=== PATIENT | female | born 1940 | race Caucasian/White ===

== ENCOUNTER 2018-04-03 14:17 | Inpatient (IN) | payer MEDICARE, OTHER ==
[~2018-04-03] VITALS: Ht 162.6 cm; Wt 51.8 kg
[~2018-04-03 14:17] MED LIST: ALPR0.254 PO; ALPR1TAB2 PO; AMIT25TA PO; ASPI-630 PO; ATOM40CA PO; ATOR10TA PO; CALC200T3 PO; CALC500T PO; CARV12.5 PO; CEFA1VIA2 IV; CEPH500C PO; CETI10TA16 PO; CHOL500016 PO; CLOM25CA2 PO; CLON0.5T3 PO; CLON1PAT2 TD; CLON1TAB3 PO; CLON2TAB2 PO; CRESTOR20 MG PO; CYAN100031 PO; DOCU-109 PO; ESOM40CA47 PO; EZET10TA18 PO; FAMO-63 PO; GUAI-171 PO; HYDR20VI5 IV; INSU100I13 SQ; INSU100V13 SQ; IPRA15SP NS; LIPA1CAP11 PO; LISI-334 PO; LISI40TA PO; LITH150C PO; LITH300C PO; LITH300T3 PO; MEGE40TA PO; MELA1TAB13 PO; METF500T5 PO; MIRT15TA PO; NEO/5DRO OU; NYST1000 PO; OLAN2.5T3 PO; OLAN5TAB5 PO; OXCA300T PO; POTA20TA12 PO; TRAM50TA PO; TRAZ-90 PO; TRAZ50TA15 PO
[2018-04-03] MEDS ORDERED: MAG HYDROX/AL HYDROX/SIMETH 30 ML ORAL.SUSP PO PRN (15:45)
[2018-04-03] MEDS ORDERED: MAGNESIUM HYDROXIDE 2,400 MG/30 ML ORAL.SUSP. PO PRN (15:45)
[2018-04-03] MEDS ORDERED: METHYL SALICYLATE/MENTHOL TOPICAL OINTMENT 29GM TUBE. TP PRN (15:45)
[2018-04-03 15:52] VITALS: BP 154/59
[2018-04-03] MEDS ORDERED: ALEN70TA5 PO (17:08)
[2018-04-03] MEDS ORDERED: METO50TA29 PO (17:08)
[2018-04-03] MEDS ORDERED: PRIM50TA PO (17:08)
[2018-04-03] MEDS ORDERED: GABA-585 PO (17:08)
[2018-04-03] MEDS ORDERED: ZOLP10TA4 PO (17:08)
[2018-04-03] MEDS ORDERED: ROPI1TAB PO (17:08)
[2018-04-03] MEDS ORDERED: ONDA4TAB7 PO (17:08)
[2018-04-03] MEDS ORDERED: METF500T5 PO (17:08)
[2018-04-03] MEDS ORDERED: CARB1TAB2 PO (17:08)
--- NOTE | 2018-04-03 17:09 | EKG ---
[address] [address] Test Date: 2018-04-03 Test Time: 17:02:31 Pat Name: MEENAKSHI PRESTON Department: Room: [facility] 1 Gender: F Hearings Reporter: : 1940 Requested By: KANWAL KNIGHT Order Number: [id number] Reading MD: Garrick Laughlin MD Measurements Intervals [place] Rate: 65 P: 90 [place]: 134 QRS: 53 QRSD: 106 T: 49 QT: 418 QTc: 435 Interpretive Statements SINUS RHYTHM Electronically Signed On 04-14-2018 11:20:56 CDT by Garrick Laughlin MD
[2018-04-03 18:06] LABS: ALBUMIN 2.8 g/dL (3.4-5.0); CALCIUM 7.9 mg/dL (8.5-10.1); CREATININE 1.1 mg/dL (0.6-1.0); GFR 48.2; POTASSIUM 4.2 mmol/L (3.5-5.1); TOTAL BILIRUBIN 0.3 mg/dL (0.2-1.0); TOTAL PROTEIN 5.6 g/dL (6.4-8.2)
[2018-04-03] MEDS: MIRTAZAPINE 15 MG TABLET PO SCH (20:57)
[2018-04-03] MEDS: traZODone 50 MG TABLET. PO SCH (20:57)
[2018-04-03 20:59] LABS: BASO % 1 % (0-3); EOS # 0.1 x10^3/uL (0.0-0.7); EOS % 2 % (0-3); HEMATOCRIT 38.5 % (36.0-47.0); HEMOGLOBIN 13.2 g/dL (12.0-15.5); LYMPH # 1.8 x10^3/uL (1.0-4.8); LYMPH % 29 % (24-48); MEAN CORPUSCULAR HEMOGLOBIN 33 pg (25-35); MEAN CORPUSCULAR HGB CONC 34 g/dL (31-37); MEAN CORPUSCULAR VOLUME 97 fL (79-100); MONO # 0.4 x10^3/uL (0.0-1.1); MONO % 7 % (0-9); NEUT # 3.7 x10^3uL (1.8-7.7); NEUT % 61 % (31-73); PLATELET COUNT 246 x10^3/uL (140-400); RED BLOOD COUNT 3.99 x10^6/uL (3.50-5.40); RED CELL DISTRIBUTION WIDTH 13.6 % (11.5-14.5); WHITE BLOOD COUNT 6.1 x10^3/uL (4.0-11.0)
[2018-04-03] MEDS: INSULIN GLARGINE 300 UNITS/3 ML INSULN.PEN. SQ SCH (21:00)
[2018-04-03] MEDS ORDERED: ONDANSETRON ODT 4 MG TAB.RAPDIS PO PRN (21:30)
[2018-04-03] MEDS: metFORMIN 500 MG TABLET PO SCH (22:00)
[2018-04-03] MEDS: ZOLPIDEM 5 MG TABLET. PO PRN (23:08)
[2018-04-04 01:12] LABS: T3 TOTAL 80 ng/dL (71-180); THYROXINE 7.5 ug/dL (4.5-12.0)
[2018-04-04 05:41] VITALS: BP 145/65
[2018-04-04] MEDS: metFORMIN 500 MG TABLET PO SCH ×2 (09:45→18:10)
[2018-04-04] MEDS: INSULIN GLARGINE 300 UNITS/3 ML INSULN.PEN. SQ SCH ×2 (09:47→20:51)
[2018-04-04] MEDS: CHOLECALCIFEROL (VITAMIN D3) 50,000 UNIT CAPSULE PO SCH (10:04)
[2018-04-04] MEDS: GABAPENTIN 100 MG CAPSULE. PO SCH ×3 (10:04→20:50)
[2018-04-04] MEDS: LISINOPRIL 20 MG TABLET PO SCH ×2 (10:04→20:49)
[2018-04-04] MEDS: METOPROLOL SUCC 24HR ER 50 MG TAB.ER.24H. PO SCH (10:04)
[2018-04-04] MEDS: CETIRIZINE HCL 10 MG TABLET PO SCH (10:04)
[2018-04-04] MEDS: rOPINIRole 1 MG TABLET. PO SCH ×3 (10:05→20:50)
[2018-04-04] MEDS: EZETIMIBE 10 MG TABLET PO SCH (10:05)
[2018-04-04] MEDS: ASPIRIN 81 MG TAB.CHEW PO SCH (10:06)
--- NOTE | 2018-04-04 13:01 | HP ---
ADMIT DATE: 04/03/2018 This note covers elements not covered in my initial note of 04/03/2018. IDENTIFYING DATA: The patient is a 78-year-old female who is referred after she was seen by me at my office earlier in the day on 04/03/2018 and presented with, "I am just not doing well at all. I am falling apart. Nothing is working out. I don't know what to do. I cannot live like this." HISTORY OF PRESENT ILLNESS: The patient has a history of bipolar disorder. She has been hospitalized here in the past, but not for about 2 years and I have followed her at the office and she has seen WATSON Orantes on outpatient psychotherapy almost on a weekly basis. Over the last several weeks, she has had increasing mood swings, irritability, marked sleep and appetite changes, racing thoughts and worsening paranoia. We had adjusted her psychotropics, but she presented at the office on 04/03/2018, extremely overwhelmed, wanting to "give up on life." She denies active suicidal ideation, but has been paranoid. No active homicidal ideation. PAST PSYCHIATRIC HISTORY: As above with marked anxiety, mood lability, paranoia, worsening at different times of the year, sometimes some psychosocial stressors, other times without any significant stressors. PAST MEDICAL HISTORY: Positive for hypertension, hyperlipidemia, diabetes mellitus, Parkinson's disease. Accu-Cheks a.c. and at bedtime. Code: she is a full code. DRUG ALLERGIES: Negative. Takes her medications whole. Ambulates with cane/walker. CURRENT PSYCHOTROPICS: Zyprexa 5 mg at bedtime, Remeron 15 mg at bedtime, trazodone 50 mg at bedtime, Klonopin 0.5 mg at bedtime, Ambien 10 mg at bedtime. FAMILY HISTORY: Positive for anxiety, depression. SOCIAL HISTORY: The patient lives at home by herself. She does not drive and takes public transportation. Her significant other lives in the home with her. No alcohol or drug abuse history. No physical, sexual or elder abuse history is noted. She is not known to be a perpetrator. MENTAL STATUS EXAMINATION: The patient was seen individually. She is oriented to herself and situation. She is extremely anxious, depressed, tearful at times with significant mood lability. Attention span short. Language function intact. Mood and affect labile. Intellect average. Insight good. Judgment intact. ASSETS: Supportive significant other living at home. REACTION TO HOSPITALIZATION: The patient is the one who initially requested it because she felt overwhelmed due to worsening mood symptoms as an outpatient. IMPRESSION: Bipolar 1 disorder, mixed with psychotic features; anxiety disorder, unspecified; impulse control disorder, unspecified. Rest unchanged from above. PLAN: Admit to geropsychiatry unit at [facility]. I will see the patient daily individually from a psychiatric standpoint, medical followup per Dr. Apodaca/Dr. Duncan. Continue current psychotropics, observe baseline, stabilize sleep and then adjust psychotropics as clinically indicated. MAN Gerhard KNIGHT MD DR: VINOD/nts JOB#: [id number] / [id number]
[2018-04-04 13:52] LABS: THYROID STIM HORMONE (TSH) 0.516 uIU/mL (0.358-3.740)
[2018-04-04 16:46] VITALS: BP 157/72
[2018-04-04 16:47] VITALS: BP 157/72
[2018-04-04] MEDS: traZODone 50 MG TABLET. PO SCH (20:49)
[2018-04-04] MEDS: ZOLPIDEM 5 MG TABLET. PO PRN (20:50)
[2018-04-04] MEDS: MIRTAZAPINE 15 MG TABLET PO SCH (20:50)
--- NOTE | 2018-04-04 20:56 | PDOC ---
Exam Note: [place] Note: Please also refer to the separate dictated note~for this date of service dictated separately.~Patient seen individually. Discussed the patient with Nursing staff reviewed the chart.~Reviewed interim history and current functioning. Reviewed vital signs,~Labs/ Radiology~and current medications noted below. Continue current treatment with the changes noted in the dictated addendum note Assessment: Vital Signs: Vital Signs Date Time Temp Pulse Resp B/P (MAP) Pulse Ox O2 Delivery O2 Flow Rate FiO2 04/04/18 20:49 63 157/72 04/04/18 16:47 97.3 16 99 04/03/18 15:52 Room Air I&O Intake and Output 04/04/18 07:00 Intake Total 840 ml Balance 840 ml Intake Oral 840 ml Labs: Laboratory Tests Test 04/04/18 08:02 04/04/18 12:08 04/04/18 17:14 Glucose (Fingerstick) 96 mg/dL (70-99) 87 mg/dL (70-99) 82 mg/dL (70-99) Current Medications: Meds: Current Medications Acetaminophen (Tylenol) 650 mg PRN Q6HRS PRN PO PAIN / TEMP; Start 04/03/18 at 15:45 Multi-Ingredient Ointment (Analgesic [place]) 1 chuy PRN QID PRN TP MUSCLE PAIN; Start 04/03/18 at 15:45 Al Hydroxide/Mg Hydroxide (Mylanta Plus Xs) 15 ml PRN AFTMEALHC PRN PO DYSPEPSIA; Start 04/03/18 at 15:45 Magnesium Hydroxide (Milk Of Magnesia) 2,400 mg PRN QHS PRN PO CONSTIPATION; Start 04/03/18 at 15:45 Aspirin (Children'S Aspirin) 81 mg DAILYWBKFT PO Last administered on at 10:06; Start 04/04/18 at 08:00 Cetirizine HCl (ZyrTEC) 10 mg DAILY PO Last administered on 04/04/18at 10:04; Start 04/04/18 at 09:00 Non-Formulary Medication (Cholecalciferol (Vitamin D3) (Vitamin D3)) 50,000 unit WEEKLY PO ; Start 04/10/18 at 09:00; Stop 04/10/18 at 09:00; Status DC EZETIMIBE (Zetia) 10 mg DAILY PO Last administered on 04/04/18 10:05; Start at 09:00 Insulin Glargine (Lantus) 10 units BID SQ Last administered on 04/04/18at 20:51 ; Start 04/03/18 at 21:00 Mirtazapine (Remeron) 15 mg QHS PO Last administered on 04/04/18at 20:50; Start 04/03/18 at 21:00 Trazodone HCl (Desyrel) 50 mg QHS PO Last administered on 04/04/18 20:49; Start 04/03/18 at 21:00 Vitamin D (Vitamin D3) 50,000 unit WEEKLY PO Last administered on 04/04/18 10: 04; Start 04/04/18 at 09:00 Carbidopa/Levodopa (Sinemet 25/100) 1 tab HS PO ; Start 04/04/18 at 21:00 Gabapentin (Neurontin) 200 mg TID PO Last administered on 04/04/18at 20:50; Start 04/04/18 at 09:00 Lisinopril (Prinivil) 40 mg BID PO Last administered on 04/04/18 20:49; Start 04/04/18 at 09:00 Olanzapine (ZyPREXA ZYDIS) 5 mg HS PO ; Start 04/04/18 at 21:00 Clonazepam (KlonoPIN) 0.5 mg QHS PO ; Start 04/04/18 at 21:00 Metformin HCl (Glucophage) 500 mg BIDWMEALS PO Last administered on 04/04/18at 18:10; Start 04/03/18 at 21:00 Metoprolol Succinate (Toprol Xl) 50 mg DAILY PO Last administered on 04/04/18at 10:04; Start 04/04/18 at 09:00 Ondansetron HCl (Zofran Odt) 4 mg PRN Q8HRS PRN PO NAUSEA/VOMITING; Start 04/03 at 21:30 Primidone (Mysoline) 50 mg QHS PO ; Start 04/04/18 at 21:00 Ropinirole HCl (Requip) 1 mg TID PO Last administered on 04/04/18at 20:50; Start 04/04/18 at 09:00 Zolpidem Tartrate (Ambien) 10 mg PRN QHS PRN PO INSOMNIA Last administered on at 20:50; Start 04/03/18 at 21:30 Carbamide Peroxide (Debrox) 5 drop BID AU ; Start 04/04/18 at 21:00 Quetiapine Fumarate (SEROquel) 12.5 mg TID@0900,1300,1700 PO ; Start 04/05/18 at 09:00 Active Scripts Active Reported Metformin Hcl 500 Mg Tablet 500 Mg PO BIDWMEALS Gabapentin 100 Mg Capsule 200 Mg PO TID Zolpidem Tartrate 10 Mg Tablet 10 Mg PO PRN QHS PRN Metoprolol Succinate ( Xl ) (Metoprolol Succinate) 50 Mg Tab.er.24h 50 Mg PO DAILY PRN Requip (Ropinirole Hcl) 1 Mg Tablet 1 Mg PO TID Sinemet 25-100 Mg Tablet (Carbidopa/Levodopa) 1 Each Tablet 1 Each PO HS Primidone 50 Mg Tablet 50 Mg PO HS Alendronate Sodium 70 Mg Tablet 70 Mg PO WEEKLY Zofran (Ondansetron Hcl) 4 Mg Tablet 4 Mg PO PRN Q8HRS PRN Clonazepam 1 Mg Tablet 0.5 Mg PO HS Lisinopril 20 Mg Tablet 40 Mg PO BID hold for BP less than 100. After a held dose, reassess in 2 ours. IF SBP is above threshold, administer dose as ordered. IF SBP is below threshold, contact provider for additional instructions. Remeron (Mirtazapine) 15 Mg Tablet 15 Mg PO QHS Trazodone Hcl 50 Mg Tablet 50 Mg PO QHS Zyprexa Zydis (Olanzapine) 5 Mg Tab.rapdis 5 Mg PO HS Cetirizine Hcl 10 Mg Tablet 10 Mg PO DAILY Aspirin 81 Mg Tab.chew 81 Mg PO DAILY Levemir (Insulin Detemir) 100 Unit/1 Ml Vial 10 Unit SQ BID Vitamin D3 (Cholecalciferol (Vitamin D3)) 5,000 Unit Tablet 50,000 Unit PO WEEKLY Zetia (Ezetimibe) 10 Mg Tablet 10 Mg PO DAILY I have reviewed the current psychotropics carefully including drug interactions. Risk benefit ratio favors no change other than as noted in my dictated progress note. Diagnosis: Problems: (1) Bipolar I disorder with jose (2) Hypertension (3) Leg swelling (4) Accelerated hypertension (5) Hip pain, right (6) Cellulitis of right lower limb (7) Accelerated essential hypertension (8) Chronic diastolic (congestive) heart failure (9) Bipolar I disorder with anxious distress (10) Bipolar I disorder with mixed features (11) Anxiety disorder (12) Impulse control disorder KANWAL KNIGHT MD April 04, 2018 20:56
[2018-04-04] MEDS: clonazePAM 0.5 MG TABLET PO SCH (20:57)
[2018-04-04] MEDS: CARBAMIDE PEROXIDE 6.5% OTIC SOLUTION 15ML BOTTLE. AU SCH (20:57)
[2018-04-04] MEDS: PRIMIDONE 50 MG TABLET PO SCH (20:57)
[2018-04-04] MEDS: CARBIDOPA/LEVODOPA 25/100MG TABLET PO SCH (20:57)
[2018-04-05 01:08] LABS: HEMOGLOBIN A1C 5.7 % (4.8-5.6)
[2018-04-05] MEDS: ACETAMINOPHEN 325 MG TABLET PO PRN ×2 (04:58→16:00)
[2018-04-05 06:15] LABS: BILIRUBIN,URINE NEG (NEG); CLARITY,URINE CLEAR; COLOR,URINE STRAW; GLUCOSE,URINE NEG (NEG)
[2018-04-05 06:16] LABS: BACTERIA,URINE FEW /HPF (0-FEW); NITRITE,URINE NEG (NEG); RBC,URINE 0 /HPF (0-2); SQUAMOUS EPITHELIAL CELL,UR OCC /LPF; UROBILINOGEN,URINE 0.2 mg/dL (0.2 mg/dL); WBC,URINE 0 /HPF (0-4)
[2018-04-05 06:26] VITALS: BP 114/79
[2018-04-05 07:49] VITALS: BP 169/76
[2018-04-05] MEDS: LORazepam 0.5 MG TABLET PO PRN (08:08)
[2018-04-05] MEDS: GABAPENTIN 100 MG CAPSULE. PO SCH ×3 (10:13→21:06)
[2018-04-05] MEDS: METOPROLOL SUCC 24HR ER 50 MG TAB.ER.24H. PO SCH (10:13)
[2018-04-05] MEDS: rOPINIRole 1 MG TABLET. PO SCH ×3 (10:13→21:05)
[2018-04-05] MEDS: metFORMIN 500 MG TABLET PO SCH ×2 (10:13→16:57)
[2018-04-05] MEDS: LISINOPRIL 20 MG TABLET PO SCH ×2 (10:13→21:05)
[2018-04-05] MEDS: CETIRIZINE HCL 10 MG TABLET PO SCH (10:14)
[2018-04-05] MEDS: ASPIRIN 81 MG TAB.CHEW PO SCH (10:14)
[2018-04-05] MEDS: EZETIMIBE 10 MG TABLET PO SCH (10:14)
[2018-04-05] MEDS: CARBAMIDE PEROXIDE 6.5% OTIC SOLUTION 15ML BOTTLE. AU SCH ×2 (10:14→21:04)
[2018-04-05] MEDS: INSULIN GLARGINE 300 UNITS/3 ML INSULN.PEN. SQ SCH ×2 (10:18→21:08)
[2018-04-05] MEDS: QUEtiapine 25 MG TABLET. PO SCH ×3 (10:19→16:57)
--- NOTE | 2018-04-05 11:34 | CONS ---
DATE OF CONSULTATION: 04/04/2018 REASON FOR CONSULTATION: Medical management. HISTORY OF PRESENT ILLNESS: The patient is a 78-year-old female patient, who was admitted from Dr. Voss's office with increased anxiety. She apparently has bipolar disorder and her mood has been labile, extremely anxious and was admitted for inpatient psychiatric stabilization. PAST MEDICAL HISTORY: Her past medical history is significant for hypertension, hyperlipidemia, type 2 diabetes, and Parkinson's disease. On questioning, the patient says she has a list of complaints including difficulty hearing, in fact she was found to have impacted bilateral impacted cerumen. She was complained of difficulty swallowing, more to solids than liquids. She also has a skin lesion on the outer aspect of the right tenriism that has been there for months for which she was advised to use hydrocortisone, but without much improvement and she has also diabetic foot ulcer on the outer aspect of the right fifth toe. ALLERGIES: She has no known drug allergies. MEDICATIONS: She is currently on following medications: She is on cetirizine 10 mg once a day, and Zetia 10 mg once a day, metoprolol succinate 50 mg once a day, lisinopril 40 mg twice a day, aspirin 81 mg once a day, barbiturate for primidone 50 mg at bedtime, benzodiazepine, clonazepam 0.5 mg at bedtime, gabapentin 200 mg 3 times a day, mirtazapine 15 mg at bedtime, trazodone 50 mg at bedtime, olanzapine 5 mg at bedtime, Ambien 10 mg at bedtime. She is on carbidopa/levodopa 25/100 one tablet at bedtime. She is on Requip 1 mg 3 times a day, ondansetron 4 mg every 8 hours, metformin 500 mg twice a day, Levemir insulin 10 units subcutaneously twice a day, and vitamin D3 50,000 units once a week. She is on alendronate sodium 70 mg once a week. FAMILY HISTORY: Noncontributory. SOCIAL HISTORY: She lives with her boyfriend. She continued to smoke a pack a day. She does not drink alcohol or use recreational drugs. REVIEW OF SYSTEMS: As per history of present illness. PHYSICAL EXAMINATION GENERAL: When I examined her today, she was resting slightly propped up, sitting on the edge of the bed comfortably, in no apparent respiratory distress. She was pale, but no jaundice, cyanosis, or thyromegaly. No jugular venous distension. No lower limb edema. VITAL SIGNS: Her heart rate was 60, blood pressure 145/65. Her temperature was 98.7, respiratory rate was 18, and oxygen saturation was 95%. HEAD, EYES, EAR, NOSE AND THROAT: Showed normocephalic, atraumatic. NECK: Supple. HEART: Showed normal first and second heart sounds with no gallop, rub or murmur. CHEST: Clear to auscultation. No crepitation or rhonchi. ABDOMEN: Distended, soft, nontender. No guarding or rigidity. No organomegaly. Hernial orifice is intact. Bowel sounds normal. NEUROLOGIC: She was very hard of hearing. Otherwise, her cranial nerves are intact. EXTREMITIES: She moves extremities without difficulty. She ambulates with a walker. SKIN: Examination of the skin showed she has a skin lesion on the right tenriism and that she has a diabetic foot ulcer on the outer aspect of the right fifth toe. She does have bilateral impacted cerumen. LABORATORY DATA: Her lab work as of yesterday showed a white cell count of 6000, hemoglobin 13, hematocrit 38, MCV 97, and platelet count 246,000. Her chemistry showed a serum sodium 138, potassium 4.2, chloride 103, bicarbonate 29, anion gap of 6, BUN 8, creatinine 1.1, estimated GFR was 48 mL per minute. Her glucose was 242, calcium was 7.9. Serum iron 59, TIBC was 251, and iron percent saturation was 94%. His total bilirubin, AST, ALT, alkaline phosphatase were normal. Her total protein was 5.6, albumin 2.8. Her triglycerides were 98%, total cholesterol was 167, and LDL cholesterol was 96, VLDL was 19, and HDL cholesterol was 52, and the ratio was 3. Her TSH, total T4, and total T3 are all within normal range. Her prothrombin time was normal. IMPRESSION AND PLAN: So, in summary, this is a 78-year-old female patient, who was admitted directly from Dr. Voss's office with increased anxiety, labile mood with a background of bipolar disorder, mixed. She has multiple medical problems including hypertension, hyperlipidemia, type 2 diabetes, and Parkinson's disease. She has also bilateral impacted cerumen, for which we will start her on Debrox. She has wounds on the outer aspect of the right fifth toe for which we need to consult the Wound Care team and she has a lesion on the right tenriism that she needs to be referred to Dr. Iesha Pickens, her dietary aide teacher, at [facility] for possible excisional biopsy. Thank you, Dr. Voss, for allowing me to participate in the care. DAMI GEE MD DR: DAVID/portia JOB#: [id number] / [id number]
[2018-04-05 16:12] VITALS: BP 151/69
[2018-04-05] MEDS: MIRTAZAPINE 15 MG TABLET PO SCH (21:04)
[2018-04-05] MEDS: clonazePAM 0.5 MG TABLET PO SCH (21:04)
[2018-04-05] MEDS: traZODone 50 MG TABLET. PO SCH (21:05)
[2018-04-05] MEDS: CARBIDOPA/LEVODOPA 25/100MG TABLET PO SCH (21:05)
[2018-04-05] MEDS: PRIMIDONE 50 MG TABLET PO SCH (21:06)
--- NOTE | 2018-04-05 23:01 | PDOC ---
Exam Note: [place] Note: Please also refer to the separate dictated note~for this date of service dictated separately.~Patient seen individually. Discussed the patient with Nursing staff reviewed the chart.~Reviewed interim history and current functioning. Reviewed vital signs,~Labs/ Radiology~and current medications noted below. Continue current treatment with the changes noted in the dictated addendum note Assessment: Vital Signs: Vital Signs Date Time Temp Pulse Resp B/P (MAP) Pulse Ox O2 Delivery O2 Flow Rate FiO2 04/05/18 21:05 89 151/69 04/05/18 16:12 97.7 16 98 04/05/18 07:49 Room Air I&O Intake and Output 04/05/18 07:00 Intake Total 1320 ml Balance 1320 ml Intake Oral 1320 ml Labs: Laboratory Tests Test 04/05/18 05:00 04/05/18 07:28 04/05/18 07:33 04/05/18 11:50 Urine Collection Type Void Urine Color Straw Urine Clarity Clear Urine pH 7.0 Urine Specific [place] <=1.005 Urine Protein Neg (NEG-TRACE) Urine Glucose (UA) Neg mg/dL (NEG) Urine Ketones (Stick) Neg mg/dL (NEG) Urine Blood Neg (NEG) Urine Nitrite Neg (NEG) Urine Bilirubin Neg (NEG) Urine Urobilinogen Dipstick 0.2 mg/dL (0.2 mg/dL) Urine Leukocyte Esterase Neg (NEG) Urine RBC 0 /HPF (0-2) Urine WBC 0 /HPF (0-4) Urine Squamous Epithelial Cells Occ /LPF Urine Bacteria Few /HPF (0-FEW) Glucose (Fingerstick) 44 mg/dL (70-99) L 49 mg/dL (70-99) L 185 mg/dL (70-99) H Test 04/05/18 17:01 04/05/18 17:57 04/05/18 19:24 Glucose (Fingerstick) 62 mg/dL (70-99) L 117 mg/dL (70-99) H 107 mg/dL (70-99) H Current Medications: Meds: Current Medications Acetaminophen (Tylenol) 650 mg PRN Q6HRS PRN PO PAIN / TEMP Last administered on 04/05/18at 16:00; Start 04/03/18 at 15:45 Multi-Ingredient Ointment (Analgesic [place]) 1 chuy PRN QID PRN TP MUSCLE PAIN; Start 04/03/18 at 15:45 Al Hydroxide/Mg Hydroxide (Mylanta Plus Xs) 15 ml PRN AFTMEALHC PRN PO DYSPEPSIA; Start 04/03/18 at 15:45 Magnesium Hydroxide (Milk Of Magnesia) 2,400 mg PRN QHS PRN PO CONSTIPATION; Start 04/03/18 at 15:45 Aspirin (Children'S Aspirin) 81 mg DAILYWBKFT PO Last administered on at 10:14; Start 04/04/18 at 08:00 Cetirizine HCl (ZyrTEC) 10 mg DAILY PO Last administered on 04/05/18 10:14; Start 04/04/18 at 09:00 Non-Formulary Medication (Cholecalciferol (Vitamin D3) (Vitamin D3)) 50,000 unit WEEKLY PO ; Start 04/10/18 at 09:00; Stop 04/10/18 at 09:00; Status DC EZETIMIBE (Zetia) 10 mg DAILY PO Last administered on 04/05/18at 10:14; Start at 09:00 Insulin Glargine (Lantus) 10 units BID SQ Last administered on 04/05/18 21:08 ; Start 04/03/18 at 21:00 Mirtazapine (Remeron) 15 mg QHS PO Last administered on 04/05/18at 21:04; Start 04/03/18 at 21:00 Trazodone HCl (Desyrel) 50 mg QHS PO Last administered on 04/05/18at 21:05; Start 04/03/18 at 21:00 Vitamin D (Vitamin D3) 50,000 unit WEEKLY PO Last administered on 04/04/18at 10: 04; Start 04/04/18 at 09:00 Carbidopa/Levodopa (Sinemet 25/100) 1 tab HS PO Last administered on 04/05/18 21:05; Start 04/04/18 at 21:00 Gabapentin (Neurontin) 200 mg TID PO Last administered on 04/05/18 21:06; Start 04/04/18 at 09:00 Lisinopril (Prinivil) 40 mg BID PO Last administered on 04/05/18at 21:05; Start 04/04/18 at 09:00 Olanzapine (ZyPREXA ZYDIS) 5 mg HS PO Last administered on 04/05/18 21:05; Start 04/04/18 at 21:00 Clonazepam (KlonoPIN) 0.5 mg QHS PO Last administered on 04/05/18 21:04; Start 04/04/18 at 21:00 Metformin HCl (Glucophage) 500 mg BIDWMEALS PO Last administered on 04/05/18 16:57; Start 04/03/18 at 21:00 Metoprolol Succinate (Toprol Xl) 50 mg DAILY PO Last administered on 04/05/18 10:13; Start 04/04/18 at 09:00 Ondansetron HCl (Zofran Odt) 4 mg PRN Q8HRS PRN PO NAUSEA/VOMITING; Start 04/03 at 21:30 Primidone (Mysoline) 50 mg QHS PO Last administered on 04/05/18 21:06; Start 04/04/18 at 21:00 Ropinirole HCl (Requip) 1 mg TID PO Last administered on 04/05/18 21:05; Start 04/04/18 at 09:00 Zolpidem Tartrate (Ambien) 10 mg PRN QHS PRN PO INSOMNIA Last administered on at 20:50; Start 04/03/18 at 21:30 Carbamide Peroxide (Debrox) 5 drop BID AU Last administered on 04/05/18 21:04 ; Start 04/04/18 at 21:00 Quetiapine Fumarate (SEROquel) 12.5 mg TID@0900,1300,1700 PO Last administered on 04/05/18 16:57; Start 04/05/18 at 09:00 Lorazepam (Ativan) 0.5 mg PRN Q2HR PRN PO ANXIETY / AGITATION Last administered on 04/05/18at 08:08; Start 04/05/18 at 07:30 Divalproex Sodium (Depakote Sprinkles) 125 mg TID@0900,1300,1700 PO ; Start at 09:00 Active Scripts Active Reported Metformin Hcl 500 Mg Tablet 500 Mg PO BIDWMEALS Gabapentin 100 Mg Capsule 200 Mg PO TID Zolpidem Tartrate 10 Mg Tablet 10 Mg PO PRN QHS PRN Metoprolol Succinate ( Xl ) (Metoprolol Succinate) 50 Mg Tab.er.24h 50 Mg PO DAILY PRN Requip (Ropinirole Hcl) 1 Mg Tablet 1 Mg PO TID Sinemet 25-100 Mg Tablet (Carbidopa/Levodopa) 1 Each Tablet 1 Each PO HS Primidone 50 Mg Tablet 50 Mg PO HS Alendronate Sodium 70 Mg Tablet 70 Mg PO WEEKLY Zofran (Ondansetron Hcl) 4 Mg Tablet 4 Mg PO PRN Q8HRS PRN Clonazepam 1 Mg Tablet 0.5 Mg PO HS Lisinopril 20 Mg Tablet 40 Mg PO BID hold for BP less than 100. After a held dose, reassess in 2 ours. IF SBP is above threshold, administer dose as ordered. IF SBP is below threshold, contact provider for additional instructions. Remeron (Mirtazapine) 15 Mg Tablet 15 Mg PO QHS Trazodone Hcl 50 Mg Tablet 50 Mg PO QHS Zyprexa Zydis (Olanzapine) 5 Mg Tab.rapdis 5 Mg PO HS Cetirizine Hcl 10 Mg Tablet 10 Mg PO DAILY Aspirin 81 Mg Tab.chew 81 Mg PO DAILY Levemir (Insulin Detemir) 100 Unit/1 Ml Vial 10 Unit SQ BID Vitamin D3 (Cholecalciferol (Vitamin D3)) 5,000 Unit Tablet 50,000 Unit PO WEEKLY Zetia (Ezetimibe) 10 Mg Tablet 10 Mg PO DAILY I have reviewed the current psychotropics carefully including drug interactions. Risk benefit ratio favors no change other than as noted in my dictated progress note. Diagnosis: Problems: (1) Bipolar I disorder with anxious distress (2) Bipolar I disorder with mixed features (3) Anxiety disorder (4) Impulse control disorder (5) Bipolar I disorder with jose KANWAL KNIGHT MD April 05, 2018 23:01
[2018-04-06] MEDS: LORazepam 0.5 MG TABLET PO PRN ×2 (03:19→06:22)
[2018-04-06 05:16] VITALS: BP 154/73
[2018-04-06] MEDS: INSULIN GLARGINE 300 UNITS/3 ML INSULN.PEN. SQ SCH (10:00)
[2018-04-06] MEDS: CARBAMIDE PEROXIDE 6.5% OTIC SOLUTION 15ML BOTTLE. AU SCH ×2 (10:00→20:23)
[2018-04-06] MEDS: EZETIMIBE 10 MG TABLET PO SCH (10:30)
[2018-04-06] MEDS: QUEtiapine 25 MG TABLET. PO SCH ×3 (10:30→18:40)
[2018-04-06] MEDS: metFORMIN 500 MG TABLET PO SCH ×2 (10:31→18:40)
[2018-04-06] MEDS: ASPIRIN 81 MG TAB.CHEW PO SCH (10:31)
[2018-04-06] MEDS: GABAPENTIN 100 MG CAPSULE. PO SCH ×3 (10:31→20:25)
[2018-04-06] MEDS: rOPINIRole 1 MG TABLET. PO SCH ×3 (10:31→20:24)
[2018-04-06] MEDS: LISINOPRIL 20 MG TABLET PO SCH ×2 (10:31→20:24)
[2018-04-06] MEDS: METOPROLOL SUCC 24HR ER 50 MG TAB.ER.24H. PO SCH (10:32)
[2018-04-06] MEDS: CETIRIZINE HCL 10 MG TABLET PO SCH (10:32)
[2018-04-06] MEDS: DIVALPROEX 125 MG CAP.SPRINK PO SCH ×3 (10:33→18:40)
[2018-04-06 16:54] VITALS: BP 141/70
[2018-04-06] MEDS: QUEtiapine 50 MG TABLET. PO SCH (18:00)
[2018-04-06] MEDS: MIRTAZAPINE 15 MG TABLET PO SCH (20:23)
[2018-04-06] MEDS: CARBIDOPA/LEVODOPA 25/100MG TABLET PO SCH (20:23)
[2018-04-06] MEDS: traZODone 50 MG TABLET. PO SCH (20:24)
[2018-04-06] MEDS: PRIMIDONE 50 MG TABLET PO SCH (20:27)
[2018-04-06] MEDS: clonazePAM 0.5 MG TABLET PO SCH (20:27)
--- NOTE | 2018-04-06 20:59 | PDOC ---
Exam Note: [place] Note: Please also refer to the separate dictated note~for this date of service dictated separately.~Patient seen individually. Discussed the patient with Nursing staff reviewed the chart.~Reviewed interim history and current functioning. Reviewed vital signs,~Labs/ Radiology~and current medications noted below. Continue current treatment with the changes noted in the dictated addendum note Assessment: Vital Signs: Vital Signs Date Time Temp Pulse Resp B/P (MAP) Pulse Ox O2 Delivery O2 Flow Rate FiO2 04/06/18 20:24 59 141/70 04/06/18 16:54 97.8 16 98 04/05/18 07:49 Room Air I&O Intake and Output 04/06/18 07:00 Intake Total 780 ml Balance 780 ml Intake Oral 780 ml # Bowel Movements 1 Labs: Laboratory Tests Test 04/06/18 02:04 04/06/18 02:31 04/06/18 04:12 04/06/18 07:49 Glucose (Fingerstick) 30 mg/dL (70-99) *L 55 mg/dL (70-99) L 56 mg/dL (70-99) L 56 mg/dL (70-99) L Test 04/06/18 11:21 04/06/18 16:32 04/06/18 19:29 Glucose (Fingerstick) 100 mg/dL (70-99) H 57 mg/dL (70-99) L 126 mg/dL (70-99) H Current Medications: Meds: Current Medications Acetaminophen (Tylenol) 650 mg PRN Q6HRS PRN PO PAIN / TEMP Last administered on 04/05/18at 16:00; Start 04/03/18 at 15:45 Multi-Ingredient Ointment (Analgesic [place]) 1 chuy PRN QID PRN TP MUSCLE PAIN; Start 04/03/18 at 15:45 Al Hydroxide/Mg Hydroxide (Mylanta Plus Xs) 15 ml PRN AFTMEALHC PRN PO DYSPEPSIA; Start 04/03/18 at 15:45 Magnesium Hydroxide (Milk Of Magnesia) 2,400 mg PRN QHS PRN PO CONSTIPATION; Start 04/03/18 at 15:45 Aspirin (Children'S Aspirin) 81 mg DAILYWBKFT PO Last administered on at 10:31; Start 04/04/18 at 08:00 Cetirizine HCl (ZyrTEC) 10 mg DAILY PO Last administered on 04/06/18 10:32; Start 04/04/18 at 09:00 Non-Formulary Medication (Cholecalciferol (Vitamin D3) (Vitamin D3)) 50,000 unit WEEKLY PO ; Start 04/10/18 at 09:00; Stop 04/10/18 at 09:00; Status DC EZETIMIBE (Zetia) 10 mg DAILY PO Last administered on 04/06/18 10:30; Start at 09:00 Insulin Glargine (Lantus) 10 units BID SQ Last administered on 04/06/18 10:00 ; Start 04/03/18 at 21:00; Stop 04/06/18 at 16:41; Status DC Mirtazapine (Remeron) 15 mg QHS PO Last administered on 04/06/18 20:23; Start 04/03/18 at 21:00 Trazodone HCl (Desyrel) 50 mg QHS PO Last administered on 04/06/18 20:24; Start 04/03/18 at 21:00 Vitamin D (Vitamin D3) 50,000 unit WEEKLY PO Last administered on 04/04/18 10: 04; Start 04/04/18 at 09:00 Carbidopa/Levodopa (Sinemet 25/100) 1 tab HS PO Last administered on 04/06/18 20:23; Start 04/04/18 at 21:00 Gabapentin (Neurontin) 200 mg TID PO Last administered on 04/06/18 20:25; Start 04/04/18 at 09:00 Lisinopril (Prinivil) 40 mg BID PO Last administered on 04/06/18 20:24; Start 04/04/18 at 09:00 Olanzapine (ZyPREXA ZYDIS) 5 mg HS PO Last administered on 04/06/18 20:25; Start 04/04/18 at 21:00 Clonazepam (KlonoPIN) 0.5 mg QHS PO Last administered on 04/06/18 20:27; Start 04/04/18 at 21:00 Metformin HCl (Glucophage) 500 mg BIDWMEALS PO Last administered on 04/06/18 18:40; Start 04/03/18 at 21:00 Metoprolol Succinate (Toprol Xl) 50 mg DAILY PO Last administered on 04/06/18 10:32; Start 04/04/18 at 09:00 Ondansetron HCl (Zofran Odt) 4 mg PRN Q8HRS PRN PO NAUSEA/VOMITING; Start 04/03 at 21:30 Primidone (Mysoline) 50 mg QHS PO Last administered on 04/06/18 20:27; Start 04/04/18 at 21:00 Ropinirole HCl (Requip) 1 mg TID PO Last administered on 04/06/18 20:24; Start 04/04/18 at 09:00 Zolpidem Tartrate (Ambien) 10 mg PRN QHS PRN PO INSOMNIA Last administered on 20:50; Start 04/03/18 at 21:30 Carbamide Peroxide (Debrox) 5 drop BID AU Last administered on 04/06/18 20:23 ; Start 04/04/18 at 21:00 Quetiapine Fumarate (SEROquel) 12.5 mg TID@0900,1300,1700 PO Last administered on 04/06/18 18:40; Start 04/05/18 at 09:00 Lorazepam (Ativan) 0.5 mg PRN Q2HR PRN PO ANXIETY / AGITATION Last administered on 04/06/18 06:22; Start 04/05/18 at 07:30 Divalproex Sodium (Depakote Sprinkles) 125 mg TID@0900,1300,1700 PO Last administered on 04/06/18 18:40; Start 04/06/18 at 09:00 Insulin Glargine (Lantus) 10 units DAILYWBKFT SQ ; Start 04/07/18 at 08:00 Quetiapine Fumarate (SEROquel) 12.5 mg TID@0900,1300,1700 PO ; Start 04/06/18 at 18:00; Stop 04/07/18 at 09:01 Active Scripts Active Reported Metformin Hcl 500 Mg Tablet 500 Mg PO BIDWMEALS Gabapentin 100 Mg Capsule 200 Mg PO TID Zolpidem Tartrate 10 Mg Tablet 10 Mg PO PRN QHS PRN Metoprolol Succinate ( Xl ) (Metoprolol Succinate) 50 Mg Tab.er.24h 50 Mg PO DAILY PRN Requip (Ropinirole Hcl) 1 Mg Tablet 1 Mg PO TID Sinemet 25-100 Mg Tablet (Carbidopa/Levodopa) 1 Each Tablet 1 Each PO HS Primidone 50 Mg Tablet 50 Mg PO HS Alendronate Sodium 70 Mg Tablet 70 Mg PO WEEKLY Zofran (Ondansetron Hcl) 4 Mg Tablet 4 Mg PO PRN Q8HRS PRN Clonazepam 1 Mg Tablet 0.5 Mg PO HS Lisinopril 20 Mg Tablet 40 Mg PO BID hold for BP less than 100. After a held dose, reassess in 2 ours. IF SBP is above threshold, administer dose as ordered. IF SBP is below threshold, contact provider for additional instructions. Remeron (Mirtazapine) 15 Mg Tablet 15 Mg PO QHS Trazodone Hcl 50 Mg Tablet 50 Mg PO QHS Zyprexa Zydis (Olanzapine) 5 Mg Tab.rapdis 5 Mg PO HS Cetirizine Hcl 10 Mg Tablet 10 Mg PO DAILY Aspirin 81 Mg Tab.chew 81 Mg PO DAILY Levemir (Insulin Detemir) 100 Unit/1 Ml Vial 10 Unit SQ BID Vitamin D3 (Cholecalciferol (Vitamin D3)) 5,000 Unit Tablet 50,000 Unit PO WEEKLY Zetia (Ezetimibe) 10 Mg Tablet 10 Mg PO DAILY I have reviewed the current psychotropics carefully including drug interactions. Risk benefit ratio favors no change other than as noted in my dictated progress note. Diagnosis: Problems: (1) Bipolar I disorder with jose (2) Hypertension (3) Leg swelling (4) Accelerated hypertension (5) Hip pain, right (6) Cellulitis of right lower limb (7) Accelerated essential hypertension (8) Chronic diastolic (congestive) heart failure (9) Bipolar I disorder with anxious distress (10) Bipolar I disorder with mixed features (11) Anxiety disorder (12) Impulse control disorder KANWAL KNIGHT MD April 06, 2018 20:59
--- NOTE | 2018-04-06 21:19 | HP ---
ADMIT DATE: 04/04/2018 This is a late entry, 04/04/2018, covers the elements not covered in my initial note, 04/04/2018. SUBJECTIVE: I met with the patient evening of 04/04/2018, for this evaluation. IDENTIFYING DATA: The patient is a 78-year-old female with a diagnosis of bipolar disorder, who has been followed by me as an outpatient and I last saw her at the office on 04/03/2018, has an emergency visit on account of worsening mood swings, feeling overwhelmed, being paranoid, psychotic, marked increase in anxiety, sleep and appetite changes, and failure of outpatient psychiatric interventions, both with myself and WATSON Orantes, who she has been seeing on a weekly basis. The patient has been extremely obsessive, unable to function since she lives alone by herself. CHIEF COMPLAINT: "I can't go on like this." HISTORY OF PRESENT ILLNESS: The patient has a long history of bipolar disorder/anxiety disorder. During periods of time when she is manic, she wears bright lipsticks, and otherwise is extremely hyperverbal with sleep and appetite changes, alternating with periods of depression, feeling hopeless, helpless, and worthless. She has been suicidal in the past. For the last 2 to 3 weeks, she has been getting progressively worse with mixed symptoms of bipolar disorder, worsening paranoia, significant increase in anxiety. I had made adjustments in her psychotropics as an outpatient and she has failed all of this. PAST PSYCHIATRIC HISTORY: As above. MEDICAL HISTORY: Positive for diabetes mellitus, Parkinson's disease, hypertension, hyperlipidemia. Accu-Cheks before meals and at bedtime. ALLERGIES: Negative. CODE STATUS: She is a full code. DIET: Mechanical soft thin liquids per the patient's request. Takes her medications whole. Ambulates with walker/cane. CURRENT PSYCHOTROPICS: Zyprexa 5 mg at bedtime, trazodone 50 mg at bedtime, Remeron 15 mg at bedtime, Klonopin 0.5 mg at bedtime, and Ambien 10 mg at bedtime. FAMILY HISTORY: Noncontributory. SOCIAL HISTORY: The patient lives alone by herself and she does have a significant other who lives with her. No alcohol or drug abuse, physical, sexual or elder abuse history is noted. She is not known to be a perpetrator. Reaction to hospitalization, the patient accepting of this very willingly and in fact was requesting hospitalization when I saw her at the office on 04/03/2018, for this evaluation and for the outpatient visit. ASSETS: Cognitively and reasonably intact. MENTAL STATUS EXAM: The patient was seen individually evening of 04/04/2018. She is reasonably oriented. Speech coherent, rapid at times. Abstraction fair, computation impaired, language function intact, attention span short. Mood and affect labile, anxious, distractable. No active suicidal or homicidal ideation. She is quite paranoid. LABORATORY DATA: Reviewed. IMPRESSION: Bipolar 1 disorder, mixed with psychotic features; anxiety disorder, unspecified; impulse control disorder, unspecified. Rest unchanged from above. PLAN: Admit to geropsychiatry unit at [facility]. I will see the patient daily individually from a psychiatric standpoint. Consider starting mood stabilizers, medical followup per Dr. Apodaca/Dr. Duncan. May consider Depakote as a mood stabilizer, but initially start Seroquel 12.5 mg 3 times a day. She is extremely obsessive, fixated, and obsessed about too much saliva in her mouth. We will check a swallow study and a gastroenterology referral may be needed. KANWAL KNIGHT MD DR: VINOD/portia JOB#: [id number] / [id number]
--- NOTE | 2018-04-06 23:56 | PN ---
DATE: 04/05/2018 This is a late entry, 04/05/2018, cover the elements not covered in my initial note, 04/05/2018. SUBJECTIVE: I met with the patient in the evening. The patient slept 6-3/4 hours previous evening, somatic, very obsessive, fixated on wanting her laundry completed at home and then be brought in. Continues to be extremely anxious, labile, hyperverbal as I met with her. REVIEW OF SYSTEMS: Ambulation impaired with a walker. No CV, , pulmonary, eye, ENT system symptoms on review. MENTAL STATUS EXAM: Oriented to herself and situation. Speech coherent, rapid at times. Abstraction fair, computation impaired, language function intact, attention span short. Mood and affect remain somewhat labile. LABORATORY DATA: Reviewed. IMPRESSION: Bipolar 1 disorder, mixed with psychotic features; anxiety disorder, unspecified; impulse control disorder, unspecified. PLAN: Continue psychotropics as mentioned in my initial note including Zyprexa, Seroquel, trazodone, Remeron, Klonopin, Ambien along with Ativan p.r.n. Start Depakote 125 mg 3 times a day as a mood stabilizer. Follow CBC, CMP, valproic acid level in 3 days. Adjust to reach a therapeutic level. The patient states she had difficulty tolerating lithium in the past. MAN Gerhard KNIGHT MD DR: VINOD/portia JOB#: [id number] / [id number]
--- NOTE | 2018-04-07 | PN ---
DATE: 04/06/2018 PSYCHIATRIC PROGRESS NOTE This is a late entry for 04/06/2018, covers elements not covered in my initial note of 04/06/2018. SUBJECTIVE: I met with the patient in the evening. The patient's blood sugar was low at 30. Lantus has been reduced by Dr. Duncan. Her significant other Esau, did her laundry, brought it in. Some friends visited her on Mother's Day today. She is quite pleased with this. She continues to have racing thoughts, extremely anxious, obsessive. REVIEW OF SYSTEMS: No CV, , pulmonary, eye system symptoms on review. Gait unsteady with walker. MENTAL STATUS EXAMINATION: Oriented to herself and situation. Speech coherent, rapid at times. Abstraction fair, computation impaired, language function intact. Mood and affect remain somewhat labile. LABORATORY DATA: Reviewed. IMPRESSION: Bipolar 1 disorder, mixed with psychotic features; anxiety disorder, unspecified; impulse control disorder, unspecified. PLAN: Continue current psychotropics. Check labs level on the valproic acid, adjust to reach therapeutic level. MAN Gerhard KNIGHT MD DR: VINOD/portia JOB#: [id number] / [id number]
[2018-04-07 06:00] VITALS: BP 139/55
[2018-04-07] MEDS: CARBAMIDE PEROXIDE 6.5% OTIC SOLUTION 15ML BOTTLE. AU SCH ×2 (09:00→21:00)
[2018-04-07] MEDS: QUEtiapine 25 MG TABLET. PO SCH ×3 (09:00→17:01)
[2018-04-07] MEDS: INSULIN GLARGINE 300 UNITS/3 ML INSULN.PEN. SQ SCH (10:14)
[2018-04-07] MEDS: CETIRIZINE HCL 10 MG TABLET PO SCH (10:15)
[2018-04-07] MEDS: ASPIRIN 81 MG TAB.CHEW PO SCH (10:16)
[2018-04-07] MEDS: GABAPENTIN 100 MG CAPSULE. PO SCH ×3 (10:16→19:14)
[2018-04-07] MEDS: LISINOPRIL 20 MG TABLET PO SCH ×2 (10:16→19:16)
[2018-04-07] MEDS: METOPROLOL SUCC 24HR ER 50 MG TAB.ER.24H. PO SCH (10:16)
[2018-04-07] MEDS: QUEtiapine 50 MG TABLET. PO SCH (10:17)
[2018-04-07] MEDS: rOPINIRole 1 MG TABLET. PO SCH ×3 (10:17→19:14)
[2018-04-07] MEDS: EZETIMIBE 10 MG TABLET PO SCH (10:17)
[2018-04-07] MEDS: metFORMIN 500 MG TABLET PO SCH ×2 (10:17→17:00)
[2018-04-07] MEDS: DIVALPROEX 125 MG CAP.SPRINK PO SCH ×3 (10:17→17:00)
[2018-04-07 15:57] VITALS: BP 174/73
[2018-04-07] MEDS: LORazepam 0.5 MG TABLET PO PRN (16:58)
[2018-04-07] MEDS: CARBIDOPA/LEVODOPA 25/100MG TABLET PO SCH (19:16)
[2018-04-07] MEDS: PRIMIDONE 50 MG TABLET PO SCH (19:16)
[2018-04-07] MEDS: MIRTAZAPINE 15 MG TABLET PO SCH (19:17)
[2018-04-07] MEDS: clonazePAM 0.5 MG TABLET PO SCH (19:20)
[2018-04-07] MEDS: traZODone 100 MG TABLET. PO SCH (19:37)
--- NOTE | 2018-04-07 20:58 | PDOC ---
Exam Note: [place] Note: Please also refer to the separate dictated note~for this date of service dictated separately.~Patient seen individually. Discussed the patient with Nursing staff reviewed the chart.~Reviewed interim history and current functioning. Reviewed vital signs,~Labs/ Radiology~and current medications noted below. Continue current treatment with the changes noted in the dictated addendum note Assessment: Vital Signs: Vital Signs Date Time Temp Pulse Resp B/P (MAP) Pulse Ox O2 Delivery O2 Flow Rate FiO2 04/07/18 19:16 74 174/73 04/07/18 15:57 97.5 18 98 04/05/18 07:49 Room Air I&O Intake and Output 04/07/18 07:00 Intake Total 1325 ml Balance 1325 ml Intake Oral 1325 ml Labs: Laboratory Tests Test 04/07/18 05:54 04/07/18 07:19 04/07/18 11:09 04/07/18 16:43 Glucose (Fingerstick) 80 mg/dL (70-99) 161 mg/dL (70-99) H 152 mg/dL (70-99) H 74 mg/dL (70-99) Test 04/07/18 19:18 Glucose (Fingerstick) 166 mg/dL (70-99) H Current Medications: Meds: Current Medications Acetaminophen (Tylenol) 650 mg PRN Q6HRS PRN PO PAIN / TEMP Last administered on 04/05/18at 16:00; Start 04/03/18 at 15:45 Multi-Ingredient Ointment (Analgesic [place]) 1 chuy PRN QID PRN TP MUSCLE PAIN; Start 04/03/18 at 15:45 Al Hydroxide/Mg Hydroxide (Mylanta Plus Xs) 15 ml PRN AFTMEALHC PRN PO DYSPEPSIA; Start 04/03/18 at 15:45 Magnesium Hydroxide (Milk Of Magnesia) 2,400 mg PRN QHS PRN PO CONSTIPATION; Start 04/03/18 at 15:45 Aspirin (Children'S Aspirin) 81 mg DAILYWBKFT PO Last administered on at 10:16; Start 04/04/18 at 08:00 Cetirizine HCl (ZyrTEC) 10 mg DAILY PO Last administered on 04/07/18at 10:15; Start 04/04/18 at 09:00 Non-Formulary Medication (Cholecalciferol (Vitamin D3) (Vitamin D3)) 50,000 unit WEEKLY PO ; Start 04/10/18 at 09:00; Stop 04/10/18 at 09:00; Status DC EZETIMIBE (Zetia) 10 mg DAILY PO Last administered on 04/07/18 10:17; Start at 09:00 Insulin Glargine (Lantus) 10 units BID SQ Last administered on 04/06/18 10:00 ; Start 04/03/18 at 21:00; Stop 04/06/18 at 16:41; Status DC Mirtazapine (Remeron) 15 mg QHS PO Last administered on 04/07/18 19:17; Start 04/03/18 at 21:00 Trazodone HCl (Desyrel) 50 mg QHS PO Last administered on 04/06/18 20:24; Start 04/03/18 at 21:00; Stop 04/07/18 at 19:11; Status DC Vitamin D (Vitamin D3) 50,000 unit WEEKLY PO Last administered on 04/04/18at 10: 04; Start 04/04/18 at 09:00 Carbidopa/Levodopa (Sinemet 25/100) 1 tab HS PO Last administered on 04/07/18 19:16; Start 04/04/18 at 21:00 Gabapentin (Neurontin) 200 mg TID PO Last administered on 04/07/18 19:14; Start 04/04/18 at 09:00 Lisinopril (Prinivil) 40 mg BID PO Last administered on 04/07/18 19:16; Start 04/04/18 at 09:00 Olanzapine (ZyPREXA ZYDIS) 5 mg HS PO Last administered on 04/07/18 19:16; Start 04/04/18 at 21:00 Clonazepam (KlonoPIN) 0.5 mg QHS PO Last administered on 04/07/18 19:20; Start 04/04/18 at 21:00 Metformin HCl (Glucophage) 500 mg BIDWMEALS PO Last administered on 04/07/18 17:00; Start 04/03/18 at 21:00 Metoprolol Succinate (Toprol Xl) 50 mg DAILY PO Last administered on 04/07/18 10:16; Start 04/04/18 at 09:00 Ondansetron HCl (Zofran Odt) 4 mg PRN Q8HRS PRN PO NAUSEA/VOMITING; Start 04/03 at 21:30 Primidone (Mysoline) 50 mg QHS PO Last administered on 04/07/18 19:16; Start 04/04/18 at 21:00 Ropinirole HCl (Requip) 1 mg TID PO Last administered on 04/07/18 19:14; Start 04/04/18 at 09:00 Zolpidem Tartrate (Ambien) 10 mg PRN QHS PRN PO INSOMNIA Last administered on at 20:50; Start 04/03/18 at 21:30 Carbamide Peroxide (Debrox) 5 drop BID AU Last administered on 04/07/18 09:00 ; Start 04/04/18 at 21:00 Quetiapine Fumarate (SEROquel) 12.5 mg TID@0900,1300,1700 PO Last administered on 04/07/18 17:01; Start 04/05/18 at 09:00 Lorazepam (Ativan) 0.5 mg PRN Q2HR PRN PO ANXIETY / AGITATION Last administered on 04/07/18at 16:58; Start 04/05/18 at 07:30 Divalproex Sodium (Depakote Sprinkles) 125 mg TID@0900,1300,1700 PO Last administered on 04/07/18 17:00; Start 04/06/18 at 09:00 Insulin Glargine (Lantus) 10 units DAILYWBKFT SQ Last administered on 10:14; Start 04/07/18 at 08:00 Quetiapine Fumarate (SEROquel) 12.5 mg TID@0900,1300,1700 PO Last administered on 04/07/18 10:17; Start 04/06/18 at 18:00; Stop 04/07/18 at 09:01; Status DC Trazodone HCl (Desyrel) 100 mg QHS PO Last administered on 04/07/18at 19:37; Start 04/07/18 at 21:00 Active Scripts Active Reported Metformin Hcl 500 Mg Tablet 500 Mg PO BIDWMEALS Gabapentin 100 Mg Capsule 200 Mg PO TID Zolpidem Tartrate 10 Mg Tablet 10 Mg PO PRN QHS PRN Metoprolol Succinate ( Xl ) (Metoprolol Succinate) 50 Mg Tab.er.24h 50 Mg PO DAILY PRN Requip (Ropinirole Hcl) 1 Mg Tablet 1 Mg PO TID Sinemet 25-100 Mg Tablet (Carbidopa/Levodopa) 1 Each Tablet 1 Each PO HS Primidone 50 Mg Tablet 50 Mg PO HS Alendronate Sodium 70 Mg Tablet 70 Mg PO WEEKLY Zofran (Ondansetron Hcl) 4 Mg Tablet 4 Mg PO PRN Q8HRS PRN Clonazepam 1 Mg Tablet 0.5 Mg PO HS Lisinopril 20 Mg Tablet 40 Mg PO BID hold for BP less than 100. After a held dose, reassess in 2 ours. IF SBP is above threshold, administer dose as ordered. IF SBP is below threshold, contact provider for additional instructions. Remeron (Mirtazapine) 15 Mg Tablet 15 Mg PO QHS Trazodone Hcl 50 Mg Tablet 50 Mg PO QHS Zyprexa Zydis (Olanzapine) 5 Mg Tab.rapdis 5 Mg PO HS Cetirizine Hcl 10 Mg Tablet 10 Mg PO DAILY Aspirin 81 Mg Tab.chew 81 Mg PO DAILY Levemir (Insulin Detemir) 100 Unit/1 Ml Vial 10 Unit SQ BID Vitamin D3 (Cholecalciferol (Vitamin D3)) 5,000 Unit Tablet 50,000 Unit PO WEEKLY Zetia (Ezetimibe) 10 Mg Tablet 10 Mg PO DAILY I have reviewed the current psychotropics carefully including drug interactions. Risk benefit ratio favors no change other than as noted in my dictated progress note. Diagnosis: Problems: (1) Bipolar I disorder with jose (2) Hypertension (3) Leg swelling (4) Accelerated hypertension (5) Hip pain, right (6) Cellulitis of right lower limb (7) Accelerated essential hypertension (8) Chronic diastolic (congestive) heart failure (9) Bipolar I disorder with anxious distress (10) Bipolar I disorder with mixed features (11) Anxiety disorder (12) Impulse control disorder KANWAL KNIGHT MD April 07, 2018 20:58
[2018-04-08] MEDS: LORazepam 0.5 MG TABLET PO PRN (02:51)
[2018-04-08 06:31] VITALS: BP 134/72
[2018-04-08] MEDS: rOPINIRole 1 MG TABLET. PO SCH ×3 (09:36→19:47)
[2018-04-08] MEDS: GABAPENTIN 100 MG CAPSULE. PO SCH ×3 (09:36→19:47)
[2018-04-08] MEDS: EZETIMIBE 10 MG TABLET PO SCH (09:37)
[2018-04-08] MEDS: QUEtiapine 25 MG TABLET. PO SCH ×3 (09:37→17:33)
[2018-04-08] MEDS: ASPIRIN 81 MG TAB.CHEW PO SCH (09:38)
[2018-04-08] MEDS: CETIRIZINE HCL 10 MG TABLET PO SCH (09:38)
[2018-04-08] MEDS: METOPROLOL SUCC 24HR ER 50 MG TAB.ER.24H. PO SCH (09:38)
[2018-04-08] MEDS: DIVALPROEX 125 MG CAP.SPRINK PO SCH ×3 (09:38→17:33)
[2018-04-08] MEDS: LISINOPRIL 20 MG TABLET PO SCH ×2 (09:38→19:53)
[2018-04-08] MEDS: metFORMIN 500 MG TABLET PO SCH ×2 (09:39→17:32)
[2018-04-08] MEDS: INSULIN GLARGINE 300 UNITS/3 ML INSULN.PEN. SQ SCH (09:42)
[2018-04-08] MEDS: CARBAMIDE PEROXIDE 6.5% OTIC SOLUTION 15ML BOTTLE. AU SCH ×2 (10:30→19:49)
[2018-04-08 16:41] VITALS: BP 126/51
--- NOTE | 2018-04-08 18:50 | PN ---
DATE: 04/07/2018 PSYCHIATRIC PROGRESS NOTE This is a late entry for 04/07/2018, covers elements not covered in my initial note of 04/07/2018. SUBJECTIVE: I met with the patient in the evening. The patient slept 5-1/4 hours previous evening, somewhat somatic, tearful, anxious, and repeatedly came back to visit with me while I was on rounds seeing other patients as well since she had many other questions. REVIEW OF SYSTEMS: Ambulation impaired with walker. No CV, , pulmonary, eye system symptoms on review. MENTAL STATUS EXAM: Oriented to herself and situation. Speech coherent, abstraction fair, computation impaired, language function intact, attention span short. Mood and affect somewhat anxious, labile. LABORATORY DATA: Reviewed. IMPRESSION: Bipolar 1 disorder, mixed with psychotic features; anxiety disorder, unspecified. PLAN: Continue current psychotropics. Depakote was adjusted and labs will be checked for the level. Continue Seroquel. Adjust further as clinically indicated. MAN Gerhard KNIGHT MD DR: VINOD/portia JOB#: [id number] / [id number]
[2018-04-08] MEDS: MIRTAZAPINE 15 MG TABLET PO SCH (19:46)
[2018-04-08] MEDS: clonazePAM 0.5 MG TABLET PO SCH (19:47)
[2018-04-08] MEDS: PRIMIDONE 50 MG TABLET PO SCH (19:48)
[2018-04-08] MEDS: traZODone 100 MG TABLET. PO SCH (19:48)
[2018-04-08] MEDS: CARBIDOPA/LEVODOPA 25/100MG TABLET PO SCH (19:48)
--- NOTE | 2018-04-08 20:26 | PDOC ---
Exam Note: [place] Note: Please also refer to the separate dictated note~for this date of service dictated separately.~Patient seen individually. Discussed the patient with Nursing staff reviewed the chart.~Reviewed interim history and current functioning. Reviewed vital signs,~Labs/ Radiology~and current medications noted below. Continue current treatment with the changes noted in the dictated addendum note Assessment: Vital Signs: Vital Signs Date Time Temp Pulse Resp B/P (MAP) Pulse Ox O2 Delivery O2 Flow Rate FiO2 04/08/18 19:53 73 148/55 04/08/18 16:41 97.8 18 95 04/05/18 07:49 Room Air I&O Intake and Output 04/08/18 07:00 Intake Total 1200 ml Balance 1200 ml Intake Oral 1200 ml # Bowel Movements 1 Labs: Laboratory Tests Test 04/08/18 07:40 04/08/18 11:15 04/08/18 16:13 04/08/18 19:19 Glucose (Fingerstick) 84 mg/dL (70-99) 149 mg/dL (70-99) H 80 mg/dL (70-99) 179 mg/dL (70-99) H Current Medications: Meds: Current Medications Acetaminophen (Tylenol) 650 mg PRN Q6HRS PRN PO PAIN / TEMP Last administered on 04/05/18at 16:00; Start 04/03/18 at 15:45 Multi-Ingredient Ointment (Analgesic [place]) 1 chuy PRN QID PRN TP MUSCLE PAIN; Start 04/03/18 at 15:45 Al Hydroxide/Mg Hydroxide (Mylanta Plus Xs) 15 ml PRN AFTMEALHC PRN PO DYSPEPSIA; Start 04/03/18 at 15:45 Magnesium Hydroxide (Milk Of Magnesia) 2,400 mg PRN QHS PRN PO CONSTIPATION; Start 04/03/18 at 15:45 Aspirin (Children'S Aspirin) 81 mg DAILYWBKFT PO Last administered on at 09:38; Start 04/04/18 at 08:00 Cetirizine HCl (ZyrTEC) 10 mg DAILY PO Last administered on 04/08/18at 09:38; Start 04/04/18 at 09:00 Non-Formulary Medication (Cholecalciferol (Vitamin D3) (Vitamin D3)) 50,000 unit WEEKLY PO ; Start 04/10/18 at 09:00; Stop 04/10/18 at 09:00; Status DC EZETIMIBE (Zetia) 10 mg DAILY PO Last administered on 04/08/18 09:37; Start at 09:00 Insulin Glargine (Lantus) 10 units BID SQ Last administered on 04/06/18 10:00 ; Start 04/03/18 at 21:00; Stop 04/06/18 at 16:41; Status DC Mirtazapine (Remeron) 15 mg QHS PO Last administered on 04/08/18 19:46; Start 04/03/18 at 21:00 Trazodone HCl (Desyrel) 50 mg QHS PO Last administered on 04/06/18 20:24; Start 04/03/18 at 21:00; Stop 04/07/18 at 19:11; Status DC Vitamin D (Vitamin D3) 50,000 unit WEEKLY PO Last administered on 04/04/18 10: 04; Start 04/04/18 at 09:00 Carbidopa/Levodopa (Sinemet 25/100) 1 tab HS PO Last administered on 04/08/18 19:48; Start 04/04/18 at 21:00 Gabapentin (Neurontin) 200 mg TID PO Last administered on 04/08/18 19:47; Start 04/04/18 at 09:00 Lisinopril (Prinivil) 40 mg BID PO Last administered on 04/08/18 19:53; Start 04/04/18 at 09:00 Olanzapine (ZyPREXA ZYDIS) 5 mg HS PO Last administered on 04/08/18 19:46; Start 04/04/18 at 21:00 Clonazepam (KlonoPIN) 0.5 mg QHS PO Last administered on 04/08/18 19:47; Start 04/04/18 at 21:00 Metformin HCl (Glucophage) 500 mg BIDWMEALS PO Last administered on 04/08/18 17:32; Start 04/03/18 at 21:00 Metoprolol Succinate (Toprol Xl) 50 mg DAILY PO Last administered on 04/08/18 09:38; Start 04/04/18 at 09:00 Ondansetron HCl (Zofran Odt) 4 mg PRN Q8HRS PRN PO NAUSEA/VOMITING; Start 04/03 at 21:30 Primidone (Mysoline) 50 mg QHS PO Last administered on 04/08/18 19:48; Start 04/04/18 at 21:00 Ropinirole HCl (Requip) 1 mg TID PO Last administered on 04/08/18 19:47; Start 04/04/18 at 09:00 Zolpidem Tartrate (Ambien) 10 mg PRN QHS PRN PO INSOMNIA Last administered on 20:50; Start 04/03/18 at 21:30 Carbamide Peroxide (Debrox) 5 drop BID AU Last administered on 04/08/18 19:49 ; Start 04/04/18 at 21:00 Quetiapine Fumarate (SEROquel) 12.5 mg TID@0900,1300,1700 PO Last administered on 04/08/18 17:33; Start 04/05/18 at 09:00; Stop 04/08/18 at 18:26; Status DC Lorazepam (Ativan) 0.5 mg PRN Q2HR PRN PO ANXIETY / AGITATION Last administered on 04/08/18 02:51; Start 04/05/18 at 07:30 Divalproex Sodium (Depakote Sprinkles) 125 mg TID@0900,1300,1700 PO Last administered on 04/08/18 17:33; Start 04/06/18 at 09:00 Insulin Glargine (Lantus) 10 units DAILYWBKFT SQ Last administered on 09:42; Start 04/07/18 at 08:00 Quetiapine Fumarate (SEROquel) 12.5 mg TID@0900,1300,1700 PO Last administered on 04/07/18 10:17; Start 04/06/18 at 18:00; Stop 04/07/18 at 09:01; Status DC Trazodone HCl (Desyrel) 100 mg QHS PO Last administered on 04/08/18 19:48; Start 04/07/18 at 21:00 Quetiapine Fumarate (SEROquel) 12.5 mg TID@0900,1200,1600 PO ; Start 04/09/18 at 09:00 Quetiapine Fumarate (SEROquel) 12.5 mg DAILY@1800 PO ; Start 04/09/18 at 18:00 Active Scripts Active Reported Metformin Hcl 500 Mg Tablet 500 Mg PO BIDWMEALS Gabapentin 100 Mg Capsule 200 Mg PO TID Zolpidem Tartrate 10 Mg Tablet 10 Mg PO PRN QHS PRN Metoprolol Succinate ( Xl ) (Metoprolol Succinate) 50 Mg Tab.er.24h 50 Mg PO DAILY PRN Requip (Ropinirole Hcl) 1 Mg Tablet 1 Mg PO TID Sinemet 25-100 Mg Tablet (Carbidopa/Levodopa) 1 Each Tablet 1 Each PO HS Primidone 50 Mg Tablet 50 Mg PO HS Alendronate Sodium 70 Mg Tablet 70 Mg PO WEEKLY Zofran (Ondansetron Hcl) 4 Mg Tablet 4 Mg PO PRN Q8HRS PRN Clonazepam 1 Mg Tablet 0.5 Mg PO HS Lisinopril 20 Mg Tablet 40 Mg PO BID hold for BP less than 100. After a held dose, reassess in 2 ours. IF SBP is above threshold, administer dose as ordered. IF SBP is below threshold, contact provider for additional instructions. Remeron (Mirtazapine) 15 Mg Tablet 15 Mg PO QHS Trazodone Hcl 50 Mg Tablet 50 Mg PO QHS Zyprexa Zydis (Olanzapine) 5 Mg Tab.rapdis 5 Mg PO HS Cetirizine Hcl 10 Mg Tablet 10 Mg PO DAILY Aspirin 81 Mg Tab.chew 81 Mg PO DAILY Levemir (Insulin Detemir) 100 Unit/1 Ml Vial 10 Unit SQ BID Vitamin D3 (Cholecalciferol (Vitamin D3)) 5,000 Unit Tablet 50,000 Unit PO WEEKLY Zetia (Ezetimibe) 10 Mg Tablet 10 Mg PO DAILY I have reviewed the current psychotropics carefully including drug interactions. Risk benefit ratio favors no change other than as noted in my dictated progress note. Diagnosis: Problems: (1) Bipolar I disorder with jose (2) Hypertension (3) Leg swelling (4) Accelerated hypertension (5) Hip pain, right (6) Cellulitis of right lower limb (7) Accelerated essential hypertension (8) Chronic diastolic (congestive) heart failure (9) Bipolar I disorder with anxious distress (10) Bipolar I disorder with mixed features (11) Anxiety disorder (12) Impulse control disorder KANWAL KNIGHT MD April 08, 2018 20:26
[2018-04-09 05:54] VITALS: BP 144/62
[2018-04-09 07:58] LABS: BASO # 0.1 x10^3/uL (0.0-0.2); BASO % 1 % (0-3); EOS # 0.2 x10^3/uL (0.0-0.7); EOS % 3 % (0-3); HEMATOCRIT 39.5 % (36.0-47.0); HEMOGLOBIN 13.4 g/dL (12.0-15.5); LYMPH # 1.9 x10^3/uL (1.0-4.8); LYMPH % 27 % (24-48); MEAN CORPUSCULAR HEMOGLOBIN 33 pg (25-35); MEAN CORPUSCULAR HGB CONC 34 g/dL (31-37); MEAN CORPUSCULAR VOLUME 98 fL (79-100); MONO # 0.4 x10^3/uL (0.0-1.1); MONO % 5 % (0-9); NEUT # 4.5 x10^3uL (1.8-7.7); NEUT % 64 % (31-73); PLATELET COUNT 265 x10^3/uL (140-400); RED BLOOD COUNT 4.02 x10^6/uL (3.50-5.40); RED CELL DISTRIBUTION WIDTH 13.7 % (11.5-14.5)
[2018-04-09 08:15] LABS: ALBUMIN 2.8 g/dL (3.4-5.0); ALBUMIN/GLOBULIN RATIO 0.9 (1.0-1.7); ALK PHOS 55 U/L (46-116); ALT (SGPT) 23 U/L (14-59); ANION GAP 4 (6-14); AST (SGOT) 20 U/L (15-37); BLOOD UREA NITROGEN 12 mg/dL (7-20); BUN/CREATININE RATIO 12 (6-20); CALCIUM 8.5 mg/dL (8.5-10.1); CARBON DIOXIDE 32 mmol/L (21-32); CHLORIDE 103 mmol/L (98-107); GFR 53.8; GLUCOSE 85 mg/dL (70-99); POTASSIUM 4.5 mmol/L (3.5-5.1); SODIUM 139 mmol/L (136-145); TOTAL BILIRUBIN 0.3 mg/dL (0.2-1.0); TOTAL PROTEIN 5.9 g/dL (6.4-8.2)
[2018-04-09 08:16] LABS: VAL ACID 27 mcg/mL (50-100)
[2018-04-09] MEDS: GABAPENTIN 100 MG CAPSULE. PO SCH (09:00)
[2018-04-09] MEDS: ASPIRIN 81 MG TAB.CHEW PO SCH (11:00)
[2018-04-09] MEDS: CETIRIZINE HCL 10 MG TABLET PO SCH (11:00)
[2018-04-09] MEDS: EZETIMIBE 10 MG TABLET PO SCH (11:00)
[2018-04-09] MEDS: CARBAMIDE PEROXIDE 6.5% OTIC SOLUTION 15ML BOTTLE. AU SCH ×2 (11:01→20:47)
[2018-04-09] MEDS: LISINOPRIL 20 MG TABLET PO SCH ×2 (11:01→20:54)
[2018-04-09] MEDS: rOPINIRole 1 MG TABLET. PO SCH ×3 (11:01→20:47)
[2018-04-09] MEDS: METOPROLOL SUCC 24HR ER 50 MG TAB.ER.24H. PO SCH (11:01)
[2018-04-09] MEDS: DIVALPROEX 125 MG CAP.SPRINK PO SCH ×3 (11:01→17:00)
[2018-04-09] MEDS: metFORMIN 500 MG TABLET PO SCH ×2 (11:01→17:16)
[2018-04-09] MEDS: QUEtiapine 25 MG TABLET. PO SCH ×4 (11:04→18:21)
[2018-04-09] MEDS: INSULIN GLARGINE 300 UNITS/3 ML INSULN.PEN. SQ SCH (11:05)
[2018-04-09] MEDS: GABAPENTIN 300 MG CAPSULE. PO SCH ×2 (13:40→20:46)
[2018-04-09 18:31] VITALS: BP 108/42
[2018-04-09] MEDS: LORazepam 0.5 MG TABLET PO PRN (19:30)
[2018-04-09] MEDS: traZODone 100 MG TABLET. PO SCH (20:46)
[2018-04-09] MEDS: MIRTAZAPINE 15 MG TABLET PO SCH (20:47)
[2018-04-09] MEDS: PRIMIDONE 50 MG TABLET PO SCH (20:47)
[2018-04-09] MEDS: CARBIDOPA/LEVODOPA 25/100MG TABLET PO SCH (20:47)
[2018-04-09] MEDS: clonazePAM 0.5 MG TABLET PO SCH (20:51)
--- NOTE | 2018-04-09 22:22 | PDOC ---
Exam Note: [place] Note: Please also refer to the separate dictated note~for this date of service dictated separately.~Patient seen individually. Discussed the patient with Nursing staff reviewed the chart.~Reviewed interim history and current functioning. Reviewed vital signs,~Labs/ Radiology~and current medications noted below. Continue current treatment with the changes noted in the dictated addendum note Assessment: Vital Signs: Vital Signs Date Time Temp Pulse Resp B/P (MAP) Pulse Ox O2 Delivery O2 Flow Rate FiO2 04/09/18 20:54 225/75 04/09/18 18:31 97.7 60 18 97 04/05/18 07:49 Room Air I&O Intake and Output 04/09/18 07:00 Intake Total 1560 ml Balance 1560 ml Intake Oral 1560 ml # Bowel Movements 1 Labs: Laboratory Tests Test 04/09/18 07:33 04/09/18 07:42 04/09/18 11:48 04/09/18 17:12 White Blood Count 7.0 x10^3/uL (4.0-11.0) Red Blood Count 4.02 x10^6/uL (3.50-5.40) Hemoglobin 13.4 g/dL (12.0-15.5) Hematocrit 39.5 % (36.0-47.0) Mean Corpuscular Volume 98 fL (79-100) Mean Corpuscular Hemoglobin 33 pg (25-35) Mean Corpuscular Hemoglobin Concent 34 g/dL (31-37) Red Cell Distribution Width 13.7 % (11.5-14.5) Platelet Count 265 x10^3/uL (140-400) Neutrophils (%) (Auto) 64 % (31-73) Lymphocytes (%) (Auto) 27 % (24-48) Monocytes (%) (Auto) 5 % (0-9) Eosinophils (%) (Auto) 3 % (0-3) Basophils (%) (Auto) 1 % (0-3) Neutrophils # (Auto) 4.5 x10^3uL (1.8-7.7) Lymphocytes # (Auto) 1.9 x10^3/uL (1.0-4.8) Monocytes # (Auto) 0.4 x10^3/uL (0.0-1.1) Eosinophils # (Auto) 0.2 x10^3/uL (0.0-0.7) Basophils # (Auto) 0.1 x10^3/uL (0.0-0.2) Sodium Level 139 mmol/L (136-145) Potassium Level 4.5 mmol/L (3.5-5.1) Chloride Level 103 mmol/L (98-107) Carbon Dioxide Level 32 mmol/L (21-32) Anion Gap 4 (6-14) L Blood Urea Nitrogen 12 mg/dL (7-20) Creatinine 1.0 mg/dL (0.6-1.0) Estimated GFR (Cockcroft-Gault) 53.8 BUN/Creatinine Ratio 12 (6-20) Glucose Level 85 mg/dL (70-99) Calcium Level 8.5 mg/dL (8.5-10.1) Total Bilirubin 0.3 mg/dL (0.2-1.0) Aspartate Amino Transferase (AST) 20 U/L (15-37) Alanine Aminotransferase (ALT) 23 U/L (14-59) Alkaline Phosphatase 55 U/L (46-116) Total Protein 5.9 g/dL (6.4-8.2) L Albumin 2.8 g/dL (3.4-5.0) L Albumin/Globulin Ratio 0.9 (1.0-1.7) L Valproic Acid Level 27 mcg/mL (50-100) L Valproic Acid Last Dose Date 04/08/2018 Valproic Acid Last Dose Time 1700 Glucose (Fingerstick) 82 mg/dL (70-99) 146 mg/dL (70-99) H 97 mg/dL (70-99) Test 04/09/18 19:19 Glucose (Fingerstick) 134 mg/dL (70-99) H Current Medications: Meds: Current Medications Acetaminophen (Tylenol) 650 mg PRN Q6HRS PRN PO PAIN / TEMP Last administered on 04/05/18at 16:00; Start 04/03/18 at 15:45 Multi-Ingredient Ointment (Analgesic [place]) 1 chuy PRN QID PRN TP MUSCLE PAIN; Start 04/03/18 at 15:45 Al Hydroxide/Mg Hydroxide (Mylanta Plus Xs) 15 ml PRN AFTMEALHC PRN PO DYSPEPSIA; Start 04/03/18 at 15:45 Magnesium Hydroxide (Milk Of Magnesia) 2,400 mg PRN QHS PRN PO CONSTIPATION; Start 04/03/18 at 15:45 Aspirin (Children'S Aspirin) 81 mg DAILYWBKFT PO Last administered on at 11:00; Start 04/04/18 at 08:00 Cetirizine HCl (ZyrTEC) 10 mg DAILY PO Last administered on 04/09/18at 11:00; Start 04/04/18 at 09:00 Non-Formulary Medication (Cholecalciferol (Vitamin D3) (Vitamin D3)) 50,000 unit WEEKLY PO ; Start 04/10/18 at 09:00; Stop 04/10/18 at 09:00; Status DC EZETIMIBE (Zetia) 10 mg DAILY PO Last administered on 04/09/18at 11:00; Start at 09:00 Insulin Glargine (Lantus) 10 units BID SQ Last administered on 04/06/18at 10:00 ; Start 04/03/18 at 21:00; Stop 04/06/18 at 16:41; Status DC Mirtazapine (Remeron) 15 mg QHS PO Last administered on 04/09/18at 20:47; Start 04/03/18 at 21:00 Trazodone HCl (Desyrel) 50 mg QHS PO Last administered on 04/06/18at 20:24; Start 04/03/18 at 21:00; Stop 04/07/18 at 19:11; Status DC Vitamin D (Vitamin D3) 50,000 unit WEEKLY PO Last administered on 04/04/18at 10: 04; Start 04/04/18 at 09:00 Carbidopa/Levodopa (Sinemet 25/100) 1 tab HS PO Last administered on 04/09/18at 20:47; Start 04/04/18 at 21:00 Gabapentin (Neurontin) 200 mg TID PO Last administered on 04/08/18at 19:47; Start 04/04/18 at 09:00; Stop 04/09/18 at 10:15; Status DC Lisinopril (Prinivil) 40 mg BID PO Last administered on 04/09/18at 20:54; Start 04/04/18 at 09:00 Olanzapine (ZyPREXA ZYDIS) 5 mg HS PO Last administered on 04/09/18 20:47; Start 04/04/18 at 21:00 Clonazepam (KlonoPIN) 0.5 mg QHS PO Last administered on 04/09/18 20:51; Start 04/04/18 at 21:00 Metformin HCl (Glucophage) 500 mg BIDWMEALS PO Last administered on 04/09/18 17:16; Start 04/03/18 at 21:00 Metoprolol Succinate (Toprol Xl) 50 mg DAILY PO Last administered on 04/09/18 11:01; Start 04/04/18 at 09:00 Ondansetron HCl (Zofran Odt) 4 mg PRN Q8HRS PRN PO NAUSEA/VOMITING; Start 04/03 at 21:30 Primidone (Mysoline) 50 mg QHS PO Last administered on 04/09/18 20:47; Start 04/04/18 at 21:00 Ropinirole HCl (Requip) 1 mg TID PO Last administered on 04/09/18 20:47; Start 04/04/18 at 09:00 Zolpidem Tartrate (Ambien) 10 mg PRN QHS PRN PO INSOMNIA Last administered on 20:50; Start 04/03/18 at 21:30 Carbamide Peroxide (Debrox) 5 drop BID AU Last administered on 04/09/18 20:47 ; Start 04/04/18 at 21:00 Quetiapine Fumarate (SEROquel) 12.5 mg TID@0900,1300,1700 PO Last administered on 04/08/18 17:33; Start 04/05/18 at 09:00; Stop 04/08/18 at 18:26; Status DC Lorazepam (Ativan) 0.5 mg PRN Q2HR PRN PO ANXIETY / AGITATION Last administered on 04/09/18 19:30; Start 04/05/18 at 07:30 Divalproex Sodium (Depakote Sprinkles) 125 mg TID@0900,1300,1700 PO Last administered on 04/09/18 11:01; Start 04/06/18 at 09:00; Stop 04/09/18 at 13:30 ; Status DC Insulin Glargine (Lantus) 10 units DAILYWBKFT SQ Last administered on at 11:05; Start 04/07/18 at 08:00 Quetiapine Fumarate (SEROquel) 12.5 mg TID@0900,1300,1700 PO Last administered on 04/07/18at 10:17; Start 04/06/18 at 18:00; Stop 04/07/18 at 09:01; Status DC Trazodone HCl (Desyrel) 100 mg QHS PO Last administered on 04/09/18at 20:46; Start 04/07/18 at 21:00 Quetiapine Fumarate (SEROquel) 12.5 mg TID@0900,1200,1600 PO Last administered on 04/09/18at 17:15; Start 04/09/18 at 09:00 Quetiapine Fumarate (SEROquel) 12.5 mg DAILY@1800 PO Last administered on at 18:21; Start 04/09/18 at 18:00 Gabapentin (Neurontin) 300 mg TID PO Last administered on 04/09/18at 20:46; Start 04/09/18 at 14:00 Divalproex Sodium (Depakote Sprinkles) 250 mg TID@0900,1300,1700 PO Last administered on 04/09/18at 17:00; Start 04/09/18 at 17:00 Active Scripts Active Reported Metformin Hcl 500 Mg Tablet 500 Mg PO BIDWMEALS Gabapentin 100 Mg Capsule 200 Mg PO TID Zolpidem Tartrate 10 Mg Tablet 10 Mg PO PRN QHS PRN Metoprolol Succinate ( Xl ) (Metoprolol Succinate) 50 Mg Tab.er.24h 50 Mg PO DAILY PRN Requip (Ropinirole Hcl) 1 Mg Tablet 1 Mg PO TID Sinemet 25-100 Mg Tablet (Carbidopa/Levodopa) 1 Each Tablet 1 Each PO HS Primidone 50 Mg Tablet 50 Mg PO HS Alendronate Sodium 70 Mg Tablet 70 Mg PO WEEKLY Zofran (Ondansetron Hcl) 4 Mg Tablet 4 Mg PO PRN Q8HRS PRN Clonazepam 1 Mg Tablet 0.5 Mg PO HS Lisinopril 20 Mg Tablet 40 Mg PO BID hold for BP less than 100. After a held dose, reassess in 2 ours. IF SBP is above threshold, administer dose as ordered. IF SBP is below threshold, contact provider for additional instructions. Remeron (Mirtazapine) 15 Mg Tablet 15 Mg PO QHS Trazodone Hcl 50 Mg Tablet 50 Mg PO QHS Zyprexa Zydis (Olanzapine) 5 Mg Tab.rapdis 5 Mg PO HS Cetirizine Hcl 10 Mg Tablet 10 Mg PO DAILY Aspirin 81 Mg Tab.chew 81 Mg PO DAILY Levemir (Insulin Detemir) 100 Unit/1 Ml Vial 10 Unit SQ BID Vitamin D3 (Cholecalciferol (Vitamin D3)) 5,000 Unit Tablet 50,000 Unit PO WEEKLY Zetia (Ezetimibe) 10 Mg Tablet 10 Mg PO DAILY I have reviewed the current psychotropics carefully including drug interactions. Risk benefit ratio favors no change other than as noted in my dictated progress note. Diagnosis: Problems: (1) Bipolar I disorder with jose (2) Hypertension (3) Leg swelling (4) Accelerated hypertension (5) Hip pain, right (6) Cellulitis of right lower limb (7) Accelerated essential hypertension (8) Chronic diastolic (congestive) heart failure (9) Bipolar I disorder with anxious distress (10) Bipolar I disorder with mixed features (11) Anxiety disorder (12) Impulse control disorder KANWAL KNIGHT MD April 09, 2018 22:22
--- NOTE | 2018-04-10 03:21 | PN ---
DATE: 04/08/2018 This is a late entry of 04/08/2018 covers elements not covered in my initial note of 04/08/2018. SUBJECTIVE: I met with the patient in the evening. The patient slept 5-3/4 hours. She states she is not doing well. Complains of feeling numb all over her body. We will have a Neurology consult, but this does seem reflective of her ongoing anxiety, mood lability. REVIEW OF SYSTEMS: No CV, , pulmonary, eye system symptoms on review. Gait unsteady with walker. MENTAL STATUS EXAM: Reasonably oriented. Speech is coherent, somewhat pressured at times. Abstraction fair, computation impaired, language function intact, attention span short. Mood and affect, anxious, somewhat labile. LABORATORY DATA: Reviewed. IMPRESSION: Bipolar 1 disorder, mixed with psychotic features; anxiety disorder, unspecified. Rest unchanged. PLAN: Increase Seroquel from 12.5 mg 3 times a day to 12.5 mg 4 times a day 08:00 a.m., 12 noon, 04:00 p.m., 06:00 p.m. Continue rest unchanged. Check a valproic acid level, adjust Depakote to reach therapeutic level. MAN Gerhard KNIGHT MD DR: VINOD/portia JOB#: [id number] / [id number]
[2018-04-10] MEDS: ACETAMINOPHEN 325 MG TABLET PO PRN (05:11)
[2018-04-10 06:14] VITALS: BP 141/78
[2018-04-10] MEDS ORDERED: NON FORMULARY ITEM (Cholecalciferol (Vitamin D3) (Vitamin D3) 50,000 UNIT) PO SCH (09:00)
--- NOTE | 2018-04-10 09:39 | RAD ---
Right foot, 3 views, 04/10/2018: HISTORY: Right foot pain The bony structures are demineralized. No fracture or dislocation is identified. No destructive bony lesion is seen. There are minimal degenerative changes at scattered interphalangeal joints. Moderate diffuse soft tissue tissue swelling is present. IMPRESSION: No acute bony abnormality is detected. Electronically signed by: Dale Bazan MD (04/10/2018 9:36 AM) [facility]
[2018-04-10] MEDS: CARBAMIDE PEROXIDE 6.5% OTIC SOLUTION 15ML BOTTLE. AU SCH ×2 (10:15→21:44)
[2018-04-10] MEDS: EZETIMIBE 10 MG TABLET PO SCH (10:16)
[2018-04-10] MEDS: DIVALPROEX 125 MG CAP.SPRINK PO SCH ×3 (10:16→16:48)
[2018-04-10] MEDS: INSULIN GLARGINE 300 UNITS/3 ML INSULN.PEN. SQ SCH (10:16)
[2018-04-10] MEDS: GABAPENTIN 300 MG CAPSULE. PO SCH ×3 (10:17→21:42)
[2018-04-10] MEDS: metFORMIN 500 MG TABLET PO SCH ×2 (10:17→16:48)
[2018-04-10] MEDS: ASPIRIN 81 MG TAB.CHEW PO SCH (10:17)
[2018-04-10] MEDS: LISINOPRIL 20 MG TABLET PO SCH ×2 (10:17→21:42)
[2018-04-10] MEDS: METOPROLOL SUCC 24HR ER 50 MG TAB.ER.24H. PO SCH (10:17)
[2018-04-10] MEDS: QUEtiapine 25 MG TABLET. PO SCH ×4 (10:18→16:48)
[2018-04-10] MEDS: rOPINIRole 1 MG TABLET. PO SCH ×3 (10:18→21:42)
[2018-04-10] MEDS: CETIRIZINE HCL 10 MG TABLET PO SCH (10:18)
[2018-04-10 16:56] VITALS: BP 155/62
--- NOTE | 2018-04-10 20:25 | PDOC ---
Exam Note: [place] Note: Please also refer to the separate dictated note~for this date of service dictated separately.~Patient seen individually. Discussed the patient with Nursing staff reviewed the chart.~Reviewed interim history and current functioning. Reviewed vital signs,~Labs/ Radiology~and current medications noted below. Continue current treatment with the changes noted in the dictated addendum note Assessment: Vital Signs: Vital Signs Date Time Temp Pulse Resp B/P (MAP) Pulse Ox O2 Delivery O2 Flow Rate FiO2 04/10/18 16:56 97.3 71 18 155/62 (93) 97 Room Air I&O Intake and Output 04/10/18 07:00 Intake Total 1800 ml Balance 1800 ml Intake Oral 1800 ml Labs: Laboratory Tests Test 04/10/18 07:39 04/10/18 11:48 04/10/18 16:47 04/10/18 19:19 Glucose (Fingerstick) 81 mg/dL (70-99) 132 mg/dL (70-99) H 51 mg/dL (70-99) L 210 mg/dL (70-99) H Current Medications: Meds: Current Medications Acetaminophen (Tylenol) 650 mg PRN Q6HRS PRN PO PAIN / TEMP Last administered on 04/10/18at 05:11; Start 04/03/18 at 15:45 Multi-Ingredient Ointment (Analgesic [place]) 1 chuy PRN QID PRN TP MUSCLE PAIN; Start 04/03/18 at 15:45 Al Hydroxide/Mg Hydroxide (Mylanta Plus Xs) 15 ml PRN AFTMEALHC PRN PO DYSPEPSIA; Start 04/03/18 at 15:45 Magnesium Hydroxide (Milk Of Magnesia) 2,400 mg PRN QHS PRN PO CONSTIPATION; Start 04/03/18 at 15:45 Aspirin (Children'S Aspirin) 81 mg DAILYWBKFT PO Last administered on at 10:17; Start 04/04/18 at 08:00 Cetirizine HCl (ZyrTEC) 10 mg DAILY PO Last administered on 04/10/18at 10:18; Start 04/04/18 at 09:00 Non-Formulary Medication (Cholecalciferol (Vitamin D3) (Vitamin D3)) 50,000 unit WEEKLY PO ; Start 04/10/18 at 09:00; Stop 04/10/18 at 09:00; Status DC EZETIMIBE (Zetia) 10 mg DAILY PO Last administered on 04/10/18 10:16; Start at 09:00 Insulin Glargine (Lantus) 10 units BID SQ Last administered on 04/06/18 10:00 ; Start 04/03/18 at 21:00; Stop 04/06/18 at 16:41; Status DC Mirtazapine (Remeron) 15 mg QHS PO Last administered on 04/09/18at 20:47; Start 04/03/18 at 21:00 Trazodone HCl (Desyrel) 50 mg QHS PO Last administered on 04/06/18 20:24; Start 04/03/18 at 21:00; Stop 04/07/18 at 19:11; Status DC Vitamin D (Vitamin D3) 50,000 unit WEEKLY PO Last administered on 04/04/18at 10: 04; Start 04/04/18 at 09:00 Carbidopa/Levodopa (Sinemet 25/100) 1 tab HS PO Last administered on 04/09/18at 20:47; Start 04/04/18 at 21:00 Gabapentin (Neurontin) 200 mg TID PO Last administered on 04/08/18 19:47; Start 04/04/18 at 09:00; Stop 04/09/18 at 10:15; Status DC Lisinopril (Prinivil) 40 mg BID PO Last administered on 04/10/18 10:17; Start 04/04/18 at 09:00 Olanzapine (ZyPREXA ZYDIS) 5 mg HS PO Last administered on 04/09/18at 20:47; Start 04/04/18 at 21:00; Stop 04/10/18 at 18:55; Status DC Clonazepam (KlonoPIN) 0.5 mg QHS PO Last administered on 04/09/18 20:51; Start 04/04/18 at 21:00 Metformin HCl (Glucophage) 500 mg BIDWMEALS PO Last administered on 04/10/18 16:48; Start 04/03/18 at 21:00 Metoprolol Succinate (Toprol Xl) 50 mg DAILY PO Last administered on 04/10/18at 10:17; Start 04/04/18 at 09:00 Ondansetron HCl (Zofran Odt) 4 mg PRN Q8HRS PRN PO NAUSEA/VOMITING; Start 04/03 at 21:30 Primidone (Mysoline) 50 mg QHS PO Last administered on 04/09/18at 20:47; Start 04/04/18 at 21:00 Ropinirole HCl (Requip) 1 mg TID PO Last administered on 04/10/18 12:35; Start 04/04/18 at 09:00 Zolpidem Tartrate (Ambien) 10 mg PRN QHS PRN PO INSOMNIA Last administered on at 20:50; Start 04/03/18 at 21:30 Carbamide Peroxide (Debrox) 5 drop BID AU Last administered on 04/10/18 10:15 ; Start 04/04/18 at 21:00 Quetiapine Fumarate (SEROquel) 12.5 mg TID@0900,1300,1700 PO Last administered on 04/08/18at 17:33; Start 04/05/18 at 09:00; Stop 04/08/18 at 18:26; Status DC Lorazepam (Ativan) 0.5 mg PRN Q2HR PRN PO ANXIETY / AGITATION Last administered on 04/09/18 19:30; Start 04/05/18 at 07:30 Divalproex Sodium (Depakote Sprinkles) 125 mg TID@0900,1300,1700 PO Last administered on 04/09/18 11:01; Start 04/06/18 at 09:00; Stop 04/09/18 at 13:30 ; Status DC Insulin Glargine (Lantus) 10 units DAILYWBKFT SQ Last administered on at 10:16; Start 04/07/18 at 08:00 Quetiapine Fumarate (SEROquel) 12.5 mg TID@0900,1300,1700 PO Last administered on 04/07/18 10:17; Start 04/06/18 at 18:00; Stop 04/07/18 at 09:01; Status DC Trazodone HCl (Desyrel) 100 mg QHS PO Last administered on 04/09/18at 20:46; Start 04/07/18 at 21:00 Quetiapine Fumarate (SEROquel) 12.5 mg TID@0900,1200,1600 PO Last administered on 04/10/18at 15:44; Start 04/09/18 at 09:00 Quetiapine Fumarate (SEROquel) 12.5 mg DAILY@1800 PO Last administered on at 16:48; Start 04/09/18 at 18:00; Stop 04/10/18 at 18:55; Status DC Gabapentin (Neurontin) 300 mg TID PO Last administered on 04/10/18at 12:34; Start 04/09/18 at 14:00 Divalproex Sodium (Depakote Sprinkles) 250 mg TID@0900,1300,1700 PO Last administered on 04/10/18at 16:48; Start 04/09/18 at 17:00 Quetiapine Fumarate (SEROquel) 50 mg HS PO ; Start 04/10/18 at 21:00 Active Scripts Active Reported Metformin Hcl 500 Mg Tablet 500 Mg PO BIDWMEALS Gabapentin 100 Mg Capsule 200 Mg PO TID Zolpidem Tartrate 10 Mg Tablet 10 Mg PO PRN QHS PRN Metoprolol Succinate ( Xl ) (Metoprolol Succinate) 50 Mg Tab.er.24h 50 Mg PO DAILY PRN Requip (Ropinirole Hcl) 1 Mg Tablet 1 Mg PO TID Sinemet 25-100 Mg Tablet (Carbidopa/Levodopa) 1 Each Tablet 1 Each PO HS Primidone 50 Mg Tablet 50 Mg PO HS Alendronate Sodium 70 Mg Tablet 70 Mg PO WEEKLY Zofran (Ondansetron Hcl) 4 Mg Tablet 4 Mg PO PRN Q8HRS PRN Clonazepam 1 Mg Tablet 0.5 Mg PO HS Lisinopril 20 Mg Tablet 40 Mg PO BID hold for BP less than 100. After a held dose, reassess in 2 ours. IF SBP is above threshold, administer dose as ordered. IF SBP is below threshold, contact provider for additional instructions. Remeron (Mirtazapine) 15 Mg Tablet 15 Mg PO QHS Trazodone Hcl 50 Mg Tablet 50 Mg PO QHS Zyprexa Zydis (Olanzapine) 5 Mg Tab.rapdis 5 Mg PO HS Cetirizine Hcl 10 Mg Tablet 10 Mg PO DAILY Aspirin 81 Mg Tab.chew 81 Mg PO DAILY Levemir (Insulin Detemir) 100 Unit/1 Ml Vial 10 Unit SQ BID Vitamin D3 (Cholecalciferol (Vitamin D3)) 5,000 Unit Tablet 50,000 Unit PO WEEKLY Zetia (Ezetimibe) 10 Mg Tablet 10 Mg PO DAILY I have reviewed the current psychotropics carefully including drug interactions. Risk benefit ratio favors no change other than as noted in my dictated progress note. Diagnosis: Problems: (1) Bipolar I disorder with jose (2) Hypertension (3) Leg swelling (4) Accelerated hypertension (5) Hip pain, right (6) Cellulitis of right lower limb (7) Accelerated essential hypertension (8) Chronic diastolic (congestive) heart failure (9) Bipolar I disorder with anxious distress (10) Bipolar I disorder with mixed features (11) Anxiety disorder (12) Impulse control disorder KANWAL KNIGHT MD April 10, 2018 20:25
[2018-04-10] MEDS: traZODone 100 MG TABLET. PO SCH (21:41)
[2018-04-10] MEDS: MIRTAZAPINE 15 MG TABLET PO SCH (21:41)
[2018-04-10] MEDS: CARBIDOPA/LEVODOPA 25/100MG TABLET PO SCH (21:42)
[2018-04-10] MEDS: PRIMIDONE 50 MG TABLET PO SCH (21:42)
[2018-04-10] MEDS: QUEtiapine 50 MG TABLET. PO SCH (21:44)
[2018-04-10] MEDS: clonazePAM 0.5 MG TABLET PO SCH (21:44)
[2018-04-11 05:36] VITALS: BP 122/61
[2018-04-11] MEDS: CARBAMIDE PEROXIDE 6.5% OTIC SOLUTION 15ML BOTTLE. AU SCH ×2 (09:00→20:18)
[2018-04-11] MEDS: rOPINIRole 1 MG TABLET. PO SCH ×3 (09:03→20:17)
[2018-04-11] MEDS: CHOLECALCIFEROL (VITAMIN D3) 50,000 UNIT CAPSULE PO SCH (09:03)
[2018-04-11] MEDS: ASPIRIN 81 MG TAB.CHEW PO SCH (09:03)
[2018-04-11] MEDS: CETIRIZINE HCL 10 MG TABLET PO SCH (09:03)
[2018-04-11] MEDS: EZETIMIBE 10 MG TABLET PO SCH (09:03)
[2018-04-11] MEDS: GABAPENTIN 300 MG CAPSULE. PO SCH ×3 (09:03→20:16)
[2018-04-11] MEDS: QUEtiapine 25 MG TABLET. PO SCH ×3 (09:03→17:00)
[2018-04-11] MEDS: metFORMIN 500 MG TABLET PO SCH ×2 (09:03→17:00)
[2018-04-11] MEDS: METOPROLOL SUCC 24HR ER 50 MG TAB.ER.24H. PO SCH (09:04)
[2018-04-11] MEDS: LISINOPRIL 20 MG TABLET PO SCH ×2 (09:04→20:18)
[2018-04-11] MEDS: DIVALPROEX 125 MG CAP.SPRINK PO SCH ×3 (09:09→17:00)
[2018-04-11] MEDS: INSULIN GLARGINE 300 UNITS/3 ML INSULN.PEN. SQ SCH (09:10)
[2018-04-11 16:28] VITALS: BP 149/63
[2018-04-11] MEDS: CARBIDOPA/LEVODOPA 25/100MG TABLET PO SCH (20:16)
[2018-04-11] MEDS: MIRTAZAPINE 15 MG TABLET PO SCH (20:17)
[2018-04-11] MEDS: QUEtiapine 50 MG TABLET. PO SCH (20:17)
[2018-04-11] MEDS: clonazePAM 0.5 MG TABLET PO SCH ×2 (20:17→21:00)
[2018-04-11] MEDS: traZODone 100 MG TABLET. PO SCH (20:17)
[2018-04-11] MEDS: PRIMIDONE 50 MG TABLET PO SCH (20:17)
--- NOTE | 2018-04-12 03:30 | PN ---
DATE: 04/09/2018 This is a late entry for 04/09/2018 covers elements not covered in my initial note of 04/09/2018. SUBJECTIVE: I met with the patient in the evening. The patient slept 6-3/4 hours, is quite concerned about feeling numb in her extremities. I discussed with Dr. Leroy, Neurology and her Neurontin has been increased to 300 mg 3 times a day for neuropathy secondary to diabetes. She is anxious, complains of trouble swallowing, frequent telephone calls to her live-in boyfriend, obsessed about her clothes. REVIEW OF SYSTEMS: Ambulation impaired and difficulty swallowing. No CV, , pulmonary system symptoms on review. MENTAL STATUS EXAM: Reasonably oriented. Speech coherent, rapid at times. Abstraction fair, computation impaired, language function intact. Mood and affect remain somewhat anxious, labile. LABORATORY DATA: Reviewed. IMPRESSION: Unchanged from initial note. PLAN: Continue psychotropics from initial note with changes noted above. KANWAL KNIGHT MD DR: VINOD/portia JOB#: [id number] / [id number]
--- NOTE | 2018-04-12 03:33 | PN ---
DATE: 04/10/2018 This is a late entry for 04/10/2018 covers elements not covered in my initial note of 04/10/2018. SUBJECTIVE: I met with the patient in the evening. The patient slept 8 hours, less somatic. Foot x-ray, soft tissue swelling, no fracture noted. REVIEW OF SYSTEMS: Ambulation impaired. No CV, , pulmonary, eye system symptoms on review. MENTAL STATUS EXAM: Reasonably oriented. Speech coherent, anxious. Abstraction fair, computation impaired, language function intact. Mood and affect somewhat labile. IMPRESSION: Unchanged from initial note. PLAN: Valproic acid level was therapeutic. Depakote has been increased to 250 mg 3 times a day with repeat labs level to be done in 3 days. Seroquel was previously increased as was the Neurontin. She received Ativan at 1730 and at bedtime for anxiety. MAN Gerhard KNIGHT MD DR: VINOD/portia JOB#: [id number] / [id number]
[2018-04-12 06:19] VITALS: BP 132/50
[2018-04-12 07:52] LABS: BASO % 1 % (0-3); EOS # 0.2 x10^3/uL (0.0-0.7); EOS % 4 % (0-3); HEMATOCRIT 38.3 % (36.0-47.0); HEMOGLOBIN 13.1 g/dL (12.0-15.5); LYMPH # 1.6 x10^3/uL (1.0-4.8); LYMPH % 30 % (24-48); MEAN CORPUSCULAR HEMOGLOBIN 33 pg (25-35); MEAN CORPUSCULAR HGB CONC 34 g/dL (31-37); MEAN CORPUSCULAR VOLUME 98 fL (79-100); MONO # 0.3 x10^3/uL (0.0-1.1); MONO % 6 % (0-9); NEUT # 3.2 x10^3uL (1.8-7.7); NEUT % 60 % (31-73); PLATELET COUNT 227 x10^3/uL (140-400); RED BLOOD COUNT 3.92 x10^6/uL (3.50-5.40); RED CELL DISTRIBUTION WIDTH 13.6 % (11.5-14.5); WHITE BLOOD COUNT 5.4 x10^3/uL (4.0-11.0)
[2018-04-12 07:53] VITALS: BP 152/61
[2018-04-12 08:17] LABS: ALBUMIN 2.9 g/dL (3.4-5.0); ALK PHOS 57 U/L (46-116); ALT (SGPT) 23 U/L (14-59); ANION GAP 6 (6-14); AST (SGOT) 23 U/L (15-37); BLOOD UREA NITROGEN 9 mg/dL (7-20); BUN/CREATININE RATIO 10 (6-20); CALCIUM 8.6 mg/dL (8.5-10.1); CARBON DIOXIDE 29 mmol/L (21-32); CHLORIDE 103 mmol/L (98-107); CREATININE 0.9 mg/dL (0.6-1.0); GFR 60.7; GLUCOSE 81 mg/dL (70-99); POTASSIUM 4.3 mmol/L (3.5-5.1); SODIUM 138 mmol/L (136-145); TOTAL BILIRUBIN 0.3 mg/dL (0.2-1.0); TOTAL PROTEIN 5.9 g/dL (6.4-8.2)
[2018-04-12 08:30] LABS: VAL ACID 43 mcg/mL (50-100)
[2018-04-12] MEDS: EZETIMIBE 10 MG TABLET PO SCH (10:50)
[2018-04-12] MEDS: rOPINIRole 1 MG TABLET. PO SCH ×3 (10:50→19:51)
[2018-04-12] MEDS: CETIRIZINE HCL 10 MG TABLET PO SCH (10:51)
[2018-04-12] MEDS: LISINOPRIL 20 MG TABLET PO SCH ×2 (10:51→19:51)
[2018-04-12] MEDS: DIVALPROEX 125 MG CAP.SPRINK PO SCH ×3 (10:51→17:42)
[2018-04-12] MEDS: metFORMIN 500 MG TABLET PO SCH ×2 (10:51→17:42)
[2018-04-12] MEDS: ASPIRIN 81 MG TAB.CHEW PO SCH (10:52)
[2018-04-12] MEDS: GABAPENTIN 300 MG CAPSULE. PO SCH ×3 (10:52→19:51)
[2018-04-12] MEDS: METOPROLOL SUCC 24HR ER 50 MG TAB.ER.24H. PO SCH (10:52)
[2018-04-12] MEDS: QUEtiapine 25 MG TABLET. PO SCH ×3 (10:53→17:43)
[2018-04-12] MEDS: CARBAMIDE PEROXIDE 6.5% OTIC SOLUTION 15ML BOTTLE. AU SCH ×3 (10:55→21:00)
[2018-04-12] MEDS: INSULIN GLARGINE 300 UNITS/3 ML INSULN.PEN. SQ SCH (10:56)
[2018-04-12 16:42] VITALS: BP 139/55
[2018-04-12] MEDS ORDERED: DIVALPROEX 125 MG CAP.SPRINK PO ONE (19:45)
[2018-04-12] MEDS: traZODone 100 MG TABLET. PO SCH (19:51)
[2018-04-12] MEDS: MIRTAZAPINE 15 MG TABLET PO SCH (19:51)
[2018-04-12] MEDS: PRIMIDONE 50 MG TABLET PO SCH (19:51)
[2018-04-12] MEDS: QUEtiapine 50 MG TABLET. PO SCH (19:51)
[2018-04-12] MEDS: CARBIDOPA/LEVODOPA 25/100MG TABLET PO SCH (19:51)
[2018-04-12] MEDS: clonazePAM 0.5 MG TABLET PO SCH (19:53)
--- NOTE | 2018-04-12 23:00 | PDOC ---
Exam Note: [place] Note: Late entry for date of service April 11, 2018. Please also refer to the separate dictated note~for this date of service dictated separately.~Patient seen individually. Discussed the patient with Nursing staff reviewed the chart.~ Reviewed interim history and current functioning. Reviewed vital signs,~Labs/ Radiology~and current medications noted below. Continue current treatment with the changes noted in the dictated addendum note Assessment: Vital Signs: VS - Last 72 Hours, by Label Date Time Temp Pulse Resp B/P (MAP) Pulse Ox O2 Delivery O2 Flow Rate FiO2 04/12/18 19:51 71 170/64 04/12/18 16:42 97.6 71 16 139/55 (83) 100 04/12/18 10:52 64 152/61 04/12/18 10:51 64 152/61 04/12/18 07:53 64 152/61 (91) Room Air 04/12/18 06:19 97.6 60 18 132/50 (77) 96 04/11/18 20:18 67 149/63 04/11/18 16:28 97.5 67 16 149/63 (91) 98 04/11/18 09:04 61 122/61 04/11/18 09:04 61 122/61 04/11/18 05:36 98.2 61 17 122/61 (81) 96 04/10/18 21:42 71 155/62 04/10/18 16:56 97.3 71 18 155/62 (93) 97 Room Air 04/10/18 10:17 61 141/78 04/10/18 10:17 61 141/78 04/10/18 06:14 97.6 61 18 141/78 (99) 99 Vital Signs Date Time Temp Pulse Resp B/P (MAP) Pulse Ox O2 Delivery O2 Flow Rate FiO2 04/12/18 19:51 71 170/64 04/12/18 16:42 97.6 16 100 04/12/18 07:53 Room Air I&O Intake and Output 04/12/18 07:00 Intake Total 1440 ml Balance 1440 ml Intake Oral 1440 ml Labs: Laboratory Tests Test 04/12/18 07:06 04/12/18 07:22 04/12/18 09:21 04/12/18 12:08 White Blood Count 5.4 x10^3/uL (4.0-11.0) Red Blood Count 3.92 x10^6/uL (3.50-5.40) Hemoglobin 13.1 g/dL (12.0-15.5) Hematocrit 38.3 % (36.0-47.0) Mean Corpuscular Volume 98 fL (79-100) Mean Corpuscular Hemoglobin 33 pg (25-35) Mean Corpuscular Hemoglobin Concent 34 g/dL (31-37) Red Cell Distribution Width 13.6 % (11.5-14.5) Platelet Count 227 x10^3/uL (140-400) Neutrophils (%) (Auto) 60 % (31-73) Lymphocytes (%) (Auto) 30 % (24-48) Monocytes (%) (Auto) 6 % (0-9) Eosinophils (%) (Auto) 4 % (0-3) H Basophils (%) (Auto) 1 % (0-3) Neutrophils # (Auto) 3.2 x10^3uL (1.8-7.7) Lymphocytes # (Auto) 1.6 x10^3/uL (1.0-4.8) Monocytes # (Auto) 0.3 x10^3/uL (0.0-1.1) Eosinophils # (Auto) 0.2 x10^3/uL (0.0-0.7) Basophils # (Auto) 0.0 x10^3/uL (0.0-0.2) Sodium Level 138 mmol/L (136-145) Potassium Level 4.3 mmol/L (3.5-5.1) Chloride Level 103 mmol/L (98-107) Carbon Dioxide Level 29 mmol/L (21-32) Anion Gap 6 (6-14) Blood Urea Nitrogen 9 mg/dL (7-20) Creatinine 0.9 mg/dL (0.6-1.0) Estimated GFR (Cockcroft-Gault) 60.7 BUN/Creatinine Ratio 10 (6-20) Glucose Level 81 mg/dL (70-99) Calcium Level 8.6 mg/dL (8.5-10.1) Total Bilirubin 0.3 mg/dL (0.2-1.0) Aspartate Amino Transferase (AST) 23 U/L (15-37) Alanine Aminotransferase (ALT) 23 U/L (14-59) Alkaline Phosphatase 57 U/L (46-116) Total Protein 5.9 g/dL (6.4-8.2) L Albumin 2.9 g/dL (3.4-5.0) L Albumin/Globulin Ratio 1.0 (1.0-1.7) Valproic Acid Level 43 mcg/mL (50-100) L Valproic Acid Last Dose Date 04/10/18 Valproic Acid Last Dose Time 2100 Glucose (Fingerstick) 73 mg/dL (70-99) 144 mg/dL (70-99) H Ammonia < 10 mcmol/L (11-34) L Test 04/12/18 17:13 04/12/18 19:56 Glucose (Fingerstick) 81 mg/dL (70-99) 79 mg/dL (70-99) Current Medications: Meds: Current Medications Acetaminophen (Tylenol) 650 mg PRN Q6HRS PRN PO PAIN / TEMP Last administered on 04/10/18at 05:11; Start 04/03/18 at 15:45 Multi-Ingredient Ointment (Analgesic [place]) 1 chuy PRN QID PRN TP MUSCLE PAIN; Start 04/03/18 at 15:45 Al Hydroxide/Mg Hydroxide (Mylanta Plus Xs) 15 ml PRN AFTMEALHC PRN PO DYSPEPSIA; Start 04/03/18 at 15:45 Magnesium Hydroxide (Milk Of Magnesia) 2,400 mg PRN QHS PRN PO CONSTIPATION; Start 04/03/18 at 15:45 Aspirin (Children'S Aspirin) 81 mg DAILYWBKFT PO Last administered on at 10:52; Start 04/04/18 at 08:00 Cetirizine HCl (ZyrTEC) 10 mg DAILY PO Last administered on 04/12/18at 10:51; Start 04/04/18 at 09:00 Non-Formulary Medication (Cholecalciferol (Vitamin D3) (Vitamin D3)) 50,000 unit WEEKLY PO ; Start 04/10/18 at 09:00; Stop 04/10/18 at 09:00; Status DC EZETIMIBE (Zetia) 10 mg DAILY PO Last administered on 04/12/18at 10:50; Start at 09:00 Insulin Glargine (Lantus) 10 units BID SQ Last administered on 04/06/18 10:00 ; Start 04/03/18 at 21:00; Stop 04/06/18 at 16:41; Status DC Mirtazapine (Remeron) 15 mg QHS PO Last administered on 04/12/18at 19:51; Start 04/03/18 at 21:00 Trazodone HCl (Desyrel) 50 mg QHS PO Last administered on 04/06/18 20:24; Start 04/03/18 at 21:00; Stop 04/07/18 at 19:11; Status DC Vitamin D (Vitamin D3) 50,000 unit WEEKLY PO Last administered on 04/11/18 09: 03; Start 04/04/18 at 09:00 Carbidopa/Levodopa (Sinemet 25/100) 1 tab HS PO Last administered on 04/12/18 19:51; Start 04/04/18 at 21:00 Gabapentin (Neurontin) 200 mg TID PO Last administered on 04/08/18at 19:47; Start 04/04/18 at 09:00; Stop 04/09/18 at 10:15; Status DC Lisinopril (Prinivil) 40 mg BID PO Last administered on 04/12/18 19:51; Start 04/04/18 at 09:00 Olanzapine (ZyPREXA ZYDIS) 5 mg HS PO Last administered on 04/09/18at 20:47; Start 04/04/18 at 21:00; Stop 04/10/18 at 18:55; Status DC Clonazepam (KlonoPIN) 0.5 mg QHS PO Last administered on 04/10/18at 21:44; Start 04/04/18 at 21:00; Stop 04/11/18 at 14:47; Status DC Metformin HCl (Glucophage) 500 mg BIDWMEALS PO Last administered on 04/12/18 17:42; Start 04/03/18 at 21:00 Metoprolol Succinate (Toprol Xl) 50 mg DAILY PO Last administered on 04/12/18at 10:52; Start 04/04/18 at 09:00 Ondansetron HCl (Zofran Odt) 4 mg PRN Q8HRS PRN PO NAUSEA/VOMITING; Start 04/03 at 21:30 Primidone (Mysoline) 50 mg QHS PO Last administered on 04/12/18 19:51; Start 04/04/18 at 21:00 Ropinirole HCl (Requip) 1 mg TID PO Last administered on 04/12/18 19:51; Start 04/04/18 at 09:00 Zolpidem Tartrate (Ambien) 10 mg PRN QHS PRN PO INSOMNIA Last administered on 20:50; Start 04/03/18 at 21:30 Carbamide Peroxide (Debrox) 5 drop BID AU Last administered on 04/12/18 19:53 ; Start 04/04/18 at 21:00 Quetiapine Fumarate (SEROquel) 12.5 mg TID@0900,1300,1700 PO Last administered on 04/08/18 17:33; Start 04/05/18 at 09:00; Stop 04/08/18 at 18:26; Status DC Lorazepam (Ativan) 0.5 mg PRN Q2HR PRN PO ANXIETY / AGITATION Last administered on 04/09/18at 19:30; Start 04/05/18 at 07:30 Divalproex Sodium (Depakote Sprinkles) 125 mg TID@0900,1300,1700 PO Last administered on 04/09/18at 11:01; Start 04/06/18 at 09:00; Stop 04/09/18 at 13:30 ; Status DC Insulin Glargine (Lantus) 10 units DAILYWBKFT SQ Last administered on at 10:56; Start 04/07/18 at 08:00 Quetiapine Fumarate (SEROquel) 12.5 mg TID@0900,1300,1700 PO Last administered on 04/07/18at 10:17; Start 04/06/18 at 18:00; Stop 04/07/18 at 09:01; Status DC Trazodone HCl (Desyrel) 100 mg QHS PO Last administered on 04/12/18 19:51; Start 04/07/18 at 21:00 Quetiapine Fumarate (SEROquel) 12.5 mg TID@0900,1200,1600 PO Last administered on 04/12/18at 17:43; Start 04/09/18 at 09:00 Quetiapine Fumarate (SEROquel) 12.5 mg DAILY@1800 PO Last administered on at 16:48; Start 04/09/18 at 18:00; Stop 04/10/18 at 18:55; Status DC Gabapentin (Neurontin) 300 mg TID PO Last administered on 04/12/18at 19:51; Start 04/09/18 at 14:00 Divalproex Sodium (Depakote Sprinkles) 250 mg TID@0900,1300,1700 PO Last administered on 04/12/18at 17:42; Start 04/09/18 at 17:00; Stop 04/12/18 at 19:39 ; Status DC Quetiapine Fumarate (SEROquel) 50 mg HS PO Last administered on 04/12/18at 19:51 ; Start 04/10/18 at 21:00 Clonazepam (KlonoPIN) 0.25 mg QHS PO Last administered on 04/12/18at 19:53; Start 04/11/18 at 21:00; Stop 04/14/18 at 20:59 Divalproex Sodium (Depakote Sprinkles) 250 mg BID@0900,1300 PO ; Start 04/13/18 at 09:00 Divalproex Sodium (Depakote Sprinkles) 500 mg DAILY@1700 PO ; Start 04/13/18 at 17:00 Divalproex Sodium (Depakote Sprinkles) 250 mg 1X ONCE PO Last administered on 04/12/18at 19:53; Start 04/12/18 at 19:45; Stop 04/12/18 at 19:49; Status DC Active Scripts Active Reported Metformin Hcl 500 Mg Tablet 500 Mg PO BIDWMEALS Gabapentin 100 Mg Capsule 200 Mg PO TID Zolpidem Tartrate 10 Mg Tablet 10 Mg PO PRN QHS PRN Metoprolol Succinate ( Xl ) (Metoprolol Succinate) 50 Mg Tab.er.24h 50 Mg PO DAILY PRN Requip (Ropinirole Hcl) 1 Mg Tablet 1 Mg PO TID Sinemet 25-100 Mg Tablet (Carbidopa/Levodopa) 1 Each Tablet 1 Each PO HS Primidone 50 Mg Tablet 50 Mg PO HS Alendronate Sodium 70 Mg Tablet 70 Mg PO WEEKLY Zofran (Ondansetron Hcl) 4 Mg Tablet 4 Mg PO PRN Q8HRS PRN Clonazepam 1 Mg Tablet 0.5 Mg PO HS Lisinopril 20 Mg Tablet 40 Mg PO BID hold for BP less than 100. After a held dose, reassess in 2 ours. IF SBP is above threshold, administer dose as ordered. IF SBP is below threshold, contact provider for additional instructions. Remeron (Mirtazapine) 15 Mg Tablet 15 Mg PO QHS Trazodone Hcl 50 Mg Tablet 50 Mg PO QHS Zyprexa Zydis (Olanzapine) 5 Mg Tab.rapdis 5 Mg PO HS Cetirizine Hcl 10 Mg Tablet 10 Mg PO DAILY Aspirin 81 Mg Tab.chew 81 Mg PO DAILY Levemir (Insulin Detemir) 100 Unit/1 Ml Vial 10 Unit SQ BID Vitamin D3 (Cholecalciferol (Vitamin D3)) 5,000 Unit Tablet 50,000 Unit PO WEEKLY Zetia (Ezetimibe) 10 Mg Tablet 10 Mg PO DAILY I have reviewed the current psychotropics carefully including drug interactions. Risk benefit ratio favors no change other than as noted in my dictated progress note. Diagnosis: Problems: (1) Bipolar I disorder with jose (2) Hypertension (3) Leg swelling (4) Accelerated hypertension (5) Hip pain, right (6) Cellulitis of right lower limb (7) Accelerated essential hypertension (8) Chronic diastolic (congestive) heart failure (9) Bipolar I disorder with anxious distress (10) Bipolar I disorder with mixed features (11) Anxiety disorder (12) Impulse control disorder KANWAL KNIGHT MD April 12, 2018 23:00
--- NOTE | 2018-04-12 23:25 | PDOC ---
Exam Note: [place] Note: Please also refer to the separate dictated note~for this date of service dictated separately.~Patient seen individually. Discussed the patient with Nursing staff reviewed the chart.~Reviewed interim history and current functioning. Reviewed vital signs,~Labs/ Radiology~and current medications noted below. Continue current treatment with the changes noted in the dictated addendum note Assessment: Vital Signs: Vital Signs Date Time Temp Pulse Resp B/P (MAP) Pulse Ox O2 Delivery O2 Flow Rate FiO2 04/12/18 19:51 71 170/64 04/12/18 16:42 97.6 16 100 04/12/18 07:53 Room Air I&O Intake and Output 04/12/18 07:00 Intake Total 1440 ml Balance 1440 ml Intake Oral 1440 ml Labs: Laboratory Tests Test 04/12/18 07:06 04/12/18 07:22 04/12/18 09:21 04/12/18 12:08 White Blood Count 5.4 x10^3/uL (4.0-11.0) Red Blood Count 3.92 x10^6/uL (3.50-5.40) Hemoglobin 13.1 g/dL (12.0-15.5) Hematocrit 38.3 % (36.0-47.0) Mean Corpuscular Volume 98 fL (79-100) Mean Corpuscular Hemoglobin 33 pg (25-35) Mean Corpuscular Hemoglobin Concent 34 g/dL (31-37) Red Cell Distribution Width 13.6 % (11.5-14.5) Platelet Count 227 x10^3/uL (140-400) Neutrophils (%) (Auto) 60 % (31-73) Lymphocytes (%) (Auto) 30 % (24-48) Monocytes (%) (Auto) 6 % (0-9) Eosinophils (%) (Auto) 4 % (0-3) H Basophils (%) (Auto) 1 % (0-3) Neutrophils # (Auto) 3.2 x10^3uL (1.8-7.7) Lymphocytes # (Auto) 1.6 x10^3/uL (1.0-4.8) Monocytes # (Auto) 0.3 x10^3/uL (0.0-1.1) Eosinophils # (Auto) 0.2 x10^3/uL (0.0-0.7) Basophils # (Auto) 0.0 x10^3/uL (0.0-0.2) Sodium Level 138 mmol/L (136-145) Potassium Level 4.3 mmol/L (3.5-5.1) Chloride Level 103 mmol/L (98-107) Carbon Dioxide Level 29 mmol/L (21-32) Anion Gap 6 (6-14) Blood Urea Nitrogen 9 mg/dL (7-20) Creatinine 0.9 mg/dL (0.6-1.0) Estimated GFR (Cockcroft-Gault) 60.7 BUN/Creatinine Ratio 10 (6-20) Glucose Level 81 mg/dL (70-99) Calcium Level 8.6 mg/dL (8.5-10.1) Total Bilirubin 0.3 mg/dL (0.2-1.0) Aspartate Amino Transferase (AST) 23 U/L (15-37) Alanine Aminotransferase (ALT) 23 U/L (14-59) Alkaline Phosphatase 57 U/L (46-116) Total Protein 5.9 g/dL (6.4-8.2) L Albumin 2.9 g/dL (3.4-5.0) L Albumin/Globulin Ratio 1.0 (1.0-1.7) Valproic Acid Level 43 mcg/mL (50-100) L Valproic Acid Last Dose Date 04/10/18 Valproic Acid Last Dose Time 2100 Glucose (Fingerstick) 73 mg/dL (70-99) 144 mg/dL (70-99) H Ammonia < 10 mcmol/L (11-34) L Test 04/12/18 17:13 04/12/18 19:56 Glucose (Fingerstick) 81 mg/dL (70-99) 79 mg/dL (70-99) Current Medications: Meds: Current Medications Acetaminophen (Tylenol) 650 mg PRN Q6HRS PRN PO PAIN / TEMP Last administered on 04/10/18at 05:11; Start 04/03/18 at 15:45 Multi-Ingredient Ointment (Analgesic [place]) 1 chuy PRN QID PRN TP MUSCLE PAIN; Start 04/03/18 at 15:45 Al Hydroxide/Mg Hydroxide (Mylanta Plus Xs) 15 ml PRN AFTMEALHC PRN PO DYSPEPSIA; Start 04/03/18 at 15:45 Magnesium Hydroxide (Milk Of Magnesia) 2,400 mg PRN QHS PRN PO CONSTIPATION; Start 04/03/18 at 15:45 Aspirin (Children'S Aspirin) 81 mg DAILYWBKFT PO Last administered on at 10:52; Start 04/04/18 at 08:00 Cetirizine HCl (ZyrTEC) 10 mg DAILY PO Last administered on 04/12/18at 10:51; Start 04/04/18 at 09:00 Non-Formulary Medication (Cholecalciferol (Vitamin D3) (Vitamin D3)) 50,000 unit WEEKLY PO ; Start 04/10/18 at 09:00; Stop 04/10/18 at 09:00; Status DC EZETIMIBE (Zetia) 10 mg DAILY PO Last administered on 04/12/18at 10:50; Start at 09:00 Insulin Glargine (Lantus) 10 units BID SQ Last administered on 04/06/18at 10:00 ; Start 04/03/18 at 21:00; Stop 04/06/18 at 16:41; Status DC Mirtazapine (Remeron) 15 mg QHS PO Last administered on 04/12/18 19:51; Start 04/03/18 at 21:00 Trazodone HCl (Desyrel) 50 mg QHS PO Last administered on 04/06/18at 20:24; Start 04/03/18 at 21:00; Stop 04/07/18 at 19:11; Status DC Vitamin D (Vitamin D3) 50,000 unit WEEKLY PO Last administered on 04/11/18at 09: 03; Start 04/04/18 at 09:00 Carbidopa/Levodopa (Sinemet 25/100) 1 tab HS PO Last administered on 04/12/18 19:51; Start 04/04/18 at 21:00 Gabapentin (Neurontin) 200 mg TID PO Last administered on 04/08/18 19:47; Start 04/04/18 at 09:00; Stop 04/09/18 at 10:15; Status DC Lisinopril (Prinivil) 40 mg BID PO Last administered on 04/12/18at 19:51; Start 04/04/18 at 09:00 Olanzapine (ZyPREXA ZYDIS) 5 mg HS PO Last administered on 04/09/18 20:47; Start 04/04/18 at 21:00; Stop 04/10/18 at 18:55; Status DC Clonazepam (KlonoPIN) 0.5 mg QHS PO Last administered on 04/10/18 21:44; Start 04/04/18 at 21:00; Stop 04/11/18 at 14:47; Status DC Metformin HCl (Glucophage) 500 mg BIDWMEALS PO Last administered on 04/12/18 17:42; Start 04/03/18 at 21:00 Metoprolol Succinate (Toprol Xl) 50 mg DAILY PO Last administered on 04/12/18 10:52; Start 04/04/18 at 09:00 Ondansetron HCl (Zofran Odt) 4 mg PRN Q8HRS PRN PO NAUSEA/VOMITING; Start 04/03 at 21:30 Primidone (Mysoline) 50 mg QHS PO Last administered on 04/12/18 19:51; Start 04/04/18 at 21:00 Ropinirole HCl (Requip) 1 mg TID PO Last administered on 04/12/18 19:51; Start 04/04/18 at 09:00 Zolpidem Tartrate (Ambien) 10 mg PRN QHS PRN PO INSOMNIA Last administered on at 20:50; Start 04/03/18 at 21:30 Carbamide Peroxide (Debrox) 5 drop BID AU Last administered on 04/12/18 19:53 ; Start 04/04/18 at 21:00 Quetiapine Fumarate (SEROquel) 12.5 mg TID@0900,1300,1700 PO Last administered on 04/08/18 17:33; Start 04/05/18 at 09:00; Stop 04/08/18 at 18:26; Status DC Lorazepam (Ativan) 0.5 mg PRN Q2HR PRN PO ANXIETY / AGITATION Last administered on 04/09/18at 19:30; Start 04/05/18 at 07:30 Divalproex Sodium (Depakote Sprinkles) 125 mg TID@0900,1300,1700 PO Last administered on 04/09/18 11:01; Start 04/06/18 at 09:00; Stop 04/09/18 at 13:30 ; Status DC Insulin Glargine (Lantus) 10 units DAILYWBKFT SQ Last administered on at 10:56; Start 04/07/18 at 08:00 Quetiapine Fumarate (SEROquel) 12.5 mg TID@0900,1300,1700 PO Last administered on 04/07/18at 10:17; Start 04/06/18 at 18:00; Stop 04/07/18 at 09:01; Status DC Trazodone HCl (Desyrel) 100 mg QHS PO Last administered on 04/12/18at 19:51; Start 04/07/18 at 21:00 Quetiapine Fumarate (SEROquel) 12.5 mg TID@0900,1200,1600 PO Last administered on 04/12/18at 17:43; Start 04/09/18 at 09:00 Quetiapine Fumarate (SEROquel) 12.5 mg DAILY@1800 PO Last administered on at 16:48; Start 04/09/18 at 18:00; Stop 04/10/18 at 18:55; Status DC Gabapentin (Neurontin) 300 mg TID PO Last administered on 04/12/18at 19:51; Start 04/09/18 at 14:00 Divalproex Sodium (Depakote Sprinkles) 250 mg TID@0900,1300,1700 PO Last administered on 04/12/18at 17:42; Start 04/09/18 at 17:00; Stop 04/12/18 at 19:39 ; Status DC Quetiapine Fumarate (SEROquel) 50 mg HS PO Last administered on 04/12/18at 19:51 ; Start 04/10/18 at 21:00 Clonazepam (KlonoPIN) 0.25 mg QHS PO Last administered on 04/12/18at 19:53; Start 04/11/18 at 21:00; Stop 04/14/18 at 20:59 Divalproex Sodium (Depakote Sprinkles) 250 mg BID@0900,1300 PO ; Start 04/13/18 at 09:00 Divalproex Sodium (Depakote Sprinkles) 500 mg DAILY@1700 PO ; Start 04/13/18 at 17:00 Divalproex Sodium (Depakote Sprinkles) 250 mg 1X ONCE PO Last administered on 04/12/18at 19:53; Start 04/12/18 at 19:45; Stop 04/12/18 at 19:49; Status DC Active Scripts Active Reported Metformin Hcl 500 Mg Tablet 500 Mg PO BIDWMEALS Gabapentin 100 Mg Capsule 200 Mg PO TID Zolpidem Tartrate 10 Mg Tablet 10 Mg PO PRN QHS PRN Metoprolol Succinate ( Xl ) (Metoprolol Succinate) 50 Mg Tab.er.24h 50 Mg PO DAILY PRN Requip (Ropinirole Hcl) 1 Mg Tablet 1 Mg PO TID Sinemet 25-100 Mg Tablet (Carbidopa/Levodopa) 1 Each Tablet 1 Each PO HS Primidone 50 Mg Tablet 50 Mg PO HS Alendronate Sodium 70 Mg Tablet 70 Mg PO WEEKLY Zofran (Ondansetron Hcl) 4 Mg Tablet 4 Mg PO PRN Q8HRS PRN Clonazepam 1 Mg Tablet 0.5 Mg PO HS Lisinopril 20 Mg Tablet 40 Mg PO BID hold for BP less than 100. After a held dose, reassess in 2 ours. IF SBP is above threshold, administer dose as ordered. IF SBP is below threshold, contact provider for additional instructions. Remeron (Mirtazapine) 15 Mg Tablet 15 Mg PO QHS Trazodone Hcl 50 Mg Tablet 50 Mg PO QHS Zyprexa Zydis (Olanzapine) 5 Mg Tab.rapdis 5 Mg PO HS Cetirizine Hcl 10 Mg Tablet 10 Mg PO DAILY Aspirin 81 Mg Tab.chew 81 Mg PO DAILY Levemir (Insulin Detemir) 100 Unit/1 Ml Vial 10 Unit SQ BID Vitamin D3 (Cholecalciferol (Vitamin D3)) 5,000 Unit Tablet 50,000 Unit PO WEEKLY Zetia (Ezetimibe) 10 Mg Tablet 10 Mg PO DAILY I have reviewed the current psychotropics carefully including drug interactions. Risk benefit ratio favors no change other than as noted in my dictated progress note. Diagnosis: Problems: (1) Bipolar I disorder with jose (2) Hypertension (3) Leg swelling (4) Accelerated hypertension (5) Hip pain, right (6) Cellulitis of right lower limb (7) Accelerated essential hypertension (8) Chronic diastolic (congestive) heart failure (9) Bipolar I disorder with anxious distress (10) Bipolar I disorder with mixed features (11) Anxiety disorder (12) Impulse control disorder KANWAL KNIGHT MD April 12, 2018 23:25
[2018-04-13 06:13] VITALS: BP 173/67
[2018-04-13] MEDS: EZETIMIBE 10 MG TABLET PO SCH (10:53)
[2018-04-13] MEDS: ASPIRIN 81 MG TAB.CHEW PO SCH (10:53)
[2018-04-13] MEDS: QUEtiapine 25 MG TABLET. PO SCH ×3 (10:53→15:48)
[2018-04-13] MEDS: metFORMIN 500 MG TABLET PO SCH ×2 (10:54→15:52)
[2018-04-13] MEDS: METOPROLOL SUCC 24HR ER 50 MG TAB.ER.24H. PO SCH (10:54)
[2018-04-13] MEDS: CETIRIZINE HCL 10 MG TABLET PO SCH (10:54)
[2018-04-13] MEDS: LISINOPRIL 20 MG TABLET PO SCH ×2 (10:54→18:46)
[2018-04-13] MEDS: rOPINIRole 1 MG TABLET. PO SCH ×3 (10:54→18:46)
[2018-04-13] MEDS: GABAPENTIN 300 MG CAPSULE. PO SCH ×3 (10:54→18:46)
[2018-04-13] MEDS: CARBAMIDE PEROXIDE 6.5% OTIC SOLUTION 15ML BOTTLE. AU SCH ×2 (10:57→18:44)
[2018-04-13] MEDS: DIVALPROEX 125 MG CAP.SPRINK PO SCH ×2 (10:57→13:53)
[2018-04-13] MEDS: INSULIN GLARGINE 300 UNITS/3 ML INSULN.PEN. SQ SCH (11:16)
[2018-04-13 15:44] VITALS: BP 125/61
[2018-04-13] MEDS ORDERED: DIVALPROEX 125 MG CAP.SPRINK PO SCH (17:00)
[2018-04-13] MEDS: clonazePAM 0.5 MG TABLET PO SCH (18:45)
[2018-04-13] MEDS: MIRTAZAPINE 15 MG TABLET PO SCH (18:45)
[2018-04-13] MEDS: traZODone 100 MG TABLET. PO SCH (18:45)
[2018-04-13] MEDS: CARBIDOPA/LEVODOPA 25/100MG TABLET PO SCH (18:46)
[2018-04-13] MEDS: QUEtiapine 50 MG TABLET. PO SCH (18:46)
[2018-04-13] MEDS: PRIMIDONE 50 MG TABLET PO SCH (18:46)
--- NOTE | 2018-04-13 20:55 | PDOC ---
Exam Note: [place] Note: Please also refer to the separate dictated note~for this date of service dictated separately.~Patient seen individually. Discussed the patient with Nursing staff reviewed the chart.~Reviewed interim history and current functioning. Reviewed vital signs,~Labs/ Radiology~and current medications noted below. Continue current treatment with the changes noted in the dictated addendum note Assessment: Vital Signs: Vital Signs Date Time Temp Pulse Resp B/P (MAP) Pulse Ox O2 Delivery O2 Flow Rate FiO2 04/13/18 18:46 77 125/61 04/13/18 15:44 98.0 18 96 04/12/18 07:53 Room Air I&O Intake and Output 04/13/18 07:00 Intake Total 1800 ml Balance 1800 ml Intake Oral 1800 ml # Bowel Movements 1 Labs: Laboratory Tests Test 04/13/18 07:06 04/13/18 11:34 04/13/18 16:18 04/13/18 19:39 Glucose (Fingerstick) 66 mg/dL (70-99) L 141 mg/dL (70-99) H 65 mg/dL (70-99) L 107 mg/dL (70-99) H Current Medications: Meds: Current Medications Acetaminophen (Tylenol) 650 mg PRN Q6HRS PRN PO PAIN / TEMP Last administered on 04/10/18at 05:11; Start 04/03/18 at 15:45 Multi-Ingredient Ointment (Analgesic [place]) 1 chuy PRN QID PRN TP MUSCLE PAIN; Start 04/03/18 at 15:45 Al Hydroxide/Mg Hydroxide (Mylanta Plus Xs) 15 ml PRN AFTMEALHC PRN PO DYSPEPSIA; Start 04/03/18 at 15:45 Magnesium Hydroxide (Milk Of Magnesia) 2,400 mg PRN QHS PRN PO CONSTIPATION; Start 04/03/18 at 15:45 Aspirin (Children'S Aspirin) 81 mg DAILYWBKFT PO Last administered on at 10:53; Start 04/04/18 at 08:00 Cetirizine HCl (ZyrTEC) 10 mg DAILY PO Last administered on 04/13/18at 10:54; Start 04/04/18 at 09:00 Non-Formulary Medication (Cholecalciferol (Vitamin D3) (Vitamin D3)) 50,000 unit WEEKLY PO ; Start 04/10/18 at 09:00; Stop 04/10/18 at 09:00; Status DC EZETIMIBE (Zetia) 10 mg DAILY PO Last administered on 04/13/18at 10:53; Start at 09:00 Insulin Glargine (Lantus) 10 units BID SQ Last administered on 04/06/18at 10:00 ; Start 04/03/18 at 21:00; Stop 04/06/18 at 16:41; Status DC Mirtazapine (Remeron) 15 mg QHS PO Last administered on 04/13/18at 18:45; Start 04/03/18 at 21:00 Trazodone HCl (Desyrel) 50 mg QHS PO Last administered on 04/06/18at 20:24; Start 04/03/18 at 21:00; Stop 04/07/18 at 19:11; Status DC Vitamin D (Vitamin D3) 50,000 unit WEEKLY PO Last administered on 04/11/18at 09: 03; Start 04/04/18 at 09:00 Carbidopa/Levodopa (Sinemet 25/100) 1 tab HS PO Last administered on 04/13/18 18:46; Start 04/04/18 at 21:00 Gabapentin (Neurontin) 200 mg TID PO Last administered on 04/08/18at 19:47; Start 04/04/18 at 09:00; Stop 04/09/18 at 10:15; Status DC Lisinopril (Prinivil) 40 mg BID PO Last administered on 04/13/18 18:46; Start 04/04/18 at 09:00 Olanzapine (ZyPREXA ZYDIS) 5 mg HS PO Last administered on 04/09/18at 20:47; Start 04/04/18 at 21:00; Stop 04/10/18 at 18:55; Status DC Clonazepam (KlonoPIN) 0.5 mg QHS PO Last administered on 04/10/18at 21:44; Start 04/04/18 at 21:00; Stop 04/11/18 at 14:47; Status DC Metformin HCl (Glucophage) 500 mg BIDWMEALS PO Last administered on 04/13/18at 15:52; Start 04/03/18 at 21:00 Metoprolol Succinate (Toprol Xl) 50 mg DAILY PO Last administered on 04/13/18 10:54; Start 04/04/18 at 09:00 Ondansetron HCl (Zofran Odt) 4 mg PRN Q8HRS PRN PO NAUSEA/VOMITING; Start 04/03 at 21:30 Primidone (Mysoline) 50 mg QHS PO Last administered on 04/13/18 18:46; Start 04/04/18 at 21:00 Ropinirole HCl (Requip) 1 mg TID PO Last administered on 04/13/18 18:46; Start 04/04/18 at 09:00 Zolpidem Tartrate (Ambien) 10 mg PRN QHS PRN PO INSOMNIA Last administered on 20:50; Start 04/03/18 at 21:30 Carbamide Peroxide (Debrox) 5 drop BID AU Last administered on 04/13/18 18:44 ; Start 04/04/18 at 21:00 Quetiapine Fumarate (SEROquel) 12.5 mg TID@0900,1300,1700 PO Last administered on 04/08/18 17:33; Start 04/05/18 at 09:00; Stop 04/08/18 at 18:26; Status DC Lorazepam (Ativan) 0.5 mg PRN Q2HR PRN PO ANXIETY / AGITATION Last administered on 04/09/18 19:30; Start 04/05/18 at 07:30 Divalproex Sodium (Depakote Sprinkles) 125 mg TID@0900,1300,1700 PO Last administered on 04/09/18at 11:01; Start 04/06/18 at 09:00; Stop 04/09/18 at 13:30 ; Status DC Insulin Glargine (Lantus) 10 units DAILYWBKFT SQ Last administered on 11:16; Start 04/07/18 at 08:00 Quetiapine Fumarate (SEROquel) 12.5 mg TID@0900,1300,1700 PO Last administered on 04/07/18 10:17; Start 04/06/18 at 18:00; Stop 04/07/18 at 09:01; Status DC Trazodone HCl (Desyrel) 100 mg QHS PO Last administered on 04/13/18 18:45; Start 04/07/18 at 21:00 Quetiapine Fumarate (SEROquel) 12.5 mg TID@0900,1200,1600 PO Last administered on 04/13/18at 15:48; Start 04/09/18 at 09:00 Quetiapine Fumarate (SEROquel) 12.5 mg DAILY@1800 PO Last administered on at 16:48; Start 04/09/18 at 18:00; Stop 04/10/18 at 18:55; Status DC Gabapentin (Neurontin) 300 mg TID PO Last administered on 04/13/18at 18:46; Start 04/09/18 at 14:00 Divalproex Sodium (Depakote Sprinkles) 250 mg TID@0900,1300,1700 PO Last administered on 04/12/18at 17:42; Start 04/09/18 at 17:00; Stop 04/12/18 at 19:39 ; Status DC Quetiapine Fumarate (SEROquel) 50 mg HS PO Last administered on 04/13/18at 18:46 ; Start 04/10/18 at 21:00 Clonazepam (KlonoPIN) 0.25 mg QHS PO Last administered on 04/13/18at 18:45; Start 04/11/18 at 21:00; Stop 04/14/18 at 20:59 Divalproex Sodium (Depakote Sprinkles) 250 mg BID@0900,1300 PO Last administered on 04/13/18at 13:53; Start 04/13/18 at 09:00; Stop 04/13/18 at 20:29 ; Status DC Divalproex Sodium (Depakote Sprinkles) 500 mg DAILY@1700 PO Last administered on 04/13/18at 15:49; Start 04/13/18 at 17:00 Divalproex Sodium (Depakote Sprinkles) 250 mg 1X ONCE PO Last administered on 04/12/18 19:53; Start 04/12/18 at 19:45; Stop 04/12/18 at 19:49; Status DC Divalproex Sodium (Depakote Sprinkles) 250 mg DAILY PO ; Start 04/14/18 at 09:00 Divalproex Sodium (Depakote Sprinkles) 500 mg DAILY@1300 PO ; Start 04/14/18 at 13:00 Active Scripts Active Reported Metformin Hcl 500 Mg Tablet 500 Mg PO BIDWMEALS Gabapentin 100 Mg Capsule 200 Mg PO TID Zolpidem Tartrate 10 Mg Tablet 10 Mg PO PRN QHS PRN Metoprolol Succinate ( Xl ) (Metoprolol Succinate) 50 Mg Tab.er.24h 50 Mg PO DAILY PRN Requip (Ropinirole Hcl) 1 Mg Tablet 1 Mg PO TID Sinemet 25-100 Mg Tablet (Carbidopa/Levodopa) 1 Each Tablet 1 Each PO HS Primidone 50 Mg Tablet 50 Mg PO HS Alendronate Sodium 70 Mg Tablet 70 Mg PO WEEKLY Zofran (Ondansetron Hcl) 4 Mg Tablet 4 Mg PO PRN Q8HRS PRN Clonazepam 1 Mg Tablet 0.5 Mg PO HS Lisinopril 20 Mg Tablet 40 Mg PO BID hold for BP less than 100. After a held dose, reassess in 2 ours. IF SBP is above threshold, administer dose as ordered. IF SBP is below threshold, contact provider for additional instructions. Remeron (Mirtazapine) 15 Mg Tablet 15 Mg PO QHS Trazodone Hcl 50 Mg Tablet 50 Mg PO QHS Zyprexa Zydis (Olanzapine) 5 Mg Tab.rapdis 5 Mg PO HS Cetirizine Hcl 10 Mg Tablet 10 Mg PO DAILY Aspirin 81 Mg Tab.chew 81 Mg PO DAILY Levemir (Insulin Detemir) 100 Unit/1 Ml Vial 10 Unit SQ BID Vitamin D3 (Cholecalciferol (Vitamin D3)) 5,000 Unit Tablet 50,000 Unit PO WEEKLY Zetia (Ezetimibe) 10 Mg Tablet 10 Mg PO DAILY I have reviewed the current psychotropics carefully including drug interactions. Risk benefit ratio favors no change other than as noted in my dictated progress note. Diagnosis: Problems: (1) Bipolar I disorder with jose (2) Hypertension (3) Leg swelling (4) Accelerated hypertension (5) Hip pain, right (6) Cellulitis of right lower limb (7) Accelerated essential hypertension (8) Chronic diastolic (congestive) heart failure (9) Bipolar I disorder with anxious distress (10) Bipolar I disorder with mixed features (11) Anxiety disorder (12) Impulse control disorder KANWAL KNIGHT MD April 13, 2018 20:55
[2018-04-13 21:56] LABS: ALBUMIN 2.7 g/dL (3.4-5.0); ALBUMIN/GLOBULIN RATIO 0.9 (1.0-1.7); CALCIUM 8.4 mg/dL (8.5-10.1); CREATININE 0.9 mg/dL (0.6-1.0); GFR 60.7; POTASSIUM 4.7 mmol/L (3.5-5.1); TOTAL BILIRUBIN 0.3 mg/dL (0.2-1.0); TOTAL PROTEIN 5.8 g/dL (6.4-8.2)
[2018-04-14] MEDS ORDERED: DIVA125C PO ×2 (00:51)
[2018-04-14] MEDS ORDERED: QUET50TA5 PO (00:53)
[2018-04-14] MEDS ORDERED: QUET25TA5 PO (00:55)
[2018-04-14] MEDS ORDERED: LORA0.5T96 PO (00:57)
[2018-04-14 06:12] VITALS: BP 157/73
--- NOTE | 2018-04-14 07:43 | PN ---
DATE: 04/11/2018 This is a late entry for 04/11/2018 and covers elements not covered in my initial note of 04/11/2018. I met with the patient in the evening. The patient has been somewhat anxious, restless. Nursing report, attention seeking, tearful at times. REVIEW OF SYSTEMS: I met with her in her room. Ambulation impaired with walker. No CV, , pulmonary, eye, ENT system symptoms on review. MENTAL STATUS EXAM: Reasonably oriented. Speech coherent, abstraction fair, computation impaired, language function intact, attention span short. Mood and affect remains labile, anxious. I had a telephone call from Dr. Hankins, physician reviewer for her insurance company. We discussed the patient's diagnosis, medications, length of stay. Dr. Hankins made a recommendation to consider discontinuing the Klonopin, checking ammonia level and we have done both. IMPRESSION: Bipolar 1 disorder, mixed with psychotic features; anxiety disorder, unspecified. PLAN: Continue current psychotropics. Valproic acid level is subtherapeutic. Will be repeated on 04/12/2018. Continue rest unchanged. MAN Gerhard KNIGHT MD DR: VINOD/portia JOB#: [id number] / [id number]
[2018-04-14] MEDS: EZETIMIBE 10 MG TABLET PO SCH (08:14)
[2018-04-14] MEDS: metFORMIN 500 MG TABLET PO SCH (08:14)
[2018-04-14] MEDS: rOPINIRole 1 MG TABLET. PO SCH (08:14)
[2018-04-14 08:15] VITALS: BP 157/73
[2018-04-14] MEDS: METOPROLOL SUCC 24HR ER 50 MG TAB.ER.24H. PO SCH (08:15)
[2018-04-14] MEDS: ASPIRIN 81 MG TAB.CHEW PO SCH (08:15)
[2018-04-14] MEDS: GABAPENTIN 300 MG CAPSULE. PO SCH (08:15)
[2018-04-14] MEDS: QUEtiapine 25 MG TABLET. PO SCH ×2 (08:15→12:00)
[2018-04-14] MEDS: LISINOPRIL 20 MG TABLET PO SCH (08:15)
[2018-04-14] MEDS: CETIRIZINE HCL 10 MG TABLET PO SCH (08:15)
[2018-04-14] MEDS: CARBAMIDE PEROXIDE 6.5% OTIC SOLUTION 15ML BOTTLE. AU SCH (08:17)
[2018-04-14] MEDS: INSULIN GLARGINE 300 UNITS/3 ML INSULN.PEN. SQ SCH (08:18)
[2018-04-14] MEDS ORDERED: DIVALPROEX 125 MG CAP.SPRINK PO SCH ×2 (09:00→13:00)
--- NOTE | 2018-04-14 13:21 | PN ---
DATE: 04/12/2018 PSYCHIATRIC PROGRESS NOTE This is a late entry 04/12/2018, covers elements not covered in my initial note 04/12/2018. SUBJECTIVE: I met with the patient in the evening. The patient slept 7-1/4 hours. She has been anxious, somewhat obsessed of stay. She has repetitive thoughts in her mind that she can get rid of. She is quite distressed by these obsessive thoughts, but no compulsions. She remains anxious, compliant with medications. Valproic acid level is 43. REVIEW OF SYSTEMS: Ambulation impaired. No CV, , pulmonary, eye, ENT system symptoms on review. MENTAL STATUS EXAM: Reasonably oriented. Speech coherent, abstraction fair, computation impaired, language function intact. She is somewhat anxious, still mood lability is evident. LABORATORY DATA: Reviewed. IMPRESSION: Bipolar 1 disorder, mixed with psychotic features, in partial remission. PLAN: Depakote Sprinkles 250 mg 3 times a day. We will increase the third dosage to 500 mg. Check CBC, CMP, valproic acid level in 3 days. Current valproic acid level is 43. Continue rest unchanged. MAN Gerhard KNIGHT MD DR: VINOD/portia JOB#: [id number] / [id number]
--- NOTE | 2018-04-14 13:54 | PN ---
DATE: 04/13/2018 PSYCHIATRIC PROGRESS NOTE This note covers elements not covered in my initial note 04/13/2018. SUBJECTIVE: I met with the patient in the evening. The patient slept reasonably well previous night. Blood sugar was low this morning 66, then up to 141, later 65. She still has somatic preoccupations, delusions. States she is numb from head to toe. Ammonia level is less than 10. Valproic level is 43, subtherapeutic on 250 mg b.i.d. REVIEW OF SYSTEMS: Ambulation impaired with walker. No CV, , pulmonary, eye system symptoms on review. MENTAL STATUS EXAM: Reasonably oriented. Speech coherent, little pressured. Abstraction fair, computation impaired, language function intact. Mood and affect showing improvement, less labile. LABORATORY DATA: Reviewed. IMPRESSION: Bipolar 1 disorder, mixed with psychotic features, in partial remission. PLAN: Increase Depakote from 250 b.i.d. to 250 in the morning and 500 in the evening. Check CBC, CMP, valproic acid level in 3 days. Continue rest unchanged from initial note. MAN Gerhard KNIGHT MD DR: VINOD/portia JOB#: [id number] / [id number]
--- NOTE | 2018-04-14 22:39 | DS ---
DATE OF DISCHARGE: 04/14/2018 AXIS I: 1. Bipolar disorder mixed with psychotic features. 2. Anxiety disorder, unspecified. 3. Impulse control disorder, unspecified. AXIS II: None. AXIS III: Hypertension, hyperlipidemia, diabetes mellitus, Parkinson's disease, dysphagia. ALLERGIES: The patient had no known allergies. REASON FOR ADMISSION: This 78-year-old female, who was admitted from Dr. Alejandre with increased anxiety, mood swings, being labile, extremely anxious. HISTORY OF PRESENT ILLNESS: The patient has a long history of psychiatric problems including high level of anxiety also diagnosed with the bipolar disorder and she had previous hospitalizations and she has been followed by a therapist and also by the psychiatrist. The patient lately has been having some mood swings, irritability, decreased sleep, change in her appetite and also getting very paranoid and suspicious. The patient also made suicidal statements, but no specific plans. HOSPITAL COURSE: The patient had a physical exam, routine lab work including CBC, chem profile, urinalysis, which were all within normal range. The patient's Depakote level was 43. The patient's urinalysis was clear. The patient's RPR nonreactive. The patient has been on Depakote 500 mg and the patient's Depakote was therapeutic range. The patient was also on Klonopin 0.25 mg at night, Seroquel 50 mg at night, gabapentin 300 mg t.i.d. The patient was also on Seroquel 12.5 mg t.i.d., trazodone 100 mg at night. She was also on insulin glargine 10 units daily. The patient was also on Mysoline 50 mg at night, carbidopa/levodopa 1 tablet at night. She was also on ropinirole 1 mg t.i.d., metoprolol 50 mg daily, lisinopril 40 mg b.i.d. She is also on Zetia 10 mg daily, cetirizine 10 mg daily, aspirin 81 mg daily, zolpidem 10 mg at night p.r.n., mirtazapine 15 mg at night, metformin 500 mg b.i.d. with meals. The patient did fairly well during her stay except she had multiple physical complaints. The patient was concerned about her Parkinson's. AFTERCARE PLAN: This patient at the time of discharge was medically stable. The patient will continue on home medication that she was treated here. The patient will be seen by the psychiatrist and also therapist and also she will be seen by neurologist. The patient at the time of discharge was not expressing any suicidal or homicidal thoughts. She was medically stable. RUDY LUNA MD DR: SARAH/nts JOB#: [id number] / [id number]
--- NOTE | 2018-04-15 18:21 | PDOC ---
Exam Note: [place] Note: Please also refer to the separate dictated note~for this date of service dictated separately.~Patient seen individually. Discussed the patient with Nursing staff reviewed the chart.~Reviewed interim history and current functioning. Reviewed vital signs,~Labs/ Radiology~and current medications noted below. Continue current treatment with the changes noted in the dictated addendum note. This is a late entry for 04/14/18 Assessment: Vital Signs: VS - Last 72 Hours, by Label Date Time Temp Pulse Resp B/P (MAP) Pulse Ox O2 Delivery O2 Flow Rate FiO2 04/14/18 08:15 66 157/73 04/14/18 08:15 66 157/73 04/14/18 06:12 97.1 66 20 157/73 (101) 98 04/13/18 18:46 77 125/61 04/13/18 15:44 98.0 77 18 125/61 (82) 96 04/13/18 10:54 83 173/67 04/13/18 10:54 83 173/67 04/13/18 06:13 97.8 83 18 173/67 (102) 97 04/12/18 19:51 71 170/64 Vital Signs Date Time Temp Pulse Resp B/P (MAP) Pulse Ox O2 Delivery O2 Flow Rate FiO2 04/14/18 08:15 66 157/73 04/14/18 06:12 97.1 20 98 04/12/18 07:53 Room Air I&O Intake and Output 04/15/18 07:00 Intake Total 1120 ml Balance 1120 ml Intake Oral 1120 ml Current Medications: Meds: Current Medications Acetaminophen (Tylenol) 650 mg PRN Q6HRS PRN PO PAIN / TEMP Last administered on 04/10/18at 05:11; Start 04/03/18 at 15:45; Stop 04/14/18 at 13:27; Status DC Multi-Ingredient Ointment (Analgesic [place]) 1 chuy PRN QID PRN TP MUSCLE PAIN; Start 04/03/18 at 15:45; Stop 04/14/18 at 13:27; Status DC Al Hydroxide/Mg Hydroxide (Mylanta Plus Xs) 15 ml PRN AFTMEALHC PRN PO DYSPEPSIA; Start 04/03/18 at 15:45; Stop 04/14/18 at 13:27; Status DC Magnesium Hydroxide (Milk Of Magnesia) 2,400 mg PRN QHS PRN PO CONSTIPATION; Start 04/03/18 at 15:45; Stop 04/14/18 at 13:27; Status DC Aspirin (Children'S Aspirin) 81 mg DAILYWBKFT PO Last administered on at 08:15; Start 04/04/18 at 08:00; Stop 04/14/18 at 13:27; Status DC Cetirizine HCl (ZyrTEC) 10 mg DAILY PO Last administered on 04/14/18at 08:15; Start 04/04/18 at 09:00; Stop 04/14/18 at 13:27; Status DC Non-Formulary Medication (Cholecalciferol (Vitamin D3) (Vitamin D3)) 50,000 unit WEEKLY PO ; Start 04/10/18 at 09:00; Stop 04/10/18 at 09:00; Status DC EZETIMIBE (Zetia) 10 mg DAILY PO Last administered on 04/14/18at 08:14; Start at 09:00; Stop 04/14/18 at 13:27; Status DC Insulin Glargine (Lantus) 10 units BID SQ Last administered on 04/06/18at 10:00 ; Start 04/03/18 at 21:00; Stop 04/06/18 at 16:41; Status DC Mirtazapine (Remeron) 15 mg QHS PO Last administered on 04/13/18at 18:45; Start 04/03/18 at 21:00; Stop 04/14/18 at 13:27; Status DC Trazodone HCl (Desyrel) 50 mg QHS PO Last administered on 04/06/18at 20:24; Start 04/03/18 at 21:00; Stop 04/07/18 at 19:11; Status DC Vitamin D (Vitamin D3) 50,000 unit WEEKLY PO Last administered on 04/11/18at 09: 03; Start 04/04/18 at 09:00; Stop 04/14/18 at 13:27; Status DC Carbidopa/Levodopa (Sinemet 25/100) 1 tab HS PO Last administered on 04/13/18at 18:46; Start 04/04/18 at 21:00; Stop 04/14/18 at 13:27; Status DC Gabapentin (Neurontin) 200 mg TID PO Last administered on 04/08/18 19:47; Start 04/04/18 at 09:00; Stop 04/09/18 at 10:15; Status DC Lisinopril (Prinivil) 40 mg BID PO Last administered on 04/14/18at 08:15; Start 04/04/18 at 09:00; Stop 04/14/18 at 13:27; Status DC Olanzapine (ZyPREXA ZYDIS) 5 mg HS PO Last administered on 04/09/18at 20:47; Start 04/04/18 at 21:00; Stop 04/10/18 at 18:55; Status DC Clonazepam (KlonoPIN) 0.5 mg QHS PO Last administered on 04/10/18at 21:44; Start 04/04/18 at 21:00; Stop 04/11/18 at 14:47; Status DC Metformin HCl (Glucophage) 500 mg BIDWMEALS PO Last administered on 04/14/18at 08:14; Start 04/03/18 at 21:00; Stop 04/14/18 at 13:27; Status DC Metoprolol Succinate (Toprol Xl) 50 mg DAILY PO Last administered on 04/14/18at 08:15; Start 04/04/18 at 09:00; Stop 04/14/18 at 13:27; Status DC Ondansetron HCl (Zofran Odt) 4 mg PRN Q8HRS PRN PO NAUSEA/VOMITING; Start 04/03 at 21:30; Stop 04/14/18 at 13:27; Status DC Primidone (Mysoline) 50 mg QHS PO Last administered on 04/13/18at 18:46; Start 04/04/18 at 21:00; Stop 04/14/18 at 13:27; Status DC Ropinirole HCl (Requip) 1 mg TID PO Last administered on 04/14/18at 08:14; Start 04/04/18 at 09:00; Stop 04/14/18 at 13:27; Status DC Zolpidem Tartrate (Ambien) 10 mg PRN QHS PRN PO INSOMNIA Last administered on at 20:50; Start 04/03/18 at 21:30; Stop 04/14/18 at 13:27; Status DC Carbamide Peroxide (Debrox) 5 drop BID AU Last administered on 04/14/18at 08:17 ; Start 04/04/18 at 21:00; Stop 04/14/18 at 13:27; Status DC Quetiapine Fumarate (SEROquel) 12.5 mg TID@0900,1300,1700 PO Last administered on 04/08/18at 17:33; Start 04/05/18 at 09:00; Stop 04/08/18 at 18:26; Status DC Lorazepam (Ativan) 0.5 mg PRN Q2HR PRN PO ANXIETY / AGITATION Last administered on 04/09/18at 19:30; Start 04/05/18 at 07:30; Stop 04/14/18 at 13:27 ; Status DC Divalproex Sodium (Depakote Sprinkles) 125 mg TID@0900,1300,1700 PO Last administered on 04/09/18at 11:01; Start 04/06/18 at 09:00; Stop 04/09/18 at 13:30 ; Status DC Insulin Glargine (Lantus) 10 units DAILYWBKFT SQ Last administered on at 08:18; Start 04/07/18 at 08:00; Stop 04/14/18 at 13:27; Status DC Quetiapine Fumarate (SEROquel) 12.5 mg TID@0900,1300,1700 PO Last administered on 04/07/18at 10:17; Start 04/06/18 at 18:00; Stop 04/07/18 at 09:01; Status DC Trazodone HCl (Desyrel) 100 mg QHS PO Last administered on 04/13/18at 18:45; Start 04/07/18 at 21:00; Stop 04/14/18 at 13:27; Status DC Quetiapine Fumarate (SEROquel) 12.5 mg TID@0900,1200,1600 PO Last administered on 04/14/18at 12:00; Start 04/09/18 at 09:00; Stop 04/14/18 at 13:27; Status DC Quetiapine Fumarate (SEROquel) 12.5 mg DAILY@1800 PO Last administered on at 16:48; Start 04/09/18 at 18:00; Stop 04/10/18 at 18:55; Status DC Gabapentin (Neurontin) 300 mg TID PO Last administered on 04/14/18at 08:15; Start 04/09/18 at 14:00; Stop 04/14/18 at 13:27; Status DC Divalproex Sodium (Depakote Sprinkles) 250 mg TID@0900,1300,1700 PO Last administered on 04/12/18at 17:42; Start 04/09/18 at 17:00; Stop 04/12/18 at 19:39 ; Status DC Quetiapine Fumarate (SEROquel) 50 mg HS PO Last administered on 04/13/18at 18:46 ; Start 04/10/18 at 21:00; Stop 04/14/18 at 13:27; Status DC Clonazepam (KlonoPIN) 0.25 mg QHS PO Last administered on 04/13/18at 18:45; Start 04/11/18 at 21:00; Stop 04/14/18 at 13:27; Status DC Divalproex Sodium (Depakote Sprinkles) 250 mg BID@0900,1300 PO Last administered on 04/13/18at 13:53; Start 04/13/18 at 09:00; Stop 04/13/18 at 20:29 ; Status DC Divalproex Sodium (Depakote Sprinkles) 500 mg DAILY@1700 PO Last administered on 04/13/18at 15:49; Start 04/13/18 at 17:00; Stop 04/14/18 at 13:27; Status DC Divalproex Sodium (Depakote Sprinkles) 250 mg 1X ONCE PO Last administered on 04/12/18at 19:53; Start 04/12/18 at 19:45; Stop 04/12/18 at 19:49; Status DC Divalproex Sodium (Depakote Sprinkles) 250 mg DAILY PO Last administered on at 08:17; Start 04/14/18 at 09:00; Stop 04/14/18 at 13:27; Status DC Divalproex Sodium (Depakote Sprinkles) 500 mg DAILY@1300 PO ; Start 04/14/18 at 13:00; Stop 04/14/18 at 13:27; Status DC Active Scripts Active Reported Ativan (Lorazepam) 0.5 Mg Tablet 0.5 Mg PO PRN Q2HR PRN Seroquel (Quetiapine Fumarate) 25 Mg Tablet 12.5 Mg PO TIDPC Seroquel (Quetiapine Fumarate) 50 Mg Tablet 50 Mg PO HS Depakote Sprinkle (Divalproex Sodium) 125 Mg Cap.sprink 250 Mg PO DAILY Depakote Sprinkle (Divalproex Sodium) 125 Mg Cap.sprink 500 Mg PO BIDACLD Metformin Hcl 500 Mg Tablet 500 Mg PO BIDWMEALS Gabapentin 100 Mg Capsule 300 Mg PO TID Zolpidem Tartrate 10 Mg Tablet 10 Mg PO PRN QHS PRN Metoprolol Succinate ( Xl ) (Metoprolol Succinate) 50 Mg Tab.er.24h 50 Mg PO DAILY PRN Requip (Ropinirole Hcl) 1 Mg Tablet 1 Mg PO TID Sinemet 25-100 Mg Tablet (Carbidopa/Levodopa) 1 Each Tablet 1 Each PO HS Primidone 50 Mg Tablet 50 Mg PO HS Zofran (Ondansetron Hcl) 4 Mg Tablet 4 Mg PO PRN Q8HRS PRN Clonazepam 1 Mg Tablet 0.25 Mg PO HS Lisinopril 20 Mg Tablet 40 Mg PO BID hold for BP less than 100. After a held dose, reassess in 2 ours. IF SBP is above threshold, administer dose as ordered. IF SBP is below threshold, contact provider for additional instructions. Remeron (Mirtazapine) 15 Mg Tablet 15 Mg PO QHS Trazodone Hcl 50 Mg Tablet 100 Mg PO QHS Cetirizine Hcl 10 Mg Tablet 10 Mg PO DAILY Aspirin 81 Mg Tab.chew 81 Mg PO DAILY Levemir (Insulin Detemir) 100 Unit/1 Ml Vial 10 Unit SQ DAILYWBKFT Vitamin D3 (Cholecalciferol (Vitamin D3)) 5,000 Unit Tablet 50,000 Unit PO WEEKLY Zetia (Ezetimibe) 10 Mg Tablet 10 Mg PO DAILY I have reviewed the current psychotropics carefully including drug interactions. Risk benefit ratio favors no change other than as noted in my dictated progress note. Diagnosis: Problems: (1) Impulse control disorder (2) Anxiety disorder (3) Bipolar I disorder with mixed features KANWAL KNIGHT MD April 15, 2018 18:21
--- NOTE | 2018-04-16 14:23 | DS ---
DATE OF DISCHARGE: 04/14/2018 This is a late entry 04/14/2018 covers elements not covered in my initial note 04/14/2018. REASON FOR ADMISSION: Please refer to the admission history for details. Briefly, the patient is a 78-year-old female referred after I saw her in my office on 04/03/2018. She is extremely labile in her mood, anxious, agitated, unable to manage as an outpatient, living at home and had failed outpatient psychiatric interventions with myself and Hafsa Staples LMSW. She does have a past history of bipolar disorder and this seemed to have had an exacerbation with marked anxiety, obsessiveness and failure for outpatient treatment resulting in this referral. SIGNIFICANT FINDINGS AND CLINICAL COURSE: Following admission, the patient was seen daily individually by myself from a psychiatric standpoint, medical followup per Dr. Apodaca/Dr Duncan. The patient is extremely anxious, labile, paranoid. Adjustments were made in her psychotropics and she seemed to respond to a combination of Depakote 250 mg a.m. and 500 mg at bedtime with CBC, CMP, valproic acid level to be checked on 04/16/2018 since the previous level was subtherapeutic at 43. Serum ammonia was unremarkable. Gradually, the patient's mood appeared to improve. She was less anxious, less labile. Denied active suicidal ideation prior to discharge. REVIEW OF SYSTEMS: Prior to discharge, ambulation impaired with walker. No CV, , pulmonary, eye, ENT system symptoms on review. MENTAL STATUS EXAM: Reasonably oriented. Speech coherent, has some latency, at times pressured. Abstraction fair, computation impaired, language function intact. Mood and affect showing improvement. FINAL DIAGNOSES: Bipolar 1 disorder, mixed with psychotic features, in partial remission; anxiety disorder unspecified, symptoms of obsessive compulsive disorder. Rest unchanged from admission. DISCHARGE MEDICATIONS: Please refer to the EMRAD, outpatient psychiatric and medical followup as an outpatient with myself and her primary care physician. DISCHARGE INSTRUCTIONS: Serum ammonia was normal prior to discharge. CONDITION AT DISCHARGE: Improved. MAN Gerhard KNIGHT MD DR: VINOD/portia JOB#: [id number] / [id number]
== END 2018-04-14 13:05 | disposition home or self-care (01) | DRG 885 ==
LOC: GEROPSY 14:17
PROVIDERS: ADMIT Psychiatry & Neurology Psychiatry; ATTEND Psychiatry & Neurology Psychiatry
DX: F31.64 Bipolar disorder, current episode mixed, severe, with psychotic features (principal); E43 Unspecified severe protein-calorie malnutrition; E11.40 Type 2 diabetes mellitus with diabetic neuropathy, unspecified; L03.115 Cellulitis of right lower limb; G20 Parkinson's disease; R13.10 Dysphagia, unspecified; I50.32 Chronic diastolic (congestive) heart failure; I11.0 Hypertensive heart disease with heart failure; F31.2 Bipolar disorder, current episode manic severe with psychotic features; Z68.1 Body mass index [BMI] 19.9 or less, adult; H61.23 Impacted cerumen, bilateral; F41.9 Anxiety disorder, unspecified; F17.210 Nicotine dependence, cigarettes, uncomplicated; E78.5 Hyperlipidemia, unspecified; F63.9 Impulse disorder, unspecified; Z79.4 Long term (current) use of insulin; Z79.82 Long term (current) use of aspirin; Z79.899 Other long term (current) drug therapy; Z81.8 Family history of other mental and behavioral disorders
CPT/HCPCS: 36415; 73630; 80053; 80061; 80164; 81001; 82140; 82306; 82607; 82947; 83036; 83540; 83550; 84436; 84443; 84480; 85025; 86593; 93005; J1815; 92610

== ENCOUNTER 2018-04-25 11:50 | Emergency (ER) | payer MEDICARE, OTHER ==
[~2018-04-25] VITALS: Ht 162.6 cm; Wt 51.7 kg
[~2018-04-25 11:50] MED LIST changes: +ALEN70TA5 PO; +CARB1TAB2 PO; +DIVA125C PO; +GABA-585 PO; +LORA0.5T96 PO; +METO50TA29 PO; +ONDA4TAB7 PO; +PRIM50TA PO; +QUET25TA5 PO; +QUET50TA5 PO; +ROPI1TAB PO; +ZOLP10TA4 PO
--- NOTE | 2018-04-25 13:16 | RAD ---
CT head without intravenous contrast History: New onset of altered mental status. Comparison: CT head February 26, 2011. Technique: Axial images are obtained of the head from the skull base through the vertex without IV contrast. Exposure: One or more of the following individualized dose reduction techniques were utilized for this examination: 1. Automated exposure control 2. Adjustment of the mA and/or kV according to patient size 3. Use of iterative reconstruction technique Findings: Mild motion artifact is seen at several levels which could obscure subtle abnormalities. The ventricles are appropriate in size, shape, and location for the patient's age. No obvious intracranial mass, mass-effect, midline shift, hemorrhage or obvious acute infarction is identified. Basilar cisterns are patent. Patchy, nonspecific white matter low-attenuation seen, probably from chronic microvascular ischemic disease. Bone windows demonstrate no acute calvarial abnormality. The visualized paranasal sinuses appear clear. Impression: 1. Limited by motion. 2. No acute intracranial process. Please note that CT can be relatively insensitive to acute ischemic infarction for up to 24 hours after symptom onset. 3. Nonspecific white matter changes, probably from chronic microvascular ischemic disease Electronically signed by: Keven Zuniga MD (04/25/2018 1:13 PM) [id number]
--- NOTE | 2018-04-25 13:20 | PHYS DOC ---
Past History Past Medical History: Arrhythmia, Diabetes Past Surgical History: Appendectomy, Hysterectomy, Tonsillectomy, Other Smoking: Non-smoker Alcohol Use: None Drug Use: None Adult General Chief Complaint Chief Complaint: ALTERED MENTAL STATUS HPI HPI 78-year-old female presents via EMS after falling at home. She states that she fell in the bathroom in the bathtub and the closet. She denies hitting her head. She denies loss of consciousness. She also complains of some left rib pain. She was also telling the nurse that she doesn't want to go back to her apartment because her roommate smoked pot. The roommate has arrived in the ED and is not sure what the patient is starting about. He states that she is acting different than normal. He also found her in the bedroom not the bathroom. By the time I interviewed the patient, she is talking quite a bit in the room. There is no one in the room. When I ask her questions she does not answer them. She is referring to someone not caring. When I ask her who that is she doesn't answer. When I asked who I am, she notes that I'm the doctor. She is restless in the bed. She is moving all extremities. Review of Systems Review of Systems Constitutional: Denies fever or chills [] Eyes: Denies change in visual acuity, redness, or eye pain [] HENT: Denies nasal congestion or sore throat [] Respiratory: left rib pain [] Cardiovascular: No additional information not addressed in HPI [] GI: Denies abdominal pain, nausea, vomiting, bloody stools or diarrhea [] : Denies dysuria or hematuria [] Musculoskeletal: Denies back pain or joint pain [] Integument: Denies rash or skin lesions [] Neurologic: Denies headache, focal weakness or sensory changes [] Endocrine: Denies polyuria or polydipsia [] All other systems were reviewed and found to be within normal limits, except as documented in this note. Allergies Allergies Allergies Coded Allergies Type Severity Reaction Last Updated Verified No Known Drug Allergies 07/04/14 No Physical Exam Physical Exam Constitutional: Well developed, well nourished, no acute distress, non-toxic appearance. [] HENT: Normocephalic, atraumatic, bilateral external ears normal, oropharynx moist, no oral exudates, nose normal. [] Eyes: PERRLA, EOMI, conjunctiva normal, no discharge. [] Neck: Normal range of motion, no tenderness, supple, no stridor. [] Cardiovascular:Heart rate regular rhythm, no murmur [] Lungs & Thorax: Bilateral breath sounds clear to auscultation [] Abdomen: Bowel sounds normal, soft, no tenderness, no masses, no pulsatile masses. [] Skin: Warm, dry, no erythema, no rash. [] Back: No tenderness, no CVA tenderness. [] Extremities: No tenderness, no cyanosis, no clubbing, ROM intact, no edema. [] Neurologic: Alert to self, will not answer time and place questions, no focal deficits noted. [] Psychologic: Patient is talking to herself in the room. She is laughing and crying. She is restless. [] Current Patient Data Vital Signs Vital Signs Date Time Temp Pulse Resp B/P (MAP) Pulse Ox O2 Delivery O2 Flow Rate FiO2 04/25/18 12:04 98.2 88 18 96 Room Air EKG EKG Sinus rhythm, rate 68, normal axis, no ST elevation or depression[] Radiology/Procedures Radiology/Procedures CT head without intravenous contrast History: New onset of altered mental status. Comparison: CT head February 26, 2011. Technique: Axial images are obtained of the head from the skull base through the vertex without IV contrast. Exposure: One or more of the following individualized dose reduction techniques were utilized for this examination: 1. Automated exposure control 2. Adjustment of the mA and/or kV according to patient size 3. Use of iterative reconstruction technique Findings: Mild motion artifact is seen at several levels which could obscure subtle abnormalities. The ventricles are appropriate in size, shape, and location for the patient's age. No obvious intracranial mass, mass-effect, midline shift, hemorrhage or obvious acute infarction is identified. Basilar cisterns are patent. Patchy, nonspecific white matter low-attenuation seen, probably from chronic microvascular ischemic disease. Bone windows demonstrate no acute calvarial abnormality. The visualized paranasal sinuses appear clear. Impression: 1. Limited by motion. 2. No acute intracranial process. Please note that CT can be relatively insensitive to acute ischemic infarction for up to 24 hours after symptom onset. 3. Nonspecific white matter changes, probably from chronic microvascular ischemic disease Electronically signed by: Keven Zuniga MD (04/25/2018 1:13 PM) [facility] PORTABLE CHEST 1V History: NEW ALTERED MENTAL STATUS. Comparison: February 26, 2011 Cardiomediastinal silhouette is within normal limits. No focal airspace consolidation. No pneumothorax identified. No evidence of pleural effusion. There is air trapping, compatible with emphysema. Impression: No acute radiographic findings. Electronically signed by: Keven Hester MD (04/25/2018 1:18 PM) [id number] [] Examination: 2 views of the left RIBS HISTORY: History of fall, left rib pain COMPARISON: None available FINDINGS: Left-sided cardiac pacer is identified. No evidence of displaced left rib fracture visualized. The left lung appears clear. Examination limited due to positioning. IMPRESSION: No evidence of displaced left rib fracture. Electronically signed by: Blake Chavez MD (04/25/2018 4:14 PM) [id number] Course & Med Decision Making Course & Med Decision Making Pertinent Labs and Imaging studies reviewed. (See chart for details) The patient's lab revealed a severely low glucose of 29. We will immediately give her 1 amp D50. Her EKG is unremarkable. After the patient's blood sugar improved, she was much more lucid and aware. She was alert and oriented 3. She was able to answer all of my questions and use antibiotics without difficulty. She continued to kind of let for pain. X- rays did not show any fractures. Her head CT was negative as well. Chest x-ray negative. The patient did not eat breakfast this morning. She takes her Levemir at night. It is my hypothesis that the patient's blood sugar got low and likely led to her fall. She continued to have low blood sugar in the ED until the lab results revealed this. She appears to be back at baseline. The patient's blood pressures been elevated to 200 systolic. We gave 0.1 of Catapres 2 which improved it to 180s. The patient is asymptomatic except for the pain in her left ribs. She does not have a fracture, but this pain is likely contributing to her increased pressure. The patient is also due for her evening medications. Further discussion with the patient family reveals that she did not get her Levemir this morning and did not get last night. That means the patient was hypoglycemic 36 hours after her last Levemir dose. I have advised that she not take Levemir tonight and discuss further her dosing with her PCP. They have cut the dosing in half from twice a day to once a day and she has still gotten severely hypoglycemic. I will discharge her with [place] 5/ 325 for her pain. [] Greater than 60 minutes of critical care time was spent on this patient separate from other billable procedures: Including interpreting labs, interpreting x-rays, administering medications, and coordinating care. Dragon Disclaimer Dragon Disclaimer This electronic medical record was generated, in whole or in part, using a voice recognition dictation system. Departure Departure: Referrals: DEANGELO DOMINIQUE (PCP) Scripts Hydrocodone Bit/Acetaminophen (NORCO 5-325 TABLET) 1 Each Tablet 1 TAB PO PRN Q6HRS PRN for PAIN, #12 TAB 0 Refills Prov: JESSIE LANGE DO 04/25/18 JESSIE LANGE DO Apr 25, 2018 13:20
[2018-04-25 13:44] LABS: BASO % 0 % (0-3); EOS # 0.1 x10^3/uL (0.0-0.7); EOS % 1 % (0-3); HEMATOCRIT 42.1 % (36.0-47.0); HEMOGLOBIN 14.3 g/dL (12.0-15.5); LYMPH # 1.3 x10^3/uL (1.0-4.8); LYMPH % 17 % (24-48); MEAN CORPUSCULAR HEMOGLOBIN 33 pg (25-35); MEAN CORPUSCULAR HGB CONC 34 g/dL (31-37); MEAN CORPUSCULAR VOLUME 98 fL (79-100); MONO # 0.4 x10^3/uL (0.0-1.1); MONO % 6 % (0-9); NEUT % 76 % (31-73); PLATELET COUNT 194 x10^3/uL (140-400); RED BLOOD COUNT 4.32 x10^6/uL (3.50-5.40); RED CELL DISTRIBUTION WIDTH 13.6 % (11.5-14.5); WHITE BLOOD COUNT 7.8 x10^3/uL (4.0-11.0)
--- NOTE | 2018-04-25 13:55 | EKG ---
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
[2018-04-25 13:56] LABS: ALBUMIN 2.9 g/dL (3.4-5.0); ALBUMIN/GLOBULIN RATIO 0.9 (1.0-1.7); CALCIUM 8.5 mg/dL (8.5-10.1); CREATININE 0.8 mg/dL (0.6-1.0); GFR 69.6; MAGNESIUM 1.8 mg/dL (1.8-2.4); POTASSIUM 3.8 mmol/L (3.5-5.1); TOTAL BILIRUBIN 0.3 mg/dL (0.2-1.0); TOTAL PROTEIN 6.2 g/dL (6.4-8.2)
[2018-04-25] MEDS ORDERED: DEXTROSE 50% 25 GM / 50ML DISP.SYRIN. IV ONE ×2 (14:02→14:15)
[2018-04-25 14:20] LABS: COLOR,URINE COLORLESS
[2018-04-25 14:21] LABS: BACTERIA,URINE 0 /HPF (0-FEW); BILIRUBIN,URINE NEG (NEG); CLARITY,URINE CLEAR; GLUCOSE,URINE NEG (NEG); NITRITE,URINE NEG (NEG); RBC,URINE RARE /HPF (0-2); SQUAMOUS EPITHELIAL CELL,UR OCC /LPF; UROBILINOGEN,URINE 0.2 mg/dL (0.2 mg/dL); WBC,URINE 0 /HPF (0-4)
[2018-04-25 14:28] LABS: AMPHETAMINE/METHAMPHETAMINE NEG (NEG); BARBITURATES POS (NEG); BENZODIAZEPINES NEG (NEG); CANNABINOIDS NEG (NEG); COCAINE NEG (NEG); METHADONE NEG (NEG); OPIATES NEG (NEG); PHENCYCLIDINE NEG (NEG)
--- NOTE | 2018-04-25 16:17 | RAD ---
Examination: 2 views of the left RIBS HISTORY: History of fall, left rib pain COMPARISON: None available FINDINGS: Left-sided cardiac pacer is identified. No evidence of displaced left rib fracture visualized. The left lung appears clear. Examination limited due to positioning. IMPRESSION: No evidence of displaced left rib fracture. Electronically signed by: Blake Chavez MD (04/25/2018 4:14 PM) [id number]
[2018-04-25] MEDS ORDERED: cloNIDine HCL 0.1 MG TABLET PO ONE ×2 (17:30→18:30)
[2018-04-25 18:30] VITALS: BP 184/93
[2018-04-25] MEDS ORDERED: HYDROcodone/APAP 5/325MG 1 TAB TABLET PO ONE (18:30)
[2018-04-25] MEDS ORDERED: HYDR-971 PO (18:31)
[2018-04-25] MEDS ORDERED: NAPROXEN 500 MG TABLET PO ONE (18:45)
== END 2018-04-25 19:35 | disposition home or self-care (01) ==
LOC: ER 11:50
DX: R07.81 Pleurodynia (principal); R41.82 Altered mental status, unspecified; E11.9 Type 2 diabetes mellitus without complications; W19.XXXA Unspecified fall, initial encounter; Y93.89 Activity, other specified; Y99.8 Other external cause status; Y92.091 Bathroom in other non-institutional residence as the place of occurrence of the external cause
CPT/HCPCS: 36415; 70450; 71045; 71100; 80053; 80307; 81001; 82947; 83735; 85025; 93005; 96374; 99291-25; G0479

== ENCOUNTER 2018-06-10 13:57 | Observation (INO) | payer MEDICARE, OTHER ==
[~2018-06-10] VITALS: Ht 162.6 cm; Wt 46.3 kg
[~2018-06-10 13:57] MED LIST changes: +CLON0.5T11 PO; -CLON0.5T3 PO; -CLON1TAB3 PO; +CLON1TAB4 PO; -CLON2TAB2 PO; +CLON2TAB9 PO; +HYDR-971 PO; +TRAZ-85 PO; +TRAZ-86 PO; -TRAZ-90 PO; -TRAZ50TA15 PO
--- NOTE | 2018-06-10 15:17 | PHYS DOC ---
Past History Past Medical History: Arrhythmia, Diabetes Past Surgical History: Appendectomy, Hysterectomy, Tonsillectomy, Other Smoking: Non-smoker Alcohol Use: None Drug Use: None Adult General Chief Complaint Chief Complaint: MULTIPLE COMPLAINTS HPI HPI Patient is a pleasant 78-year-old female who presents for evaluation of anxiety or she states that she has been admitted to the behavioral health unit here in the past and feels that she needs to be admitted again. She states that a friend dropped her off at the emergency department. She denies suicidal or homicidal thoughts. She states that she cannot stop shaking and does have a slight tremor. She seems very anxious. Her psychiatrist is Dr. Voss. Review of Systems Review of Systems Constitutional: Denies fever or chills [] Eyes: Denies change in visual acuity, redness, or eye pain [] HENT: Denies nasal congestion or sore throat [] Respiratory: Denies cough or shortness of breath [] Cardiovascular: No additional information not addressed in HPI [] GI: Denies abdominal pain, nausea, vomiting, bloody stools or diarrhea [] : Denies dysuria or hematuria [] Musculoskeletal: Denies back pain or joint pain [] Integument: Denies rash or skin lesions [] Neurologic: Denies headache, focal weakness or sensory changes [] Endocrine: Denies polyuria or polydipsia [] Psych: +anxiety, denies SI/HI All other systems were reviewed and found to be within normal limits, except as documented in this note. Allergies Allergies Allergies Coded Allergies Type Severity Reaction Last Updated Verified hydrocodone Allergy Unknown 04/25/18 Yes Physical Exam Physical Exam Constitutional: Well developed, well nourished, no acute distress, non-toxic appearance. [] Appears anxious HENT: Normocephalic, atraumatic, bilateral external ears normal, oropharynx moist, no oral exudates, nose normal. [] Eyes: PERRLA, EOMI, conjunctiva normal, no discharge. [] Neck: Normal range of motion, no tenderness, supple, no stridor. [] Cardiovascular:Heart rate regular rhythm, no murmur [] Lungs & Thorax: Bilateral breath sounds clear to auscultation [] Abdomen: Bowel sounds normal, soft, no tenderness, no masses, no pulsatile masses. [] Skin: Warm, dry, no erythema, no rash. [] Back: No tenderness, no CVA tenderness. [] Extremities: No tenderness, no cyanosis, no clubbing, ROM intact, no edema. [] Neurologic: Alert and oriented X 3, normal motor function, normal sensory function, no focal deficits noted. [] Psychologic: Affect normal, judgement normal [] +very anxious Current Patient Data Vital Signs Vital Signs Date Time Temp Pulse Resp B/P (MAP) Pulse Ox O2 Delivery O2 Flow Rate FiO2 06/10/18 14:26 98.7 68 24 96 Room Air EKG EKG Normal sinus rhythm, rate of 60, normal axis, no acute ischemic findings noted, no STEMI Radiology/Procedures Radiology/Procedures [] Course & Med Decision Making Course & Med Decision Making Pertinent Labs and Imaging studies reviewed. (See chart for details) @1730 - Pt still states she is very anxious and wants to be admitted, does not feel safe at home. She states she is too anxious and tremulous. @1819 - Pt care transferred from Dr. Artis to Dr. Garcia at this time. Awaiting psychiatric evaluation to determine disposition. Pt's UTI will require continued antibiotics. @1919- Patient was evaluated by on-call psychiatric and he stated patient's symptoms most likely was related to taking several medication and adverse drug interaction and recommended inpatient hospitalization. Dr. Apodaca was informed at 1918 and agreed with plan of admission. Patient informed about plan of care and needs for hospitalization. Dragon Disclaimer Dragon Disclaimer This electronic medical record was generated, in whole or in part, using a voice recognition dictation system. Departure Departure: Impression: Primary Impression: Adverse drug interaction Additional Impressions: Urinary tract infection Anxiousness Disposition: ADMITTED INPATIENT (at 1919) Admitting Physician: Emerson Apodaca Condition: IMPROVED Referrals: DEANGELO DOMINIQUE (PCP) Problem Qualifiers WESTON ARTIS DO Jun 10, 2018 15:17 RASHEEDA GARCIA MD Jun 10, 2018 19:29
[2018-06-10 16:03] LABS: BASO # 0.1 x10^3/uL (0.0-0.2); BASO % 1 % (0-3); EOS # 0.1 x10^3/uL (0.0-0.7); EOS % 2 % (0-3); HEMATOCRIT 39.1 % (36.0-47.0); HEMOGLOBIN 13.5 g/dL (12.0-15.5); LYMPH # 1.8 x10^3/uL (1.0-4.8); LYMPH % 27 % (24-48); MEAN CORPUSCULAR HEMOGLOBIN 34 pg (25-35); MEAN CORPUSCULAR HGB CONC 35 g/dL (31-37); MEAN CORPUSCULAR VOLUME 99 fL (79-100); MONO # 0.4 x10^3/uL (0.0-1.1); MONO % 7 % (0-9); NEUT # 4.2 x10^3uL (1.8-7.7); NEUT % 64 % (31-73); PLATELET COUNT 227 x10^3/uL (140-400); RED BLOOD COUNT 3.96 x10^6/uL (3.50-5.40); RED CELL DISTRIBUTION WIDTH 13.8 % (11.5-14.5); WHITE BLOOD COUNT 6.6 x10^3/uL (4.0-11.0)
[2018-06-10 16:21] LABS: ALBUMIN 2.8 g/dL (3.4-5.0); ALBUMIN/GLOBULIN RATIO 0.9 (1.0-1.7); CALCIUM 8.6 mg/dL (8.5-10.1); CREATININE 0.9 mg/dL (0.6-1.0); GFR 60.7; POTASSIUM 3.8 mmol/L (3.5-5.1); TOTAL BILIRUBIN 0.2 mg/dL (0.2-1.0)
[2018-06-10] MEDS ORDERED: ZINC OXIDE/COD LIVER OIL 40% TOPICAL OINTMENT 56GM TUBE. TP ONE (17:25)
[2018-06-10 17:28] LABS: AMPHETAMINE/METHAMPHETAMINE NEG (NEG); BARBITURATES POS (NEG); BENZODIAZEPINES NEG (NEG); CANNABINOIDS NEG (NEG); COCAINE NEG (NEG); METHADONE NEG (NEG); OPIATES NEG (NEG); PHENCYCLIDINE NEG (NEG)
[2018-06-10 17:33] LABS: BILIRUBIN,URINE NEG (NEG); CLARITY,URINE HAZY; COLOR,URINE YELLOW; GLUCOSE,URINE 250 mg/dL (NEG); UROBILINOGEN,URINE 0.2 mg/dL (0.2 mg/dL)
[2018-06-10 17:34] LABS: BACTERIA,URINE FEW /HPF (0-FEW); NITRITE,URINE NEG (NEG); SQUAMOUS EPITHELIAL CELL,UR FEW /LPF; WBC,URINE 20-40 /HPF (0-4)
[2018-06-10] MEDS ORDERED: SMZ/TMP 800/160MG TABLET. PO ONE (17:45)
[2018-06-10 21:07] VITALS: BP 158/74
[2018-06-10] MEDS ORDERED: ACETAMINOPHEN 325 MG TABLET PO PRN (21:15)
[2018-06-10] MEDS ORDERED: ERGO500027 PO (21:44)
[2018-06-10] MEDS: INSULIN GLARGINE 300 UNITS/3 ML INSULN.PEN. SQ SCH (22:38)
[2018-06-11 05:09] VITALS: BP 113/64
[2018-06-11 06:40] LABS: BASO # 0.1 x10^3/uL (0.0-0.2); BASO % 1 % (0-3); EOS # 0.1 x10^3/uL (0.0-0.7); EOS % 2 % (0-3); HEMATOCRIT 34.8 % (36.0-47.0); HEMOGLOBIN 12.1 g/dL (12.0-15.5); LYMPH # 1.7 x10^3/uL (1.0-4.8); LYMPH % 27 % (24-48); MEAN CORPUSCULAR HEMOGLOBIN 35 pg (25-35); MEAN CORPUSCULAR HGB CONC 35 g/dL (31-37); MEAN CORPUSCULAR VOLUME 99 fL (79-100); MONO # 0.5 x10^3/uL (0.0-1.1); MONO % 8 % (0-9); NEUT # 3.9 x10^3uL (1.8-7.7); NEUT % 62 % (31-73); PLATELET COUNT 228 x10^3/uL (140-400); RED BLOOD COUNT 3.52 x10^6/uL (3.50-5.40); RED CELL DISTRIBUTION WIDTH 13.7 % (11.5-14.5); WHITE BLOOD COUNT 6.3 x10^3/uL (4.0-11.0)
[2018-06-11 06:47] LABS: ALBUMIN 2.4 g/dL (3.4-5.0); ALBUMIN/GLOBULIN RATIO 0.9 (1.0-1.7); CALCIUM 8.3 mg/dL (8.5-10.1); GFR 53.8; POTASSIUM 3.9 mmol/L (3.5-5.1); TOTAL BILIRUBIN 0.3 mg/dL (0.2-1.0)
--- NOTE | 2018-06-11 06:58 | EKG ---
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
[2018-06-11] MEDS: SMZ/TMP 800/160MG TABLET. PO SCH ×2 (08:06→20:37)
--- NOTE | 2018-06-11 10:14 | CONS ---
DATE OF CONSULTATION: 06/11/2018 REFERRING PHYSICIAN: Dr. Apodaca. REASON FOR CONSULTATION: Tremor and unsteady gait. HISTORY OF PRESENT ILLNESS: This is a 78-year-old right-handed female who is known to me. She knows to me from her previous admission in 04/2018 when she was admitted to [facility] for increasing symptoms of anxiety disorder and bipolar disorder as well. The patient stated she has been more trembling and shaking the entire body in the last few weeks. She is more anxious and does have a tendency to fall. She uses a walker for ambulation, but she has not had any fall so far. The patient has been complaining of resting and kinetic tremors of the upper extremities along with unsteady gait and tendency to fall. She has been treated in the past with primidone and dopamine agonist with intermittent good response to medications. However, her anxiety has been exacerbated over the last 2-3 weeks and she asked for re-admission to the [facility]. Currently, she denies headaches, visual disturbances, nausea, vomiting, chest pain, shortness of breath or palpitation, dysarthria. The patient also complains of difficulty swallowing solid food. PAST MEDICAL HISTORY: Significant for coronary artery disease, congestive heart failure, pacemaker placement, hypertension, gastroesophageal reflux disease, tremor, anxiety disorder, bipolar disorder type 1, depressions and resting tremor suggestive of parkinsonism, peripheral neuropathy in the lower extremities, probably secondary to diabetes mellitus and OCD, hypertension and hyperlipidemia. PAST SURGICAL HISTORY: Consistent with hysterectomy and status post pacemaker placement, SOCIAL HISTORY: The patient is single. She lives independently. She denies smoking, alcohol drinking, or illicit drug use. FAMILY HISTORY: Noncontributory. CURRENT HOME MEDICATIONS: Aspirin 81 mg daily, carbidopa/levodopa 25/100 one tablet at bedtime, clonazepam 1 mg at bedtime, Depakote Sprinkle 125 mg b.i.d. and 500 mg b.i.d., vitamin D 250 units twice daily, Zetia 10 mg daily, gabapentin 600 mg t.i.d., insulin Levemir 100 units daily, lisinopril 40 mg twice daily, lorazepam 0.5 mg p.r.n., metoprolol 50 mg daily, Remeron 15 mg at bedtime, Zofran p.r.n., primidone 50 mg at bedtime, trazodone 100 mg at bedtime, and zolpidem 10 mg p.r.n. at bedtime for insomnia. ALLERGIES: HYDROCODONE. PHYSICAL EXAMINATION: GENERAL: Well-developed, well-nourished white female, not in acute distress. VITAL SIGNS: Blood pressure 113/64, respiratory rate 22, pulse is 63, temperature 98.8, oxygen saturation 94% on room air. HEENT: Normocephalic, atraumatic, otherwise unremarkable. NECK: Supple. Negative for carotid bruit, lymphadenopathy or thyromegaly. LUNGS: Clear to A and P. CARDIOVASCULAR: Regular rate and rhythm, normal S1, S2. ABDOMEN: Soft. Bowel sounds are positive. EXTREMITIES: Negative for cyanosis, clubbing, pitting edema. NEUROLOGICAL EXAM: Mental status: The patient is alert and oriented x 3. Speech is fluent. There is no language dysfunction. The patient is very anxious. She has a tremor of the entire body including upper and lower extremities. The strength is 4/5 throughout. Sensory examination revealed diminished pinprick and light touch senses in patchy distributions in both lower extremities. Deep tendon reflexes were symmetric and active with absent Achilles responses. Gait: The patient uses a walker for ambulation. LABORATORY DATA: CBC revealed white blood cells of 6.3 thousand, hemoglobin 12.1, hematocrit 34.8, platelet count 228,000. Chemistry revealed sodium of 138, potassium 3.9, chloride 106, CO2 of 29, BUN 15, creatinine 1, glucose is 64, calcium is 8.3, magnesium is 2. Liver enzymes are normal. Urinalysis is consistent with urinary tract infections with small urinary leukocyte esterase with white blood cells of 20-40. Urine drug screen is negative. IMPRESSION: 1. Generalized tremor, etiology probably multifactorial including medication reaction and anxiety disorder. 2. Resting tremor with gait disturbances consistent with parkinsonism. 3. Multiple psychiatric problems including OCD, generalized anxiety disorders and bipolar disorder. 4. Multiple medical problems including hypertension, hyperlipidemia, diabetes mellitus, cardiac arrhythmia status post pacemaker placement. 5. Urinary tract infection. RECOMMENDATIONS: 1. Continue with current management as initiated by Dr. Apodaca. 2. We will consult Dr. Voss. M Siri ROBERT MD DR: DALE/portia JOB#: [id number] / [id number]
[2018-06-11 10:36] VITALS: BP 131/64
--- NOTE | 2018-06-11 11:38 | HP ---
ADMIT DATE: 06/11/2018 HISTORY OF PRESENT ILLNESS: The patient is a 78-year-old female patient, who came to the Emergency Room for evaluation of anxiety. She said that she has been admitted to the Behavioral Unit in the past and feels that she needs to be admitted again. Her friend has dropped her off at the Emergency Department. She denied any suicidal or homicidal ideation. She stated that she cannot stop shaking, does have slight tremor. She was extremely anxious and she follows with Dr. Voss's office as an outpatient. She was extensively investigated and was admitted with possible adverse drug interaction, severe anxiety and urinary tract infection. She was given trimethoprim sulfamethoxazole and continued on her Lantus, Tylenol, and we did consult Dr. Leroy and Dr. Voss. She is known to have severe anxiety and also Parkinson's disease. PAST MEDICAL HISTORY: Significant for hypertension, hyperlipidemia, type 2 diabetes mellitus and Parkinson's disease. PAST SURGICAL HISTORY: Unremarkable. PAST PSYCHIATRIC HISTORY: Significant for severe anxiety, bipolar disorder and labile mood. ALLERGIES: She has no known drug allergies. MEDICATIONS: She is on huge number of medication prescribed by different specialist and subspecialist. Her home medication include cetirizine 10 mg once a day, Zetia 10 mg once a day, metoprolol succinate 50 mg once a day, lisinopril 40 mg twice a day, aspirin 81 mg once a day, primidone 50 mg at bedtime, clonazepam 0.25 mg at bedtime. She is on Depakote Sprinkles 500 mg twice a day, divalproex 250 mg daily, gabapentin 300 mg 3 times a day, mirtazapine 50 mg at bedtime, trazodone 100 mg at bedtime, lorazepam 0.5 mg every 2 hours, Ambien 10 mg at bedtime, carbidopa/levodopa 25/100 one tablet at bedtime, Requip 1 mg 3 times a day. She is also on ondansetron for Zofran 4 mg every 8 hours, metformin 500 mg twice a day, Levemir insulin 10 units at bedtime and vitamin D 50,000 units p.o. twice weekly. FAMILY HISTORY: Noncontributory. SOCIAL HISTORY: She lives with her boyfriend. She continued to smoke a pack a day. She does not drink alcohol or use any recreational drugs. REVIEW OF SYSTEMS: As per history of present illness. PHYSICAL EXAMINATION: GENERAL: On arrival to the Emergency Room, she was extremely anxious, pale, cachectic, but no jaundice, cyanosis, or thyromegaly. No jugular venous distension. No limb edema. VITAL SIGNS: Her heart rate was 68, blood pressure was 158/74. Her temperature was 98.7, respiratory rate 24, and oxygen saturation was 96% on room air. HEAD, EYES, EARS, NOSE AND THROAT: Showed normocephalic, atraumatic. HEART: Showed normal first and second heart sounds. No gallop, rub or murmur. CHEST: Clear to auscultation. No crepitation or rhonchi. ABDOMEN: Distended, soft, nontender. NEUROLOGIC: She is awake, alert, responding appropriately. All her cranial nerves are intact. EXTREMITIES: She moves her extremities without difficulty. LABORATORY DATA: On admission showed white cell count of 6600, hemoglobin 13.5, hematocrit 39, MCV 99, and platelet count of 227,000. Her chemistry showed a serum sodium 137, potassium 3.8, chloride 105, bicarbonate 27, anion gap of 5, BUN 12, creatinine 0.9, estimated GFR was 60 mL per minute. Her glucose was 92, calcium was 8.6, magnesium 2. Total bilirubin, AST, ALT, alkaline phosphatase were normal. Total protein 6, albumin was 2.8. Urinalysis showed the urine was yellow, hazy with a pH of 6, specific gravity of 1.025. There was a trace of protein, large amount of glucose. The urine was negative for ketones. There was trace of blood, negative for nitrites, small amount of leukocyte esterase. There are 6-10 rbc's, 20-40 wbc's and few bacteria and her urine toxicology screen was positive for barbiturates. Her urine was sent for culture and sensitivity. ASSESSMENT AND PLAN: The patient was admitted with severe anxiety, possible urinary tract infection together with possible adverse drug reaction or interaction. DAMI GEE MD DR: DAVID/portia JOB#: [id number] / [id number]
--- NOTE | 2018-06-11 12:32 | PN ---
DATE: 06/11/2018 SUBJECTIVE: The patient is resting, slightly propped up in bed, no apparent distress. She is awake, alert, continued to complain of extreme anxiety, is also nauseous although she has not vomited. She denied any other complaint. PHYSICAL EXAMINATION: GENERAL: When I examined her this morning, she looked pale, cachectic, but no jaundice, cyanosis, or thyromegaly. No jugular venous distension. No limb edema. VITAL SIGNS: Her heart rate was 130, blood pressure was 131/64, temperature was 97.9, respiratory rate 20, and oxygen saturation was 93% on room air. The rest of clinical examination is unremarkable, has not really changed. Her intake was 618, no output of recorded. LABORATORY DATA: Her lab work this morning showed a white cell count 6300, hemoglobin 12, hematocrit 35, MCV 99 and platelet count 228,000. Her chemistry showed a serum sodium 138, potassium 3.9, chloride 106, bicarbonate 29, anion gap of 3, BUN 15, creatinine 1, estimated GFR was 54 mL per minute. Her glucose was 64, calcium was 8.3. Total bilirubin, AST, ALT, alkaline phosphatase were normal. Total protein 5, albumin was 2.4. ASSESSMENT AND PLAN: Severe anxiety. The patient is very tremulous. The patient is known to have Parkinson disease with pill-rolling tremor. Other medical problems include hypertension, hyperlipidemia, type 2 diabetes, cardiac arrhythmia, status post permanent pacemaker placement, and urinary tract infection. She is currently on Bactrim-DS 1 tablet twice a day urinary tract infection, we will continue all her medication. Await the evaluation by Dr. Voss. DAMI GEE MD DR: DAVID/portia JOB#: [id number] / [id number]
[2018-06-11 14:41] VITALS: BP 170/63
[2018-06-11] MEDS ORDERED: QUET25TA5 PO (14:48)
[2018-06-11] MEDS ORDERED: AMLO2.5T PO (14:48)
[2018-06-11] MEDS ORDERED: QUET50TA5 PO (14:48)
--- NOTE | 2018-06-11 19:01 | PDOC ---
Exam Note: [place] Note: Please also refer to the separate dictated note~for this date of service dictated separately.~Patient seen individually. Discussed the patient with Nursing staff reviewed the chart.~Reviewed interim history and current functioning. Reviewed vital signs,~Labs/ Radiology~and current medications noted below. Continue current treatment with the changes noted in the dictated addendum note Assessment: Vital Signs: Vital Signs Date Time Temp Pulse Resp B/P (MAP) Pulse Ox O2 Delivery O2 Flow Rate FiO2 06/11/18 14:41 98.3 95 20 170/63 (98) 92 Room Air I&O Intake and Output 06/11/18 07:00 Intake Total 680 ml Balance 680 ml Intake Oral 680 ml # Voids 2 Labs: Laboratory Tests Test 06/10/18 21:41 06/11/18 06:14 06/11/18 07:30 06/11/18 11:35 Glucose (Fingerstick) 313 mg/dL (70-99) H 77 mg/dL (70-99) 111 mg/dL (70-99) H White Blood Count 6.3 x10^3/uL (4.0-11.0) Red Blood Count 3.52 x10^6/uL (3.50-5.40) Hemoglobin 12.1 g/dL (12.0-15.5) Hematocrit 34.8 % (36.0-47.0) L Mean Corpuscular Volume 99 fL (79-100) Mean Corpuscular Hemoglobin 35 pg (25-35) Mean Corpuscular Hemoglobin Concent 35 g/dL (31-37) Red Cell Distribution Width 13.7 % (11.5-14.5) Platelet Count 228 x10^3/uL (140-400) Neutrophils (%) (Auto) 62 % (31-73) Lymphocytes (%) (Auto) 27 % (24-48) Monocytes (%) (Auto) 8 % (0-9) Eosinophils (%) (Auto) 2 % (0-3) Basophils (%) (Auto) 1 % (0-3) Neutrophils # (Auto) 3.9 x10^3uL (1.8-7.7) Lymphocytes # (Auto) 1.7 x10^3/uL (1.0-4.8) Monocytes # (Auto) 0.5 x10^3/uL (0.0-1.1) Eosinophils # (Auto) 0.1 x10^3/uL (0.0-0.7) Basophils # (Auto) 0.1 x10^3/uL (0.0-0.2) Sodium Level 138 mmol/L (136-145) Potassium Level 3.9 mmol/L (3.5-5.1) Chloride Level 106 mmol/L (98-107) Carbon Dioxide Level 29 mmol/L (21-32) Anion Gap 3 (6-14) L Blood Urea Nitrogen 15 mg/dL (7-20) Creatinine 1.0 mg/dL (0.6-1.0) Estimated GFR (Cockcroft-Gault) 53.8 BUN/Creatinine Ratio 15 (6-20) Glucose Level 64 mg/dL (70-99) L Calcium Level 8.3 mg/dL (8.5-10.1) L Total Bilirubin 0.3 mg/dL (0.2-1.0) Aspartate Amino Transferase (AST) 17 U/L (15-37) Alanine Aminotransferase (ALT) 17 U/L (14-59) Alkaline Phosphatase 92 U/L (46-116) Total Protein 5.0 g/dL (6.4-8.2) L Albumin 2.4 g/dL (3.4-5.0) L Albumin/Globulin Ratio 0.9 (1.0-1.7) L Thyroid Stimulating Hormone (TSH) 0.767 uIU/mL (0.358-3.740) Test 06/11/18 16:29 Glucose (Fingerstick) 116 mg/dL (70-99) H Current Medications: Meds: Current Medications Zinc Oxide (Desitin Diaper Rash 40%) 56 chuy STK-MED ONCE TP ; Start 06/10/18 at 17:25; Stop 06/10/18 at 17:26; Status DC Trimethoprim/ Sulfamethoxazole (Bactrim Ds) 1 tab 1X ONCE PO Last administered on 06/10/18at 18:14; Start 06/10/18 at 17:45; Stop 06/10/18 at 17:49 ; Status DC Acetaminophen (Tylenol) 650 mg PRN Q6HRS PRN PO PAIN / TEMP; Start 06/10/18 at 21:15 Trimethoprim/ Sulfamethoxazole (Bactrim Ds) 1 tab BID PO Last administered on at 08:06; Start 06/11/18 at 09:00 Insulin Glargine (Lantus) 10 units QHS SQ Last administered on 06/10/18at 22:38 ; Start 06/10/18 at 22:30 Active Scripts Active Reported Seroquel (Quetiapine Fumarate) 50 Mg Tablet 1 Tab PO QHS Seroquel (Quetiapine Fumarate) 25 Mg Tablet 0.5 Tab PO Q9,12,16 Amlodipine Besylate 2.5 Mg Tablet 1 Tab PO DAILY Vitamin D2 (Ergocalciferol (Vitamin D2)) 50,000 Unit Capsule 50,000 Unit PO TWICE WEEKLY Ativan (Lorazepam) 0.5 Mg Tablet 0.5 Mg PO PRN Q2HR PRN Depakote Sprinkle (Divalproex Sodium) 125 Mg Cap.sprink 250 Mg PO DAILY Depakote Sprinkle (Divalproex Sodium) 125 Mg Cap.sprink 500 Mg PO BIDACLD Metformin Hcl 500 Mg Tablet 500 Mg PO BIDWMEALS Gabapentin 100 Mg Capsule 300 Mg PO TID Zolpidem Tartrate 10 Mg Tablet 10 Mg PO PRN QHS PRN Metoprolol Succinate ( Xl ) (Metoprolol Succinate) 50 Mg Tab.er.24h 50 Mg PO DAILY Requip (Ropinirole Hcl) 1 Mg Tablet 1 Mg PO TID Sinemet 25-100 Mg Tablet (Carbidopa/Levodopa) 1 Each Tablet 1 Each PO TID Primidone 50 Mg Tablet 50 Mg PO HS Zofran (Ondansetron Hcl) 4 Mg Tablet 4 Mg PO PRN Q8HRS PRN Clonazepam 1 Mg Tablet 0.25 Mg PO HS Lisinopril 20 Mg Tablet 40 Mg PO DAILY hold for BP less than 100. After a held dose, reassess in 2 ours. IF SBP is above threshold, administer dose as ordered. IF SBP is below threshold, contact provider for additional instructions. Remeron (Mirtazapine) 15 Mg Tablet 15 Mg PO QHS Trazodone Hcl 50 Mg Tablet 100 Mg PO QHS Cetirizine Hcl 10 Mg Tablet 10 Mg PO DAILY Aspirin 81 Mg Tab.chew 81 Mg PO DAILY Levemir (Insulin Detemir) 100 Unit/1 Ml Vial 10 Unit SQ DAILYWBKFT Zetia (Ezetimibe) 10 Mg Tablet 10 Mg PO DAILY I have reviewed the current psychotropics carefully including drug interactions. Risk benefit ratio favors no change other than as noted in my dictated progress note. Diagnosis: Problems: (1) Impulse control disorder (2) Anxiety disorder (3) Bipolar I disorder with mixed features (4) Urinary tract infection KANWAL KNIGHT MD Jun 11, 2018 19:01
[2018-06-11 19:32] VITALS: BP 145/61
[2018-06-11] MEDS ORDERED: ZOLPIDEM 5 MG TABLET. PO PRN (20:00)
[2018-06-11] MEDS: INSULIN GLARGINE 300 UNITS/3 ML INSULN.PEN. SQ SCH (20:36)
[2018-06-11] MEDS ORDERED: traZODone 100 MG TABLET. PO SCH (21:00)
[2018-06-11 23:08] VITALS: BP 115/52
[2018-06-12 05:28] VITALS: BP 109/55
[2018-06-12] MEDS: SMZ/TMP 800/160MG TABLET. PO SCH (08:36)
[2018-06-12 10:40] VITALS: BP 109/58
--- NOTE | 2018-06-12 13:14 | PN ---
DATE: 06/12/2018 SUBJECTIVE: The patient continues to complain of difficulty swallowing of liquid and solid food. She also complains of a tremor of the upper extremities throughout the day. She denies chest pain, shortness of breath or palpitation, headache, visual disturbances, nausea, vomiting, or dizziness. OBJECTIVE: GENERAL: Thin white female, not in acute distress. She weighs 102 pounds. VITAL SIGNS: Blood pressure 109/55, respiratory rate 20, pulse is 62, temperature 98.3, oxygen saturation 95% on room air. HEENT: Normocephalic, atraumatic, otherwise unremarkable. NECK: Supple. Negative for carotid bruit, lymphadenopathy, or thyromegaly. LUNGS: Clear to A and P. CARDIOVASCULAR: Regular rate and rhythm, normal S1-S2. ABDOMEN: Soft. Bowel sounds positive. EXTREMITIES: Negative for cyanosis, clubbing, or pitting edema. NEUROLOGICAL: Mental Status: The patient is alert and oriented x 3. Speech is fluent. There is no language dysfunction. Memory, judgment, and abstracting thinking are fair. The patient denies hallucination or delusion. Cranial nerves are intact. No focal motor deficit.: The patient has resting, kinetic, and postural tremors of both upper extremities and intermittent tremor of the lower extremities. The tone is normal. Sensory examination revealed normal pinprick, light touch, vibratory and position senses. Deep tendon reflexes were symmetric and hypoactive with absent Achilles responses. Gait: The patient uses a walker for ambulation. IMPRESSION: 1. Resting, kinetic, and postural tremor representing parkinsonism and possible essential tremor. 2. Multiple psychiatric problems including bipolar disorder, anxiety disorders. 3. Multiple medical problems include diabetes mellitus, hypertension, coronary artery disease, gastroesophageal reflux disease, and hyperlipidemia. RECOMMENDATIONS: 1. Dysphagia study by speech therapy. 2. Continue physical therapy as tolerated. 3. Continue with current management initiated by Dr. Apodaca. 4. Continue with Dr. Voss's recommendation. M Siri ROBERT MD DR: DALE/portia JOB#: [id number] / [id number]
[2018-06-12] MEDS ORDERED: QUET25TA5 PO (14:03)
[2018-06-12] MEDS ORDERED: SULF1TAB23 PO (14:04)
[2018-06-12] MEDS ORDERED: ZOLP5TAB PO (14:17)
[2018-06-12] MEDS ORDERED: TRAZ-85 PO (14:17)
--- NOTE | 2018-06-12 17:24 | DS ---
DATE OF DISCHARGE: 06/12/2018 HOSPITAL COURSE: The patient is a 78-year-old female patient who was admitted through the Emergency Room with severe anxiety. She was extensively investigated, was admitted with urinary tract infection, possible adverse drug interactions, she was started empirically on trimethoprim/sulfamethoxazole. We continued her Lantus, Tylenol; Dr. Voss was consulted and he basically recommended cutting down her Seroquel to 25 mg at bedtime and changing her trazodone and Ambien to be taken as needed, instead of being scheduled. We did consult the speech therapist and apparently, they said that they evaluated her twice before. They felt that her problem is esophageal and she needs barium swallow. We will arrange that as an outpatient. We have consulted the pharmacist for possible drug interaction and the biggest problem was the interaction between Seroquel and Sinemet. Dr. Voss recommended sending a copy of this drug interactions to Dr. Corinna Estrada, her primary care physician. PHYSICAL EXAMINATION: GENERAL: On examining her today, she looked well and was seemed to be less anxious and agitated than before. VITAL SIGNS: Her heart rate was 63, blood pressure was 109/58, temperature was 98.1, respiratory rate was 18, and oxygen saturation was 95% on room air. HEAD, EYES, EARS, NOSE AND THROAT: Normocephalic, atraumatic. NECK: Supple. HEART: Showed normal first and second heart sounds. No gallop, rub or murmur. CHEST: Clear to auscultation. No crepitation or rhonchi. ABDOMEN: Distended, soft, and nontender. No guarding or rigidity. No organomegaly. Hernial orifice intact. Bowel sounds normal. NEUROLOGIC: She is awake, alert, responding appropriately. Cranial nerves intact. EXTREMITIES: She moves extremities without difficulty. LABORATORY DATA: Showed a white cell count of 6300, hemoglobin 12, hematocrit 35, MCV 99, and platelet count 228,000. Her chemistry showed that her serum sodium 138, potassium 3.9, chloride 106, bicarbonate 29, anion gap of 3, BUN 15, creatinine 1, estimated GFR was 54 mL per minute. Her glucose was at 64, calcium was 8.3. Total bilirubin, AST, ALT, alkaline phosphatase were normal. Total protein was 5, albumin was 2.4, and her TSH was 0.767. Urinalysis showed that the urine was positive for leukocyte esterase, 20-40 wbc's, and very few bacteria. Unfortunately, the culture and sensitivity still pending at the time of this dictation. Her toxic screen was positive for barbiturates. DISCHARGE MEDICATIONS: She was discharged home to continue on Seroquel 25 mg at bedtime, sulfamethoxazole/trimethoprim 1 tablet twice a day for 7 days. Her trazodone was switched to be given at bedtime as needed and Ambien was switched to 5 mg at bedtime as needed. Should continue with all her other medications, we will arrange for her to have. She will be discharged home with home health to monitor her medication intake and possible side effects and also to call the hospital for the result of urine culture, so that we can either continue with the Bactrim or change it to a different antibiotic coverage. DAMI GEE MD DR: DAVID/portia JOB#: [id number] / [id number]
--- NOTE | 2018-06-13 23:35 | CONS ---
DATE OF CONSULTATION: 06/11/2018 IDENTIFYING DATA: The patient is a 78-year-old female seen in bed 124, [facility] for a psychiatric consult requested by Dr. Apodaca after the patient was admitted via the Emergency Room on account of marked anxiety, irritability, mood lability, failure of outpatient psychiatric interventions with myself. The patient's therapist, Hafsa Staples had paged me as an emergency and I talked to Hafsa and to patient as well on 06/10/2018 as the patient was extremely anxious with marked mood lability unmanageable at the home. She presented herself to the Emergency Room and was admitted per Dr. Apodaca with a UTI, possibility of drug interactions causing shaking and tremulousness. CHIEF COMPLAINT: "My nerves are a mess." HISTORY OF PRESENT ILLNESS: The patient has a long history of bipolar disorder and has been in inpatient psychiatry at [facility] as well. I have followed her outpatient psychiatry recently and she has had increasing anxiety, mood lability resulting in the above telephone calls to me at the office. She has also had sleep and appetite changes. No psychotic symptoms, suicidal or homicidal ideation. PAST PSYCHIATRIC HISTORY: As above. MEDICAL HISTORY: Urinary tract infection, hypertension, hyperlipidemia, type 2 diabetes mellitus, Parkinson's disease. PAST SURGICAL HISTORY: Unremarkable. DRUG ALLERGIES: Negative. CURRENT PSYCHOTROPICS: Klonopin 0.25 mg at bedtime, Depakote Sprinkles 500 mg twice a day, ____ 250 mg daily, Neurontin 300 mg 3 times a day, Remeron 15 mg at bedtime, trazodone 100 mg at bedtime, Ativan p.r.n., Ambien 10 mg at bedtime, Sinemet 25/100 at bedtime, ReQuip 1 mg 3 times a day, Levemir insulin and metformin for diabetes. FAMILY HISTORY: Noncontributory. SOCIAL HISTORY: The patient lives with her boyfriend. No alcohol or drug abuse history. MENTAL STATUS EXAMINATION: The patient was seen individually in the evening of 06/11/2018. She readily recognizes me, very oriented, extremely anxious, tremulous. Speech coherent, rapid at times. Abstraction fair, computation impaired, language function intact, attention span short. Mood and affect remains somewhat anxious, labile. No suicidal or homicidal ideation. LABORATORY DATA: Reviewed. IMPRESSION: Bipolar 1 disorder, mixed anxiety disorder, unspecified; urinary tract infection. Rest as above. PLAN: We will request a pharmacy consult to review her multiple medications and to identify any drug interactions. As at the time of this dictation, I have discussed with Dr. Apodaca on 06/12/2018 prior to the patient's discharge. There is a drug interaction noted between Sinemet and Seroquel. Given the low dosage of the Seroquel, this is less likely, but we will go ahead and reduce the bedtime Seroquel by 25 mg. Continue Depakote at the current dosage. Change the trazodone to p.r.n. instead of scheduled and Ambien to p.r.n. and all of this was discussed with Dr. Apodaca over the telephone prior to the patient's discharge. Rest of the psychotropics will remain unchanged. Her liver enzymes, AST, ALT are unremarkable. TSH is unremarkable. I would be happy to follow the patient as an outpatient once she is discharged. KANWAL KNIGHT MD DR: VINOD/portia JOB#: [id number] / [id number]
== END 2018-06-12 16:13 | disposition home health service (06) ==
LOC: ER 13:57 → INTOOBSV 19:20 → 1 SOUTH 19:20
PROVIDERS: ADMIT Internal Medicine; ATTEND Internal Medicine
DX: N39.0 Urinary tract infection, site not specified (principal); F41.9 Anxiety disorder, unspecified; E11.9 Type 2 diabetes mellitus without complications; E78.5 Hyperlipidemia, unspecified; F17.210 Nicotine dependence, cigarettes, uncomplicated; F31.60 Bipolar disorder, current episode mixed, unspecified; F42.9 Obsessive-compulsive disorder, unspecified; F31.9 Bipolar disorder, unspecified; F63.9 Impulse disorder, unspecified; G20 Parkinson's disease; G25.2 Other specified forms of tremor; I25.10 Atherosclerotic heart disease of native coronary artery without angina pectoris; I11.0 Hypertensive heart disease with heart failure; I49.9 Cardiac arrhythmia, unspecified; I50.9 Heart failure, unspecified; K21.9 Gastro-esophageal reflux disease without esophagitis; Z90.49 Acquired absence of other specified parts of digestive tract; Z90.710 Acquired absence of both cervix and uterus; Z95.0 Presence of cardiac pacemaker
CPT/HCPCS: 36415; 80053; 80307; 81001; 82947; 83735; 84443; 85025; 93005; 96372; G0378; G0379; J1815; 99285-25; G0479

== ENCOUNTER 2018-09-18 16:41 | Inpatient (IN) | payer OTHER, MEDICARE ==
[~2018-09-18] VITALS: Ht 162.6 cm; Wt 58.1 kg
[~2018-09-18 16:41] MED LIST changes: +AMLO2.5T3 PO; -DIVA125C PO; +DIVA125C2 PO; +ERGO500027 PO; +METF500T16 PO; -METF500T5 PO; -OXCA300T PO; +OXCA300T19 PO; +SULF1TAB23 PO; +ZOLP5TAB PO
--- NOTE | 2018-09-18 17:01 | PHYS DOC ---
Past History Past Medical History: Arrhythmia, Diabetes Additional Past Medical Histor: bipolar disorder Past Surgical History: Appendectomy, Hysterectomy, Tonsillectomy, Other Smoking: Non-smoker Alcohol Use: None Drug Use: None Adult General Chief Complaint Chief Complaint: PSYCH EVALUATION HPI HPI Patient is a 78-year-old female presents to the emergency department for evaluation. She states that she has been having anxiety and racing thoughts over the past few days, and "needs to be admitted to the behavioral health unit again". She denies any physical complaints or symptoms. She is not having nausea , vomiting, diarrhea, denies any chest pain shortness of breath. There've been no reports of mental status changes. There have been no reports of violent behavior, and patient denies SI or HI. There are no alleviating or exacerbating factors to her symptoms. She has been accepted to the behavioral health unit, pending completion of the medical screening and assessment, per [facility] protocol. Review of Systems Review of Systems Constitutional: Denies fever or chills [] Eyes: Denies change in visual acuity, redness, or eye pain [] HENT: Denies nasal congestion or sore throat [] Respiratory: Denies cough or shortness of breath [] Cardiovascular: The patient denies any shortness of breath, chest pain, palpitations, or orthopnea[] GI: Denies abdominal pain, nausea, vomiting, bloody stools or diarrhea [] : Denies dysuria or hematuria [] Musculoskeletal: Denies back pain or joint pain [] Integument: Denies rash or skin lesions [] Neurologic: Denies headache, focal weakness or sensory changes [] Endocrine: Denies polyuria or polydipsia [] Psychiatric: Reports anxiety and racing thoughts. Denies suicidal or homicidal ideation. All other systems were reviewed and found to be within normal limits, except as documented in this note. Allergies Allergies Allergies Coded Allergies Type Severity Reaction Last Updated Verified hydrocodone Allergy Intermediate 06/12/18 Yes Physical Exam Physical Exam PHYSICAL EXAM: CONSTITUTIONAL: Well developed, well nourished HEAD: normocephalic, atraumatic EENT: PERRL, EOMI. Conjunctivae normal color, sclerae non-icteric; moist mucous membranes. NECK: Supple, non-tender; no meningismus. LUNGS: Lungs CTA, breathing even and unlabored. Normal air movement. HEART: Regular rate and rhythm, no murmur CHEST: No deformity; non-tender ABDOMEN: The abdomen is soft, and non-tender, no masses or bruits. EXTREM: Normal ROM; no deformity, no calf tenderness. Normal pulses palpable in all extremities. There is no pedal edema. SKIN: No rash; no diaphoresis NEURO: Alert; normal speech and cognition; CN's grossly intact; strength grossly intact without focal deficit. There is a very fine resting tremor. BACK: No CVA TTP. PSYCHIATRIC: The patient reports anxiety. Does exhibit a mildly anxious affect. Does not exhibit any pressured speech. Denies any suicidal or homicidal thoughts. Current Patient Data Lab Results Laboratory Tests Test 09/18/18 16:53 White Blood Count 7.2 x10^3/uL Red Blood Count 4.02 x10^6/uL Hemoglobin 13.4 g/dL Hematocrit 39.4 % Mean Corpuscular Volume 98 fL Mean Corpuscular Hemoglobin 33 pg Mean Corpuscular Hemoglobin Concent 34 g/dL Red Cell Distribution Width 13.2 % Platelet Count 275 x10^3/uL Neutrophils (%) (Auto) 76 % Lymphocytes (%) (Auto) 17 % Monocytes (%) (Auto) 5 % Eosinophils (%) (Auto) 1 % Basophils (%) (Auto) 1 % Neutrophils # (Auto) 5.5 x10^3uL Lymphocytes # (Auto) 1.2 x10^3/uL Monocytes # (Auto) 0.4 x10^3/uL Eosinophils # (Auto) 0.1 x10^3/uL Basophils # (Auto) 0.1 x10^3/uL Sodium Level 142 mmol/L Potassium Level 3.6 mmol/L Chloride Level 106 mmol/L Carbon Dioxide Level 31 mmol/L Anion Gap 5 Blood Urea Nitrogen 11 mg/dL Creatinine 1.2 mg/dL Estimated GFR (Cockcroft-Gault) 43.6 BUN/Creatinine Ratio 9 Glucose Level 161 mg/dL Calcium Level 8.5 mg/dL Magnesium Level 1.9 mg/dL Total Bilirubin 0.2 mg/dL Aspartate Amino Transf (AST/SGOT) 28 U/L Alanine Aminotransferase (ALT/SGPT) 31 U/L Alkaline Phosphatase 77 U/L Total Protein 6.6 g/dL Albumin 3.0 g/dL Albumin/Globulin Ratio 0.8 Valproic Acid (Depakene) Level < 3 mcg/mL Valproic Acid Last Dose Date Unknown Valproic Acid Last Dose Time Unknown Current Medications Medications (Trade) Dose Ordered Sig/Wilma Route PRN Reason Start Time Stop Time Status Last Admin Dose Admin Lorazepam (Ativan) 1 mg 1X ONCE PO 09/18/18 17:30 09/18/18 17:31 DC EKG EKG [Normal sinus rhythm at a rate of 67 beats for minute, normal axis, normal intervals. There are no acute ischemic ST/T changes.] Radiology/Procedures Radiology/Procedures [] Course & Med Decision Making Course & Med Decision Making Pertinent Lab studies reviewed. (See chart for details) [6:00 PM: The patient's condition remained stable. Urinalysis is still pending. Once available the patient will be stable to be admitted.] Dragon Disclaimer Dragon Disclaimer This electronic medical record was generated, in whole or in part, using a voice recognition dictation system. Departure Departure: Impression: Primary Impression: Severe anxiety Additional Impression: Bipolar I disorder with jose Disposition: ADMITTED INPATIENT Condition: STABLE Referrals: DEANGELO DOMINIQUE (PCP) Problem Qualifiers SHARLENE NEAL MD Sep 18, 2018 17:01
[2018-09-18 17:11] LABS: BASO # 0.1 x10^3/uL (0.0-0.2); BASO % 1 % (0-3); EOS # 0.1 x10^3/uL (0.0-0.7); EOS % 1 % (0-3); HEMATOCRIT 39.4 % (36.0-47.0); HEMOGLOBIN 13.4 g/dL (12.0-15.5); LYMPH # 1.2 x10^3/uL (1.0-4.8); LYMPH % 17 % (24-48); MEAN CORPUSCULAR HEMOGLOBIN 33 pg (25-35); MEAN CORPUSCULAR HGB CONC 34 g/dL (31-37); MEAN CORPUSCULAR VOLUME 98 fL (79-100); MONO # 0.4 x10^3/uL (0.0-1.1); MONO % 5 % (0-9); NEUT # 5.5 x10^3uL (1.8-7.7); NEUT % 76 % (31-73); PLATELET COUNT 275 x10^3/uL (140-400); RED BLOOD COUNT 4.02 x10^6/uL (3.50-5.40); RED CELL DISTRIBUTION WIDTH 13.2 % (11.5-14.5); WHITE BLOOD COUNT 7.2 x10^3/uL (4.0-11.0)
[2018-09-18 17:23] LABS: ALBUMIN/GLOBULIN RATIO 0.8 (1.0-1.7); ALK PHOS 77 U/L (46-116); ALT (SGPT) 31 U/L (14-59); ANION GAP 5 (6-14); AST (SGOT) 28 U/L (15-37); BLOOD UREA NITROGEN 11 mg/dL (7-20); BUN/CREATININE RATIO 9 (6-20); CALCIUM 8.5 mg/dL (8.5-10.1); CARBON DIOXIDE 31 mmol/L (21-32); CHLORIDE 106 mmol/L (98-107); CREATININE 1.2 mg/dL (0.6-1.0); GFR 43.6; GLUCOSE 161 mg/dL (70-99); MAGNESIUM 1.9 mg/dL (1.8-2.4); POTASSIUM 3.6 mmol/L (3.5-5.1); SODIUM 142 mmol/L (136-145); TOTAL BILIRUBIN 0.2 mg/dL (0.2-1.0); TOTAL PROTEIN 6.6 g/dL (6.4-8.2)
--- NOTE | 2018-09-18 17:24 | EKG ---
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
[2018-09-18 17:26] LABS: VAL ACID < 3 mcg/mL (50-100)
[2018-09-18] MEDS ORDERED: LORazepam 1 MG TABLET PO ONE (17:30)
[2018-09-18 18:33] LABS: BACTERIA,URINE 0 /HPF (0-FEW); BILIRUBIN,URINE NEG (NEG); CLARITY,URINE HAZY; COLOR,URINE AMBER; GLUCOSE,URINE 100 mg/dL (NEG); NITRITE,URINE NEG (NEG); SQUAMOUS EPITHELIAL CELL,UR FEW /LPF; UROBILINOGEN,URINE 0.2 mg/dL (0.2 mg/dL)
--- NOTE | 2018-09-18 19:00 | NUR ---
Admission Note with Justification for Admission to [facility] Patient admitted to [facility] for protective oversight for emergency stabilization of acute psychiatric crisis. Pt admitted from: Hospital ER Mode of arrival: EMS Accompanied By: EMS Precipitating behaviors that initiated intake and admission: racing thoughts, anxious, nervous, insomnia, Description of failure of out patient attempts at stabilization in previous setting list behavior and medication trials: went to see Dr. Voss Behaviors and assessment findings upon admission: Calm, cooperative, no acute distress Plan: Admit for protective oversight for adjustment and stabilization of medications, behaviors and mood. Intense treatment regimen including groups, medication adjustments, therapy, consistent regimen for ADL's, self care, and sleep hygiene. Daily monitoring by Inpatient staff, Psychiatry, and Medical Physician.
[2018-09-18 19:25] VITALS: BP 210/69
--- NOTE | 2018-09-18 23:25 | PDOC ---
Exam Note: [place] Note: Please also refer to the separate dictated note~for this date of service dictated separately.~Patient seen individually. Discussed the patient with Nursing staff reviewed the chart.~Reviewed interim history and current functioning. Reviewed vital signs,~Labs/ Radiology~and current medications noted below. Continue current treatment with the changes noted in the dictated addendum note Assessment: Vital Signs: Vital Signs Date Time Temp Pulse Resp B/P (MAP) Pulse Ox O2 Delivery O2 Flow Rate FiO2 09/18/18 19:25 98.4 78 20 210/69 (116) 97 09/18/18 16:58 Room Air Labs: Laboratory Tests Test 09/18/18 16:53 09/18/18 18:14 White Blood Count 7.2 x10^3/uL (4.0-11.0) Red Blood Count 4.02 x10^6/uL (3.50-5.40) Hemoglobin 13.4 g/dL (12.0-15.5) Hematocrit 39.4 % (36.0-47.0) Mean Corpuscular Volume 98 fL (79-100) Mean Corpuscular Hemoglobin 33 pg (25-35) Mean Corpuscular Hemoglobin Concent 34 g/dL (31-37) Red Cell Distribution Width 13.2 % (11.5-14.5) Platelet Count 275 x10^3/uL (140-400) Neutrophils (%) (Auto) 76 % (31-73) H Lymphocytes (%) (Auto) 17 % (24-48) L Monocytes (%) (Auto) 5 % (0-9) Eosinophils (%) (Auto) 1 % (0-3) Basophils (%) (Auto) 1 % (0-3) Neutrophils # (Auto) 5.5 x10^3uL (1.8-7.7) Lymphocytes # (Auto) 1.2 x10^3/uL (1.0-4.8) Monocytes # (Auto) 0.4 x10^3/uL (0.0-1.1) Eosinophils # (Auto) 0.1 x10^3/uL (0.0-0.7) Basophils # (Auto) 0.1 x10^3/uL (0.0-0.2) Sodium Level 142 mmol/L (136-145) Potassium Level 3.6 mmol/L (3.5-5.1) Chloride Level 106 mmol/L (98-107) Carbon Dioxide Level 31 mmol/L (21-32) Anion Gap 5 (6-14) L Blood Urea Nitrogen 11 mg/dL (7-20) Creatinine 1.2 mg/dL (0.6-1.0) H Estimated GFR (Cockcroft-Gault) 43.6 BUN/Creatinine Ratio 9 (6-20) Glucose Level 161 mg/dL (70-99) H Calcium Level 8.5 mg/dL (8.5-10.1) Magnesium Level 1.9 mg/dL (1.8-2.4) Total Bilirubin 0.2 mg/dL (0.2-1.0) Aspartate Amino Transferase (AST) 28 U/L (15-37) Alanine Aminotransferase (ALT) 31 U/L (14-59) Alkaline Phosphatase 77 U/L (46-116) Total Protein 6.6 g/dL (6.4-8.2) Albumin 3.0 g/dL (3.4-5.0) L Albumin/Globulin Ratio 0.8 (1.0-1.7) L Valproic Acid Level < 3 mcg/mL (50-100) L Valproic Acid Last Dose Date Unknown Valproic Acid Last Dose Time Unknown Urine Collection Type Unknown Urine Color Nilam Urine Clarity Hazy Urine pH 5.5 Urine Specific [place] 1.025 Urine Protein 100 mg/dl (NEG-TRACE) Urine Glucose (UA) 100 mg/dL (NEG) Urine Ketones (Stick) Neg mg/dL (NEG) Urine Blood Small (NEG) Urine Nitrite Neg (NEG) Urine Bilirubin Neg (NEG) Urine Urobilinogen Dipstick 0.2 mg/dL (0.2 mg/dL) Urine Leukocyte Esterase Neg (NEG) Urine RBC 1-2 /HPF (0-2) Urine WBC 5-10 /HPF (0-4) Urine Squamous Epithelial Cells Few /LPF Urine Bacteria 0 /HPF (0-FEW) Current Medications: Meds: Current Medications Lorazepam (Ativan) 1 mg 1X ONCE PO Last administered on 09/18/18at 17:58; Start 09/18/18 at 17:30; Stop 09/18/18 at 17:31; Status DC Active Scripts Active Ambien (Zolpidem Tartrate) 5 Mg Tablet 1 Tab PO QHS PRN Trazodone Hcl 50 Mg Tablet 1 Tab PO QHS PRN Bactrim 400-80 Mg Tablet (Sulfamethoxazole/Trimethoprim) 1 Each Tablet 1 Tab PO BID Seroquel (Quetiapine Fumarate) 25 Mg Tablet 1 Tab PO QHS Reported Seroquel (Quetiapine Fumarate) 25 Mg Tablet 0.5 Tab PO Q9,12,16 NOT GIVEN IN THE HOSPITAL RESTART TONIGHT AT BEDTIME Amlodipine Besylate 2.5 Mg Tablet 1 Tab PO DAILY NOT GIVEN IN THE HOSPITAL RESTART TOMORROW AM Vitamin D2 (Ergocalciferol (Vitamin D2)) 50,000 Unit Capsule 50,000 Unit PO TWICE WEEKLY NOT GIVEN IN THE HOSPITAL RESTART ON YOUR NORMAL DAY Ativan (Lorazepam) 0.5 Mg Tablet 0.5 Mg PO PRN Q2HR PRN NOT GIVEN IN THE HOSPITAL RESTART TODAY AT HOME WHEN NEEDED Depakote Sprinkle (Divalproex Sodium) 125 Mg Cap.sprink 250 Mg PO DAILY NOT GIVEN IN THE HOSPITAL RESTART TOMORROW AM Depakote Sprinkle (Divalproex Sodium) 125 Mg Cap.sprink 500 Mg PO BIDACLD NOT GIVEN IN THE HOSPITAL RESTART TONIGHT AT BEDTIME Metformin Hcl 500 Mg Tablet 500 Mg PO BIDWMEALS NOT GIVEN IN THE HOSPITAL RESTART TONIGHT WITH DINNER Gabapentin 100 Mg Capsule 300 Mg PO TID NOT GIVEN IN THE HOSPITAL RESTART TONIGHT AT BEDTIME Metoprolol Succinate ( Xl ) (Metoprolol Succinate) 50 Mg Tab.er.24h 50 Mg PO DAILY NOT GIVEN IN THE HOSPITAL RESTART TOMORROW AM Requip (Ropinirole Hcl) 1 Mg Tablet 1 Mg PO TID NOT GIVEN IN THE HOSPTAL RESTART TONIGHT AT BEDTIME Sinemet 25-100 Mg Tablet (Carbidopa/Levodopa) 1 Each Tablet 1 Each PO TID NOT GIVEN IN THE HOSPITAL RESTART TONIGHT AT BEDTIME Primidone 50 Mg Tablet 50 Mg PO HS NOT GIVEN IN THE HOSPITAL RESTART TOMORROW AM Zofran (Ondansetron Hcl) 4 Mg Tablet 4 Mg PO PRN Q8HRS PRN NOT GIVEN IN THE HOSPITAL RESTART TODAY AT HOME IF NEEDED Clonazepam 1 Mg Tablet 0.25 Mg PO HS NOT GIVEN IN THE HOSPITAL RESTART TODAY AT BEDTIME Lisinopril 20 Mg Tablet 40 Mg PO DAILY NOT GIVEN IN THE HOSPITAL RESTART TOMORROW AM hold for BP less than 100. After a held dose, reassess in 2 ours. IF SBP is above threshold, administer dose as ordered. IF SBP is below threshold, contact provider for additional instructions. Remeron (Mirtazapine) 15 Mg Tablet 15 Mg PO QHS NOT GIVEN IN THE HOSPITAL RESTART TONIGHT AT BEDTIME Cetirizine Hcl 10 Mg Tablet 10 Mg PO DAILY NOT GIVEN IN THE HOSPITAL RESTART TOMORROW AM Aspirin 81 Mg Tab.chew 81 Mg PO DAILY NOT GIVEN IN THE HOSPITAL RESTART TOMORROW AM Levemir (Insulin Detemir) 100 Unit/1 Ml Vial 10 Unit SQ DAILYWBKFT NOT GIVEN IN THE HOSPITAL RESTART TOMORROW WITH BREAKFAST Zetia (Ezetimibe) 10 Mg Tablet 10 Mg PO DAILY NOT GIVEN IN THE HOSPITAL RESTART TOMORROW AM I have reviewed the current psychotropics carefully including drug interactions. Risk benefit ratio favors no change other than as noted in my dictated progress note. Diagnosis: Problems: (1) UTI (urinary tract infection) (2) Severe anxiety (3) Bipolar I disorder with jose (4) Hypertension (5) Leg swelling (6) Accelerated hypertension (7) Hip pain, right (8) Cellulitis of right lower limb (9) Accelerated essential hypertension (10) Chronic diastolic (congestive) heart failure (11) Bipolar I disorder with anxious distress (12) Bipolar I disorder with mixed features (13) Anxiety disorder (14) Impulse control disorder KANWAL KNIGHT MD Sep 18, 2018 23:25
[2018-09-18] MEDS ORDERED: METHYL SALICYLATE/MENTHOL TOPICAL OINTMENT 29GM TUBE. TP PRN (23:30)
[2018-09-18] MEDS ORDERED: MAG HYDROX/AL HYDROX/SIMETH 30 ML ORAL.SUSP PO PRN (23:30)
[2018-09-18] MEDS ORDERED: MAGNESIUM HYDROXIDE 2,400 MG/30 ML ORAL.SUSP. PO PRN (23:30)
[2018-09-18] MEDS ORDERED: ACETAMINOPHEN 325 MG TABLET PO PRN (23:30)
--- NOTE | 2018-09-19 02:08 | NUR ---
Behavior Intervention Response and Plan: BIRP Note: Behavior: Assumed Care of patient, patient located in Day Room at shift change. Patient exhibited the following behavior Restless, Interactive, Cooperative. Brief assessment on rounds of vital signs, medication needs, lab studies, and pain. Treatment plan problems . Intervention: Patient assessed and the following interventions initiated safety checks 15 Minute Checks Cognitive Assessment , Head to toe Assessment , Nutrition. Response: After interactions and interventions patient responded in the following manner, Drowsy , Cooperative ,Able to Focus on Task. Continue to assess behaviors and condition will continue to monitor throughout the shift as needed. Patient educated on ADL's, and hand hygiene. Plan: Continue to monitor Master Treatment Plan for patient's progress toward short term goals of Decreased Agitation, Decreased Anxiety, buttermaker goals to return to previous living setting vs placement. Continue to assess patient for changes in above assessment. Monitor for medication needs, pain, and safety concerns. Hourly rounding performed to ensure safe environment.
[2018-09-19 05:46] VITALS: BP 185/61
[2018-09-19] MEDS ORDERED: ZOLPIDEM 5 MG TABLET. PO PRN (09:30)
[2018-09-19] MEDS ORDERED: ERGOCALCIFEROL 50000 UNIT PO SCH (09:30)
[2018-09-19] MEDS ORDERED: amLODIPine BESYLATE 2.5 MG TABLET PO SCH (09:45)
[2018-09-19] MEDS ORDERED: METOPROLOL SUCC 24HR ER 50 MG TAB.ER.24H. PO SCH (09:45)
[2018-09-19] MEDS ORDERED: DIVALPROEX SODIUM 125 MG TABLET.DR. PO SCH (09:45)
[2018-09-19] MEDS ORDERED: INSULIN GLARGINE 300 UNITS/3 ML INSULN.PEN. SQ SCH (09:45)
[2018-09-19] MEDS ORDERED: ASPIRIN 81 MG TAB.CHEW PO SCH (09:45)
[2018-09-19] MEDS ORDERED: LORazepam 0.5 MG TABLET PO PRN ×2 (09:45→15:45)
[2018-09-19] MEDS ORDERED: traZODone 50 MG TABLET. PO PRN (09:45)
[2018-09-19] MEDS: GABAPENTIN 300 MG CAPSULE. PO SCH ×2 (10:27→13:02)
[2018-09-19] MEDS: metFORMIN 500 MG TABLET PO SCH ×2 (10:27→17:00)
[2018-09-19] MEDS: rOPINIRole 1 MG TABLET. PO SCH ×3 (10:27→20:39)
[2018-09-19] MEDS: CARBIDOPA/LEVODOPA 25/100MG TABLET PO SCH ×3 (10:28→20:39)
[2018-09-19] MEDS: LISINOPRIL 20 MG TABLET PO SCH (10:30)
[2018-09-19] MEDS: EZETIMIBE 10 MG TABLET PO SCH (10:31)
[2018-09-19] MEDS: CETIRIZINE HCL 10 MG TABLET PO SCH (10:32)
[2018-09-19] MEDS ORDERED: CHOLECALCIFEROL (VITAMIN D3) 50,000 UNIT CAPSULE PO SCH (11:00)
--- NOTE | 2018-09-19 11:29 | NUR ---
Faxed [facility] inpatient medicaid prior authorization form and initial notes to [facility] team for review, awaiting outcome.
[2018-09-19] MEDS ORDERED: DIVALPROEX 125 MG CAP.SPRINK PO SCH (11:30)
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
[2018-09-19] MEDS: QUEtiapine 25 MG TABLET. PO SCH ×2 (12:58→16:00)
--- NOTE | 2018-09-19 13:38 | NUR ---
Received fax from [facility] providing authorization number of [id number] with service dates of 09/18 thru 09/22/18. Next review will be due on 09/22/18.
[2018-09-19] MEDS: ONDANSETRON ODT 4 MG TAB.RAPDIS PO PRN (14:27)
[2018-09-19] MEDS ORDERED: ALPRAZolam 0.5 MG TABLET PO PRN (15:45)
[2018-09-19] MEDS ORDERED: traMADol 50 MG TABLET PO PRN (15:45)
[2018-09-19 15:51] VITALS: BP 124/66
[2018-09-19 17:05] LABS: BASO % 1 % (0-3); EOS % 1 % (0-3); HEMATOCRIT 35.4 % (36.0-47.0); HEMOGLOBIN 12.2 g/dL (12.0-15.5); LYMPH # 1.1 x10^3/uL (1.0-4.8); LYMPH % 18 % (24-48); MEAN CORPUSCULAR HEMOGLOBIN 33 pg (25-35); MEAN CORPUSCULAR HGB CONC 34 g/dL (31-37); MEAN CORPUSCULAR VOLUME 97 fL (79-100); MONO # 0.2 x10^3/uL (0.0-1.1); MONO % 4 % (0-9); NEUT # 4.7 x10^3uL (1.8-7.7); NEUT % 77 % (31-73); PLATELET COUNT 248 x10^3/uL (140-400); RED BLOOD COUNT 3.65 x10^6/uL (3.50-5.40); RED CELL DISTRIBUTION WIDTH 13.2 % (11.5-14.5); WHITE BLOOD COUNT 6.1 x10^3/uL (4.0-11.0)
[2018-09-19 17:17] LABS: ALBUMIN 2.6 g/dL (3.4-5.0); ALBUMIN/GLOBULIN RATIO 0.8 (1.0-1.7); CALCIUM 8.3 mg/dL (8.5-10.1); CREATININE 0.9 mg/dL (0.6-1.0); GFR 60.7; POTASSIUM 4.1 mmol/L (3.5-5.1); TOTAL BILIRUBIN 0.2 mg/dL (0.2-1.0); TOTAL PROTEIN 5.8 g/dL (6.4-8.2)
--- NOTE | 2018-09-19 18:00 | NUR ---
Assumed care of pt at approx 0700. Pt sitting up in Dining Room for breakfast at the time of our initial encounter. Pt pleasant, A/O x 4. Denies pain. Compliant w/meds crushed in pudding. No signs of hallucinations, delusions, or paranoia noted. No inappropriate behaviors so far this shift. Pt quiet, but pleasant and apppropriate when spoken to. Pt vomited after No needs voiced. Will continue to monitor and assist pt in working towards her treatment and discharge goals.
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
[2018-09-19] MEDS: DIVALPROEX 125 MG CAP.SPRINK PO SCH (20:45)
[2018-09-19] MEDS: PRIMIDONE 50 MG TABLET PO SCH (20:46)
[2018-09-19] MEDS: MIRTAZAPINE 30 MG TABLET PO SCH (20:46)
[2018-09-19] MEDS: QUEtiapine 100 MG TABLET. PO SCH (20:46)
[2018-09-19] MEDS: traZODone 100 MG TABLET. PO SCH (20:46)
[2018-09-19] MEDS: GABAPENTIN 100 MG CAPSULE. PO SCH (20:47)
[2018-09-19] MEDS ORDERED: clonazePAM 0.5 MG TABLET PO SCH (21:00)
[2018-09-19] MEDS ORDERED: TRIMETHOPRIM PO SCH (21:00)
[2018-09-19] MEDS ORDERED: QUEtiapine 25 MG TABLET. PO SCH (21:00)
[2018-09-19] MEDS ORDERED: SULFAMETHOXAZOLE PO SCH (21:00)
[2018-09-19] MEDS ORDERED: MIRTAZAPINE 15 MG TABLET PO SCH (21:00)
[2018-09-19] MEDS ORDERED: rOPINIRole 1 MG TABLET. PO SCH (21:00)
[2018-09-19] MEDS ORDERED: traZODone 100 MG TABLET. PO SCH ×2 (21:00)
[2018-09-19] MEDS ORDERED: risperiDONE 0.5 MG TABLET. PO SCH ×2 (21:00)
[2018-09-19 22:10] LABS: THYROXINE 5.7 ug/dL (4.5-12.0)
--- NOTE | 2018-09-19 23:40 | PDOC ---
Exam Note: [place] Note: Please also refer to the separate dictated note~for this date of service dictated separately.~Patient seen individually. Discussed the patient with Nursing staff reviewed the chart.~Reviewed interim history and current functioning. Reviewed vital signs,~Labs/ Radiology~and current medications noted below. Continue current treatment with the changes noted in the dictated addendum note Assessment: Vital Signs: Vital Signs Date Time Temp Pulse Resp B/P (MAP) Pulse Ox O2 Delivery O2 Flow Rate FiO2 09/19/18 15:51 97.9 72 16 124/66 (85) 95 Room Air I&O Intake and Output 09/19/18 07:00 # Voids 1 Labs: Laboratory Tests Test 09/19/18 07:36 09/19/18 16:55 09/19/18 19:20 Glucose (Fingerstick) 110 mg/dL (70-99) H 163 mg/dL (70-99) H White Blood Count 6.1 x10^3/uL (4.0-11.0) Red Blood Count 3.65 x10^6/uL (3.50-5.40) Hemoglobin 12.2 g/dL (12.0-15.5) Hematocrit 35.4 % (36.0-47.0) L Mean Corpuscular Volume 97 fL (79-100) Mean Corpuscular Hemoglobin 33 pg (25-35) Mean Corpuscular Hemoglobin Concent 34 g/dL (31-37) Red Cell Distribution Width 13.2 % (11.5-14.5) Platelet Count 248 x10^3/uL (140-400) Neutrophils (%) (Auto) 77 % (31-73) H Lymphocytes (%) (Auto) 18 % (24-48) L Monocytes (%) (Auto) 4 % (0-9) Eosinophils (%) (Auto) 1 % (0-3) Basophils (%) (Auto) 1 % (0-3) Neutrophils # (Auto) 4.7 x10^3uL (1.8-7.7) Lymphocytes # (Auto) 1.1 x10^3/uL (1.0-4.8) Monocytes # (Auto) 0.2 x10^3/uL (0.0-1.1) Eosinophils # (Auto) 0.0 x10^3/uL (0.0-0.7) Basophils # (Auto) 0.0 x10^3/uL (0.0-0.2) Sodium Level 140 mmol/L (136-145) Potassium Level 4.1 mmol/L (3.5-5.1) Chloride Level 106 mmol/L (98-107) Carbon Dioxide Level 31 mmol/L (21-32) Anion Gap 3 (6-14) L Blood Urea Nitrogen 11 mg/dL (7-20) Creatinine 0.9 mg/dL (0.6-1.0) Estimated GFR (Cockcroft-Gault) 60.7 BUN/Creatinine Ratio 12 (6-20) Glucose Level 124 mg/dL (70-99) H Calcium Level 8.3 mg/dL (8.5-10.1) L Total Bilirubin 0.2 mg/dL (0.2-1.0) Aspartate Amino Transferase (AST) 31 U/L (15-37) Alanine Aminotransferase (ALT) 16 U/L (14-59) Alkaline Phosphatase 69 U/L (46-116) Total Protein 5.8 g/dL (6.4-8.2) L Albumin 2.6 g/dL (3.4-5.0) L Albumin/Globulin Ratio 0.8 (1.0-1.7) L Lipase 34 U/L (73-393) L Current Medications: Meds: Current Medications Lorazepam (Ativan) 1 mg 1X ONCE PO Last administered on 09/18/18at 17:58; Start 09/18/18 at 17:30; Stop 09/18/18 at 17:31; Status DC Acetaminophen (Tylenol) 650 mg PRN Q6HRS PRN PO PAIN / TEMP; Start 09/18/18 at 23:30 Multi-Ingredient Ointment (Analgesic [place]) 1 chuy PRN QID PRN TP MUSCLE PAIN; Start 09/18/18 at 23:30 Al Hydroxide/Mg Hydroxide (Mylanta Plus Xs) 15 ml PRN AFTMEALHC PRN PO DYSPEPSIA; Start 09/18/18 at 23:30 Magnesium Hydroxide (Milk Of Magnesia) 2,400 mg PRN QHS PRN PO CONSTIPATION; Start 09/18/18 at 23:30 Carbidopa/Levodopa (Sinemet 25/100) 1 tab TID PO Last administered on at 20:39; Start 09/19/18 at 09:45 Gabapentin (Neurontin) 300 mg TID PO Last administered on 09/19/18at 13:02; Start 09/19/18 at 09:45; Stop 09/19/18 at 15:44; Status DC Lisinopril (Prinivil) 40 mg DAILY PO Last administered on 09/19/18at 10:30; Start 09/19/18 at 09:45 Zolpidem Tartrate (Ambien) 5 mg PRN QHS PRN PO INSOMNIA; Start 09/19/18 at 09: 30; Stop 09/19/18 at 15:29; Status DC Amlodipine Besylate (Norvasc) 2.5 mg DAILY PO Last administered on 09/19/18at 10:29; Start 09/19/18 at 09:45; Stop 09/19/18 at 15:22; Status DC Aspirin (Children'S Aspirin) 81 mg DAILYWBKFT PO Last administered on at 10:27; Start 09/19/18 at 09:45; Stop 09/19/18 at 15:16; Status DC Cetirizine HCl (ZyrTEC) 10 mg DAILY PO Last administered on 09/19/18at 10:32; Start 09/19/18 at 09:45 Clonazepam (KlonoPIN) 0.25 mg QHS PO ; Start 09/19/18 at 21:00; Stop 09/19/18 at 21:00; Status DC Divalproex Sodium (Depakote) 250 mg DAILY PO ; Start 09/19/18 at 09:45; Stop 09/19/18 at 09:45; Status DC Divalproex Sodium (Depakote Sprinkles) 500 mg BIDACLD PO Last administered on 09/19/18at 12:57; Start 09/19/18 at 11:30; Stop 09/19/18 at 15:07; Status DC Non-Formulary Medication (Ergocalciferol (Vitamin D2) (Vitamin D2)) 50,000 unit TWICE WEEKLY PO ; Start 09/19/18 at 09:30; Stop 09/19/18 at 10:57; Status DC EZETIMIBE (Zetia) 10 mg DAILY PO Last administered on 09/19/18at 10:31; Start 09/19/18 at 09:45 Insulin Glargine (Lantus) 10 units DAILYWBKFT SQ ; Start 09/19/18 at 09:45; Stop 09/19/18 at 09:45; Status DC Lorazepam (Ativan) 0.5 mg PRN Q2HR PRN PO ANXIETY; Start 09/19/18 at 09:45; Stop 09/19/18 at 15:31; Status DC Metformin HCl (Glucophage) 500 mg BIDWMEALS PO Last administered on 09/19/18at 17:00; Start 09/19/18 at 09:45 Metoprolol Succinate (Toprol Xl) 50 mg DAILY PO Last administered on at 10:31; Start 09/19/18 at 09:45; Stop 09/19/18 at 15:24; Status DC Mirtazapine (Remeron) 15 mg QHS PO ; Start 09/19/18 at 21:00; Stop 09/19/18 at 21:00; Status DC Ondansetron HCl (Zofran Odt) 4 mg PRN Q8HRS PRN PO NAUSEA/VOMITING Last administered on 09/19/18at 14:27; Start 09/19/18 at 09:45 Primidone (Mysoline) 50 mg HS PO Last administered on 09/19/18at 20:46; Start 09/19/18 at 21:00 Quetiapine Fumarate (SEROquel) 12.5 mg 0900,1200,1600 PO Last administered on 09/19/18at 16:00; Start 09/19/18 at 12:00 Quetiapine Fumarate (SEROquel) 25 mg QHS PO ; Start 09/19/18 at 21:00; Stop at 21:00; Status DC Ropinirole HCl (Requip) 1 mg TID PO Last administered on 09/19/18at 20:39; Start 09/19/18 at 09:45 Non-Formulary Medication (Sulfamethoxazole/ Trimethoprim (Bactrim 400-80 Mg Tablet)) 1 tab BID PO ; Start 09/19/18 at 21:00; Stop 09/19/18 at 21:00; Status DC Trazodone HCl (Desyrel) 50 mg PRN QHS PRN PO SLEEP; Start 09/19/18 at 09:45; Stop 09/19/18 at 15:33; Status DC Divalproex Sodium (Depakote Sprinkles) 250 mg DAILY PO ; Start 09/20/18 at 09: 00; Stop 09/20/18 at 09:00; Status DC Insulin Glargine (Lantus) 10 units DAILYWBKFT SQ ; Start 09/20/18 at 08:00; Stop 09/20/18 at 08:00; Status DC Vitamin D (Vitamin D3) 50,000 unit TuFr PO Last administered on 09/19/18at 12: 56; Start 09/19/18 at 11:00; Stop 09/19/18 at 15:27; Status DC Quetiapine Fumarate (SEROquel) 100 mg HS PO Last administered on 09/19/18at 20: 46; Start 09/19/18 at 21:00 Divalproex Sodium (Depakote Sprinkles) 500 mg BID@1200,2100 PO Last administered on 09/19/18at 20:45; Start 09/19/18 at 21:00 Amlodipine Besylate (Norvasc) 10 mg DAILY PO ; Start 09/20/18 at 09:00 Metoprolol Succinate (Toprol Xl) 100 mg DAILY PO ; Start 09/20/18 at 09:00 Lorazepam (Ativan) 0.5 mg PRN Q4HRS PRN PO ANXIETY; Start 09/19/18 at 15:45 Trazodone HCl (Desyrel) 100 mg HS PO Last administered on 09/19/18at 20:46; Start 09/19/18 at 21:00 Pantoprazole Sodium (Protonix) 40 mg DAILYAC PO ; Start 09/20/18 at 07:30 Alprazolam (Xanax) 0.5 mg PRN Q8HRS PRN PO ANXIETY; Start 09/19/18 at 15:45 Trazodone HCl (Desyrel) 200 mg QHS PO ; Start 09/19/18 at 21:00; Stop at 21:00; Status DC Ropinirole HCl (Requip) 1 mg TID PO ; Start 09/19/18 at 21:00; Stop 09/19/18 at 21:00; Status DC Gabapentin (Neurontin) 200 mg TID PO Last administered on 09/19/18at 20:47; Start 09/19/18 at 21:00 Tramadol HCl (Ultram) 50 mg PRN Q6HRS PRN PO PAIN; Start 09/19/18 at 15:45 Trazodone HCl (Desyrel) 400 mg QHS PO ; Start 09/19/18 at 21:00; Stop at 21:00; Status DC Mirtazapine (Remeron) 30 mg QHS PO Last administered on 09/19/18at 20:46; Start 09/19/18 at 21:00 Oxcarbazepine (Trileptal) 300 mg BID PO ; Start 09/19/18 at 21:00; Stop at 21:00; Status DC Divalproex Sodium (Depakote Sprinkles) 250 mg DAILY PO ; Start 09/20/18 at 09: 00 Risperidone (RisperDAL) 0.75 mg HS PO ; Start 09/19/18 at 21:00; Stop at 21:00; Status DC Risperidone (RisperDAL) 0.5 mg HS PO ; Start 09/19/18 at 21:00; Stop 09/19/18 at 21:00; Status DC Active Scripts Active Ambien (Zolpidem Tartrate) 5 Mg Tablet 1 Tab PO QHS PRN Trazodone Hcl 50 Mg Tablet 1 Tab PO QHS PRN Bactrim 400-80 Mg Tablet (Sulfamethoxazole/Trimethoprim) 1 Each Tablet 1 Tab PO BID Seroquel (Quetiapine Fumarate) 25 Mg Tablet 1 Tab PO QHS Reported Seroquel (Quetiapine Fumarate) 25 Mg Tablet 0.5 Tab PO Q9,12,16 NOT GIVEN IN THE HOSPITAL RESTART TONIGHT AT BEDTIME Amlodipine Besylate 2.5 Mg Tablet 1 Tab PO DAILY NOT GIVEN IN THE HOSPITAL RESTART TOMORROW AM Vitamin D2 (Ergocalciferol (Vitamin D2)) 50,000 Unit Capsule 50,000 Unit PO TWICE WEEKLY NOT GIVEN IN THE HOSPITAL RESTART ON YOUR NORMAL DAY Ativan (Lorazepam) 0.5 Mg Tablet 0.5 Mg PO PRN Q2HR PRN NOT GIVEN IN THE HOSPITAL RESTART TODAY AT HOME WHEN NEEDED Depakote Sprinkle (Divalproex Sodium) 125 Mg Cap.sprink 250 Mg PO DAILY NOT GIVEN IN THE HOSPITAL RESTART TOMORROW AM Depakote Sprinkle (Divalproex Sodium) 125 Mg Cap.sprink 500 Mg PO BIDACLD NOT GIVEN IN THE HOSPITAL RESTART TONIGHT AT BEDTIME Metformin Hcl 500 Mg Tablet 500 Mg PO BIDWMEALS NOT GIVEN IN THE HOSPITAL RESTART TONIGHT WITH DINNER Gabapentin 100 Mg Capsule 300 Mg PO TID NOT GIVEN IN THE HOSPITAL RESTART TONIGHT AT BEDTIME Metoprolol Succinate ( Xl ) (Metoprolol Succinate) 50 Mg Tab.er.24h 50 Mg PO DAILY NOT GIVEN IN THE HOSPITAL RESTART TOMORROW AM Requip (Ropinirole Hcl) 1 Mg Tablet 1 Mg PO TID NOT GIVEN IN THE HOSPTAL RESTART TONIGHT AT BEDTIME Sinemet 25-100 Mg Tablet (Carbidopa/Levodopa) 1 Each Tablet 1 Each PO TID NOT GIVEN IN THE HOSPITAL RESTART TONIGHT AT BEDTIME Primidone 50 Mg Tablet 50 Mg PO HS NOT GIVEN IN THE HOSPITAL RESTART TOMORROW AM Zofran (Ondansetron Hcl) 4 Mg Tablet 4 Mg PO PRN Q8HRS PRN NOT GIVEN IN THE HOSPITAL RESTART TODAY AT HOME IF NEEDED Clonazepam 1 Mg Tablet 0.25 Mg PO HS NOT GIVEN IN THE HOSPITAL RESTART TODAY AT BEDTIME Lisinopril 20 Mg Tablet 40 Mg PO DAILY NOT GIVEN IN THE HOSPITAL RESTART TOMORROW AM hold for BP less than 100. After a held dose, reassess in 2 ours. IF SBP is above threshold, administer dose as ordered. IF SBP is below threshold, contact provider for additional instructions. Remeron (Mirtazapine) 15 Mg Tablet 15 Mg PO QHS NOT GIVEN IN THE HOSPITAL RESTART TONIGHT AT BEDTIME Cetirizine Hcl 10 Mg Tablet 10 Mg PO DAILY NOT GIVEN IN THE HOSPITAL RESTART TOMORROW AM Aspirin 81 Mg Tab.chew 81 Mg PO DAILY NOT GIVEN IN THE HOSPITAL RESTART TOMORROW AM Levemir (Insulin Detemir) 100 Unit/1 Ml Vial 10 Unit SQ DAILYWBKFT NOT GIVEN IN THE HOSPITAL RESTART TOMORROW WITH BREAKFAST Zetia (Ezetimibe) 10 Mg Tablet 10 Mg PO DAILY NOT GIVEN IN THE HOSPITAL RESTART TOMORROW AM I have reviewed the current psychotropics carefully including drug interactions. Risk benefit ratio favors no change other than as noted in my dictated progress note. Diagnosis: Problems: (1) Bipolar I disorder with jose (2) Hypertension (3) Leg swelling (4) Accelerated hypertension (5) Hip pain, right (6) Cellulitis of right lower limb (7) Accelerated essential hypertension (8) Chronic diastolic (congestive) heart failure (9) Bipolar I disorder with anxious distress (10) Bipolar I disorder with mixed features (11) Anxiety disorder (12) Impulse control disorder (13) UTI (urinary tract infection) (14) Severe anxiety KANWAL KNIGHT MD Sep 19, 2018 23:40
[2018-09-20 06:18] VITALS: BP 119/61
--- NOTE | 2018-09-20 07:58 | RAD ---
Examination: ACUTE ABDOMEN SERIES History: Nausea, vomiting, diarrhea, abdomen pain Comparison/Correlation: None Findings: Supine and upright views of the abdomen were obtained. Dual lead left-sided pacemaker is present. Heart size and pulmonary vasculature are normal. No infiltrate or pleural effusion. Mild pulmonary hyperinflation is present. Moderate quantity of stool in the colon is present. Calcific densities involving the left mid abdomen in the paraspinal region noted. These are of indeterminate significance. Osteopenia noted. No obstruction. No extraluminal gas. T12 vertebroplasty noted. Compression deformity of L2 appears to present. Impression: No infiltrate. Moderate quantity of stool in the colon. No obstruction. Electronically signed by: Rafael Marlow MD (09/20/2018 7:55 AM) [facility]
[2018-09-20] MEDS ORDERED: INSULIN GLARGINE 300 UNITS/3 ML INSULN.PEN. SQ SCH (08:00)
[2018-09-20] MEDS ORDERED: DIVALPROEX 125 MG CAP.SPRINK PO SCH (09:00)
[2018-09-20] MEDS: CARBIDOPA/LEVODOPA 25/100MG TABLET PO SCH ×3 (10:07→20:29)
[2018-09-20] MEDS: metFORMIN 500 MG TABLET PO SCH ×2 (10:08→18:03)
[2018-09-20] MEDS: EZETIMIBE 10 MG TABLET PO SCH (10:08)
[2018-09-20] MEDS: CETIRIZINE HCL 10 MG TABLET PO SCH (10:08)
[2018-09-20] MEDS: GABAPENTIN 100 MG CAPSULE. PO SCH ×3 (10:08→20:29)
[2018-09-20] MEDS: LISINOPRIL 20 MG TABLET PO SCH (10:08)
[2018-09-20] MEDS: QUEtiapine 25 MG TABLET. PO SCH ×3 (10:09→15:47)
[2018-09-20] MEDS: rOPINIRole 1 MG TABLET. PO SCH ×3 (10:09→20:29)
[2018-09-20] MEDS: PANTOPRAZOLE 40 MG TABLET. PO SCH (10:13)
[2018-09-20] MEDS: DIVALPROEX 125 MG CAP.SPRINK PO SCH ×3 (10:13→20:28)
[2018-09-20] MEDS: METOPROLOL SUCC 24HR ER 50 MG TAB.ER.24H. PO SCH (10:13)
[2018-09-20] MEDS: amLODIPine BESYLATE 10 MG TABLET PO SCH (10:14)
[2018-09-20 16:43] VITALS: BP 110/61
--- NOTE | 2018-09-20 20:17 | NUR ---
Behavior Intervention Response and Plan: BIRP Note: Behavior: Assumed Care of patient, patient located in Patient Room at shift change. Patient exhibited the following behavior Calm, Withdrawn, Compliant. Brief assessment on rounds of vital signs, medication needs, lab studies, and pain. Treatment plan problems 1 and 2. Intervention: Patient assessed and the following interventions initiated safety checks 15 Minute Checks Cognitive Assessment , Head to toe Assessment , Medications. Response: After interactions and interventions patient responded in the following manner, Interactive , Social ,Cooperative. Continue to assess behaviors and condition will continue to monitor throughout the shift as needed. Patient educated on ADL's, and hand hygiene. Plan: Continue to monitor Master Treatment Plan for patient's progress toward short term goals of Decreased Anxiety, Medication Compliance, intermediate card tender goals to return to previous living setting vs placement. Continue to assess patient for changes in above assessment. Monitor for medication needs, pain, and safety concerns. Hourly rounding performed to ensure safe environment.
[2018-09-20] MEDS: QUEtiapine 100 MG TABLET. PO SCH (20:28)
[2018-09-20] MEDS: MIRTAZAPINE 30 MG TABLET PO SCH (20:28)
[2018-09-20] MEDS: traZODone 100 MG TABLET. PO SCH (20:28)
[2018-09-20] MEDS: PRIMIDONE 50 MG TABLET PO SCH (20:29)
[2018-09-20] MEDS ORDERED: POLYETHYLENE GLYCOL 3350 17 GM PACKET. PO ONE (22:00)
[2018-09-20] MEDS ORDERED: POLYETHYLENE GLYCOL 3350 17 GM PACKET. PO PRN (22:00)
--- NOTE | 2018-09-20 23:00 | PDOC ---
Exam Note: [place] Note: Please also refer to the separate dictated note~for this date of service dictated separately.~Patient seen individually. Discussed the patient with Nursing staff reviewed the chart.~Reviewed interim history and current functioning. Reviewed vital signs,~Labs/ Radiology~and current medications noted below. Continue current treatment with the changes noted in the dictated addendum note Assessment: Vital Signs: Vital Signs Date Time Temp Pulse Resp B/P (MAP) Pulse Ox O2 Delivery O2 Flow Rate FiO2 09/20/18 16:43 98.3 60 20 110/61 (77) 97 Room Air I&O Intake and Output 09/20/18 07:00 Intake Total 1560 ml Balance 1560 ml Intake Oral 1560 ml # Voids 1 Labs: Laboratory Tests Test 09/20/18 07:24 09/20/18 12:07 09/20/18 17:17 09/20/18 19:17 Glucose (Fingerstick) 91 mg/dL (70-99) 103 mg/dL (70-99) H 81 mg/dL (70-99) 109 mg/dL (70-99) H Current Medications: Meds: Current Medications Lorazepam (Ativan) 1 mg 1X ONCE PO Last administered on 09/18/18at 17:58; Start 09/18/18 at 17:30; Stop 09/18/18 at 17:31; Status DC Acetaminophen (Tylenol) 650 mg PRN Q6HRS PRN PO PAIN / TEMP; Start 09/18/18 at 23:30 Multi-Ingredient Ointment (Analgesic [place]) 1 chuy PRN QID PRN TP MUSCLE PAIN; Start 09/18/18 at 23:30 Al Hydroxide/Mg Hydroxide (Mylanta Plus Xs) 15 ml PRN AFTMEALHC PRN PO DYSPEPSIA; Start 09/18/18 at 23:30 Magnesium Hydroxide (Milk Of Magnesia) 2,400 mg PRN QHS PRN PO CONSTIPATION; Start 09/18/18 at 23:30 Carbidopa/Levodopa (Sinemet 25/100) 1 tab TID PO Last administered on at 20:29; Start 09/19/18 at 09:45 Gabapentin (Neurontin) 300 mg TID PO Last administered on 09/19/18at 13:02; Start 09/19/18 at 09:45; Stop 09/19/18 at 15:44; Status DC Lisinopril (Prinivil) 40 mg DAILY PO Last administered on 09/20/18at 10:08; Start 09/19/18 at 09:45 Zolpidem Tartrate (Ambien) 5 mg PRN QHS PRN PO INSOMNIA; Start 09/19/18 at 09: 30; Stop 09/19/18 at 15:29; Status DC Amlodipine Besylate (Norvasc) 2.5 mg DAILY PO Last administered on 09/19/18at 10:29; Start 09/19/18 at 09:45; Stop 09/19/18 at 15:22; Status DC Aspirin (Children'S Aspirin) 81 mg DAILYWBKFT PO Last administered on at 10:27; Start 09/19/18 at 09:45; Stop 09/19/18 at 15:16; Status DC Cetirizine HCl (ZyrTEC) 10 mg DAILY PO Last administered on 09/20/18at 10:08; Start 09/19/18 at 09:45 Clonazepam (KlonoPIN) 0.25 mg QHS PO ; Start 09/19/18 at 21:00; Stop 09/19/18 at 21:00; Status DC Divalproex Sodium (Depakote) 250 mg DAILY PO ; Start 09/19/18 at 09:45; Stop 09/19/18 at 09:45; Status DC Divalproex Sodium (Depakote Sprinkles) 500 mg BIDACLD PO Last administered on 09/19/18at 12:57; Start 09/19/18 at 11:30; Stop 09/19/18 at 15:07; Status DC Non-Formulary Medication (Ergocalciferol (Vitamin D2) (Vitamin D2)) 50,000 unit TWICE WEEKLY PO ; Start 09/19/18 at 09:30; Stop 09/19/18 at 10:57; Status DC EZETIMIBE (Zetia) 10 mg DAILY PO Last administered on 09/20/18at 10:08; Start 09/19/18 at 09:45 Insulin Glargine (Lantus) 10 units DAILYWBKFT SQ ; Start 09/19/18 at 09:45; Stop 09/19/18 at 09:45; Status DC Lorazepam (Ativan) 0.5 mg PRN Q2HR PRN PO ANXIETY; Start 09/19/18 at 09:45; Stop 09/19/18 at 15:31; Status DC Metformin HCl (Glucophage) 500 mg BIDWMEALS PO Last administered on 09/20/18at 18:03; Start 09/19/18 at 09:45 Metoprolol Succinate (Toprol Xl) 50 mg DAILY PO Last administered on at 10:31; Start 09/19/18 at 09:45; Stop 09/19/18 at 15:24; Status DC Mirtazapine (Remeron) 15 mg QHS PO ; Start 09/19/18 at 21:00; Stop 09/19/18 at 21:00; Status DC Ondansetron HCl (Zofran Odt) 4 mg PRN Q8HRS PRN PO NAUSEA/VOMITING Last administered on 09/19/18at 14:27; Start 09/19/18 at 09:45 Primidone (Mysoline) 50 mg HS PO Last administered on 09/20/18at 20:29; Start 09/19/18 at 21:00 Quetiapine Fumarate (SEROquel) 12.5 mg 0900,1200,1600 PO Last administered on 09/20/18at 15:47; Start 09/19/18 at 12:00 Quetiapine Fumarate (SEROquel) 25 mg QHS PO ; Start 09/19/18 at 21:00; Stop at 21:00; Status DC Ropinirole HCl (Requip) 1 mg TID PO Last administered on 09/20/18at 20:29; Start 09/19/18 at 09:45 Non-Formulary Medication (Sulfamethoxazole/ Trimethoprim (Bactrim 400-80 Mg Tablet)) 1 tab BID PO ; Start 09/19/18 at 21:00; Stop 09/19/18 at 21:00; Status DC Trazodone HCl (Desyrel) 50 mg PRN QHS PRN PO SLEEP; Start 09/19/18 at 09:45; Stop 09/19/18 at 15:33; Status DC Divalproex Sodium (Depakote Sprinkles) 250 mg DAILY PO ; Start 09/20/18 at 09: 00; Stop 09/20/18 at 09:00; Status DC Insulin Glargine (Lantus) 10 units DAILYWBKFT SQ ; Start 09/20/18 at 08:00; Stop 09/20/18 at 08:00; Status DC Vitamin D (Vitamin D3) 50,000 unit TuFr PO Last administered on 09/19/18at 12: 56; Start 09/19/18 at 11:00; Stop 09/19/18 at 15:27; Status DC Quetiapine Fumarate (SEROquel) 100 mg HS PO Last administered on 09/20/18at 20: 28; Start 09/19/18 at 21:00 Divalproex Sodium (Depakote Sprinkles) 500 mg BID@1200,2100 PO Last administered on 09/20/18at 20:28; Start 09/19/18 at 21:00 Amlodipine Besylate (Norvasc) 10 mg DAILY PO Last administered on 09/20/18at 10 :14; Start 09/20/18 at 09:00 Metoprolol Succinate (Toprol Xl) 100 mg DAILY PO Last administered on at 10:13; Start 09/20/18 at 09:00 Lorazepam (Ativan) 0.5 mg PRN Q4HRS PRN PO ANXIETY; Start 09/19/18 at 15:45 Trazodone HCl (Desyrel) 100 mg HS PO Last administered on 09/20/18at 20:28; Start 09/19/18 at 21:00 Pantoprazole Sodium (Protonix) 40 mg DAILYAC PO Last administered on at 10:13; Start 09/20/18 at 07:30 Alprazolam (Xanax) 0.5 mg PRN Q8HRS PRN PO ANXIETY; Start 09/19/18 at 15:45 Trazodone HCl (Desyrel) 200 mg QHS PO ; Start 09/19/18 at 21:00; Stop at 21:00; Status DC Ropinirole HCl (Requip) 1 mg TID PO ; Start 09/19/18 at 21:00; Stop 09/19/18 at 21:00; Status DC Gabapentin (Neurontin) 200 mg TID PO Last administered on 09/20/18at 20:29; Start 09/19/18 at 21:00 Tramadol HCl (Ultram) 50 mg PRN Q6HRS PRN PO PAIN; Start 09/19/18 at 15:45 Trazodone HCl (Desyrel) 400 mg QHS PO ; Start 09/19/18 at 21:00; Stop at 21:00; Status DC Mirtazapine (Remeron) 30 mg QHS PO Last administered on 09/20/18at 20:28; Start 09/19/18 at 21:00 Oxcarbazepine (Trileptal) 300 mg BID PO ; Start 09/19/18 at 21:00; Stop at 21:00; Status DC Divalproex Sodium (Depakote Sprinkles) 250 mg DAILY PO Last administered on at 10:13; Start 09/20/18 at 09:00 Risperidone (RisperDAL) 0.75 mg HS PO ; Start 09/19/18 at 21:00; Stop at 21:00; Status DC Risperidone (RisperDAL) 0.5 mg HS PO ; Start 09/19/18 at 21:00; Stop 09/19/18 at 21:00; Status DC Polyethylene Glycol (miraLAX) 17 gm 1X ONCE PO ; Start 09/20/18 at 22:00; Stop 09/20/18 at 22:01; Status DC Polyethylene Glycol (miraLAX) 17 gm PRN DAILY PRN PO CONSTIPATION; Start 09/20 at 22:00 Active Scripts Active Ambien (Zolpidem Tartrate) 5 Mg Tablet 1 Tab PO QHS PRN Trazodone Hcl 50 Mg Tablet 1 Tab PO QHS PRN Bactrim 400-80 Mg Tablet (Sulfamethoxazole/Trimethoprim) 1 Each Tablet 1 Tab PO BID Seroquel (Quetiapine Fumarate) 25 Mg Tablet 1 Tab PO QHS Reported Seroquel (Quetiapine Fumarate) 25 Mg Tablet 0.5 Tab PO Q9,12,16 NOT GIVEN IN THE HOSPITAL RESTART TONIGHT AT BEDTIME Amlodipine Besylate 2.5 Mg Tablet 1 Tab PO DAILY NOT GIVEN IN THE HOSPITAL RESTART TOMORROW AM Vitamin D2 (Ergocalciferol (Vitamin D2)) 50,000 Unit Capsule 50,000 Unit PO TWICE WEEKLY NOT GIVEN IN THE HOSPITAL RESTART ON YOUR NORMAL DAY Ativan (Lorazepam) 0.5 Mg Tablet 0.5 Mg PO PRN Q2HR PRN NOT GIVEN IN THE HOSPITAL RESTART TODAY AT HOME WHEN NEEDED Depakote Sprinkle (Divalproex Sodium) 125 Mg Cap.sprink 250 Mg PO DAILY NOT GIVEN IN THE HOSPITAL RESTART TOMORROW AM Depakote Sprinkle (Divalproex Sodium) 125 Mg Cap.sprink 500 Mg PO BIDACLD NOT GIVEN IN THE HOSPITAL RESTART TONIGHT AT BEDTIME Metformin Hcl 500 Mg Tablet 500 Mg PO BIDWMEALS NOT GIVEN IN THE HOSPITAL RESTART TONIGHT WITH DINNER Gabapentin 100 Mg Capsule 300 Mg PO TID NOT GIVEN IN THE HOSPITAL RESTART TONIGHT AT BEDTIME Metoprolol Succinate ( Xl ) (Metoprolol Succinate) 50 Mg Tab.er.24h 50 Mg PO DAILY NOT GIVEN IN THE HOSPITAL RESTART TOMORROW AM Requip (Ropinirole Hcl) 1 Mg Tablet 1 Mg PO TID NOT GIVEN IN THE HOSPTAL RESTART TONIGHT AT BEDTIME Sinemet 25-100 Mg Tablet (Carbidopa/Levodopa) 1 Each Tablet 1 Each PO TID NOT GIVEN IN THE HOSPITAL RESTART TONIGHT AT BEDTIME Primidone 50 Mg Tablet 50 Mg PO HS NOT GIVEN IN THE HOSPITAL RESTART TOMORROW AM Zofran (Ondansetron Hcl) 4 Mg Tablet 4 Mg PO PRN Q8HRS PRN NOT GIVEN IN THE HOSPITAL RESTART TODAY AT HOME IF NEEDED Clonazepam 1 Mg Tablet 0.25 Mg PO HS NOT GIVEN IN THE HOSPITAL RESTART TODAY AT BEDTIME Lisinopril 20 Mg Tablet 40 Mg PO DAILY NOT GIVEN IN THE HOSPITAL RESTART TOMORROW AM hold for BP less than 100. After a held dose, reassess in 2 ours. IF SBP is above threshold, administer dose as ordered. IF SBP is below threshold, contact provider for additional instructions. Remeron (Mirtazapine) 15 Mg Tablet 15 Mg PO QHS NOT GIVEN IN THE HOSPITAL RESTART TONIGHT AT BEDTIME Cetirizine Hcl 10 Mg Tablet 10 Mg PO DAILY NOT GIVEN IN THE HOSPITAL RESTART TOMORROW AM Aspirin 81 Mg Tab.chew 81 Mg PO DAILY NOT GIVEN IN THE HOSPITAL RESTART TOMORROW AM Levemir (Insulin Detemir) 100 Unit/1 Ml Vial 10 Unit SQ DAILYWBKFT NOT GIVEN IN THE HOSPITAL RESTART TOMORROW WITH BREAKFAST Zetia (Ezetimibe) 10 Mg Tablet 10 Mg PO DAILY NOT GIVEN IN THE HOSPITAL RESTART TOMORROW AM I have reviewed the current psychotropics carefully including drug interactions. Risk benefit ratio favors no change other than as noted in my dictated progress note. Diagnosis: Problems: (1) Bipolar I disorder with jose (2) Bipolar I disorder with anxious distress (3) Bipolar I disorder with mixed features (4) Anxiety disorder (5) Impulse control disorder (6) Severe anxiety KANWAL KNIGHT MD Sep 20, 2018 23:00
--- NOTE | 2018-09-21 02:20 | NUR ---
Pt wandering unit ad ada this evening. Compliant with HS medications crushed in one bite of pudding. Pt states that she feels nauseas but does not vomit. No adverse behaviors noted.
[2018-09-21 06:06] VITALS: BP 112/58
[2018-09-21] MEDS: GABAPENTIN 100 MG CAPSULE. PO SCH ×3 (08:07→20:10)
[2018-09-21] MEDS: CARBIDOPA/LEVODOPA 25/100MG TABLET PO SCH ×3 (08:08→20:10)
[2018-09-21] MEDS: EZETIMIBE 10 MG TABLET PO SCH (08:08)
[2018-09-21] MEDS: PANTOPRAZOLE 40 MG TABLET. PO SCH (08:08)
[2018-09-21] MEDS: DIVALPROEX 125 MG CAP.SPRINK PO SCH ×3 (08:08→20:11)
[2018-09-21] MEDS: CETIRIZINE HCL 10 MG TABLET PO SCH (08:08)
[2018-09-21] MEDS: METOPROLOL SUCC 24HR ER 50 MG TAB.ER.24H. PO SCH (08:09)
[2018-09-21] MEDS: LISINOPRIL 20 MG TABLET PO SCH (08:09)
[2018-09-21] MEDS: amLODIPine BESYLATE 10 MG TABLET PO SCH (08:09)
[2018-09-21] MEDS: rOPINIRole 1 MG TABLET. PO SCH ×3 (08:10→20:09)
[2018-09-21] MEDS: QUEtiapine 25 MG TABLET. PO SCH ×3 (08:13→17:23)
[2018-09-21] MEDS: metFORMIN 500 MG TABLET PO SCH ×2 (08:13→17:23)
--- NOTE | 2018-09-21 12:48 | PN ---
DATE: 09/20/2018 This late entry, 09/20/2018, covers elements not covered in my initial note. SUBJECTIVE: I met with the patient in the evening. The patient slept 6-3/4 hours previous night, which is quite an improvement for her since she had been sleeping hardly at all at night according to her description. She has been better during the day, less anxious, but still complains of racing thoughts as I met with her in her room in the evening. REVIEW OF SYSTEMS: No CV, , pulmonary, eye, ENT system symptoms on review. MENTAL STATUS EXAM: The patient is reasonably oriented. Speech coherent, less pressured. Abstraction fair. Computation, able to do one-step serial 7's. Remains somewhat anxious and tense, but less so than before. No suicidal or homicidal ideation. LABORATORY DATA: Reviewed. IMPRESSION: Bipolar I disorder, mixed anxiety disorder, unspecified. Rest unchanged. PLAN: Continue current psychotropics. We have initiated Depakote 125 mg tablets 2 in the morning, 4 at noon, and 4 at night. Check labs level. Maintain Requip, Seroquel, trazodone, Remeron at current dosage for now. KANWAL KNIGHT MD DR: VINOD/portia JOB#: [id number] / [id number]
--- NOTE | 2018-09-21 12:53 | NUR ---
Patient has been calm, compliant and appropriate. She has been compliant with medications. Patient keeps saying she is going to vomit, patient continued to eat lunch with no problems. She has been withdrawn to her room this shift. Will continue to monitor.
[2018-09-21 16:33] VITALS: BP 93/54
[2018-09-21] MEDS: PRIMIDONE 50 MG TABLET PO SCH (20:09)
[2018-09-21] MEDS: QUEtiapine 100 MG TABLET. PO SCH (20:10)
[2018-09-21] MEDS: MIRTAZAPINE 30 MG TABLET PO SCH (20:10)
[2018-09-21] MEDS: traZODone 100 MG TABLET. PO SCH (20:10)
--- NOTE | 2018-09-21 23:07 | PDOC ---
Exam Note: [place] Note: Please also refer to the separate dictated note~for this date of service dictated separately.~Patient seen individually. Discussed the patient with Nursing staff reviewed the chart.~Reviewed interim history and current functioning. Reviewed vital signs,~Labs/ Radiology~and current medications noted below. Continue current treatment with the changes noted in the dictated addendum note Assessment: Vital Signs: Vital Signs Date Time Temp Pulse Resp B/P (MAP) Pulse Ox O2 Delivery O2 Flow Rate FiO2 09/21/18 16:33 97.6 60 16 93/54 (67) 96 Room Air I&O Intake and Output 09/21/18 07:00 Intake Total 1320 ml Balance 1320 ml Intake Oral 1320 ml Labs: Laboratory Tests Test 09/21/18 07:40 09/21/18 11:45 09/21/18 17:05 09/21/18 19:31 Glucose (Fingerstick) 77 mg/dL (70-99) 210 mg/dL (70-99) H 117 mg/dL (70-99) H 164 mg/dL (70-99) H Current Medications: Meds: Current Medications Lorazepam (Ativan) 1 mg 1X ONCE PO Last administered on 09/18/18at 17:58; Start 09/18/18 at 17:30; Stop 09/18/18 at 17:31; Status DC Acetaminophen (Tylenol) 650 mg PRN Q6HRS PRN PO PAIN / TEMP; Start 09/18/18 at 23:30 Multi-Ingredient Ointment (Analgesic [place]) 1 chuy PRN QID PRN TP MUSCLE PAIN; Start 09/18/18 at 23:30 Al Hydroxide/Mg Hydroxide (Mylanta Plus Xs) 15 ml PRN AFTMEALHC PRN PO DYSPEPSIA; Start 09/18/18 at 23:30 Magnesium Hydroxide (Milk Of Magnesia) 2,400 mg PRN QHS PRN PO CONSTIPATION; Start 09/18/18 at 23:30 Carbidopa/Levodopa (Sinemet 25/100) 1 tab TID PO Last administered on at 20:10; Start 09/19/18 at 09:45 Gabapentin (Neurontin) 300 mg TID PO Last administered on 09/19/18at 13:02; Start 09/19/18 at 09:45; Stop 09/19/18 at 15:44; Status DC Lisinopril (Prinivil) 40 mg DAILY PO Last administered on 09/21/18at 08:09; Start 09/19/18 at 09:45 Zolpidem Tartrate (Ambien) 5 mg PRN QHS PRN PO INSOMNIA; Start 09/19/18 at 09: 30; Stop 09/19/18 at 15:29; Status DC Amlodipine Besylate (Norvasc) 2.5 mg DAILY PO Last administered on 09/19/18at 10:29; Start 09/19/18 at 09:45; Stop 09/19/18 at 15:22; Status DC Aspirin (Children'S Aspirin) 81 mg DAILYWBKFT PO Last administered on at 10:27; Start 09/19/18 at 09:45; Stop 09/19/18 at 15:16; Status DC Cetirizine HCl (ZyrTEC) 10 mg DAILY PO Last administered on 09/21/18at 08:08; Start 09/19/18 at 09:45 Clonazepam (KlonoPIN) 0.25 mg QHS PO ; Start 09/19/18 at 21:00; Stop 09/19/18 at 21:00; Status DC Divalproex Sodium (Depakote) 250 mg DAILY PO ; Start 09/19/18 at 09:45; Stop 09/19/18 at 09:45; Status DC Divalproex Sodium (Depakote Sprinkles) 500 mg BIDACLD PO Last administered on 09/19/18at 12:57; Start 09/19/18 at 11:30; Stop 09/19/18 at 15:07; Status DC Non-Formulary Medication (Ergocalciferol (Vitamin D2) (Vitamin D2)) 50,000 unit TWICE WEEKLY PO ; Start 09/19/18 at 09:30; Stop 09/19/18 at 10:57; Status DC EZETIMIBE (Zetia) 10 mg DAILY PO Last administered on 09/21/18at 08:08; Start 09/19/18 at 09:45 Insulin Glargine (Lantus) 10 units DAILYWBKFT SQ ; Start 09/19/18 at 09:45; Stop 09/19/18 at 09:45; Status DC Lorazepam (Ativan) 0.5 mg PRN Q2HR PRN PO ANXIETY; Start 09/19/18 at 09:45; Stop 09/19/18 at 15:31; Status DC Metformin HCl (Glucophage) 500 mg BIDWMEALS PO Last administered on 09/21/18at 17:23; Start 09/19/18 at 09:45 Metoprolol Succinate (Toprol Xl) 50 mg DAILY PO Last administered on at 10:31; Start 09/19/18 at 09:45; Stop 09/19/18 at 15:24; Status DC Mirtazapine (Remeron) 15 mg QHS PO ; Start 09/19/18 at 21:00; Stop 09/19/18 at 21:00; Status DC Ondansetron HCl (Zofran Odt) 4 mg PRN Q8HRS PRN PO NAUSEA/VOMITING Last administered on 09/19/18at 14:27; Start 09/19/18 at 09:45 Primidone (Mysoline) 50 mg HS PO Last administered on 09/21/18at 20:09; Start 09/19/18 at 21:00 Quetiapine Fumarate (SEROquel) 12.5 mg 0900,1200,1600 PO Last administered on 09/21/18at 17:23; Start 09/19/18 at 12:00 Quetiapine Fumarate (SEROquel) 25 mg QHS PO ; Start 09/19/18 at 21:00; Stop at 21:00; Status DC Ropinirole HCl (Requip) 1 mg TID PO Last administered on 09/21/18at 20:09; Start 09/19/18 at 09:45 Non-Formulary Medication (Sulfamethoxazole/ Trimethoprim (Bactrim 400-80 Mg Tablet)) 1 tab BID PO ; Start 09/19/18 at 21:00; Stop 09/19/18 at 21:00; Status DC Trazodone HCl (Desyrel) 50 mg PRN QHS PRN PO SLEEP; Start 09/19/18 at 09:45; Stop 09/19/18 at 15:33; Status DC Divalproex Sodium (Depakote Sprinkles) 250 mg DAILY PO ; Start 09/20/18 at 09: 00; Stop 09/20/18 at 09:00; Status DC Insulin Glargine (Lantus) 10 units DAILYWBKFT SQ ; Start 09/20/18 at 08:00; Stop 09/20/18 at 08:00; Status DC Vitamin D (Vitamin D3) 50,000 unit TuFr PO Last administered on 09/19/18at 12: 56; Start 09/19/18 at 11:00; Stop 09/19/18 at 15:27; Status DC Quetiapine Fumarate (SEROquel) 100 mg HS PO Last administered on 09/21/18at 20: 10; Start 09/19/18 at 21:00 Divalproex Sodium (Depakote Sprinkles) 500 mg BID@1200,2100 PO Last administered on 09/21/18at 20:11; Start 09/19/18 at 21:00 Amlodipine Besylate (Norvasc) 10 mg DAILY PO Last administered on 09/21/18at 08 :09; Start 09/20/18 at 09:00 Metoprolol Succinate (Toprol Xl) 100 mg DAILY PO Last administered on at 08:09; Start 09/20/18 at 09:00 Lorazepam (Ativan) 0.5 mg PRN Q4HRS PRN PO ANXIETY; Start 09/19/18 at 15:45 Trazodone HCl (Desyrel) 100 mg HS PO Last administered on 09/21/18at 20:10; Start 09/19/18 at 21:00 Pantoprazole Sodium (Protonix) 40 mg DAILYAC PO Last administered on at 08:08; Start 09/20/18 at 07:30 Alprazolam (Xanax) 0.5 mg PRN Q8HRS PRN PO ANXIETY; Start 09/19/18 at 15:45 Trazodone HCl (Desyrel) 200 mg QHS PO ; Start 09/19/18 at 21:00; Stop at 21:00; Status DC Ropinirole HCl (Requip) 1 mg TID PO ; Start 09/19/18 at 21:00; Stop 09/19/18 at 21:00; Status DC Gabapentin (Neurontin) 200 mg TID PO Last administered on 09/21/18at 20:10; Start 09/19/18 at 21:00 Tramadol HCl (Ultram) 50 mg PRN Q6HRS PRN PO PAIN; Start 09/19/18 at 15:45 Trazodone HCl (Desyrel) 400 mg QHS PO ; Start 09/19/18 at 21:00; Stop at 21:00; Status DC Mirtazapine (Remeron) 30 mg QHS PO Last administered on 09/21/18at 20:10; Start 09/19/18 at 21:00 Oxcarbazepine (Trileptal) 300 mg BID PO ; Start 09/19/18 at 21:00; Stop at 21:00; Status DC Divalproex Sodium (Depakote Sprinkles) 250 mg DAILY PO Last administered on at 08:08; Start 09/20/18 at 09:00 Risperidone (RisperDAL) 0.75 mg HS PO ; Start 09/19/18 at 21:00; Stop at 21:00; Status DC Risperidone (RisperDAL) 0.5 mg HS PO ; Start 09/19/18 at 21:00; Stop 09/19/18 at 21:00; Status DC Polyethylene Glycol (miraLAX) 17 gm 1X ONCE PO ; Start 09/20/18 at 22:00; Stop 09/20/18 at 22:01; Status DC Polyethylene Glycol (miraLAX) 17 gm PRN DAILY PRN PO CONSTIPATION; Start 09/20 at 22:00 Active Scripts Active Ambien (Zolpidem Tartrate) 5 Mg Tablet 1 Tab PO QHS PRN Trazodone Hcl 50 Mg Tablet 1 Tab PO QHS PRN Bactrim 400-80 Mg Tablet (Sulfamethoxazole/Trimethoprim) 1 Each Tablet 1 Tab PO BID Seroquel (Quetiapine Fumarate) 25 Mg Tablet 1 Tab PO QHS Reported Seroquel (Quetiapine Fumarate) 25 Mg Tablet 0.5 Tab PO Q9,12,16 NOT GIVEN IN THE HOSPITAL RESTART TONIGHT AT BEDTIME Amlodipine Besylate 2.5 Mg Tablet 1 Tab PO DAILY NOT GIVEN IN THE HOSPITAL RESTART TOMORROW AM Vitamin D2 (Ergocalciferol (Vitamin D2)) 50,000 Unit Capsule 50,000 Unit PO TWICE WEEKLY NOT GIVEN IN THE HOSPITAL RESTART ON YOUR NORMAL DAY Ativan (Lorazepam) 0.5 Mg Tablet 0.5 Mg PO PRN Q2HR PRN NOT GIVEN IN THE HOSPITAL RESTART TODAY AT HOME WHEN NEEDED Depakote Sprinkle (Divalproex Sodium) 125 Mg Cap.sprink 250 Mg PO DAILY NOT GIVEN IN THE HOSPITAL RESTART TOMORROW AM Depakote Sprinkle (Divalproex Sodium) 125 Mg Cap.sprink 500 Mg PO BIDACLD NOT GIVEN IN THE HOSPITAL RESTART TONIGHT AT BEDTIME Metformin Hcl 500 Mg Tablet 500 Mg PO BIDWMEALS NOT GIVEN IN THE HOSPITAL RESTART TONIGHT WITH DINNER Gabapentin 100 Mg Capsule 300 Mg PO TID NOT GIVEN IN THE HOSPITAL RESTART TONIGHT AT BEDTIME Metoprolol Succinate ( Xl ) (Metoprolol Succinate) 50 Mg Tab.er.24h 50 Mg PO DAILY NOT GIVEN IN THE HOSPITAL RESTART TOMORROW AM Requip (Ropinirole Hcl) 1 Mg Tablet 1 Mg PO TID NOT GIVEN IN THE HOSPTAL RESTART TONIGHT AT BEDTIME Sinemet 25-100 Mg Tablet (Carbidopa/Levodopa) 1 Each Tablet 1 Each PO TID NOT GIVEN IN THE HOSPITAL RESTART TONIGHT AT BEDTIME Primidone 50 Mg Tablet 50 Mg PO HS NOT GIVEN IN THE HOSPITAL RESTART TOMORROW AM Zofran (Ondansetron Hcl) 4 Mg Tablet 4 Mg PO PRN Q8HRS PRN NOT GIVEN IN THE HOSPITAL RESTART TODAY AT HOME IF NEEDED Clonazepam 1 Mg Tablet 0.25 Mg PO HS NOT GIVEN IN THE HOSPITAL RESTART TODAY AT BEDTIME Lisinopril 20 Mg Tablet 40 Mg PO DAILY NOT GIVEN IN THE HOSPITAL RESTART TOMORROW AM hold for BP less than 100. After a held dose, reassess in 2 ours. IF SBP is above threshold, administer dose as ordered. IF SBP is below threshold, contact provider for additional instructions. Remeron (Mirtazapine) 15 Mg Tablet 15 Mg PO QHS NOT GIVEN IN THE HOSPITAL RESTART TONIGHT AT BEDTIME Cetirizine Hcl 10 Mg Tablet 10 Mg PO DAILY NOT GIVEN IN THE HOSPITAL RESTART TOMORROW AM Aspirin 81 Mg Tab.chew 81 Mg PO DAILY NOT GIVEN IN THE HOSPITAL RESTART TOMORROW AM Levemir (Insulin Detemir) 100 Unit/1 Ml Vial 10 Unit SQ DAILYWBKFT NOT GIVEN IN THE HOSPITAL RESTART TOMORROW WITH BREAKFAST Zetia (Ezetimibe) 10 Mg Tablet 10 Mg PO DAILY NOT GIVEN IN THE HOSPITAL RESTART TOMORROW AM I have reviewed the current psychotropics carefully including drug interactions. Risk benefit ratio favors no change other than as noted in my dictated progress note. Diagnosis: Problems: (1) Bipolar I disorder with jose (2) Hypertension (3) Leg swelling (4) Accelerated hypertension (5) Hip pain, right (6) Cellulitis of right lower limb (7) Accelerated essential hypertension (8) Chronic diastolic (congestive) heart failure (9) Bipolar I disorder with anxious distress (10) Bipolar I disorder with mixed features (11) Anxiety disorder (12) Impulse control disorder (13) UTI (urinary tract infection) (14) Severe anxiety KANWAL KNIGHT MD Sep 21, 2018 23:07
--- NOTE | 2018-09-22 01:06 | PDOC2 ---
CONSULT Date of Admission DATE: 09/19/18 Reason for Consult: Medical Management Referring Physician: Dr Voss Source: Caregiver, Chart review, Patient History of Present Illness: 78/F admitted to [facility] unit for worsening dementia and possible suicidal ideation. Patient reportedly with abnormal thought processes, worsening anxiety , insomnia, stating that she "doesn't want to go on like this." She has history of SBH admissions to this facility in past, reportedly saw Dr Voss in his office earlier today. I find her lying in bed sleeping but rouses easily to verbal stimuli. She complains of some nausea denies any vomitting or bowel/ bladder changes. No bad food exposure or travel but due to history is vague historian. Her VS are stable, will get her some zofran and observe. No CHAVARRIA/CP/ SOB/fever/chills/focal neurodeficits. Cardiovascular: HTN, hyperipidemia CENTRAL NERVOUS SYSTEM: Dementia (Parkinson) Endocrine: Diabetes Dermatology: Other (DM foot ulcer) Past Surgical History: No pertinent history Smoke: 1 pack per day ALCOHOL: none Drugs: None Current Medications Current Medications Lorazepam (Ativan) 1 mg 1X ONCE PO Last administered on 09/18/18at 17:58; Start 09/18/18 at 17:30; Stop 09/18/18 at 17:31; Status DC Acetaminophen (Tylenol) 650 mg PRN Q6HRS PRN PO PAIN / TEMP; Start 09/18/18 at 23:30 Multi-Ingredient Ointment (Analgesic [place]) 1 chuy PRN QID PRN TP MUSCLE PAIN; Start 09/18/18 at 23:30 Al Hydroxide/Mg Hydroxide (Mylanta Plus Xs) 15 ml PRN AFTMEALHC PRN PO DYSPEPSIA; Start 09/18/18 at 23:30 Magnesium Hydroxide (Milk Of Magnesia) 2,400 mg PRN QHS PRN PO CONSTIPATION; Start 09/18/18 at 23:30 Carbidopa/Levodopa (Sinemet 25/100) 1 tab TID PO Last administered on at 20:10; Start 09/19/18 at 09:45 Gabapentin (Neurontin) 300 mg TID PO Last administered on 09/19/18at 13:02; Start 09/19/18 at 09:45; Stop 09/19/18 at 15:44; Status DC Lisinopril (Prinivil) 40 mg DAILY PO Last administered on 09/21/18at 08:09; Start 09/19/18 at 09:45 Zolpidem Tartrate (Ambien) 5 mg PRN QHS PRN PO INSOMNIA; Start 09/19/18 at 09: 30; Stop 09/19/18 at 15:29; Status DC Amlodipine Besylate (Norvasc) 2.5 mg DAILY PO Last administered on 09/19/18at 10:29; Start 09/19/18 at 09:45; Stop 09/19/18 at 15:22; Status DC Aspirin (Children'S Aspirin) 81 mg DAILYWBKFT PO Last administered on at 10:27; Start 09/19/18 at 09:45; Stop 09/19/18 at 15:16; Status DC Cetirizine HCl (ZyrTEC) 10 mg DAILY PO Last administered on 09/21/18at 08:08; Start 09/19/18 at 09:45 Clonazepam (KlonoPIN) 0.25 mg QHS PO ; Start 09/19/18 at 21:00; Stop 09/19/18 at 21:00; Status DC Divalproex Sodium (Depakote) 250 mg DAILY PO ; Start 09/19/18 at 09:45; Stop 09/19/18 at 09:45; Status DC Divalproex Sodium (Depakote Sprinkles) 500 mg BIDACLD PO Last administered on 09/19/18at 12:57; Start 09/19/18 at 11:30; Stop 09/19/18 at 15:07; Status DC Non-Formulary Medication (Ergocalciferol (Vitamin D2) (Vitamin D2)) 50,000 unit TWICE WEEKLY PO ; Start 09/19/18 at 09:30; Stop 09/19/18 at 10:57; Status DC EZETIMIBE (Zetia) 10 mg DAILY PO Last administered on 09/21/18at 08:08; Start 09/19/18 at 09:45 Insulin Glargine (Lantus) 10 units DAILYWBKFT SQ ; Start 09/19/18 at 09:45; Stop 09/19/18 at 09:45; Status DC Lorazepam (Ativan) 0.5 mg PRN Q2HR PRN PO ANXIETY; Start 09/19/18 at 09:45; Stop 09/19/18 at 15:31; Status DC Metformin HCl (Glucophage) 500 mg BIDWMEALS PO Last administered on 09/21/18at 17:23; Start 09/19/18 at 09:45 Metoprolol Succinate (Toprol Xl) 50 mg DAILY PO Last administered on at 10:31; Start 09/19/18 at 09:45; Stop 09/19/18 at 15:24; Status DC Mirtazapine (Remeron) 15 mg QHS PO ; Start 09/19/18 at 21:00; Stop 09/19/18 at 21:00; Status DC Ondansetron HCl (Zofran Odt) 4 mg PRN Q8HRS PRN PO NAUSEA/VOMITING Last administered on 09/19/18at 14:27; Start 09/19/18 at 09:45 Primidone (Mysoline) 50 mg HS PO Last administered on 09/21/18at 20:09; Start 09/19/18 at 21:00 Quetiapine Fumarate (SEROquel) 12.5 mg 0900,1200,1600 PO Last administered on 09/21/18at 17:23; Start 09/19/18 at 12:00 Quetiapine Fumarate (SEROquel) 25 mg QHS PO ; Start 09/19/18 at 21:00; Stop at 21:00; Status DC Ropinirole HCl (Requip) 1 mg TID PO Last administered on 09/21/18at 20:09; Start 09/19/18 at 09:45 Non-Formulary Medication (Sulfamethoxazole/ Trimethoprim (Bactrim 400-80 Mg Tablet)) 1 tab BID PO ; Start 09/19/18 at 21:00; Stop 09/19/18 at 21:00; Status DC Trazodone HCl (Desyrel) 50 mg PRN QHS PRN PO SLEEP; Start 09/19/18 at 09:45; Stop 09/19/18 at 15:33; Status DC Divalproex Sodium (Depakote Sprinkles) 250 mg DAILY PO ; Start 09/20/18 at 09: 00; Stop 09/20/18 at 09:00; Status DC Insulin Glargine (Lantus) 10 units DAILYWBKFT SQ ; Start 09/20/18 at 08:00; Stop 09/20/18 at 08:00; Status DC Vitamin D (Vitamin D3) 50,000 unit TuFr PO Last administered on 09/19/18at 12: 56; Start 09/19/18 at 11:00; Stop 09/19/18 at 15:27; Status DC Quetiapine Fumarate (SEROquel) 100 mg HS PO Last administered on 09/21/18at 20: 10; Start 09/19/18 at 21:00 Divalproex Sodium (Depakote Sprinkles) 500 mg BID@1200,2100 PO Last administered on 09/21/18at 20:11; Start 09/19/18 at 21:00 Amlodipine Besylate (Norvasc) 10 mg DAILY PO Last administered on 09/21/18at 08 :09; Start 09/20/18 at 09:00 Metoprolol Succinate (Toprol Xl) 100 mg DAILY PO Last administered on at 08:09; Start 09/20/18 at 09:00 Lorazepam (Ativan) 0.5 mg PRN Q4HRS PRN PO ANXIETY; Start 09/19/18 at 15:45 Trazodone HCl (Desyrel) 100 mg HS PO Last administered on 09/21/18at 20:10; Start 09/19/18 at 21:00 Pantoprazole Sodium (Protonix) 40 mg DAILYAC PO Last administered on at 08:08; Start 09/20/18 at 07:30 Alprazolam (Xanax) 0.5 mg PRN Q8HRS PRN PO ANXIETY; Start 09/19/18 at 15:45 Trazodone HCl (Desyrel) 200 mg QHS PO ; Start 09/19/18 at 21:00; Stop at 21:00; Status DC Ropinirole HCl (Requip) 1 mg TID PO ; Start 09/19/18 at 21:00; Stop 09/19/18 at 21:00; Status DC Gabapentin (Neurontin) 200 mg TID PO Last administered on 09/21/18at 20:10; Start 09/19/18 at 21:00 Tramadol HCl (Ultram) 50 mg PRN Q6HRS PRN PO PAIN; Start 09/19/18 at 15:45 Trazodone HCl (Desyrel) 400 mg QHS PO ; Start 09/19/18 at 21:00; Stop at 21:00; Status DC Mirtazapine (Remeron) 30 mg QHS PO Last administered on 09/21/18at 20:10; Start 09/19/18 at 21:00 Oxcarbazepine (Trileptal) 300 mg BID PO ; Start 09/19/18 at 21:00; Stop at 21:00; Status DC Divalproex Sodium (Depakote Sprinkles) 250 mg DAILY PO Last administered on at 08:08; Start 09/20/18 at 09:00 Risperidone (RisperDAL) 0.75 mg HS PO ; Start 09/19/18 at 21:00; Stop at 21:00; Status DC Risperidone (RisperDAL) 0.5 mg HS PO ; Start 09/19/18 at 21:00; Stop 09/19/18 at 21:00; Status DC Polyethylene Glycol (miraLAX) 17 gm 1X ONCE PO ; Start 09/20/18 at 22:00; Stop 09/20/18 at 22:01; Status DC Polyethylene Glycol (miraLAX) 17 gm PRN DAILY PRN PO CONSTIPATION; Start 09/20 at 22:00 Active Scripts Active Ambien (Zolpidem Tartrate) 5 Mg Tablet 1 Tab PO QHS PRN Trazodone Hcl 50 Mg Tablet 1 Tab PO QHS PRN Bactrim 400-80 Mg Tablet (Sulfamethoxazole/Trimethoprim) 1 Each Tablet 1 Tab PO BID Seroquel (Quetiapine Fumarate) 25 Mg Tablet 1 Tab PO QHS Reported Seroquel (Quetiapine Fumarate) 25 Mg Tablet 0.5 Tab PO Q9,12,16 NOT GIVEN IN THE HOSPITAL RESTART TONIGHT AT BEDTIME Amlodipine Besylate 2.5 Mg Tablet 1 Tab PO DAILY NOT GIVEN IN THE HOSPITAL RESTART TOMORROW AM Vitamin D2 (Ergocalciferol (Vitamin D2)) 50,000 Unit Capsule 50,000 Unit PO TWICE WEEKLY NOT GIVEN IN THE HOSPITAL RESTART ON YOUR NORMAL DAY Ativan (Lorazepam) 0.5 Mg Tablet 0.5 Mg PO PRN Q2HR PRN NOT GIVEN IN THE HOSPITAL RESTART TODAY AT HOME WHEN NEEDED Depakote Sprinkle (Divalproex Sodium) 125 Mg Cap.sprink 250 Mg PO DAILY NOT GIVEN IN THE HOSPITAL RESTART TOMORROW AM Depakote Sprinkle (Divalproex Sodium) 125 Mg Cap.sprink 500 Mg PO BIDACLD NOT GIVEN IN THE HOSPITAL RESTART TONIGHT AT BEDTIME Metformin Hcl 500 Mg Tablet 500 Mg PO BIDWMEALS NOT GIVEN IN THE HOSPITAL RESTART TONIGHT WITH DINNER Gabapentin 100 Mg Capsule 300 Mg PO TID NOT GIVEN IN THE HOSPITAL RESTART TONIGHT AT BEDTIME Metoprolol Succinate ( Xl ) (Metoprolol Succinate) 50 Mg Tab.er.24h 50 Mg PO DAILY NOT GIVEN IN THE HOSPITAL RESTART TOMORROW AM Requip (Ropinirole Hcl) 1 Mg Tablet 1 Mg PO TID NOT GIVEN IN THE HOSPTAL RESTART TONIGHT AT BEDTIME Sinemet 25-100 Mg Tablet (Carbidopa/Levodopa) 1 Each Tablet 1 Each PO TID NOT GIVEN IN THE HOSPITAL RESTART TONIGHT AT BEDTIME Primidone 50 Mg Tablet 50 Mg PO HS NOT GIVEN IN THE HOSPITAL RESTART TOMORROW AM Zofran (Ondansetron Hcl) 4 Mg Tablet 4 Mg PO PRN Q8HRS PRN NOT GIVEN IN THE HOSPITAL RESTART TODAY AT HOME IF NEEDED Clonazepam 1 Mg Tablet 0.25 Mg PO HS NOT GIVEN IN THE HOSPITAL RESTART TODAY AT BEDTIME Lisinopril 20 Mg Tablet 40 Mg PO DAILY NOT GIVEN IN THE HOSPITAL RESTART TOMORROW AM hold for BP less than 100. After a held dose, reassess in 2 ours. IF SBP is above threshold, administer dose as ordered. IF SBP is below threshold, contact provider for additional instructions. Remeron (Mirtazapine) 15 Mg Tablet 15 Mg PO QHS NOT GIVEN IN THE HOSPITAL RESTART TONIGHT AT BEDTIME Cetirizine Hcl 10 Mg Tablet 10 Mg PO DAILY NOT GIVEN IN THE HOSPITAL RESTART TOMORROW AM Aspirin 81 Mg Tab.chew 81 Mg PO DAILY NOT GIVEN IN THE HOSPITAL RESTART TOMORROW AM Levemir (Insulin Detemir) 100 Unit/1 Ml Vial 10 Unit SQ DAILYWBKFT NOT GIVEN IN THE HOSPITAL RESTART TOMORROW WITH BREAKFAST Zetia (Ezetimibe) 10 Mg Tablet 10 Mg PO DAILY NOT GIVEN IN THE HOSPITAL RESTART TOMORROW AM Allergies: Coded Allergies: hydrocodone (Verified Allergy, Intermediate, 06/12/18) Review of Systems: ROS per HPI, patient not reliable historian Physical Exam: Gen.: lying in bed easily rousable NAD HEENT: Normocephalic atraumati, no scleral icterus, oral mucosa pink and moist Neck: Supple, no lymphadenopathy, nontender Cardiovascular: Normal S1 and S2 no murmurs Pulmonary: Lungs are clear bilaterally with good air movement no respiratory distress Abdomen: Soft nontender non-distended, bowel sounds present no masses Extremities: No clubbing, cyanosis or edema Neuro: Alert/confused, no lateralizing neuro deficits Skin: Warm, dry VITALS Vital Signs Date Time Temp Pulse Resp B/P (MAP) Pulse Ox O2 Delivery O2 Flow Rate FiO2 09/21/18 16:33 97.6 60 16 93/54 (67) 96 Room Air Labs Laboratory Tests Test 09/20/18 07:24 09/20/18 12:07 09/20/18 17:17 09/20/18 19:17 Glucose (Fingerstick) 91 mg/dL (70-99) 103 mg/dL (70-99) 81 mg/dL (70-99) 109 mg/dL (70-99) Test 09/21/18 07:40 09/21/18 11:45 09/21/18 17:05 09/21/18 19:31 Glucose (Fingerstick) 77 mg/dL (70-99) 210 mg/dL (70-99) 117 mg/dL (70-99) 164 mg/dL (70-99) Assessment/Plan In general this is 78/F with psychiatric history and worsening of symptoms. Her chronic medical problems appear to be managed with current meds/dosages. She is having some nonspecific nausea without emesis currently, no specific focus for infectious process. Will treat symptomatically with zofran and observe for evolution of symptoms and treat accordingly. Continue to follow and offer remedies as indicated. Thank you, Dr Voss, for allowing me to participate in the care of your patient. ALON STALEY DO Sep 22, 2018 01:06
--- NOTE | 2018-09-22 01:21 | NUR ---
Pt withdrawn to room this evening. Pt interactive when approached for assessment and medication administration. Pt states that she feels nauseas, but does not vomit.
[2018-09-22 06:07] VITALS: BP 124/55
[2018-09-22 07:05] LABS: BASO % 0 % (0-3); EOS # 0.1 x10^3/uL (0.0-0.7); EOS % 2 % (0-3); HEMATOCRIT 32.2 % (36.0-47.0); LYMPH # 1.5 x10^3/uL (1.0-4.8); LYMPH % 32 % (24-48); MEAN CORPUSCULAR HEMOGLOBIN 33 pg (25-35); MEAN CORPUSCULAR HGB CONC 34 g/dL (31-37); MEAN CORPUSCULAR VOLUME 97 fL (79-100); MONO # 0.2 x10^3/uL (0.0-1.1); MONO % 5 % (0-9); NEUT # 2.9 x10^3uL (1.8-7.7); NEUT % 61 % (31-73); PLATELET COUNT 221 x10^3/uL (140-400); RED BLOOD COUNT 3.31 x10^6/uL (3.50-5.40); RED CELL DISTRIBUTION WIDTH 12.7 % (11.5-14.5); WHITE BLOOD COUNT 4.8 x10^3/uL (4.0-11.0)
[2018-09-22 07:21] LABS: ALBUMIN 2.2 g/dL (3.4-5.0); ALBUMIN/GLOBULIN RATIO 0.8 (1.0-1.7); ALK PHOS 58 U/L (46-116); ALT (SGPT) 14 U/L (14-59); ANION GAP 4 (6-14); AST (SGOT) 14 U/L (15-37); BLOOD UREA NITROGEN 17 mg/dL (7-20); BUN/CREATININE RATIO 17 (6-20); CALCIUM 7.8 mg/dL (8.5-10.1); CARBON DIOXIDE 29 mmol/L (21-32); CHLORIDE 102 mmol/L (98-107); GFR 53.8; GLUCOSE 85 mg/dL (70-99); POTASSIUM 3.8 mmol/L (3.5-5.1); SODIUM 135 mmol/L (136-145); TOTAL BILIRUBIN 0.1 mg/dL (0.2-1.0); TOTAL PROTEIN 5.1 g/dL (6.4-8.2)
[2018-09-22 07:23] LABS: VAL ACID 58 mcg/mL (50-100)
[2018-09-22] MEDS: DIVALPROEX 125 MG CAP.SPRINK PO SCH ×3 (08:06→19:46)
[2018-09-22] MEDS: PANTOPRAZOLE 40 MG TABLET. PO SCH (08:06)
[2018-09-22] MEDS: rOPINIRole 1 MG TABLET. PO SCH ×3 (08:06→19:46)
[2018-09-22] MEDS: GABAPENTIN 100 MG CAPSULE. PO SCH ×3 (08:06→19:46)
[2018-09-22] MEDS: QUEtiapine 25 MG TABLET. PO SCH ×3 (08:07→17:25)
[2018-09-22] MEDS: LISINOPRIL 20 MG TABLET PO SCH (08:07)
[2018-09-22] MEDS: metFORMIN 500 MG TABLET PO SCH ×2 (08:08→17:25)
[2018-09-22] MEDS: METOPROLOL SUCC 24HR ER 50 MG TAB.ER.24H. PO SCH (08:08)
[2018-09-22] MEDS: CETIRIZINE HCL 10 MG TABLET PO SCH (08:08)
[2018-09-22] MEDS: EZETIMIBE 10 MG TABLET PO SCH (08:08)
[2018-09-22] MEDS: amLODIPine BESYLATE 10 MG TABLET PO SCH (08:09)
[2018-09-22] MEDS: CARBIDOPA/LEVODOPA 25/100MG TABLET PO SCH ×3 (08:09→19:46)
--- NOTE | 2018-09-22 13:04 | NUR ---
Patient has been calm, cooperative and appropriate this shift. She has been compliant with medications. Patient has not c/o nausea this shift. Will continue to monitor.
--- NOTE | 2018-09-22 13:09 | NUR ---
Update faxed to [facility] team, awaiting outcome.
--- NOTE | 2018-09-22 13:45 | NUR ---
Attempted to meet and complete Activity Therapy Assessment at 1315; however, Pt. was eating lunch Activity Therapy Assessment Completed [facility] Pt. was laying in her bed and was willing to speak with therapist. Pt. was calm and pleasant when she spoke but seemed to have a difficult time finding her words. She stated she was born and raised in [place] but currently lives in [place] with her partner of nearly twenty years, Diomedes; Pt. has been three times and has three children and two grandchildren, all of which live in [place]. Pt. stated that she has been to [place] before and knows that her bipolar disorder sometimes makes her brain 'act funny'. Pt. stated that 'sometimes my brain gets bad so I come see Dr. Voss but this is different than before...these thoughts are hard to describe and they make me so darn tired'. Pt. was unable to list leisure interests but her memory seems intact otherwise. According to [facility] notes, Pt. has numerous interests including [employer], anthony, knitting, [employer] and [address], her pet birds, yard work, reading, and watching the news. Pt. describes self as a 'people person' and 'doesn't want to stay in bed all day' and agreed that reminders from therapist about groups would be helpful. Pt. will participate in groups when prompted and is generally friendly with others. She can be anxious and withdrawn at times. Initial goal set to increase stress management skills: Pt. will participate in at least one group or individual activity per day.
[2018-09-22 15:39] VITALS: BP 123/74
[2018-09-22] MEDS: MIRTAZAPINE 30 MG TABLET PO SCH (19:45)
[2018-09-22] MEDS: traZODone 100 MG TABLET. PO SCH (19:46)
[2018-09-22] MEDS: QUEtiapine 100 MG TABLET. PO SCH (19:46)
[2018-09-22] MEDS: PRIMIDONE 50 MG TABLET PO SCH (19:46)
--- NOTE | 2018-09-22 20:56 | PN ---
DATE: 09/21/2018 PSYCHIATRIC PROGRESS NOTE This late entry 09/21/2018 covers elements not covered in my initial note. SUBJECTIVE: I met with the patient in the evening. I met with her in her room at some length. She slept 6 hours previous evening, which is an improvement from her. Per nursing report, she has been compliant with medications. Complains of some nausea, but no vomiting, less anxious. REVIEW OF SYSTEMS: No CV, , pulmonary, eye, ENT system symptoms on review. MENTAL STATUS EXAM: Reasonably oriented. Speech is coherent, abstraction fair, computation impaired, language function intact, attention span short. Mood and affect remain somewhat labile. No suicidal or homicidal ideation. LABORATORY DATA: Reviewed. IMPRESSION: Bipolar 1 disorder, mixed; anxiety disorder, unspecified; impulse control disorder, unspecified. PLAN: Continue Depakote, Seroquel, trazodone, Remeron at current dosage with Xanax. Adjust to reach therapeutic level on the Depakote and adjust rest of the psychotropics thereafter. MAN Gerhard KNIGHT MD DR: VINOD/portia JOB#: [id number] / [id number]
--- NOTE | 2018-09-22 23:10 | PDOC ---
Exam Note: [place] Note: Please also refer to the separate dictated note~for this date of service dictated separately.~Patient seen individually. Discussed the patient with Nursing staff reviewed the chart.~Reviewed interim history and current functioning. Reviewed vital signs,~Labs/ Radiology~and current medications noted below. Continue current treatment with the changes noted in the dictated addendum note Assessment: Vital Signs: Vital Signs Date Time Temp Pulse Resp B/P (MAP) Pulse Ox O2 Delivery O2 Flow Rate FiO2 09/22/18 15:39 97.1 62 20 123/74 (90) 98 Room Air I&O Intake and Output 09/22/18 07:00 Intake Total 1020 ml Balance 1020 ml Intake Oral 1020 ml # Bowel Movements 1 Labs: Laboratory Tests Test 09/22/18 06:24 09/22/18 07:50 09/22/18 11:16 09/22/18 16:40 White Blood Count 4.8 x10^3/uL (4.0-11.0) Red Blood Count 3.31 x10^6/uL (3.50-5.40) L Hemoglobin 11.0 g/dL (12.0-15.5) L Hematocrit 32.2 % (36.0-47.0) L Mean Corpuscular Volume 97 fL (79-100) Mean Corpuscular Hemoglobin 33 pg (25-35) Mean Corpuscular Hemoglobin Concent 34 g/dL (31-37) Red Cell Distribution Width 12.7 % (11.5-14.5) Platelet Count 221 x10^3/uL (140-400) Neutrophils (%) (Auto) 61 % (31-73) Lymphocytes (%) (Auto) 32 % (24-48) Monocytes (%) (Auto) 5 % (0-9) Eosinophils (%) (Auto) 2 % (0-3) Basophils (%) (Auto) 0 % (0-3) Neutrophils # (Auto) 2.9 x10^3uL (1.8-7.7) Lymphocytes # (Auto) 1.5 x10^3/uL (1.0-4.8) Monocytes # (Auto) 0.2 x10^3/uL (0.0-1.1) Eosinophils # (Auto) 0.1 x10^3/uL (0.0-0.7) Basophils # (Auto) 0.0 x10^3/uL (0.0-0.2) Sodium Level 135 mmol/L (136-145) L Potassium Level 3.8 mmol/L (3.5-5.1) Chloride Level 102 mmol/L (98-107) Carbon Dioxide Level 29 mmol/L (21-32) Anion Gap 4 (6-14) L Blood Urea Nitrogen 17 mg/dL (7-20) Creatinine 1.0 mg/dL (0.6-1.0) Estimated GFR (Cockcroft-Gault) 53.8 BUN/Creatinine Ratio 17 (6-20) Glucose Level 85 mg/dL (70-99) Calcium Level 7.8 mg/dL (8.5-10.1) L Total Bilirubin 0.1 mg/dL (0.2-1.0) L Aspartate Amino Transferase (AST) 14 U/L (15-37) L Alanine Aminotransferase (ALT) 14 U/L (14-59) Alkaline Phosphatase 58 U/L (46-116) Total Protein 5.1 g/dL (6.4-8.2) L Albumin 2.2 g/dL (3.4-5.0) L Albumin/Globulin Ratio 0.8 (1.0-1.7) L Valproic Acid Level 58 mcg/mL (50-100) Valproic Acid Last Dose Date 09/21/18 Valproic Acid Last Dose Time 2100 Glucose (Fingerstick) 76 mg/dL (70-99) 91 mg/dL (70-99) 142 mg/dL (70-99) H Test 09/22/18 19:15 Glucose (Fingerstick) 186 mg/dL (70-99) H Current Medications: Meds: Current Medications Lorazepam (Ativan) 1 mg 1X ONCE PO Last administered on 09/18/18at 17:58; Start 09/18/18 at 17:30; Stop 09/18/18 at 17:31; Status DC Acetaminophen (Tylenol) 650 mg PRN Q6HRS PRN PO PAIN / TEMP; Start 09/18/18 at 23:30 Multi-Ingredient Ointment (Analgesic [place]) 1 chuy PRN QID PRN TP MUSCLE PAIN; Start 09/18/18 at 23:30 Al Hydroxide/Mg Hydroxide (Mylanta Plus Xs) 15 ml PRN AFTMEALHC PRN PO DYSPEPSIA; Start 09/18/18 at 23:30 Magnesium Hydroxide (Milk Of Magnesia) 2,400 mg PRN QHS PRN PO CONSTIPATION; Start 09/18/18 at 23:30 Carbidopa/Levodopa (Sinemet 25/100) 1 tab TID PO Last administered on at 19:46; Start 09/19/18 at 09:45 Gabapentin (Neurontin) 300 mg TID PO Last administered on 09/19/18at 13:02; Start 09/19/18 at 09:45; Stop 09/19/18 at 15:44; Status DC Lisinopril (Prinivil) 40 mg DAILY PO Last administered on 09/22/18at 08:07; Start 09/19/18 at 09:45 Zolpidem Tartrate (Ambien) 5 mg PRN QHS PRN PO INSOMNIA; Start 09/19/18 at 09: 30; Stop 09/19/18 at 15:29; Status DC Amlodipine Besylate (Norvasc) 2.5 mg DAILY PO Last administered on 09/19/18at 10:29; Start 09/19/18 at 09:45; Stop 09/19/18 at 15:22; Status DC Aspirin (Children'S Aspirin) 81 mg DAILYWBKFT PO Last administered on at 10:27; Start 09/19/18 at 09:45; Stop 09/19/18 at 15:16; Status DC Cetirizine HCl (ZyrTEC) 10 mg DAILY PO Last administered on 09/22/18at 08:08; Start 09/19/18 at 09:45 Clonazepam (KlonoPIN) 0.25 mg QHS PO ; Start 09/19/18 at 21:00; Stop 09/19/18 at 21:00; Status DC Divalproex Sodium (Depakote) 250 mg DAILY PO ; Start 09/19/18 at 09:45; Stop 09/19/18 at 09:45; Status DC Divalproex Sodium (Depakote Sprinkles) 500 mg BIDACLD PO Last administered on 09/19/18at 12:57; Start 09/19/18 at 11:30; Stop 09/19/18 at 15:07; Status DC Non-Formulary Medication (Ergocalciferol (Vitamin D2) (Vitamin D2)) 50,000 unit TWICE WEEKLY PO ; Start 09/19/18 at 09:30; Stop 09/19/18 at 10:57; Status DC EZETIMIBE (Zetia) 10 mg DAILY PO Last administered on 09/22/18at 08:08; Start 09/19/18 at 09:45 Insulin Glargine (Lantus) 10 units DAILYWBKFT SQ ; Start 09/19/18 at 09:45; Stop 09/19/18 at 09:45; Status DC Lorazepam (Ativan) 0.5 mg PRN Q2HR PRN PO ANXIETY; Start 09/19/18 at 09:45; Stop 09/19/18 at 15:31; Status DC Metformin HCl (Glucophage) 500 mg BIDWMEALS PO Last administered on 09/22/18 17:25; Start 09/19/18 at 09:45 Metoprolol Succinate (Toprol Xl) 50 mg DAILY PO Last administered on at 10:31; Start 09/19/18 at 09:45; Stop 09/19/18 at 15:24; Status DC Mirtazapine (Remeron) 15 mg QHS PO ; Start 09/19/18 at 21:00; Stop 09/19/18 at 21:00; Status DC Ondansetron HCl (Zofran Odt) 4 mg PRN Q8HRS PRN PO NAUSEA/VOMITING Last administered on 09/19/18at 14:27; Start 09/19/18 at 09:45 Primidone (Mysoline) 50 mg HS PO Last administered on 09/22/18at 19:46; Start 09/19/18 at 21:00 Quetiapine Fumarate (SEROquel) 12.5 mg 0900,1200,1600 PO Last administered on 09/22/18at 17:25; Start 09/19/18 at 12:00 Quetiapine Fumarate (SEROquel) 25 mg QHS PO ; Start 09/19/18 at 21:00; Stop at 21:00; Status DC Ropinirole HCl (Requip) 1 mg TID PO Last administered on 09/22/18at 19:46; Start 09/19/18 at 09:45 Non-Formulary Medication (Sulfamethoxazole/ Trimethoprim (Bactrim 400-80 Mg Tablet)) 1 tab BID PO ; Start 09/19/18 at 21:00; Stop 09/19/18 at 21:00; Status DC Trazodone HCl (Desyrel) 50 mg PRN QHS PRN PO SLEEP; Start 09/19/18 at 09:45; Stop 09/19/18 at 15:33; Status DC Divalproex Sodium (Depakote Sprinkles) 250 mg DAILY PO ; Start 09/20/18 at 09: 00; Stop 09/20/18 at 09:00; Status DC Insulin Glargine (Lantus) 10 units DAILYWBKFT SQ ; Start 09/20/18 at 08:00; Stop 09/20/18 at 08:00; Status DC Vitamin D (Vitamin D3) 50,000 unit TuFr PO Last administered on 09/19/18at 12: 56; Start 09/19/18 at 11:00; Stop 09/19/18 at 15:27; Status DC Quetiapine Fumarate (SEROquel) 100 mg HS PO Last administered on 09/22/18at 19: 46; Start 09/19/18 at 21:00 Divalproex Sodium (Depakote Sprinkles) 500 mg BID@1200,2100 PO Last administered on 09/22/18at 19:46; Start 09/19/18 at 21:00 Amlodipine Besylate (Norvasc) 10 mg DAILY PO Last administered on 09/22/18at 08 :09; Start 09/20/18 at 09:00 Metoprolol Succinate (Toprol Xl) 100 mg DAILY PO Last administered on at 08:09; Start 09/20/18 at 09:00 Lorazepam (Ativan) 0.5 mg PRN Q4HRS PRN PO ANXIETY; Start 09/19/18 at 15:45 Trazodone HCl (Desyrel) 100 mg HS PO Last administered on 09/22/18at 19:46; Start 09/19/18 at 21:00 Pantoprazole Sodium (Protonix) 40 mg DAILYAC PO Last administered on at 08:06; Start 09/20/18 at 07:30 Alprazolam (Xanax) 0.5 mg PRN Q8HRS PRN PO ANXIETY; Start 09/19/18 at 15:45 Trazodone HCl (Desyrel) 200 mg QHS PO ; Start 09/19/18 at 21:00; Stop at 21:00; Status DC Ropinirole HCl (Requip) 1 mg TID PO ; Start 09/19/18 at 21:00; Stop 09/19/18 at 21:00; Status DC Gabapentin (Neurontin) 200 mg TID PO Last administered on 09/22/18at 19:46; Start 09/19/18 at 21:00 Tramadol HCl (Ultram) 50 mg PRN Q6HRS PRN PO PAIN; Start 09/19/18 at 15:45 Trazodone HCl (Desyrel) 400 mg QHS PO ; Start 09/19/18 at 21:00; Stop at 21:00; Status DC Mirtazapine (Remeron) 30 mg QHS PO Last administered on 09/22/18at 19:45; Start 09/19/18 at 21:00 Oxcarbazepine (Trileptal) 300 mg BID PO ; Start 09/19/18 at 21:00; Stop at 21:00; Status DC Divalproex Sodium (Depakote Sprinkles) 250 mg DAILY PO Last administered on at 08:06; Start 09/20/18 at 09:00 Risperidone (RisperDAL) 0.75 mg HS PO ; Start 09/19/18 at 21:00; Stop at 21:00; Status DC Risperidone (RisperDAL) 0.5 mg HS PO ; Start 09/19/18 at 21:00; Stop 09/19/18 at 21:00; Status DC Polyethylene Glycol (miraLAX) 17 gm 1X ONCE PO ; Start 09/20/18 at 22:00; Stop 09/20/18 at 22:01; Status DC Polyethylene Glycol (miraLAX) 17 gm PRN DAILY PRN PO CONSTIPATION; Start 09/20 at 22:00 Influenza Virus Vaccine (Afluria Trivalent [id number] Syringe) 0.5 ml ONCE ONCE VAX IM ; Start 09/23/18 at 09:00; Stop 09/23/18 at 09:01 Active Scripts Active Ambien (Zolpidem Tartrate) 5 Mg Tablet 1 Tab PO QHS PRN Trazodone Hcl 50 Mg Tablet 1 Tab PO QHS PRN Bactrim 400-80 Mg Tablet (Sulfamethoxazole/Trimethoprim) 1 Each Tablet 1 Tab PO BID Seroquel (Quetiapine Fumarate) 25 Mg Tablet 1 Tab PO QHS Reported Seroquel (Quetiapine Fumarate) 25 Mg Tablet 0.5 Tab PO Q9,12,16 NOT GIVEN IN THE HOSPITAL RESTART TONIGHT AT BEDTIME Amlodipine Besylate 2.5 Mg Tablet 1 Tab PO DAILY NOT GIVEN IN THE HOSPITAL RESTART TOMORROW AM Vitamin D2 (Ergocalciferol (Vitamin D2)) 50,000 Unit Capsule 50,000 Unit PO TWICE WEEKLY NOT GIVEN IN THE HOSPITAL RESTART ON YOUR NORMAL DAY Ativan (Lorazepam) 0.5 Mg Tablet 0.5 Mg PO PRN Q2HR PRN NOT GIVEN IN THE HOSPITAL RESTART TODAY AT HOME WHEN NEEDED Depakote Sprinkle (Divalproex Sodium) 125 Mg Cap.sprink 250 Mg PO DAILY NOT GIVEN IN THE HOSPITAL RESTART TOMORROW AM Depakote Sprinkle (Divalproex Sodium) 125 Mg Cap.sprink 500 Mg PO BIDACLD NOT GIVEN IN THE HOSPITAL RESTART TONIGHT AT BEDTIME Metformin Hcl 500 Mg Tablet 500 Mg PO BIDWMEALS NOT GIVEN IN THE HOSPITAL RESTART TONIGHT WITH DINNER Gabapentin 100 Mg Capsule 300 Mg PO TID NOT GIVEN IN THE HOSPITAL RESTART TONIGHT AT BEDTIME Metoprolol Succinate ( Xl ) (Metoprolol Succinate) 50 Mg Tab.er.24h 50 Mg PO DAILY NOT GIVEN IN THE HOSPITAL RESTART TOMORROW AM Requip (Ropinirole Hcl) 1 Mg Tablet 1 Mg PO TID NOT GIVEN IN THE HOSPTAL RESTART TONIGHT AT BEDTIME Sinemet 25-100 Mg Tablet (Carbidopa/Levodopa) 1 Each Tablet 1 Each PO TID NOT GIVEN IN THE HOSPITAL RESTART TONIGHT AT BEDTIME Primidone 50 Mg Tablet 50 Mg PO HS NOT GIVEN IN THE HOSPITAL RESTART TOMORROW AM Zofran (Ondansetron Hcl) 4 Mg Tablet 4 Mg PO PRN Q8HRS PRN NOT GIVEN IN THE HOSPITAL RESTART TODAY AT HOME IF NEEDED Clonazepam 1 Mg Tablet 0.25 Mg PO HS NOT GIVEN IN THE HOSPITAL RESTART TODAY AT BEDTIME Lisinopril 20 Mg Tablet 40 Mg PO DAILY NOT GIVEN IN THE HOSPITAL RESTART TOMORROW AM hold for BP less than 100. After a held dose, reassess in 2 ours. IF SBP is above threshold, administer dose as ordered. IF SBP is below threshold, contact provider for additional instructions. Remeron (Mirtazapine) 15 Mg Tablet 15 Mg PO QHS NOT GIVEN IN THE HOSPITAL RESTART TONIGHT AT BEDTIME Cetirizine Hcl 10 Mg Tablet 10 Mg PO DAILY NOT GIVEN IN THE HOSPITAL RESTART TOMORROW AM Aspirin 81 Mg Tab.chew 81 Mg PO DAILY NOT GIVEN IN THE HOSPITAL RESTART TOMORROW AM Levemir (Insulin Detemir) 100 Unit/1 Ml Vial 10 Unit SQ DAILYWBKFT NOT GIVEN IN THE HOSPITAL RESTART TOMORROW WITH BREAKFAST Zetia (Ezetimibe) 10 Mg Tablet 10 Mg PO DAILY NOT GIVEN IN THE HOSPITAL RESTART TOMORROW AM I have reviewed the current psychotropics carefully including drug interactions. Risk benefit ratio favors no change other than as noted in my dictated progress note. Diagnosis: Problems: (1) Bipolar I disorder with jose (2) Hypertension (3) Leg swelling (4) Accelerated hypertension (5) Hip pain, right (6) Cellulitis of right lower limb (7) Accelerated essential hypertension (8) Chronic diastolic (congestive) heart failure (9) Bipolar I disorder with anxious distress (10) Bipolar I disorder with mixed features (11) Anxiety disorder (12) Impulse control disorder (13) UTI (urinary tract infection) (14) Severe anxiety KANWAL KNIGHT MD Sep 22, 2018 23:10
--- NOTE | 2018-09-22 23:54 | NUR ---
Pt withdrawn to room this evening. While assessing her, pt was upset, stating that she is "hearing voices" in her head. She says that the voices repeat over and over and it's "driving her crazy."
[2018-09-23 06:32] VITALS: BP 151/63
[2018-09-23] MEDS: GABAPENTIN 100 MG CAPSULE. PO SCH ×3 (07:42→20:24)
[2018-09-23] MEDS: CARBIDOPA/LEVODOPA 25/100MG TABLET PO SCH ×3 (07:43→20:24)
[2018-09-23] MEDS: DIVALPROEX 125 MG CAP.SPRINK PO SCH ×3 (07:43→20:24)
[2018-09-23] MEDS: EZETIMIBE 10 MG TABLET PO SCH (07:43)
[2018-09-23] MEDS: rOPINIRole 1 MG TABLET. PO SCH ×3 (07:43→20:24)
[2018-09-23] MEDS: QUEtiapine 100 MG TABLET. PO SCH (07:44)
[2018-09-23] MEDS: LISINOPRIL 20 MG TABLET PO SCH (07:44)
[2018-09-23] MEDS: PANTOPRAZOLE 40 MG TABLET. PO SCH (07:44)
[2018-09-23] MEDS: METOPROLOL SUCC 24HR ER 50 MG TAB.ER.24H. PO SCH (07:44)
[2018-09-23] MEDS: metFORMIN 500 MG TABLET PO SCH ×2 (07:44→17:25)
[2018-09-23] MEDS: amLODIPine BESYLATE 10 MG TABLET PO SCH (07:45)
[2018-09-23] MEDS: CETIRIZINE HCL 10 MG TABLET PO SCH (07:45)
[2018-09-23] MEDS: QUEtiapine 25 MG TABLET. PO SCH ×3 (07:46→17:26)
--- NOTE | 2018-09-23 15:27 | NUR ---
Patient has been compliant with medications. Patient has been withdrawn to her room this shift. No negative moods or behaviors observed thus far. Will continue to monitor.
[2018-09-23 16:06] VITALS: BP 111/52
[2018-09-23] MEDS: PRIMIDONE 50 MG TABLET PO SCH (20:24)
[2018-09-23] MEDS: traZODone 100 MG TABLET. PO SCH (20:24)
[2018-09-23] MEDS: MIRTAZAPINE 30 MG TABLET PO SCH (20:24)
--- NOTE | 2018-09-23 20:54 | PN ---
DATE: 09/22/2018 PSYCHIATRIC PROGRESS NOTE This late entry 09/22/2018 covers elements not covered in my initial note. SUBJECTIVE: I met with the patient in the evening. The patient slept 8 hours previous night, which is quite an improvement for her. She remains withdrawn, still complains of racing thoughts and states she cannot control her speed of thinking. She has difficulty accepting the fact that she is sleeping much better as compared to what she was sleeping at home, which she said was about 1-2 hours. REVIEW OF SYSTEMS: No CV, , pulmonary, eye, ENT system symptoms on review. MENTAL STATUS EXAM: The patient is reasonably oriented. Speech coherent, somewhat pressured. Abstraction fair, computation impaired, language function intact, attention span short. Mood and affect remain somewhat anxious, labile. LABORATORY DATA: Reviewed. IMPRESSION: Bipolar 1 disorder, mixed; anxiety disorder, unspecified; impulse control disorder, unspecified. PLAN: No change from initial note. We will check labs level on the Depakote, adjust to reach therapeutic level. Continue Seroquel, trazodone, Remeron at current dosage and she is also on Requip. KANWAL KNIGHT MD DR: VINOD/portia JOB#: [id number] / [id number]
--- NOTE | 2018-09-23 23:02 | NUR ---
Behavior Intervention Response and Plan: BIRP Note: Behavior: Assumed Care of patient, patient located in Patient Room at shift change. Patient exhibited the following behavior Calm, Able to Focus on Task, Compliant. Brief assessment on rounds of vital signs, medication needs, lab studies, and pain. Treatment plan problems . Intervention: Patient assessed and the following interventions initiated safety checks 15 Minute Checks Head to toe Assessment , Cognitive Assessment , Medications. Response: After interactions and interventions patient responded in the following manner, Able to Focus on Task , Compliant ,Cooperative. Continue to assess behaviors and condition will continue to monitor throughout the shift as needed. Patient educated on ADL's, and hand hygiene. Plan: Continue to monitor Master Treatment Plan for patient's progress toward short term goals of Improved Mood, Decreased Agitation, correction goals to return to previous living setting vs placement. Continue to assess patient for changes in above assessment. Monitor for medication needs, pain, and safety concerns. Hourly rounding performed to ensure safe environment.
--- NOTE | 2018-09-23 23:10 | PDOC ---
Exam Note: [place] Note: Please also refer to the separate dictated note~for this date of service dictated separately.~Patient seen individually. Discussed the patient with Nursing staff reviewed the chart.~Reviewed interim history and current functioning. Reviewed vital signs,~Labs/ Radiology~and current medications noted below. Continue current treatment with the changes noted in the dictated addendum note Assessment: Vital Signs: Vital Signs Date Time Temp Pulse Resp B/P (MAP) Pulse Ox O2 Delivery O2 Flow Rate FiO2 09/23/18 16:06 97.0 65 20 111/52 (71) 98 Room Air I&O Intake and Output 09/23/18 07:00 Intake Total 1800 ml Balance 1800 ml Intake Oral 1800 ml # Voids 1 Labs: Laboratory Tests Test 09/23/18 07:38 09/23/18 12:08 09/23/18 16:57 09/23/18 19:04 Glucose (Fingerstick) 79 mg/dL (70-99) 186 mg/dL (70-99) H 86 mg/dL (70-99) 100 mg/dL (70-99) H Current Medications: Meds: Current Medications Lorazepam (Ativan) 1 mg 1X ONCE PO Last administered on 09/18/18at 17:58; Start 09/18/18 at 17:30; Stop 09/18/18 at 17:31; Status DC Acetaminophen (Tylenol) 650 mg PRN Q6HRS PRN PO PAIN / TEMP; Start 09/18/18 at 23:30 Multi-Ingredient Ointment (Analgesic [place]) 1 chuy PRN QID PRN TP MUSCLE PAIN; Start 09/18/18 at 23:30 Al Hydroxide/Mg Hydroxide (Mylanta Plus Xs) 15 ml PRN AFTMEALHC PRN PO DYSPEPSIA; Start 09/18/18 at 23:30 Magnesium Hydroxide (Milk Of Magnesia) 2,400 mg PRN QHS PRN PO CONSTIPATION; Start 09/18/18 at 23:30 Carbidopa/Levodopa (Sinemet 25/100) 1 tab TID PO Last administered on at 20:24; Start 09/19/18 at 09:45 Gabapentin (Neurontin) 300 mg TID PO Last administered on 09/19/18at 13:02; Start 09/19/18 at 09:45; Stop 09/19/18 at 15:44; Status DC Lisinopril (Prinivil) 40 mg DAILY PO Last administered on 09/23/18at 07:44; Start 09/19/18 at 09:45 Zolpidem Tartrate (Ambien) 5 mg PRN QHS PRN PO INSOMNIA; Start 09/19/18 at 09: 30; Stop 09/19/18 at 15:29; Status DC Amlodipine Besylate (Norvasc) 2.5 mg DAILY PO Last administered on 09/19/18at 10:29; Start 09/19/18 at 09:45; Stop 09/19/18 at 15:22; Status DC Aspirin (Children'S Aspirin) 81 mg DAILYWBKFT PO Last administered on at 10:27; Start 09/19/18 at 09:45; Stop 09/19/18 at 15:16; Status DC Cetirizine HCl (ZyrTEC) 10 mg DAILY PO Last administered on 09/23/18at 07:45; Start 09/19/18 at 09:45 Clonazepam (KlonoPIN) 0.25 mg QHS PO ; Start 09/19/18 at 21:00; Stop 09/19/18 at 21:00; Status DC Divalproex Sodium (Depakote) 250 mg DAILY PO ; Start 09/19/18 at 09:45; Stop 09/19/18 at 09:45; Status DC Divalproex Sodium (Depakote Sprinkles) 500 mg BIDACLD PO Last administered on 09/19/18at 12:57; Start 09/19/18 at 11:30; Stop 09/19/18 at 15:07; Status DC Non-Formulary Medication (Ergocalciferol (Vitamin D2) (Vitamin D2)) 50,000 unit TWICE WEEKLY PO ; Start 09/19/18 at 09:30; Stop 09/19/18 at 10:57; Status DC EZETIMIBE (Zetia) 10 mg DAILY PO Last administered on 09/23/18at 07:43; Start 09/19/18 at 09:45 Insulin Glargine (Lantus) 10 units DAILYWBKFT SQ ; Start 09/19/18 at 09:45; Stop 09/19/18 at 09:45; Status DC Lorazepam (Ativan) 0.5 mg PRN Q2HR PRN PO ANXIETY; Start 09/19/18 at 09:45; Stop 09/19/18 at 15:31; Status DC Metformin HCl (Glucophage) 500 mg BIDWMEALS PO Last administered on 09/23/18at 17:25; Start 09/19/18 at 09:45 Metoprolol Succinate (Toprol Xl) 50 mg DAILY PO Last administered on at 10:31; Start 09/19/18 at 09:45; Stop 09/19/18 at 15:24; Status DC Mirtazapine (Remeron) 15 mg QHS PO ; Start 09/19/18 at 21:00; Stop 09/19/18 at 21:00; Status DC Ondansetron HCl (Zofran Odt) 4 mg PRN Q8HRS PRN PO NAUSEA/VOMITING Last administered on 09/19/18at 14:27; Start 09/19/18 at 09:45 Primidone (Mysoline) 50 mg HS PO Last administered on 09/23/18at 20:24; Start 09/19/18 at 21:00 Quetiapine Fumarate (SEROquel) 12.5 mg 0900,1200,1600 PO Last administered on 09/23/18 17:26; Start 09/19/18 at 12:00 Quetiapine Fumarate (SEROquel) 25 mg QHS PO ; Start 09/19/18 at 21:00; Stop at 21:00; Status DC Ropinirole HCl (Requip) 1 mg TID PO Last administered on 09/23/18at 20:24; Start 09/19/18 at 09:45 Non-Formulary Medication (Sulfamethoxazole/ Trimethoprim (Bactrim 400-80 Mg Tablet)) 1 tab BID PO ; Start 09/19/18 at 21:00; Stop 09/19/18 at 21:00; Status DC Trazodone HCl (Desyrel) 50 mg PRN QHS PRN PO SLEEP; Start 09/19/18 at 09:45; Stop 09/19/18 at 15:33; Status DC Divalproex Sodium (Depakote Sprinkles) 250 mg DAILY PO ; Start 09/20/18 at 09: 00; Stop 09/20/18 at 09:00; Status DC Insulin Glargine (Lantus) 10 units DAILYWBKFT SQ ; Start 09/20/18 at 08:00; Stop 09/20/18 at 08:00; Status DC Vitamin D (Vitamin D3) 50,000 unit TuFr PO Last administered on 09/19/18at 12: 56; Start 09/19/18 at 11:00; Stop 09/19/18 at 15:27; Status DC Quetiapine Fumarate (SEROquel) 100 mg HS PO Last administered on 09/23/18at 07: 44; Start 09/19/18 at 21:00 Divalproex Sodium (Depakote Sprinkles) 500 mg BID@1200,2100 PO Last administered on 09/23/18at 20:24; Start 09/19/18 at 21:00 Amlodipine Besylate (Norvasc) 10 mg DAILY PO Last administered on 09/23/18at 07 :45; Start 09/20/18 at 09:00 Metoprolol Succinate (Toprol Xl) 100 mg DAILY PO Last administered on at 07:44; Start 09/20/18 at 09:00 Lorazepam (Ativan) 0.5 mg PRN Q4HRS PRN PO ANXIETY; Start 09/19/18 at 15:45 Trazodone HCl (Desyrel) 100 mg HS PO Last administered on 09/23/18at 20:24; Start 09/19/18 at 21:00 Pantoprazole Sodium (Protonix) 40 mg DAILYAC PO Last administered on at 07:44; Start 09/20/18 at 07:30 Alprazolam (Xanax) 0.5 mg PRN Q8HRS PRN PO ANXIETY; Start 09/19/18 at 15:45 Trazodone HCl (Desyrel) 200 mg QHS PO ; Start 09/19/18 at 21:00; Stop at 21:00; Status DC Ropinirole HCl (Requip) 1 mg TID PO ; Start 09/19/18 at 21:00; Stop 09/19/18 at 21:00; Status DC Gabapentin (Neurontin) 200 mg TID PO Last administered on 09/23/18at 20:24; Start 09/19/18 at 21:00 Tramadol HCl (Ultram) 50 mg PRN Q6HRS PRN PO PAIN; Start 09/19/18 at 15:45 Trazodone HCl (Desyrel) 400 mg QHS PO ; Start 09/19/18 at 21:00; Stop at 21:00; Status DC Mirtazapine (Remeron) 30 mg QHS PO Last administered on 09/23/18at 20:24; Start 09/19/18 at 21:00 Oxcarbazepine (Trileptal) 300 mg BID PO ; Start 09/19/18 at 21:00; Stop at 21:00; Status DC Divalproex Sodium (Depakote Sprinkles) 250 mg DAILY PO Last administered on at 07:43; Start 09/20/18 at 09:00 Risperidone (RisperDAL) 0.75 mg HS PO ; Start 09/19/18 at 21:00; Stop at 21:00; Status DC Risperidone (RisperDAL) 0.5 mg HS PO ; Start 09/19/18 at 21:00; Stop 09/19/18 at 21:00; Status DC Polyethylene Glycol (miraLAX) 17 gm 1X ONCE PO ; Start 09/20/18 at 22:00; Stop 09/20/18 at 22:01; Status DC Polyethylene Glycol (miraLAX) 17 gm PRN DAILY PRN PO CONSTIPATION; Start 09/20 at 22:00 Influenza Virus Vaccine (Afluria Trivalent [id number] Syringe) 0.5 ml ONCE ONCE VAX IM Last administered on 09/23/18at 13:20; Start 09/23/18 at 09:00; Stop 09/23/18 at 09:01; Status DC Fluvoxamine Maleate (Luvox) 25 mg HS PO Last administered on 09/23/18at 20:25; Start 09/23/18 at 21:00 Active Scripts Active Ambien (Zolpidem Tartrate) 5 Mg Tablet 1 Tab PO QHS PRN Trazodone Hcl 50 Mg Tablet 1 Tab PO QHS PRN Bactrim 400-80 Mg Tablet (Sulfamethoxazole/Trimethoprim) 1 Each Tablet 1 Tab PO BID Seroquel (Quetiapine Fumarate) 25 Mg Tablet 1 Tab PO QHS Reported Seroquel (Quetiapine Fumarate) 25 Mg Tablet 0.5 Tab PO Q9,12,16 NOT GIVEN IN THE HOSPITAL RESTART TONIGHT AT BEDTIME Amlodipine Besylate 2.5 Mg Tablet 1 Tab PO DAILY NOT GIVEN IN THE HOSPITAL RESTART TOMORROW AM Vitamin D2 (Ergocalciferol (Vitamin D2)) 50,000 Unit Capsule 50,000 Unit PO TWICE WEEKLY NOT GIVEN IN THE HOSPITAL RESTART ON YOUR NORMAL DAY Ativan (Lorazepam) 0.5 Mg Tablet 0.5 Mg PO PRN Q2HR PRN NOT GIVEN IN THE HOSPITAL RESTART TODAY AT HOME WHEN NEEDED Depakote Sprinkle (Divalproex Sodium) 125 Mg Cap.sprink 250 Mg PO DAILY NOT GIVEN IN THE HOSPITAL RESTART TOMORROW AM Depakote Sprinkle (Divalproex Sodium) 125 Mg Cap.sprink 500 Mg PO BIDACLD NOT GIVEN IN THE HOSPITAL RESTART TONIGHT AT BEDTIME Metformin Hcl 500 Mg Tablet 500 Mg PO BIDWMEALS NOT GIVEN IN THE HOSPITAL RESTART TONIGHT WITH DINNER Gabapentin 100 Mg Capsule 300 Mg PO TID NOT GIVEN IN THE HOSPITAL RESTART TONIGHT AT BEDTIME Metoprolol Succinate ( Xl ) (Metoprolol Succinate) 50 Mg Tab.er.24h 50 Mg PO DAILY NOT GIVEN IN THE HOSPITAL RESTART TOMORROW AM Requip (Ropinirole Hcl) 1 Mg Tablet 1 Mg PO TID NOT GIVEN IN THE HOSPTAL RESTART TONIGHT AT BEDTIME Sinemet 25-100 Mg Tablet (Carbidopa/Levodopa) 1 Each Tablet 1 Each PO TID NOT GIVEN IN THE HOSPITAL RESTART TONIGHT AT BEDTIME Primidone 50 Mg Tablet 50 Mg PO HS NOT GIVEN IN THE HOSPITAL RESTART TOMORROW AM Zofran (Ondansetron Hcl) 4 Mg Tablet 4 Mg PO PRN Q8HRS PRN NOT GIVEN IN THE HOSPITAL RESTART TODAY AT HOME IF NEEDED Clonazepam 1 Mg Tablet 0.25 Mg PO HS NOT GIVEN IN THE HOSPITAL RESTART TODAY AT BEDTIME Lisinopril 20 Mg Tablet 40 Mg PO DAILY NOT GIVEN IN THE HOSPITAL RESTART TOMORROW AM hold for BP less than 100. After a held dose, reassess in 2 ours. IF SBP is above threshold, administer dose as ordered. IF SBP is below threshold, contact provider for additional instructions. Remeron (Mirtazapine) 15 Mg Tablet 15 Mg PO QHS NOT GIVEN IN THE HOSPITAL RESTART TONIGHT AT BEDTIME Cetirizine Hcl 10 Mg Tablet 10 Mg PO DAILY NOT GIVEN IN THE HOSPITAL RESTART TOMORROW AM Aspirin 81 Mg Tab.chew 81 Mg PO DAILY NOT GIVEN IN THE HOSPITAL RESTART TOMORROW AM Levemir (Insulin Detemir) 100 Unit/1 Ml Vial 10 Unit SQ DAILYWBKFT NOT GIVEN IN THE HOSPITAL RESTART TOMORROW WITH BREAKFAST Zetia (Ezetimibe) 10 Mg Tablet 10 Mg PO DAILY NOT GIVEN IN THE HOSPITAL RESTART TOMORROW AM I have reviewed the current psychotropics carefully including drug interactions. Risk benefit ratio favors no change other than as noted in my dictated progress note. Diagnosis: Problems: (1) Bipolar I disorder with jose (2) Hypertension (3) Leg swelling (4) Accelerated hypertension (5) Hip pain, right (6) Cellulitis of right lower limb (7) Accelerated essential hypertension (8) Chronic diastolic (congestive) heart failure (9) Bipolar I disorder with anxious distress (10) Bipolar I disorder with mixed features (11) Anxiety disorder (12) Impulse control disorder (13) UTI (urinary tract infection) (14) Severe anxiety KANWAL KNIGHT MD Sep 23, 2018 23:10
[2018-09-24 05:48] VITALS: BP 121/61
[2018-09-24 07:03] LABS: VAL ACID 67 mcg/mL (50-100)
[2018-09-24] MEDS: PANTOPRAZOLE 40 MG TABLET. PO SCH (07:41)
[2018-09-24] MEDS: GABAPENTIN 100 MG CAPSULE. PO SCH ×3 (07:41→20:50)
[2018-09-24] MEDS: rOPINIRole 1 MG TABLET. PO SCH ×3 (07:41→20:50)
[2018-09-24] MEDS: EZETIMIBE 10 MG TABLET PO SCH (07:41)
[2018-09-24] MEDS: CARBIDOPA/LEVODOPA 25/100MG TABLET PO SCH ×3 (07:41→20:50)
[2018-09-24] MEDS: LISINOPRIL 20 MG TABLET PO SCH (07:42)
[2018-09-24] MEDS: metFORMIN 500 MG TABLET PO SCH ×2 (07:43→15:49)
[2018-09-24] MEDS: QUEtiapine 25 MG TABLET. PO SCH ×3 (07:43→15:48)
[2018-09-24] MEDS: DIVALPROEX 125 MG CAP.SPRINK PO SCH ×3 (07:43→20:51)
[2018-09-24] MEDS: CETIRIZINE HCL 10 MG TABLET PO SCH (07:44)
[2018-09-24] MEDS: METOPROLOL SUCC 24HR ER 50 MG TAB.ER.24H. PO SCH (07:44)
[2018-09-24] MEDS: amLODIPine BESYLATE 10 MG TABLET PO SCH (07:44)
--- NOTE | 2018-09-24 09:33 | NUR ---
Behavior Intervention Response and Plan: BIRP Note: Behavior: Assumed Care of patient, patient located in Patient Room at shift change. Patient exhibited the following behavior Calm, Able to Focus on Task, Compliant. Brief assessment on rounds of vital signs, medication needs, lab studies, and pain. Treatment plan problems . Intervention: Patient assessed and the following interventions initiated safety checks 15 Minute Checks Head to toe Assessment , Cognitive Assessment , Medications. Response: After interactions and interventions patient responded in the following manner, Able to Focus on Task , Compliant ,Cooperative. Continue to assess behaviors and condition will continue to monitor throughout the shift as needed. Patient educated on ADL's, and hand hygiene. Plan: Continue to monitor Master Treatment Plan for patient's progress toward short term goals of Improved Mood, Decreased Agitation, assisted goals to return to previous living setting vs placement. Continue to assess patient for changes in above assessment. Monitor for medication needs, pain, and safety concerns. Hourly rounding performed to ensure safe environment. Austin HALEY
--- NOTE | 2018-09-24 15:12 | NUR ---
1:1 with Tracy this afternoon. She reported that she continues to having racing thoughts and repetitive words in her mind. Discussed ways to calm the mind by getting involved in a diversional activity or focusing on one's breathing as a way to calm the mind. Tracy expressed she attended exercise group yesterday. She was involved in the Halloween gathering this afternoon. Her significant other, Diomedes, visits every day over the noon hour.
[2018-09-24 16:36] VITALS: BP 152/76
[2018-09-24] MEDS: MIRTAZAPINE 30 MG TABLET PO SCH (20:50)
[2018-09-24] MEDS: PRIMIDONE 50 MG TABLET PO SCH (20:50)
[2018-09-24] MEDS: traZODone 100 MG TABLET. PO SCH (20:50)
[2018-09-24] MEDS: QUEtiapine 100 MG TABLET. PO SCH (20:50)
--- NOTE | 2018-09-24 21:38 | NUR ---
Behavior Intervention Response and Plan: BIRP Note: Behavior: Assumed Care of patient, patient located in Patient Room at shift change. Patient exhibited the following behavior Calm, Withdrawn, Compliant. Brief assessment on rounds of vital signs, medication needs, lab studies, and pain. Treatment plan problems . Intervention: Patient assessed and the following interventions initiated safety checks 15 Minute Checks Personal Alarm in place , Cognitive Assessment , Head to toe Assessment. Response: After interactions and interventions patient responded in the following manner, Calm , Withdrawn ,Cooperative. Continue to assess behaviors and condition will continue to monitor throughout the shift as needed. Patient educated on ADL's, and hand hygiene. 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 Continue to assess patient for changes in above assessment. Monitor for medication needs, pain, and safety concerns. Hourly rounding performed to ensure safe environment.
--- NOTE | 2018-09-24 22:03 | PN ---
DATE: 09/23/2018 PSYCHIATRIC PROGRESS NOTE This late entry 09/23/2018 covers elements not covered in my initial note. SUBJECTIVE: I met with the patient in the evening at length in her room. The patient slept 7 hours previous night. The patient remains somewhat obsessive with racing thoughts and states she cannot stop thinking. REVIEW OF SYSTEMS: No CV, , pulmonary, eye, ENT system symptoms on review. Reliability fair. MENTAL STATUS EXAM: Reasonably oriented. Speech coherent, little pressured at times. Abstraction fair, computation impaired, language function intact, attention span short. Mood and affect remain somewhat anxious, labile, but better than before. LABORATORY DATA: Reviewed. Valproic acid level 58 on 09/22/2018. We will check another level in the morning of 09/24/2018. IMPRESSION: Bipolar 1 disorder, mixed with psychotic features; anxiety disorder, unspecified symptoms of obsessive compulsive disorder, impulse control disorder. PLAN: Start Luvox 25 mg p.o. at bedtime. Check a valproic acid level. Rest unchanged from initial note. MAN Gerhard KNIGHT MD DR: VINOD/portia JOB#: [id number] / [id number]
--- NOTE | 2018-09-24 23:23 | PDOC ---
Exam Note: [place] Note: Please also refer to the separate dictated note~for this date of service dictated separately.~Patient seen individually. Discussed the patient with Nursing staff reviewed the chart.~Reviewed interim history and current functioning. Reviewed vital signs,~Labs/ Radiology~and current medications noted below. Continue current treatment with the changes noted in the dictated addendum note Assessment: Vital Signs: Vital Signs Date Time Temp Pulse Resp B/P (MAP) Pulse Ox O2 Delivery O2 Flow Rate FiO2 09/24/18 16:36 96.8 56 17 152/76 (101) 98 09/23/18 16:06 Room Air I&O Intake and Output 09/24/18 07:00 Intake Total 720 ml Balance 720 ml Intake Oral 720 ml # Bowel Movements 1 Labs: Laboratory Tests Test 09/24/18 06:14 09/24/18 07:14 09/24/18 11:28 09/24/18 16:40 Valproic Acid Level 67 mcg/mL (50-100) Valproic Acid Last Dose Date 09/23/2018 Valproic Acid Last Dose Time 2100 Glucose (Fingerstick) 88 mg/dL (70-99) 128 mg/dL (70-99) H 139 mg/dL (70-99) H Test 09/24/18 19:42 Glucose (Fingerstick) 165 mg/dL (70-99) H Current Medications: Meds: Current Medications Lorazepam (Ativan) 1 mg 1X ONCE PO Last administered on 09/18/18at 17:58; Start 09/18/18 at 17:30; Stop 09/18/18 at 17:31; Status DC Acetaminophen (Tylenol) 650 mg PRN Q6HRS PRN PO PAIN / TEMP; Start 09/18/18 at 23:30 Multi-Ingredient Ointment (Analgesic [place]) 1 chuy PRN QID PRN TP MUSCLE PAIN; Start 09/18/18 at 23:30 Al Hydroxide/Mg Hydroxide (Mylanta Plus Xs) 15 ml PRN AFTMEALHC PRN PO DYSPEPSIA; Start 09/18/18 at 23:30 Magnesium Hydroxide (Milk Of Magnesia) 2,400 mg PRN QHS PRN PO CONSTIPATION; Start 09/18/18 at 23:30 Carbidopa/Levodopa (Sinemet 25/100) 1 tab TID PO Last administered on at 20:50; Start 09/19/18 at 09:45 Gabapentin (Neurontin) 300 mg TID PO Last administered on 09/19/18at 13:02; Start 09/19/18 at 09:45; Stop 09/19/18 at 15:44; Status DC Lisinopril (Prinivil) 40 mg DAILY PO Last administered on 09/24/18at 07:42; Start 09/19/18 at 09:45 Zolpidem Tartrate (Ambien) 5 mg PRN QHS PRN PO INSOMNIA; Start 09/19/18 at 09: 30; Stop 09/19/18 at 15:29; Status DC Amlodipine Besylate (Norvasc) 2.5 mg DAILY PO Last administered on 09/19/18at 10:29; Start 09/19/18 at 09:45; Stop 09/19/18 at 15:22; Status DC Aspirin (Children'S Aspirin) 81 mg DAILYWBKFT PO Last administered on at 10:27; Start 09/19/18 at 09:45; Stop 09/19/18 at 15:16; Status DC Cetirizine HCl (ZyrTEC) 10 mg DAILY PO Last administered on 09/24/18at 07:44; Start 09/19/18 at 09:45 Clonazepam (KlonoPIN) 0.25 mg QHS PO ; Start 09/19/18 at 21:00; Stop 09/19/18 at 21:00; Status DC Divalproex Sodium (Depakote) 250 mg DAILY PO ; Start 09/19/18 at 09:45; Stop 09/19/18 at 09:45; Status DC Divalproex Sodium (Depakote Sprinkles) 500 mg BIDACLD PO Last administered on 09/19/18at 12:57; Start 09/19/18 at 11:30; Stop 09/19/18 at 15:07; Status DC Non-Formulary Medication (Ergocalciferol (Vitamin D2) (Vitamin D2)) 50,000 unit TWICE WEEKLY PO ; Start 09/19/18 at 09:30; Stop 09/19/18 at 10:57; Status DC EZETIMIBE (Zetia) 10 mg DAILY PO Last administered on 09/24/18at 07:41; Start 09/19/18 at 09:45 Insulin Glargine (Lantus) 10 units DAILYWBKFT SQ ; Start 09/19/18 at 09:45; Stop 09/19/18 at 09:45; Status DC Lorazepam (Ativan) 0.5 mg PRN Q2HR PRN PO ANXIETY; Start 09/19/18 at 09:45; Stop 09/19/18 at 15:31; Status DC Metformin HCl (Glucophage) 500 mg BIDWMEALS PO Last administered on 09/24/18at 15:49; Start 09/19/18 at 09:45 Metoprolol Succinate (Toprol Xl) 50 mg DAILY PO Last administered on at 10:31; Start 09/19/18 at 09:45; Stop 09/19/18 at 15:24; Status DC Mirtazapine (Remeron) 15 mg QHS PO ; Start 09/19/18 at 21:00; Stop 09/19/18 at 21:00; Status DC Ondansetron HCl (Zofran Odt) 4 mg PRN Q8HRS PRN PO NAUSEA/VOMITING Last administered on 09/19/18at 14:27; Start 09/19/18 at 09:45 Primidone (Mysoline) 50 mg HS PO Last administered on 09/24/18at 20:50; Start 09/19/18 at 21:00 Quetiapine Fumarate (SEROquel) 12.5 mg 0900,1200,1600 PO Last administered on 09/24/18at 15:48; Start 09/19/18 at 12:00 Quetiapine Fumarate (SEROquel) 25 mg QHS PO ; Start 09/19/18 at 21:00; Stop at 21:00; Status DC Ropinirole HCl (Requip) 1 mg TID PO Last administered on 09/24/18at 20:50; Start 09/19/18 at 09:45 Non-Formulary Medication (Sulfamethoxazole/ Trimethoprim (Bactrim 400-80 Mg Tablet)) 1 tab BID PO ; Start 09/19/18 at 21:00; Stop 09/19/18 at 21:00; Status DC Trazodone HCl (Desyrel) 50 mg PRN QHS PRN PO SLEEP; Start 09/19/18 at 09:45; Stop 09/19/18 at 15:33; Status DC Divalproex Sodium (Depakote Sprinkles) 250 mg DAILY PO ; Start 09/20/18 at 09: 00; Stop 09/20/18 at 09:00; Status DC Insulin Glargine (Lantus) 10 units DAILYWBKFT SQ ; Start 09/20/18 at 08:00; Stop 09/20/18 at 08:00; Status DC Vitamin D (Vitamin D3) 50,000 unit TuFr PO Last administered on 09/19/18at 12: 56; Start 09/19/18 at 11:00; Stop 09/19/18 at 15:27; Status DC Quetiapine Fumarate (SEROquel) 100 mg HS PO Last administered on 09/24/18at 20: 50; Start 09/19/18 at 21:00 Divalproex Sodium (Depakote Sprinkles) 500 mg BID@1200,2100 PO Last administered on 09/24/18at 20:51; Start 09/19/18 at 21:00 Amlodipine Besylate (Norvasc) 10 mg DAILY PO Last administered on 09/24/18at 07 :44; Start 09/20/18 at 09:00 Metoprolol Succinate (Toprol Xl) 100 mg DAILY PO Last administered on at 07:44; Start 09/20/18 at 09:00 Lorazepam (Ativan) 0.5 mg PRN Q4HRS PRN PO ANXIETY; Start 09/19/18 at 15:45 Trazodone HCl (Desyrel) 100 mg HS PO Last administered on 09/24/18at 20:50; Start 09/19/18 at 21:00 Pantoprazole Sodium (Protonix) 40 mg DAILYAC PO Last administered on at 07:41; Start 09/20/18 at 07:30 Alprazolam (Xanax) 0.5 mg PRN Q8HRS PRN PO ANXIETY; Start 09/19/18 at 15:45 Trazodone HCl (Desyrel) 200 mg QHS PO ; Start 09/19/18 at 21:00; Stop at 21:00; Status DC Ropinirole HCl (Requip) 1 mg TID PO ; Start 09/19/18 at 21:00; Stop 09/19/18 at 21:00; Status DC Gabapentin (Neurontin) 200 mg TID PO Last administered on 09/24/18at 20:50; Start 09/19/18 at 21:00 Tramadol HCl (Ultram) 50 mg PRN Q6HRS PRN PO PAIN; Start 09/19/18 at 15:45 Trazodone HCl (Desyrel) 400 mg QHS PO ; Start 09/19/18 at 21:00; Stop at 21:00; Status DC Mirtazapine (Remeron) 30 mg QHS PO Last administered on 09/24/18at 20:50; Start 09/19/18 at 21:00 Oxcarbazepine (Trileptal) 300 mg BID PO ; Start 09/19/18 at 21:00; Stop at 21:00; Status DC Divalproex Sodium (Depakote Sprinkles) 250 mg DAILY PO Last administered on at 07:43; Start 09/20/18 at 09:00 Risperidone (RisperDAL) 0.75 mg HS PO ; Start 09/19/18 at 21:00; Stop at 21:00; Status DC Risperidone (RisperDAL) 0.5 mg HS PO ; Start 09/19/18 at 21:00; Stop 09/19/18 at 21:00; Status DC Polyethylene Glycol (miraLAX) 17 gm 1X ONCE PO ; Start 09/20/18 at 22:00; Stop 09/20/18 at 22:01; Status DC Polyethylene Glycol (miraLAX) 17 gm PRN DAILY PRN PO CONSTIPATION; Start 09/20 at 22:00 Influenza Virus Vaccine (Afluria Trivalent [id number] Syringe) 0.5 ml ONCE ONCE VAX IM Last administered on 09/23/18at 13:20; Start 09/23/18 at 09:00; Stop 09/23/18 at 09:01; Status DC Fluvoxamine Maleate (Luvox) 25 mg HS PO Last administered on 09/24/18at 20:50; Start 09/23/18 at 21:00 Active Scripts Active Ambien (Zolpidem Tartrate) 5 Mg Tablet 1 Tab PO QHS PRN Trazodone Hcl 50 Mg Tablet 1 Tab PO QHS PRN Bactrim 400-80 Mg Tablet (Sulfamethoxazole/Trimethoprim) 1 Each Tablet 1 Tab PO BID Seroquel (Quetiapine Fumarate) 25 Mg Tablet 1 Tab PO QHS Reported Seroquel (Quetiapine Fumarate) 25 Mg Tablet 0.5 Tab PO Q9,12,16 NOT GIVEN IN THE HOSPITAL RESTART TONIGHT AT BEDTIME Amlodipine Besylate 2.5 Mg Tablet 1 Tab PO DAILY NOT GIVEN IN THE HOSPITAL RESTART TOMORROW AM Vitamin D2 (Ergocalciferol (Vitamin D2)) 50,000 Unit Capsule 50,000 Unit PO TWICE WEEKLY NOT GIVEN IN THE HOSPITAL RESTART ON YOUR NORMAL DAY Ativan (Lorazepam) 0.5 Mg Tablet 0.5 Mg PO PRN Q2HR PRN NOT GIVEN IN THE HOSPITAL RESTART TODAY AT HOME WHEN NEEDED Depakote Sprinkle (Divalproex Sodium) 125 Mg Cap.sprink 250 Mg PO DAILY NOT GIVEN IN THE HOSPITAL RESTART TOMORROW AM Depakote Sprinkle (Divalproex Sodium) 125 Mg Cap.sprink 500 Mg PO BIDACLD NOT GIVEN IN THE HOSPITAL RESTART TONIGHT AT BEDTIME Metformin Hcl 500 Mg Tablet 500 Mg PO BIDWMEALS NOT GIVEN IN THE HOSPITAL RESTART TONIGHT WITH DINNER Gabapentin 100 Mg Capsule 300 Mg PO TID NOT GIVEN IN THE HOSPITAL RESTART TONIGHT AT BEDTIME Metoprolol Succinate ( Xl ) (Metoprolol Succinate) 50 Mg Tab.er.24h 50 Mg PO DAILY NOT GIVEN IN THE HOSPITAL RESTART TOMORROW AM Requip (Ropinirole Hcl) 1 Mg Tablet 1 Mg PO TID NOT GIVEN IN THE HOSPTAL RESTART TONIGHT AT BEDTIME Sinemet 25-100 Mg Tablet (Carbidopa/Levodopa) 1 Each Tablet 1 Each PO TID NOT GIVEN IN THE HOSPITAL RESTART TONIGHT AT BEDTIME Primidone 50 Mg Tablet 50 Mg PO HS NOT GIVEN IN THE HOSPITAL RESTART TOMORROW AM Zofran (Ondansetron Hcl) 4 Mg Tablet 4 Mg PO PRN Q8HRS PRN NOT GIVEN IN THE HOSPITAL RESTART TODAY AT HOME IF NEEDED Clonazepam 1 Mg Tablet 0.25 Mg PO HS NOT GIVEN IN THE HOSPITAL RESTART TODAY AT BEDTIME Lisinopril 20 Mg Tablet 40 Mg PO DAILY NOT GIVEN IN THE HOSPITAL RESTART TOMORROW AM hold for BP less than 100. After a held dose, reassess in 2 ours. IF SBP is above threshold, administer dose as ordered. IF SBP is below threshold, contact provider for additional instructions. Remeron (Mirtazapine) 15 Mg Tablet 15 Mg PO QHS NOT GIVEN IN THE HOSPITAL RESTART TONIGHT AT BEDTIME Cetirizine Hcl 10 Mg Tablet 10 Mg PO DAILY NOT GIVEN IN THE HOSPITAL RESTART TOMORROW AM Aspirin 81 Mg Tab.chew 81 Mg PO DAILY NOT GIVEN IN THE HOSPITAL RESTART TOMORROW AM Levemir (Insulin Detemir) 100 Unit/1 Ml Vial 10 Unit SQ DAILYWBKFT NOT GIVEN IN THE HOSPITAL RESTART TOMORROW WITH BREAKFAST Zetia (Ezetimibe) 10 Mg Tablet 10 Mg PO DAILY NOT GIVEN IN THE HOSPITAL RESTART TOMORROW AM I have reviewed the current psychotropics carefully including drug interactions. Risk benefit ratio favors no change other than as noted in my dictated progress note. Diagnosis: Problems: (1) Bipolar I disorder with jose (2) Hypertension (3) Leg swelling (4) Accelerated hypertension (5) Hip pain, right (6) Cellulitis of right lower limb (7) Accelerated essential hypertension (8) Chronic diastolic (congestive) heart failure (9) Bipolar I disorder with anxious distress (10) Bipolar I disorder with mixed features (11) Anxiety disorder (12) Impulse control disorder (13) UTI (urinary tract infection) (14) Severe anxiety KANWAL KNIGHT MD Sep 24, 2018 23:23
[2018-09-25 05:41] VITALS: BP 113/60
[2018-09-25] MEDS: metFORMIN 500 MG TABLET PO SCH ×2 (07:54→09:00)
[2018-09-25] MEDS: PANTOPRAZOLE 40 MG TABLET. PO SCH (07:54)
[2018-09-25] MEDS: DIVALPROEX 125 MG CAP.SPRINK PO SCH ×3 (07:55→20:07)
[2018-09-25] MEDS: GABAPENTIN 100 MG CAPSULE. PO SCH ×3 (07:55→20:07)
[2018-09-25] MEDS: amLODIPine BESYLATE 10 MG TABLET PO SCH (07:56)
[2018-09-25] MEDS: rOPINIRole 1 MG TABLET. PO SCH ×3 (07:57→20:07)
[2018-09-25] MEDS: LISINOPRIL 20 MG TABLET PO SCH (07:57)
[2018-09-25] MEDS: QUEtiapine 100 MG TABLET. PO SCH (07:57)
[2018-09-25] MEDS: CARBIDOPA/LEVODOPA 25/100MG TABLET PO SCH ×3 (08:01→20:07)
[2018-09-25] MEDS: METOPROLOL SUCC 24HR ER 50 MG TAB.ER.24H. PO SCH (08:02)
[2018-09-25] MEDS: EZETIMIBE 10 MG TABLET PO SCH (08:02)
[2018-09-25] MEDS: CETIRIZINE HCL 10 MG TABLET PO SCH (08:02)
[2018-09-25] MEDS: QUEtiapine 25 MG TABLET. PO SCH ×3 (08:04→16:39)
[2018-09-25] MEDS: ONDANSETRON ODT 4 MG TAB.RAPDIS PO PRN (08:11)
--- NOTE | 2018-09-25 08:53 | NUR ---
WEEKLY ACTIVITY THERAPY NOTE Date of Admission: 09/18/2018 Date of AT assessment: 09/22/2018 Goal aimed: to increase stress management skills Initial goal: Pt. will participate in at least one group or individual activity per day. Weekly progress towards goal: did not achieve Group participation level: minimal Behaviors observed: Pt. has been sleeping through most groups; Pt. has been ruminating on her clothes and is difficult to redirect; Pt. stated to therapist that reminders for group would be helpful as she 'doesn't want to spend all day in bed'. Pt. is pleasant with therapists and compliant with most cares and medications. Plan: no change to goal; therapists to give reminders about group
--- NOTE | 2018-09-25 12:51 | NUR ---
Assumed care of pt @ approx 0700. Pt laying in bed at the time of our initial encounter. C/o nausea and did not want breakfast. PRN Zofran administered. No other meds given this AM. Later, pt participated in Treatment Team meeting w/her significant other on the phone line. She indicated that her nausea was somewhat improved, but not fully resolved. At this time, pt is in the Dining Room eating lunch. She ate a good portion of her lunch, and took her afternoon meds without complaint. No signs of hallucinations, delusions, or paranoia noted so far this shift. No inappropriate behaviors. Will continue to monitor and assist pt in working towards her treatment and discharge goals.
--- NOTE | 2018-09-25 13:19 | NUR ---
Faxed clinical update to Mary Anne at [facility] for review. Awaiting outcome. Tentative d/c mid to late next week.
[2018-09-25 16:10] VITALS: BP 134/55
--- NOTE | 2018-09-25 16:59 | NUR ---
WEEKLY UPDATE: Pt tends to be withdrawn from groups and her peers. Pt has reported for the last few days that she has not been feeling well (e.g. nauseated and run down). Pt medications will be assessed as pt continues to get well. Pt will plan to discharge home once stable. Activities will plan to get pt more interactive if they notice that she withdrawn to her room. Pt is medication compliant and SW will continue to work on discharge planning.
[2018-09-25] MEDS: traZODone 100 MG TABLET. PO SCH (20:07)
[2018-09-25] MEDS: PRIMIDONE 50 MG TABLET PO SCH (20:07)
[2018-09-25] MEDS: MIRTAZAPINE 30 MG TABLET PO SCH (20:07)
--- NOTE | 2018-09-25 20:31 | PN ---
DATE: 09/24/2018 PSYCHIATRIC PROGRESS NOTE This late entry 09/24/2018 covers elements not covered in my initial note. SUBJECTIVE: I met with the patient in the evening. Overall, the patient has been compliant with the medications, somewhat isolative. She had her shirt washed and that has a hole now, and she is somewhat anxious about this. Valproic acid level therapeutic at 67. REVIEW OF SYSTEMS: No CV, , pulmonary, eye, ENT system symptoms on review. MENTAL STATUS EXAM: Reasonably oriented. Speech is coherent, less pressured. Abstraction fair, computation impaired, language function intact, attention span short. Mood and affect remain somewhat labile. She is still distressed by her rapid thoughts and obsessive thought processes, but states she is sleeping better. IMPRESSION: Bipolar 1 disorder, mixed with psychotic features; anxiety disorder, unspecified; impulse control disorder, unspecified. PLAN: No change from initial note. Maintain Depakote at current dosage, repeat. Valproic acid level is 58 therapeutic. Rest unchanged from initial note. MAN Gerhard KNIGHT MD DR: VINOD/portia JOB#: [id number] / [id number]
--- NOTE | 2018-09-25 23:12 | PDOC ---
Exam Note: [place] Note: Please also refer to the separate dictated note~for this date of service dictated separately.~Patient seen individually. Discussed the patient with Nursing staff reviewed the chart.~Reviewed interim history and current functioning. Reviewed vital signs,~Labs/ Radiology~and current medications noted below. Continue current treatment with the changes noted in the dictated addendum note Assessment: Vital Signs: Vital Signs Date Time Temp Pulse Resp B/P (MAP) Pulse Ox O2 Delivery O2 Flow Rate FiO2 09/25/18 16:10 98.8 70 16 134/55 (81) 93 Room Air I&O Intake and Output 09/25/18 07:00 Intake Total 1200 ml Balance 1200 ml Intake Oral 1200 ml Labs: Laboratory Tests Test 09/25/18 07:40 09/25/18 11:24 09/25/18 16:55 09/25/18 19:29 Glucose (Fingerstick) 104 mg/dL (70-99) H 98 mg/dL (70-99) 87 mg/dL (70-99) 173 mg/dL (70-99) H Current Medications: Meds: Current Medications Lorazepam (Ativan) 1 mg 1X ONCE PO Last administered on 09/18/18at 17:58; Start 09/18/18 at 17:30; Stop 09/18/18 at 17:31; Status DC Acetaminophen (Tylenol) 650 mg PRN Q6HRS PRN PO PAIN / TEMP; Start 09/18/18 at 23:30 Multi-Ingredient Ointment (Analgesic [place]) 1 chuy PRN QID PRN TP MUSCLE PAIN; Start 09/18/18 at 23:30 Al Hydroxide/Mg Hydroxide (Mylanta Plus Xs) 15 ml PRN AFTMEALHC PRN PO DYSPEPSIA; Start 09/18/18 at 23:30 Magnesium Hydroxide (Milk Of Magnesia) 2,400 mg PRN QHS PRN PO CONSTIPATION; Start 09/18/18 at 23:30 Carbidopa/Levodopa (Sinemet 25/100) 1 tab TID PO Last administered on at 20:07; Start 09/19/18 at 09:45 Gabapentin (Neurontin) 300 mg TID PO Last administered on 09/19/18at 13:02; Start 09/19/18 at 09:45; Stop 09/19/18 at 15:44; Status DC Lisinopril (Prinivil) 40 mg DAILY PO Last administered on 09/25/18at 07:57; Start 09/19/18 at 09:45 Zolpidem Tartrate (Ambien) 5 mg PRN QHS PRN PO INSOMNIA; Start 09/19/18 at 09: 30; Stop 09/19/18 at 15:29; Status DC Amlodipine Besylate (Norvasc) 2.5 mg DAILY PO Last administered on 09/19/18at 10:29; Start 09/19/18 at 09:45; Stop 09/19/18 at 15:22; Status DC Aspirin (Children'S Aspirin) 81 mg DAILYWBKFT PO Last administered on at 10:27; Start 09/19/18 at 09:45; Stop 09/19/18 at 15:16; Status DC Cetirizine HCl (ZyrTEC) 10 mg DAILY PO Last administered on 09/25/18at 08:02; Start 09/19/18 at 09:45 Clonazepam (KlonoPIN) 0.25 mg QHS PO ; Start 09/19/18 at 21:00; Stop 09/19/18 at 21:00; Status DC Divalproex Sodium (Depakote) 250 mg DAILY PO ; Start 09/19/18 at 09:45; Stop 09/19/18 at 09:45; Status DC Divalproex Sodium (Depakote Sprinkles) 500 mg BIDACLD PO Last administered on 09/19/18at 12:57; Start 09/19/18 at 11:30; Stop 09/19/18 at 15:07; Status DC Non-Formulary Medication (Ergocalciferol (Vitamin D2) (Vitamin D2)) 50,000 unit TWICE WEEKLY PO ; Start 09/19/18 at 09:30; Stop 09/19/18 at 10:57; Status DC EZETIMIBE (Zetia) 10 mg DAILY PO Last administered on 09/25/18at 08:02; Start 09/19/18 at 09:45 Insulin Glargine (Lantus) 10 units DAILYWBKFT SQ ; Start 09/19/18 at 09:45; Stop 09/19/18 at 09:45; Status DC Lorazepam (Ativan) 0.5 mg PRN Q2HR PRN PO ANXIETY; Start 09/19/18 at 09:45; Stop 09/19/18 at 15:31; Status DC Metformin HCl (Glucophage) 500 mg BIDWMEALS PO Last administered on 09/25/18at 07:54; Start 09/19/18 at 09:45 Metoprolol Succinate (Toprol Xl) 50 mg DAILY PO Last administered on at 10:31; Start 09/19/18 at 09:45; Stop 09/19/18 at 15:24; Status DC Mirtazapine (Remeron) 15 mg QHS PO ; Start 09/19/18 at 21:00; Stop 09/19/18 at 21:00; Status DC Ondansetron HCl (Zofran Odt) 4 mg PRN Q8HRS PRN PO NAUSEA/VOMITING Last administered on 09/25/18at 08:11; Start 09/19/18 at 09:45 Primidone (Mysoline) 50 mg HS PO Last administered on 09/25/18at 20:07; Start 09/19/18 at 21:00 Quetiapine Fumarate (SEROquel) 12.5 mg 0900,1200,1600 PO Last administered on 09/25/18at 16:39; Start 09/19/18 at 12:00 Quetiapine Fumarate (SEROquel) 25 mg QHS PO ; Start 09/19/18 at 21:00; Stop at 21:00; Status DC Ropinirole HCl (Requip) 1 mg TID PO Last administered on 09/25/18at 20:07; Start 09/19/18 at 09:45 Non-Formulary Medication (Sulfamethoxazole/ Trimethoprim (Bactrim 400-80 Mg Tablet)) 1 tab BID PO ; Start 09/19/18 at 21:00; Stop 09/19/18 at 21:00; Status DC Trazodone HCl (Desyrel) 50 mg PRN QHS PRN PO SLEEP; Start 09/19/18 at 09:45; Stop 09/19/18 at 15:33; Status DC Divalproex Sodium (Depakote Sprinkles) 250 mg DAILY PO ; Start 09/20/18 at 09: 00; Stop 09/20/18 at 09:00; Status DC Insulin Glargine (Lantus) 10 units DAILYWBKFT SQ ; Start 09/20/18 at 08:00; Stop 09/20/18 at 08:00; Status DC Vitamin D (Vitamin D3) 50,000 unit TuFr PO Last administered on 09/19/18at 12: 56; Start 09/19/18 at 11:00; Stop 09/19/18 at 15:27; Status DC Quetiapine Fumarate (SEROquel) 100 mg HS PO Last administered on 09/25/18at 07: 57; Start 09/19/18 at 21:00 Divalproex Sodium (Depakote Sprinkles) 500 mg BID@1200,2100 PO Last administered on 09/25/18at 20:07; Start 09/19/18 at 21:00 Amlodipine Besylate (Norvasc) 10 mg DAILY PO Last administered on 09/25/18at 07: 56; Start 09/20/18 at 09:00 Metoprolol Succinate (Toprol Xl) 100 mg DAILY PO Last administered on at 08:02; Start 09/20/18 at 09:00 Lorazepam (Ativan) 0.5 mg PRN Q4HRS PRN PO ANXIETY; Start 09/19/18 at 15:45 Trazodone HCl (Desyrel) 100 mg HS PO Last administered on 09/25/18at 20:07; Start 09/19/18 at 21:00 Pantoprazole Sodium (Protonix) 40 mg DAILYAC PO Last administered on 09/25/18at 07:54; Start 09/20/18 at 07:30 Alprazolam (Xanax) 0.5 mg PRN Q8HRS PRN PO ANXIETY; Start 09/19/18 at 15:45 Trazodone HCl (Desyrel) 200 mg QHS PO ; Start 09/19/18 at 21:00; Stop at 21:00; Status DC Ropinirole HCl (Requip) 1 mg TID PO ; Start 09/19/18 at 21:00; Stop 09/19/18 at 21:00; Status DC Gabapentin (Neurontin) 200 mg TID PO Last administered on 09/25/18at 20:07; Start 09/19/18 at 21:00 Tramadol HCl (Ultram) 50 mg PRN Q6HRS PRN PO PAIN; Start 09/19/18 at 15:45 Trazodone HCl (Desyrel) 400 mg QHS PO ; Start 09/19/18 at 21:00; Stop at 21:00; Status DC Mirtazapine (Remeron) 30 mg QHS PO Last administered on 09/25/18at 20:07; Start 09/19/18 at 21:00 Oxcarbazepine (Trileptal) 300 mg BID PO ; Start 09/19/18 at 21:00; Stop at 21:00; Status DC Divalproex Sodium (Depakote Sprinkles) 250 mg DAILY PO Last administered on 09/25/18at 07:55; Start 09/20/18 at 09:00 Risperidone (RisperDAL) 0.75 mg HS PO ; Start 09/19/18 at 21:00; Stop at 21:00; Status DC Risperidone (RisperDAL) 0.5 mg HS PO ; Start 09/19/18 at 21:00; Stop 09/19/18 at 21:00; Status DC Polyethylene Glycol (miraLAX) 17 gm 1X ONCE PO ; Start 09/20/18 at 22:00; Stop 09/20/18 at 22:01; Status DC Polyethylene Glycol (miraLAX) 17 gm PRN DAILY PRN PO CONSTIPATION; Start 09/20 at 22:00 Influenza Virus Vaccine (Afluria Trivalent [id number] Syringe) 0.5 ml ONCE ONCE VAX IM Last administered on 09/23/18at 13:20; Start 09/23/18 at 09:00; Stop 09/23/18 at 09:01; Status DC Fluvoxamine Maleate (Luvox) 25 mg HS PO Last administered on 09/25/18at 20:07; Start 09/23/18 at 21:00 Active Scripts Active Ambien (Zolpidem Tartrate) 5 Mg Tablet 1 Tab PO QHS PRN Trazodone Hcl 50 Mg Tablet 1 Tab PO QHS PRN Bactrim 400-80 Mg Tablet (Sulfamethoxazole/Trimethoprim) 1 Each Tablet 1 Tab PO BID Seroquel (Quetiapine Fumarate) 25 Mg Tablet 1 Tab PO QHS Reported Seroquel (Quetiapine Fumarate) 25 Mg Tablet 0.5 Tab PO Q9,12,16 NOT GIVEN IN THE HOSPITAL RESTART TONIGHT AT BEDTIME Amlodipine Besylate 2.5 Mg Tablet 1 Tab PO DAILY NOT GIVEN IN THE HOSPITAL RESTART TOMORROW AM Vitamin D2 (Ergocalciferol (Vitamin D2)) 50,000 Unit Capsule 50,000 Unit PO TWICE WEEKLY NOT GIVEN IN THE HOSPITAL RESTART ON YOUR NORMAL DAY Ativan (Lorazepam) 0.5 Mg Tablet 0.5 Mg PO PRN Q2HR PRN NOT GIVEN IN THE HOSPITAL RESTART TODAY AT HOME WHEN NEEDED Depakote Sprinkle (Divalproex Sodium) 125 Mg Cap.sprink 250 Mg PO DAILY NOT GIVEN IN THE HOSPITAL RESTART TOMORROW AM Depakote Sprinkle (Divalproex Sodium) 125 Mg Cap.sprink 500 Mg PO BIDACLD NOT GIVEN IN THE HOSPITAL RESTART TONIGHT AT BEDTIME Metformin Hcl 500 Mg Tablet 500 Mg PO BIDWMEALS NOT GIVEN IN THE HOSPITAL RESTART TONIGHT WITH DINNER Gabapentin 100 Mg Capsule 300 Mg PO TID NOT GIVEN IN THE HOSPITAL RESTART TONIGHT AT BEDTIME Metoprolol Succinate ( Xl ) (Metoprolol Succinate) 50 Mg Tab.er.24h 50 Mg PO DAILY NOT GIVEN IN THE HOSPITAL RESTART TOMORROW AM Requip (Ropinirole Hcl) 1 Mg Tablet 1 Mg PO TID NOT GIVEN IN THE HOSPTAL RESTART TONIGHT AT BEDTIME Sinemet 25-100 Mg Tablet (Carbidopa/Levodopa) 1 Each Tablet 1 Each PO TID NOT GIVEN IN THE HOSPITAL RESTART TONIGHT AT BEDTIME Primidone 50 Mg Tablet 50 Mg PO HS NOT GIVEN IN THE HOSPITAL RESTART TOMORROW AM Zofran (Ondansetron Hcl) 4 Mg Tablet 4 Mg PO PRN Q8HRS PRN NOT GIVEN IN THE HOSPITAL RESTART TODAY AT HOME IF NEEDED Clonazepam 1 Mg Tablet 0.25 Mg PO HS NOT GIVEN IN THE HOSPITAL RESTART TODAY AT BEDTIME Lisinopril 20 Mg Tablet 40 Mg PO DAILY NOT GIVEN IN THE HOSPITAL RESTART TOMORROW AM hold for BP less than 100. After a held dose, reassess in 2 ours. IF SBP is above threshold, administer dose as ordered. IF SBP is below threshold, contact provider for additional instructions. Remeron (Mirtazapine) 15 Mg Tablet 15 Mg PO QHS NOT GIVEN IN THE HOSPITAL RESTART TONIGHT AT BEDTIME Cetirizine Hcl 10 Mg Tablet 10 Mg PO DAILY NOT GIVEN IN THE HOSPITAL RESTART TOMORROW AM Aspirin 81 Mg Tab.chew 81 Mg PO DAILY NOT GIVEN IN THE HOSPITAL RESTART TOMORROW AM Levemir (Insulin Detemir) 100 Unit/1 Ml Vial 10 Unit SQ DAILYWBKFT NOT GIVEN IN THE HOSPITAL RESTART TOMORROW WITH BREAKFAST Zetia (Ezetimibe) 10 Mg Tablet 10 Mg PO DAILY NOT GIVEN IN THE HOSPITAL RESTART TOMORROW AM I have reviewed the current psychotropics carefully including drug interactions. Risk benefit ratio favors no change other than as noted in my dictated progress note. Diagnosis: Problems: (1) Bipolar I disorder with jose (2) Hypertension (3) Leg swelling (4) Accelerated hypertension (5) Hip pain, right (6) Cellulitis of right lower limb (7) Accelerated essential hypertension (8) Chronic diastolic (congestive) heart failure (9) Bipolar I disorder with anxious distress (10) Bipolar I disorder with mixed features (11) Anxiety disorder (12) Impulse control disorder (13) UTI (urinary tract infection) (14) Severe anxiety KANWAL KNIGHT MD Sep 25, 2018 23:12
--- NOTE | 2018-09-25 23:53 | NUR ---
Pt withdrawn to her room this evening. No complaints of nausea or pain. Pt states that she continues to hear voices over and over in her head and does not get any relief from the voices. Compliant with crushed medications and assessment.
[2018-09-26 06:22] VITALS: BP 130/65
[2018-09-26] MEDS: metFORMIN 500 MG TABLET PO SCH ×2 (08:35→17:14)
[2018-09-26] MEDS: GABAPENTIN 100 MG CAPSULE. PO SCH ×3 (08:35→20:28)
[2018-09-26] MEDS: PANTOPRAZOLE 40 MG TABLET. PO SCH (08:35)
[2018-09-26] MEDS: amLODIPine BESYLATE 10 MG TABLET PO SCH (08:36)
[2018-09-26] MEDS: LISINOPRIL 20 MG TABLET PO SCH (08:37)
[2018-09-26] MEDS: rOPINIRole 1 MG TABLET. PO SCH ×3 (08:37→20:25)
[2018-09-26] MEDS: CETIRIZINE HCL 10 MG TABLET PO SCH (08:38)
[2018-09-26] MEDS: QUEtiapine 25 MG TABLET. PO SCH ×3 (08:38→17:14)
[2018-09-26] MEDS: EZETIMIBE 10 MG TABLET PO SCH (08:38)
[2018-09-26] MEDS: METOPROLOL SUCC 24HR ER 50 MG TAB.ER.24H. PO SCH (08:38)
[2018-09-26] MEDS: CARBIDOPA/LEVODOPA 25/100MG TABLET PO SCH ×3 (08:38→20:32)
[2018-09-26] MEDS: DIVALPROEX 125 MG CAP.SPRINK PO SCH ×3 (08:39→20:29)
--- NOTE | 2018-09-26 13:45 | NUR ---
Assumed care of pt @ approx 0700. Pt was laying in bed awake at the time of our initial encounter. Pt A/O x 4. No signs of hallucinations, delusions, or paranoia noted. No inappropriate behaviors. Compliant w/meds crushed in vanilla pudding (per her request). Pt's L hand is somewhat swollen, and the skin appears more translucent than the skin on her other hand. She denies any trauma or injury to that hand. No redness or open wounds present. No "knots", swelling, or redness anywhere on her L arm. States that it is TTP. Declined PRN pain med. Pt has been withdrawn to her room, other than going to the Dining Room for meals. Not socializing, but is very pleasant and appropriate when spoken to. No needs voiced @ this time. Will continue to monitor and assist pt in working towards her treatment and discharge goals.
[2018-09-26 15:50] VITALS: BP 132/68
--- NOTE | 2018-09-26 17:07 | RAD ---
Ultrasound of the left upper extremity arterial system HISTORY: Cold pale distal forearm and hand. TECHNIQUE: Grayscale, color Doppler and spectral waveform analysis. FINDINGS: Left subclavian artery, axillary artery, brachial artery, ulnar artery and radial artery are patent. Biphasic to triphasic waveforms are identified throughout. Velocities range from 160 cc Second at the proximal subclavian artery, 2 53 cm/s at the proximal radial artery. IMPRESSION: No evidence of occlusive disease or high-grade stenosis. Electronically signed by: Keven Hester MD (09/26/2018 5:04 PM) [id number]
[2018-09-26] MEDS: traZODone 100 MG TABLET. PO SCH (20:25)
[2018-09-26] MEDS: QUEtiapine 100 MG TABLET. PO SCH (20:28)
[2018-09-26] MEDS: PRIMIDONE 50 MG TABLET PO SCH (20:28)
[2018-09-26] MEDS: MIRTAZAPINE 30 MG TABLET PO SCH (20:29)
--- NOTE | 2018-09-26 21:39 | PN ---
DATE: 09/25/2018 PSYCHIATRIC PROGRESS NOTE This late entry 09/25/2018 covers elements not covered in my initial note. SUBJECTIVE: I met with the patient in the evening and staffed at a treatment team meeting with the entire team in the morning and the patient joined in the treatment team meeting. The patient slept 8 hours previous night. She still complains of intrusive thought processes, part of her obsessiveness, spends much time in her room except for meals, well oriented. REVIEW OF SYSTEMS: Ambulation impaired. No CV, , pulmonary, eye, ENT system symptoms on review. MENTAL STATUS EXAM: Reasonably oriented. Speech is coherent, has some latency. Abstraction fair, computation impaired, language function intact, attention span short. Mood and affect remain somewhat anxious. LABORATORY DATA: Reviewed. IMPRESSION: Bipolar 1 disorder, mixed; anxiety disorder, unspecified; impulse control disorder, obsessive thought processes. PLAN: Continue current psychotropics and we have initiated Luvox, we will adjust it gradually. Continue Depakote at current dosage from initial note. Check a valproic acid level. Maintain Seroquel, trazodone, Remeron, and she remains on Sinemet. MAN Gerhard KNIGHT MD DR: VINOD/portia JOB#: [id number] / [id number]
--- NOTE | 2018-09-26 23:08 | PDOC ---
Exam Note: [place] Note: Please also refer to the separate dictated note~for this date of service dictated separately.~Patient seen individually. Discussed the patient with Nursing staff reviewed the chart.~Reviewed interim history and current functioning. Reviewed vital signs,~Labs/ Radiology~and current medications noted below. Continue current treatment with the changes noted in the dictated addendum note Assessment: Vital Signs: Vital Signs Date Time Temp Pulse Resp B/P (MAP) Pulse Ox O2 Delivery O2 Flow Rate FiO2 09/26/18 15:50 99.0 68 20 132/68 (89) 94 Room Air I&O Intake and Output 09/26/18 07:00 Intake Total 840 ml Balance 840 ml Intake Oral 840 ml # Voids 1 Labs: Laboratory Tests Test 09/26/18 07:22 09/26/18 11:28 09/26/18 16:47 09/26/18 17:17 Glucose (Fingerstick) 76 mg/dL (70-99) 156 mg/dL (70-99) H 32 mg/dL (70-99) *L 108 mg/dL (70-99) H Test 09/26/18 19:51 Glucose (Fingerstick) 221 mg/dL (70-99) H Current Medications: Meds: Current Medications Lorazepam (Ativan) 1 mg 1X ONCE PO Last administered on 09/18/18at 17:58; Start 09/18/18 at 17:30; Stop 09/18/18 at 17:31; Status DC Acetaminophen (Tylenol) 650 mg PRN Q6HRS PRN PO PAIN / TEMP; Start 09/18/18 at 23:30 Multi-Ingredient Ointment (Analgesic [place]) 1 chuy PRN QID PRN TP MUSCLE PAIN; Start 09/18/18 at 23:30 Al Hydroxide/Mg Hydroxide (Mylanta Plus Xs) 15 ml PRN AFTMEALHC PRN PO DYSPEPSIA; Start 09/18/18 at 23:30 Magnesium Hydroxide (Milk Of Magnesia) 2,400 mg PRN QHS PRN PO CONSTIPATION; Start 09/18/18 at 23:30 Carbidopa/Levodopa (Sinemet 25/100) 1 tab TID PO Last administered on at 20:32; Start 09/19/18 at 09:45 Gabapentin (Neurontin) 300 mg TID PO Last administered on 09/19/18at 13:02; Start 09/19/18 at 09:45; Stop 09/19/18 at 15:44; Status DC Lisinopril (Prinivil) 40 mg DAILY PO Last administered on 09/26/18at 08:37; Start 09/19/18 at 09:45 Zolpidem Tartrate (Ambien) 5 mg PRN QHS PRN PO INSOMNIA; Start 09/19/18 at 09: 30; Stop 09/19/18 at 15:29; Status DC Amlodipine Besylate (Norvasc) 2.5 mg DAILY PO Last administered on 09/19/18at 10:29; Start 09/19/18 at 09:45; Stop 09/19/18 at 15:22; Status DC Aspirin (Children'S Aspirin) 81 mg DAILYWBKFT PO Last administered on at 10:27; Start 09/19/18 at 09:45; Stop 09/19/18 at 15:16; Status DC Cetirizine HCl (ZyrTEC) 10 mg DAILY PO Last administered on 09/26/18at 08:38; Start 09/19/18 at 09:45 Clonazepam (KlonoPIN) 0.25 mg QHS PO ; Start 09/19/18 at 21:00; Stop 09/19/18 at 21:00; Status DC Divalproex Sodium (Depakote) 250 mg DAILY PO ; Start 09/19/18 at 09:45; Stop 09/19/18 at 09:45; Status DC Divalproex Sodium (Depakote Sprinkles) 500 mg BIDACLD PO Last administered on 09/19/18at 12:57; Start 09/19/18 at 11:30; Stop 09/19/18 at 15:07; Status DC Non-Formulary Medication (Ergocalciferol (Vitamin D2) (Vitamin D2)) 50,000 unit TWICE WEEKLY PO ; Start 09/19/18 at 09:30; Stop 09/19/18 at 10:57; Status DC EZETIMIBE (Zetia) 10 mg DAILY PO Last administered on 09/26/18at 08:38; Start 09/19/18 at 09:45 Insulin Glargine (Lantus) 10 units DAILYWBKFT SQ ; Start 09/19/18 at 09:45; Stop 09/19/18 at 09:45; Status DC Lorazepam (Ativan) 0.5 mg PRN Q2HR PRN PO ANXIETY; Start 09/19/18 at 09:45; Stop 09/19/18 at 15:31; Status DC Metformin HCl (Glucophage) 500 mg BIDWMEALS PO Last administered on 09/26/18at 17:14; Start 09/19/18 at 09:45 Metoprolol Succinate (Toprol Xl) 50 mg DAILY PO Last administered on at 10:31; Start 09/19/18 at 09:45; Stop 09/19/18 at 15:24; Status DC Mirtazapine (Remeron) 15 mg QHS PO ; Start 09/19/18 at 21:00; Stop 09/19/18 at 21:00; Status DC Ondansetron HCl (Zofran Odt) 4 mg PRN Q8HRS PRN PO NAUSEA/VOMITING Last administered on 09/25/18at 08:11; Start 09/19/18 at 09:45 Primidone (Mysoline) 50 mg HS PO Last administered on 09/26/18at 20:28; Start 09/19/18 at 21:00 Quetiapine Fumarate (SEROquel) 12.5 mg 0900,1200,1600 PO Last administered on 09/26/18at 17:14; Start 09/19/18 at 12:00 Quetiapine Fumarate (SEROquel) 25 mg QHS PO ; Start 09/19/18 at 21:00; Stop at 21:00; Status DC Ropinirole HCl (Requip) 1 mg TID PO Last administered on 09/26/18at 20:25; Start 09/19/18 at 09:45 Non-Formulary Medication (Sulfamethoxazole/ Trimethoprim (Bactrim 400-80 Mg Tablet)) 1 tab BID PO ; Start 09/19/18 at 21:00; Stop 09/19/18 at 21:00; Status DC Trazodone HCl (Desyrel) 50 mg PRN QHS PRN PO SLEEP; Start 09/19/18 at 09:45; Stop 09/19/18 at 15:33; Status DC Divalproex Sodium (Depakote Sprinkles) 250 mg DAILY PO ; Start 09/20/18 at 09: 00; Stop 09/20/18 at 09:00; Status DC Insulin Glargine (Lantus) 10 units DAILYWBKFT SQ ; Start 09/20/18 at 08:00; Stop 09/20/18 at 08:00; Status DC Vitamin D (Vitamin D3) 50,000 unit TuFr PO Last administered on 09/19/18at 12: 56; Start 09/19/18 at 11:00; Stop 09/19/18 at 15:27; Status DC Quetiapine Fumarate (SEROquel) 100 mg HS PO Last administered on 09/26/18at 20: 28; Start 09/19/18 at 21:00 Divalproex Sodium (Depakote Sprinkles) 500 mg BID@1200,2100 PO Last administered on 09/26/18at 20:29; Start 09/19/18 at 21:00 Amlodipine Besylate (Norvasc) 10 mg DAILY PO Last administered on 09/26/18at 08: 36; Start 09/20/18 at 09:00 Metoprolol Succinate (Toprol Xl) 100 mg DAILY PO Last administered on at 08:38; Start 09/20/18 at 09:00 Lorazepam (Ativan) 0.5 mg PRN Q4HRS PRN PO ANXIETY; Start 09/19/18 at 15:45 Trazodone HCl (Desyrel) 100 mg HS PO Last administered on 09/26/18at 20:25; Start 09/19/18 at 21:00 Pantoprazole Sodium (Protonix) 40 mg DAILYAC PO Last administered on 09/26/18at 08:35; Start 09/20/18 at 07:30 Alprazolam (Xanax) 0.5 mg PRN Q8HRS PRN PO ANXIETY; Start 09/19/18 at 15:45 Trazodone HCl (Desyrel) 200 mg QHS PO ; Start 09/19/18 at 21:00; Stop at 21:00; Status DC Ropinirole HCl (Requip) 1 mg TID PO ; Start 09/19/18 at 21:00; Stop 09/19/18 at 21:00; Status DC Gabapentin (Neurontin) 200 mg TID PO Last administered on 09/26/18at 20:28; Start 09/19/18 at 21:00 Tramadol HCl (Ultram) 50 mg PRN Q6HRS PRN PO PAIN; Start 09/19/18 at 15:45 Trazodone HCl (Desyrel) 400 mg QHS PO ; Start 09/19/18 at 21:00; Stop at 21:00; Status DC Mirtazapine (Remeron) 30 mg QHS PO Last administered on 09/26/18at 20:29; Start 09/19/18 at 21:00 Oxcarbazepine (Trileptal) 300 mg BID PO ; Start 09/19/18 at 21:00; Stop at 21:00; Status DC Divalproex Sodium (Depakote Sprinkles) 250 mg DAILY PO Last administered on 09/26/18at 08:39; Start 09/20/18 at 09:00 Risperidone (RisperDAL) 0.75 mg HS PO ; Start 09/19/18 at 21:00; Stop at 21:00; Status DC Risperidone (RisperDAL) 0.5 mg HS PO ; Start 09/19/18 at 21:00; Stop 09/19/18 at 21:00; Status DC Polyethylene Glycol (miraLAX) 17 gm 1X ONCE PO ; Start 09/20/18 at 22:00; Stop 09/20/18 at 22:01; Status DC Polyethylene Glycol (miraLAX) 17 gm PRN DAILY PRN PO CONSTIPATION; Start 09/20 at 22:00 Influenza Virus Vaccine (Afluria Trivalent 4591-4021 Syringe) 0.5 ml ONCE ONCE VAX IM Last administered on 09/23/18at 13:20; Start 09/23/18 at 09:00; Stop 09/23/18 at 09:01; Status DC Fluvoxamine Maleate (Luvox) 25 mg HS PO Last administered on 09/25/18at 20:07; Start 09/23/18 at 21:00; Stop 09/26/18 at 17:59; Status DC Aspirin (Aspirin Enteric Coated) 81 mg DAILYWBKFT PO ; Start 09/27/18 at 08:00 Fluvoxamine Maleate (Luvox) 50 mg HS PO Last administered on 09/26/18at 20:25; Start 09/26/18 at 21:00 Active Scripts Active Ambien (Zolpidem Tartrate) 5 Mg Tablet 1 Tab PO QHS PRN Trazodone Hcl 50 Mg Tablet 1 Tab PO QHS PRN Bactrim 400-80 Mg Tablet (Sulfamethoxazole/Trimethoprim) 1 Each Tablet 1 Tab PO BID Seroquel (Quetiapine Fumarate) 25 Mg Tablet 1 Tab PO QHS Reported Seroquel (Quetiapine Fumarate) 25 Mg Tablet 0.5 Tab PO Q9,12,16 NOT GIVEN IN THE HOSPITAL RESTART TONIGHT AT BEDTIME Amlodipine Besylate 2.5 Mg Tablet 1 Tab PO DAILY NOT GIVEN IN THE HOSPITAL RESTART TOMORROW AM Vitamin D2 (Ergocalciferol (Vitamin D2)) 50,000 Unit Capsule 50,000 Unit PO TWICE WEEKLY NOT GIVEN IN THE HOSPITAL RESTART ON YOUR NORMAL DAY Ativan (Lorazepam) 0.5 Mg Tablet 0.5 Mg PO PRN Q2HR PRN NOT GIVEN IN THE HOSPITAL RESTART TODAY AT HOME WHEN NEEDED Depakote Sprinkle (Divalproex Sodium) 125 Mg Cap.sprink 250 Mg PO DAILY NOT GIVEN IN THE HOSPITAL RESTART TOMORROW AM Depakote Sprinkle (Divalproex Sodium) 125 Mg Cap.sprink 500 Mg PO BIDACLD NOT GIVEN IN THE HOSPITAL RESTART TONIGHT AT BEDTIME Metformin Hcl 500 Mg Tablet 500 Mg PO BIDWMEALS NOT GIVEN IN THE HOSPITAL RESTART TONIGHT WITH DINNER Gabapentin 100 Mg Capsule 300 Mg PO TID NOT GIVEN IN THE HOSPITAL RESTART TONIGHT AT BEDTIME Metoprolol Succinate ( Xl ) (Metoprolol Succinate) 50 Mg Tab.er.24h 50 Mg PO DAILY NOT GIVEN IN THE HOSPITAL RESTART TOMORROW AM Requip (Ropinirole Hcl) 1 Mg Tablet 1 Mg PO TID NOT GIVEN IN THE HOSPTAL RESTART TONIGHT AT BEDTIME Sinemet 25-100 Mg Tablet (Carbidopa/Levodopa) 1 Each Tablet 1 Each PO TID NOT GIVEN IN THE HOSPITAL RESTART TONIGHT AT BEDTIME Primidone 50 Mg Tablet 50 Mg PO HS NOT GIVEN IN THE HOSPITAL RESTART TOMORROW AM Zofran (Ondansetron Hcl) 4 Mg Tablet 4 Mg PO PRN Q8HRS PRN NOT GIVEN IN THE HOSPITAL RESTART TODAY AT HOME IF NEEDED Clonazepam 1 Mg Tablet 0.25 Mg PO HS NOT GIVEN IN THE HOSPITAL RESTART TODAY AT BEDTIME Lisinopril 20 Mg Tablet 40 Mg PO DAILY NOT GIVEN IN THE HOSPITAL RESTART TOMORROW AM hold for BP less than 100. After a held dose, reassess in 2 ours. IF SBP is above threshold, administer dose as ordered. IF SBP is below threshold, contact provider for additional instructions. Remeron (Mirtazapine) 15 Mg Tablet 15 Mg PO QHS NOT GIVEN IN THE HOSPITAL RESTART TONIGHT AT BEDTIME Cetirizine Hcl 10 Mg Tablet 10 Mg PO DAILY NOT GIVEN IN THE HOSPITAL RESTART TOMORROW AM Aspirin 81 Mg Tab.chew 81 Mg PO DAILY NOT GIVEN IN THE HOSPITAL RESTART TOMORROW AM Levemir (Insulin Detemir) 100 Unit/1 Ml Vial 10 Unit SQ DAILYWBKFT NOT GIVEN IN THE HOSPITAL RESTART TOMORROW WITH BREAKFAST Zetia (Ezetimibe) 10 Mg Tablet 10 Mg PO DAILY NOT GIVEN IN THE HOSPITAL RESTART TOMORROW AM I have reviewed the current psychotropics carefully including drug interactions. Risk benefit ratio favors no change other than as noted in my dictated progress note. Diagnosis: Problems: (1) Bipolar I disorder with jose (2) Hypertension (3) Leg swelling (4) Accelerated hypertension (5) Hip pain, right (6) Cellulitis of right lower limb (7) Accelerated essential hypertension (8) Chronic diastolic (congestive) heart failure (9) Bipolar I disorder with anxious distress (10) Bipolar I disorder with mixed features (11) Anxiety disorder (12) Impulse control disorder (13) UTI (urinary tract infection) (14) Severe anxiety KANWAL KNIGHT MD Sep 26, 2018 23:08
--- NOTE | 2018-09-27 00:10 | CONS ---
DATE OF CONSULTATION: 09/26/2018 REASON FOR CONSULTATION: Medical management. HISTORY OF PRESENT ILLNESS: The patient was seen today upon the request of the nursing staff as they noted that her left hand and arm is very cool and very pale. The patient did complain of mild discomfort when examined her left arm compared to the right, skin clear. There is almost like a demarcation line with the skin feels warm to the half-way of the forearm and the distal forearm and the hand are cool to touch, although at least arterial pulse is easily palpable. The skin is very smooth. The hand is slightly swollen and pale compared to the right hand. The examination both feet showed no similar presentation. PHYSICAL EXAMINATION: GENERAL: When I examined her, she looked well and was clearly in no apparent respiratory distress. No pallor, jaundice, cyanosis or thyromegaly. No jugular venous distension. No limb edema. VITAL SIGNS: Her heart rate was 68, blood pressure was 132/68, temperature was 99, respiratory rate 20, and oxygen saturation was 94%. HEAD, EYES, EARS, NOSE AND THROAT: Showed normocephalic, atraumatic. NECK: Supple. HEART: Showed normal first and second sounds. No gallop or murmur. CHEST: Clear to auscultation. No crepitation or rhonchi. ABDOMEN: Distended, soft, nontender. NEUROLOGIC: She is awake, alert, responding appropriately. All cranial nerves intact. EXTREMITIES: She moves her extremities without difficulty. Examination of both upper extremities showed that there is dramatic difference between right forearm and hand compared to the left forearm and hand. The left forearm and hand is cool to touch, very smooth. Mild tenderness, but the radial pulse is easily palpable. I spoke with the vascular surgeon and obviously the differential diagnosis either severe peripheral vascular disease, Raynaud's phenomenon and Buerger's disease. She is a smoker, so we will arrange for her to have arterial Doppler ultrasound and we might have to eventually transfer her to [facility] for the vascular surgeon to evaluate and treat. DAMI GEE MD DR: DAVID/portia JOB#: [id number] / [id number]
--- NOTE | 2018-09-27 01:50 | NUR ---
BIRP Note: Behavior: Assumed Care of patient, patient located in Patient Room at shift change. Patient exhibited the following behavior Calm, Withdrawn, Compliant. Brief assessment on rounds of vital signs, medication needs, lab studies, and pain. Treatment plan problems . Intervention: Patient assessed and the following interventions initiated safety checks 15 Minute Checks Personal Alarm in place, Cognitive Assessment, Head to toe Assessment. Response: After interactions and interventions patient responded in the following manner, Calm, Withdrawn, Cooperative. Continue to assess behaviors and condition will continue to monitor throughout the shift as needed. Patient educated on ADL's, and hand hygiene. 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 Continue to assess patient for changes in above assessment. Monitor for medication needs, pain, and safety concerns. Hourly rounding performed to ensure safe environment.
[2018-09-27 06:05] VITALS: BP 136/51
[2018-09-27] MEDS: amLODIPine BESYLATE 10 MG TABLET PO SCH (07:49)
[2018-09-27] MEDS: metFORMIN 500 MG TABLET PO SCH ×2 (07:49→16:41)
[2018-09-27] MEDS: CARBIDOPA/LEVODOPA 25/100MG TABLET PO SCH ×3 (07:49→20:11)
[2018-09-27] MEDS: LISINOPRIL 20 MG TABLET PO SCH (07:50)
[2018-09-27] MEDS: rOPINIRole 1 MG TABLET. PO SCH ×3 (07:50→20:12)
[2018-09-27] MEDS: GABAPENTIN 100 MG CAPSULE. PO SCH ×3 (07:50→20:12)
[2018-09-27] MEDS: DIVALPROEX 125 MG CAP.SPRINK PO SCH ×3 (07:50→20:12)
[2018-09-27] MEDS: QUEtiapine 25 MG TABLET. PO SCH ×3 (07:51→15:54)
[2018-09-27] MEDS: METOPROLOL SUCC 24HR ER 50 MG TAB.ER.24H. PO SCH (07:51)
[2018-09-27] MEDS: EZETIMIBE 10 MG TABLET PO SCH (07:51)
[2018-09-27] MEDS: PANTOPRAZOLE 40 MG TABLET. PO SCH (07:51)
[2018-09-27] MEDS: CETIRIZINE HCL 10 MG TABLET PO SCH (07:52)
[2018-09-27] MEDS: ASPIRIN ENTERIC COATED 81 MG TABLET.DR. PO SCH (07:54)
--- NOTE | 2018-09-27 11:57 | NUR ---
Pt has been compliant, but withdrawn. Pt currently in room laying in bed, ate most of breakfast this morning. Pt's glucose has been wnl.
[2018-09-27 15:54] VITALS: BP 116/58
[2018-09-27] MEDS: traZODone 100 MG TABLET. PO SCH (20:12)
[2018-09-27] MEDS: QUEtiapine 100 MG TABLET. PO SCH (20:12)
[2018-09-27] MEDS: MIRTAZAPINE 30 MG TABLET PO SCH (20:12)
[2018-09-27] MEDS: PRIMIDONE 50 MG TABLET PO SCH (20:12)
--- NOTE | 2018-09-27 23:11 | PDOC ---
Exam Note: [place] Note: Please also refer to the separate dictated note~for this date of service dictated separately.~Patient seen individually. Discussed the patient with Nursing staff reviewed the chart.~Reviewed interim history and current functioning. Reviewed vital signs,~Labs/ Radiology~and current medications noted below. Continue current treatment with the changes noted in the dictated addendum note Assessment: Vital Signs: Vital Signs Date Time Temp Pulse Resp B/P (MAP) Pulse Ox O2 Delivery O2 Flow Rate FiO2 09/27/18 15:54 98.2 64 20 116/58 (77) 92 Room Air I&O Intake and Output 09/27/18 07:00 Intake Total 840 ml Balance 840 ml Intake Oral 840 ml # Voids 3 Labs: Laboratory Tests Test 09/27/18 07:20 09/27/18 11:34 09/27/18 16:41 09/27/18 19:10 Glucose (Fingerstick) 92 mg/dL (70-99) 198 mg/dL (70-99) H 118 mg/dL (70-99) H 118 mg/dL (70-99) H Current Medications: Meds: Current Medications Lorazepam (Ativan) 1 mg 1X ONCE PO Last administered on 09/18/18at 17:58; Start 09/18/18 at 17:30; Stop 09/18/18 at 17:31; Status DC Acetaminophen (Tylenol) 650 mg PRN Q6HRS PRN PO PAIN / TEMP; Start 09/18/18 at 23:30 Multi-Ingredient Ointment (Analgesic [place]) 1 chuy PRN QID PRN TP MUSCLE PAIN; Start 09/18/18 at 23:30 Al Hydroxide/Mg Hydroxide (Mylanta Plus Xs) 15 ml PRN AFTMEALHC PRN PO DYSPEPSIA; Start 09/18/18 at 23:30 Magnesium Hydroxide (Milk Of Magnesia) 2,400 mg PRN QHS PRN PO CONSTIPATION; Start 09/18/18 at 23:30 Carbidopa/Levodopa (Sinemet 25/100) 1 tab TID PO Last administered on at 20:11; Start 09/19/18 at 09:45 Gabapentin (Neurontin) 300 mg TID PO Last administered on 09/19/18at 13:02; Start 09/19/18 at 09:45; Stop 09/19/18 at 15:44; Status DC Lisinopril (Prinivil) 40 mg DAILY PO Last administered on 09/27/18at 07:50; Start 09/19/18 at 09:45 Zolpidem Tartrate (Ambien) 5 mg PRN QHS PRN PO INSOMNIA; Start 09/19/18 at 09: 30; Stop 09/19/18 at 15:29; Status DC Amlodipine Besylate (Norvasc) 2.5 mg DAILY PO Last administered on 09/19/18at 10:29; Start 09/19/18 at 09:45; Stop 09/19/18 at 15:22; Status DC Aspirin (Children'S Aspirin) 81 mg DAILYWBKFT PO Last administered on at 10:27; Start 09/19/18 at 09:45; Stop 09/19/18 at 15:16; Status DC Cetirizine HCl (ZyrTEC) 10 mg DAILY PO Last administered on 09/27/18at 07:52; Start 09/19/18 at 09:45 Clonazepam (KlonoPIN) 0.25 mg QHS PO ; Start 09/19/18 at 21:00; Stop 09/19/18 at 21:00; Status DC Divalproex Sodium (Depakote) 250 mg DAILY PO ; Start 09/19/18 at 09:45; Stop 09/19/18 at 09:45; Status DC Divalproex Sodium (Depakote Sprinkles) 500 mg BIDACLD PO Last administered on 09/19/18at 12:57; Start 09/19/18 at 11:30; Stop 09/19/18 at 15:07; Status DC Non-Formulary Medication (Ergocalciferol (Vitamin D2) (Vitamin D2)) 50,000 unit TWICE WEEKLY PO ; Start 09/19/18 at 09:30; Stop 09/19/18 at 10:57; Status DC EZETIMIBE (Zetia) 10 mg DAILY PO Last administered on 09/27/18at 07:51; Start 09/19/18 at 09:45 Insulin Glargine (Lantus) 10 units DAILYWBKFT SQ ; Start 09/19/18 at 09:45; Stop 09/19/18 at 09:45; Status DC Lorazepam (Ativan) 0.5 mg PRN Q2HR PRN PO ANXIETY; Start 09/19/18 at 09:45; Stop 09/19/18 at 15:31; Status DC Metformin HCl (Glucophage) 500 mg BIDWMEALS PO Last administered on 09/27/18at 16:41; Start 09/19/18 at 09:45 Metoprolol Succinate (Toprol Xl) 50 mg DAILY PO Last administered on at 10:31; Start 09/19/18 at 09:45; Stop 09/19/18 at 15:24; Status DC Mirtazapine (Remeron) 15 mg QHS PO ; Start 09/19/18 at 21:00; Stop 09/19/18 at 21:00; Status DC Ondansetron HCl (Zofran Odt) 4 mg PRN Q8HRS PRN PO NAUSEA/VOMITING Last administered on 09/25/18at 08:11; Start 09/19/18 at 09:45 Primidone (Mysoline) 50 mg HS PO Last administered on 09/27/18at 20:12; Start 09/19/18 at 21:00 Quetiapine Fumarate (SEROquel) 12.5 mg 0900,1200,1600 PO Last administered on 09/27/18at 15:54; Start 09/19/18 at 12:00 Quetiapine Fumarate (SEROquel) 25 mg QHS PO ; Start 09/19/18 at 21:00; Stop at 21:00; Status DC Ropinirole HCl (Requip) 1 mg TID PO Last administered on 09/27/18at 20:12; Start 09/19/18 at 09:45 Non-Formulary Medication (Sulfamethoxazole/ Trimethoprim (Bactrim 400-80 Mg Tablet)) 1 tab BID PO ; Start 09/19/18 at 21:00; Stop 09/19/18 at 21:00; Status DC Trazodone HCl (Desyrel) 50 mg PRN QHS PRN PO SLEEP; Start 09/19/18 at 09:45; Stop 09/19/18 at 15:33; Status DC Divalproex Sodium (Depakote Sprinkles) 250 mg DAILY PO ; Start 09/20/18 at 09: 00; Stop 09/20/18 at 09:00; Status DC Insulin Glargine (Lantus) 10 units DAILYWBKFT SQ ; Start 09/20/18 at 08:00; Stop 09/20/18 at 08:00; Status DC Vitamin D (Vitamin D3) 50,000 unit TuFr PO Last administered on 09/19/18at 12: 56; Start 09/19/18 at 11:00; Stop 09/19/18 at 15:27; Status DC Quetiapine Fumarate (SEROquel) 100 mg HS PO Last administered on 09/27/18at 20: 12; Start 09/19/18 at 21:00 Divalproex Sodium (Depakote Sprinkles) 500 mg BID@1200,2100 PO Last administered on 09/27/18at 20:12; Start 09/19/18 at 21:00 Amlodipine Besylate (Norvasc) 10 mg DAILY PO Last administered on 09/27/18at 07: 49; Start 09/20/18 at 09:00 Metoprolol Succinate (Toprol Xl) 100 mg DAILY PO Last administered on at 07:51; Start 09/20/18 at 09:00 Lorazepam (Ativan) 0.5 mg PRN Q4HRS PRN PO ANXIETY; Start 09/19/18 at 15:45 Trazodone HCl (Desyrel) 100 mg HS PO Last administered on 09/27/18at 20:12; Start 09/19/18 at 21:00 Pantoprazole Sodium (Protonix) 40 mg DAILYAC PO Last administered on 09/27/18at 07:51; Start 09/20/18 at 07:30 Alprazolam (Xanax) 0.5 mg PRN Q8HRS PRN PO ANXIETY; Start 09/19/18 at 15:45 Trazodone HCl (Desyrel) 200 mg QHS PO ; Start 09/19/18 at 21:00; Stop at 21:00; Status DC Ropinirole HCl (Requip) 1 mg TID PO ; Start 09/19/18 at 21:00; Stop 09/19/18 at 21:00; Status DC Gabapentin (Neurontin) 200 mg TID PO Last administered on 09/27/18at 20:12; Start 09/19/18 at 21:00 Tramadol HCl (Ultram) 50 mg PRN Q6HRS PRN PO PAIN; Start 09/19/18 at 15:45 Trazodone HCl (Desyrel) 400 mg QHS PO ; Start 09/19/18 at 21:00; Stop at 21:00; Status DC Mirtazapine (Remeron) 30 mg QHS PO Last administered on 09/27/18at 20:12; Start 09/19/18 at 21:00 Oxcarbazepine (Trileptal) 300 mg BID PO ; Start 09/19/18 at 21:00; Stop at 21:00; Status DC Divalproex Sodium (Depakote Sprinkles) 250 mg DAILY PO Last administered on 09/27/18at 07:50; Start 09/20/18 at 09:00 Risperidone (RisperDAL) 0.75 mg HS PO ; Start 09/19/18 at 21:00; Stop at 21:00; Status DC Risperidone (RisperDAL) 0.5 mg HS PO ; Start 09/19/18 at 21:00; Stop 09/19/18 at 21:00; Status DC Polyethylene Glycol (miraLAX) 17 gm 1X ONCE PO ; Start 09/20/18 at 22:00; Stop 09/20/18 at 22:01; Status DC Polyethylene Glycol (miraLAX) 17 gm PRN DAILY PRN PO CONSTIPATION; Start 09/20 at 22:00 Influenza Virus Vaccine (Afluria Trivalent [id number] Syringe) 0.5 ml ONCE ONCE VAX IM Last administered on 09/23/18at 13:20; Start 09/23/18 at 09:00; Stop 09/23/18 at 09:01; Status DC Fluvoxamine Maleate (Luvox) 25 mg HS PO Last administered on 09/25/18at 20:07; Start 09/23/18 at 21:00; Stop 09/26/18 at 17:59; Status DC Aspirin (Aspirin Enteric Coated) 81 mg DAILYWBKFT PO Last administered on at 07:54; Start 09/27/18 at 08:00 Fluvoxamine Maleate (Luvox) 50 mg HS PO Last administered on 09/27/18at 20:11; Start 09/26/18 at 21:00 Active Scripts Active Ambien (Zolpidem Tartrate) 5 Mg Tablet 1 Tab PO QHS PRN Trazodone Hcl 50 Mg Tablet 1 Tab PO QHS PRN Bactrim 400-80 Mg Tablet (Sulfamethoxazole/Trimethoprim) 1 Each Tablet 1 Tab PO BID Seroquel (Quetiapine Fumarate) 25 Mg Tablet 1 Tab PO QHS Reported Seroquel (Quetiapine Fumarate) 25 Mg Tablet 0.5 Tab PO Q9,12,16 NOT GIVEN IN THE HOSPITAL RESTART TONIGHT AT BEDTIME Amlodipine Besylate 2.5 Mg Tablet 1 Tab PO DAILY NOT GIVEN IN THE HOSPITAL RESTART TOMORROW AM Vitamin D2 (Ergocalciferol (Vitamin D2)) 50,000 Unit Capsule 50,000 Unit PO TWICE WEEKLY NOT GIVEN IN THE HOSPITAL RESTART ON YOUR NORMAL DAY Ativan (Lorazepam) 0.5 Mg Tablet 0.5 Mg PO PRN Q2HR PRN NOT GIVEN IN THE HOSPITAL RESTART TODAY AT HOME WHEN NEEDED Depakote Sprinkle (Divalproex Sodium) 125 Mg Cap.sprink 250 Mg PO DAILY NOT GIVEN IN THE HOSPITAL RESTART TOMORROW AM Depakote Sprinkle (Divalproex Sodium) 125 Mg Cap.sprink 500 Mg PO BIDACLD NOT GIVEN IN THE HOSPITAL RESTART TONIGHT AT BEDTIME Metformin Hcl 500 Mg Tablet 500 Mg PO BIDWMEALS NOT GIVEN IN THE HOSPITAL RESTART TONIGHT WITH DINNER Gabapentin 100 Mg Capsule 300 Mg PO TID NOT GIVEN IN THE HOSPITAL RESTART TONIGHT AT BEDTIME Metoprolol Succinate ( Xl ) (Metoprolol Succinate) 50 Mg Tab.er.24h 50 Mg PO DAILY NOT GIVEN IN THE HOSPITAL RESTART TOMORROW AM Requip (Ropinirole Hcl) 1 Mg Tablet 1 Mg PO TID NOT GIVEN IN THE HOSPTAL RESTART TONIGHT AT BEDTIME Sinemet 25-100 Mg Tablet (Carbidopa/Levodopa) 1 Each Tablet 1 Each PO TID NOT GIVEN IN THE HOSPITAL RESTART TONIGHT AT BEDTIME Primidone 50 Mg Tablet 50 Mg PO HS NOT GIVEN IN THE HOSPITAL RESTART TOMORROW AM Zofran (Ondansetron Hcl) 4 Mg Tablet 4 Mg PO PRN Q8HRS PRN NOT GIVEN IN THE HOSPITAL RESTART TODAY AT HOME IF NEEDED Clonazepam 1 Mg Tablet 0.25 Mg PO HS NOT GIVEN IN THE HOSPITAL RESTART TODAY AT BEDTIME Lisinopril 20 Mg Tablet 40 Mg PO DAILY NOT GIVEN IN THE HOSPITAL RESTART TOMORROW AM hold for BP less than 100. After a held dose, reassess in 2 ours. IF SBP is above threshold, administer dose as ordered. IF SBP is below threshold, contact provider for additional instructions. Remeron (Mirtazapine) 15 Mg Tablet 15 Mg PO QHS NOT GIVEN IN THE HOSPITAL RESTART TONIGHT AT BEDTIME Cetirizine Hcl 10 Mg Tablet 10 Mg PO DAILY NOT GIVEN IN THE HOSPITAL RESTART TOMORROW AM Aspirin 81 Mg Tab.chew 81 Mg PO DAILY NOT GIVEN IN THE HOSPITAL RESTART TOMORROW AM Levemir (Insulin Detemir) 100 Unit/1 Ml Vial 10 Unit SQ DAILYWBKFT NOT GIVEN IN THE HOSPITAL RESTART TOMORROW WITH BREAKFAST Zetia (Ezetimibe) 10 Mg Tablet 10 Mg PO DAILY NOT GIVEN IN THE HOSPITAL RESTART TOMORROW AM I have reviewed the current psychotropics carefully including drug interactions. Risk benefit ratio favors no change other than as noted in my dictated progress note. Diagnosis: Problems: (1) Bipolar I disorder with jose (2) Bipolar I disorder with anxious distress (3) Bipolar I disorder with mixed features (4) Anxiety disorder (5) Impulse control disorder (6) Severe anxiety KANWAL KNIGHT MD Sep 27, 2018 23:11
--- NOTE | 2018-09-28 00:56 | NUR ---
Pt withdrawn to her room this evening. Compliant with medications and assessment. No complaints of nausea/ vomiting. Pt states that she continues to be anxious. Pt reports that her left hand is still causing her pain. Also noted increased edema in bilateral lower extremities, with the left more swollen than the right.
[2018-09-28 06:09] VITALS: BP 147/65
[2018-09-28] MEDS: LISINOPRIL 20 MG TABLET PO SCH (08:01)
[2018-09-28] MEDS: EZETIMIBE 10 MG TABLET PO SCH (08:02)
[2018-09-28] MEDS: METOPROLOL SUCC 24HR ER 50 MG TAB.ER.24H. PO SCH (08:02)
[2018-09-28] MEDS: GABAPENTIN 100 MG CAPSULE. PO SCH ×3 (08:02→19:57)
[2018-09-28] MEDS: rOPINIRole 1 MG TABLET. PO SCH ×3 (08:03→19:57)
[2018-09-28] MEDS: QUEtiapine 25 MG TABLET. PO SCH ×3 (08:04→17:16)
[2018-09-28] MEDS: PANTOPRAZOLE 40 MG TABLET. PO SCH (08:04)
[2018-09-28] MEDS: CARBIDOPA/LEVODOPA 25/100MG TABLET PO SCH ×3 (08:05→19:56)
[2018-09-28] MEDS: ASPIRIN ENTERIC COATED 81 MG TABLET.DR. PO SCH (08:05)
[2018-09-28] MEDS: metFORMIN 500 MG TABLET PO SCH ×2 (08:05→17:16)
[2018-09-28] MEDS: DIVALPROEX 125 MG CAP.SPRINK PO SCH ×3 (08:05→19:57)
[2018-09-28] MEDS: amLODIPine BESYLATE 10 MG TABLET PO SCH (08:05)
[2018-09-28] MEDS: CETIRIZINE HCL 10 MG TABLET PO SCH (08:05)
--- NOTE | 2018-09-28 15:28 | NUR ---
Patient has been withdrawn to her room this shift. She has been compliant with medications. She has had no negative moods or behaviors observed. She continues to have edema to her bilateral lower extremities and left hand. Physician notified and saw patient. New orders received for 24hr urine collection, labs in am and discontinued Amlodipine. Will continue to monitor.
[2018-09-28 15:49] VITALS: BP 113/59
--- NOTE | 2018-09-28 16:29 | PN ---
DATE: 09/26/2018 This is a late entry for date of service 09/26/2018 and covers elements not covered in my initial note. SUBJECTIVE: I met with the patient in the evening. The patient slept 8-1/4 hours previous night. She spends much time in her room, except for meals, well oriented x 4. Compliant with medications. Per nursing report, she has not had any intrusive thoughts, but as I met with her in the evening, she says she still has some obsessive intrusive thoughts, even though she is sleeping better. No CV, , pulmonary, eye system symptoms on review. MENTAL STATUS EXAM: Reasonably oriented. Speech is coherent, has some latency. Abstraction fair, computation impaired, language function intact. Attention span short. She is somewhat anxious, obsessive. No suicidal or homicidal ideation. LABORATORY DATA: Reviewed. IMPRESSION: Bipolar 1 disorder, mixed anxiety disorder, unspecified. Rest unchanged. PLAN: She has had an arterial ultrasound of left upper extremity per Dr. Apodaca. We will go ahead and increase Luvox from 25 at bedtime to 50 mg at bedtime after she has been on 25 for 3 days on account of her obsessive-intrusive thinking. Continue Depakote. Remains on Seroquel. Rest unchanged. KANWAL KNIGHT MD DR: VINOD/portia JOB#: [id number] / [id number]
[2018-09-28] MEDS: QUEtiapine 100 MG TABLET. PO SCH (19:57)
[2018-09-28] MEDS: MIRTAZAPINE 30 MG TABLET PO SCH (19:57)
[2018-09-28] MEDS: traZODone 100 MG TABLET. PO SCH (19:57)
[2018-09-28] MEDS: PRIMIDONE 50 MG TABLET PO SCH (19:57)
--- NOTE | 2018-09-28 23:05 | PDOC ---
Exam Note: [place] Note: Please also refer to the separate dictated note~for this date of service dictated separately.~Patient seen individually. Discussed the patient with Nursing staff reviewed the chart.~Reviewed interim history and current functioning. Reviewed vital signs,~Labs/ Radiology~and current medications noted below. Continue current treatment with the changes noted in the dictated addendum note Assessment: Vital Signs: Vital Signs Date Time Temp Pulse Resp B/P (MAP) Pulse Ox O2 Delivery O2 Flow Rate FiO2 09/28/18 15:49 97.4 62 16 113/59 (77) 94 Room Air I&O Intake and Output 09/28/18 07:00 Intake Total 840 ml Balance 840 ml Intake Oral 840 ml Labs: Laboratory Tests Test 09/28/18 07:30 Glucose (Fingerstick) 77 mg/dL (70-99) Current Medications: Meds: Current Medications Lorazepam (Ativan) 1 mg 1X ONCE PO Last administered on 09/18/18at 17:58; Start 09/18/18 at 17:30; Stop 09/18/18 at 17:31; Status DC Acetaminophen (Tylenol) 650 mg PRN Q6HRS PRN PO PAIN / TEMP; Start 09/18/18 at 23:30 Multi-Ingredient Ointment (Analgesic [place]) 1 chuy PRN QID PRN TP MUSCLE PAIN; Start 09/18/18 at 23:30 Al Hydroxide/Mg Hydroxide (Mylanta Plus Xs) 15 ml PRN AFTMEALHC PRN PO DYSPEPSIA; Start 09/18/18 at 23:30 Magnesium Hydroxide (Milk Of Magnesia) 2,400 mg PRN QHS PRN PO CONSTIPATION; Start 09/18/18 at 23:30 Carbidopa/Levodopa (Sinemet 25/100) 1 tab TID PO Last administered on at 19:56; Start 09/19/18 at 09:45 Gabapentin (Neurontin) 300 mg TID PO Last administered on 09/19/18at 13:02; Start 09/19/18 at 09:45; Stop 09/19/18 at 15:44; Status DC Lisinopril (Prinivil) 40 mg DAILY PO Last administered on 09/28/18at 08:01; Start 09/19/18 at 09:45 Zolpidem Tartrate (Ambien) 5 mg PRN QHS PRN PO INSOMNIA; Start 09/19/18 at 09: 30; Stop 09/19/18 at 15:29; Status DC Amlodipine Besylate (Norvasc) 2.5 mg DAILY PO Last administered on 09/19/18at 10:29; Start 09/19/18 at 09:45; Stop 09/19/18 at 15:22; Status DC Aspirin (Children'S Aspirin) 81 mg DAILYWBKFT PO Last administered on at 10:27; Start 09/19/18 at 09:45; Stop 09/19/18 at 15:16; Status DC Cetirizine HCl (ZyrTEC) 10 mg DAILY PO Last administered on 09/28/18at 08:05; Start 09/19/18 at 09:45 Clonazepam (KlonoPIN) 0.25 mg QHS PO ; Start 09/19/18 at 21:00; Stop 09/19/18 at 21:00; Status DC Divalproex Sodium (Depakote) 250 mg DAILY PO ; Start 09/19/18 at 09:45; Stop 09/19/18 at 09:45; Status DC Divalproex Sodium (Depakote Sprinkles) 500 mg BIDACLD PO Last administered on 09/19/18at 12:57; Start 09/19/18 at 11:30; Stop 09/19/18 at 15:07; Status DC Non-Formulary Medication (Ergocalciferol (Vitamin D2) (Vitamin D2)) 50,000 unit TWICE WEEKLY PO ; Start 09/19/18 at 09:30; Stop 09/19/18 at 10:57; Status DC EZETIMIBE (Zetia) 10 mg DAILY PO Last administered on 09/28/18at 08:02; Start 09/19/18 at 09:45 Insulin Glargine (Lantus) 10 units DAILYWBKFT SQ ; Start 09/19/18 at 09:45; Stop 09/19/18 at 09:45; Status DC Lorazepam (Ativan) 0.5 mg PRN Q2HR PRN PO ANXIETY; Start 09/19/18 at 09:45; Stop 09/19/18 at 15:31; Status DC Metformin HCl (Glucophage) 500 mg BIDWMEALS PO Last administered on 09/28/18at 17:16; Start 09/19/18 at 09:45 Metoprolol Succinate (Toprol Xl) 50 mg DAILY PO Last administered on at 10:31; Start 09/19/18 at 09:45; Stop 09/19/18 at 15:24; Status DC Mirtazapine (Remeron) 15 mg QHS PO ; Start 09/19/18 at 21:00; Stop 09/19/18 at 21:00; Status DC Ondansetron HCl (Zofran Odt) 4 mg PRN Q8HRS PRN PO NAUSEA/VOMITING Last administered on 09/25/18at 08:11; Start 09/19/18 at 09:45 Primidone (Mysoline) 50 mg HS PO Last administered on 09/28/18at 19:57; Start 09/19/18 at 21:00 Quetiapine Fumarate (SEROquel) 12.5 mg 0900,1200,1600 PO Last administered on 09/28/18at 17:16; Start 09/19/18 at 12:00 Quetiapine Fumarate (SEROquel) 25 mg QHS PO ; Start 09/19/18 at 21:00; Stop at 21:00; Status DC Ropinirole HCl (Requip) 1 mg TID PO Last administered on 09/28/18at 19:57; Start 09/19/18 at 09:45 Non-Formulary Medication (Sulfamethoxazole/ Trimethoprim (Bactrim 400-80 Mg Tablet)) 1 tab BID PO ; Start 09/19/18 at 21:00; Stop 09/19/18 at 21:00; Status DC Trazodone HCl (Desyrel) 50 mg PRN QHS PRN PO SLEEP; Start 09/19/18 at 09:45; Stop 09/19/18 at 15:33; Status DC Divalproex Sodium (Depakote Sprinkles) 250 mg DAILY PO ; Start 09/20/18 at 09: 00; Stop 09/20/18 at 09:00; Status DC Insulin Glargine (Lantus) 10 units DAILYWBKFT SQ ; Start 09/20/18 at 08:00; Stop 09/20/18 at 08:00; Status DC Vitamin D (Vitamin D3) 50,000 unit TuFr PO Last administered on 09/19/18at 12: 56; Start 09/19/18 at 11:00; Stop 09/19/18 at 15:27; Status DC Quetiapine Fumarate (SEROquel) 100 mg HS PO Last administered on 09/28/18at 19: 57; Start 09/19/18 at 21:00 Divalproex Sodium (Depakote Sprinkles) 500 mg BID@1200,2100 PO Last administered on 09/28/18 19:57; Start 09/19/18 at 21:00 Amlodipine Besylate (Norvasc) 10 mg DAILY PO Last administered on 09/28/18at 08: 05; Start 09/20/18 at 09:00; Stop 09/28/18 at 12:15; Status DC Metoprolol Succinate (Toprol Xl) 100 mg DAILY PO Last administered on at 08:02; Start 09/20/18 at 09:00 Lorazepam (Ativan) 0.5 mg PRN Q4HRS PRN PO ANXIETY; Start 09/19/18 at 15:45 Trazodone HCl (Desyrel) 100 mg HS PO Last administered on 09/28/18 19:57; Start 09/19/18 at 21:00 Pantoprazole Sodium (Protonix) 40 mg DAILYAC PO Last administered on 09/28/18at 08:04; Start 09/20/18 at 07:30 Alprazolam (Xanax) 0.5 mg PRN Q8HRS PRN PO ANXIETY; Start 09/19/18 at 15:45 Trazodone HCl (Desyrel) 200 mg QHS PO ; Start 09/19/18 at 21:00; Stop at 21:00; Status DC Ropinirole HCl (Requip) 1 mg TID PO ; Start 09/19/18 at 21:00; Stop 09/19/18 at 21:00; Status DC Gabapentin (Neurontin) 200 mg TID PO Last administered on 09/28/18at 19:57; Start 09/19/18 at 21:00 Tramadol HCl (Ultram) 50 mg PRN Q6HRS PRN PO PAIN; Start 09/19/18 at 15:45 Trazodone HCl (Desyrel) 400 mg QHS PO ; Start 09/19/18 at 21:00; Stop at 21:00; Status DC Mirtazapine (Remeron) 30 mg QHS PO Last administered on 09/28/18at 19:57; Start 09/19/18 at 21:00 Oxcarbazepine (Trileptal) 300 mg BID PO ; Start 09/19/18 at 21:00; Stop at 21:00; Status DC Divalproex Sodium (Depakote Sprinkles) 250 mg DAILY PO Last administered on 09/28/18at 08:05; Start 09/20/18 at 09:00 Risperidone (RisperDAL) 0.75 mg HS PO ; Start 09/19/18 at 21:00; Stop at 21:00; Status DC Risperidone (RisperDAL) 0.5 mg HS PO ; Start 09/19/18 at 21:00; Stop 09/19/18 at 21:00; Status DC Polyethylene Glycol (miraLAX) 17 gm 1X ONCE PO ; Start 09/20/18 at 22:00; Stop 09/20/18 at 22:01; Status DC Polyethylene Glycol (miraLAX) 17 gm PRN DAILY PRN PO CONSTIPATION; Start 09/20 at 22:00 Influenza Virus Vaccine (Afluria Trivalent [id number] Syringe) 0.5 ml ONCE ONCE VAX IM Last administered on 09/23/18at 13:20; Start 09/23/18 at 09:00; Stop 09/23/18 at 09:01; Status DC Fluvoxamine Maleate (Luvox) 25 mg HS PO Last administered on 09/25/18at 20:07; Start 09/23/18 at 21:00; Stop 09/26/18 at 17:59; Status DC Aspirin (Aspirin Enteric Coated) 81 mg DAILYWBKFT PO Last administered on at 08:05; Start 09/27/18 at 08:00 Fluvoxamine Maleate (Luvox) 50 mg HS PO Last administered on 09/28/18at 19:56; Start 09/26/18 at 21:00 Active Scripts Active Ambien (Zolpidem Tartrate) 5 Mg Tablet 1 Tab PO QHS PRN Trazodone Hcl 50 Mg Tablet 1 Tab PO QHS PRN Bactrim 400-80 Mg Tablet (Sulfamethoxazole/Trimethoprim) 1 Each Tablet 1 Tab PO BID Seroquel (Quetiapine Fumarate) 25 Mg Tablet 1 Tab PO QHS Reported Seroquel (Quetiapine Fumarate) 25 Mg Tablet 0.5 Tab PO Q9,12,16 NOT GIVEN IN THE HOSPITAL RESTART TONIGHT AT BEDTIME Amlodipine Besylate 2.5 Mg Tablet 1 Tab PO DAILY NOT GIVEN IN THE HOSPITAL RESTART TOMORROW AM Vitamin D2 (Ergocalciferol (Vitamin D2)) 50,000 Unit Capsule 50,000 Unit PO TWICE WEEKLY NOT GIVEN IN THE HOSPITAL RESTART ON YOUR NORMAL DAY Ativan (Lorazepam) 0.5 Mg Tablet 0.5 Mg PO PRN Q2HR PRN NOT GIVEN IN THE HOSPITAL RESTART TODAY AT HOME WHEN NEEDED Depakote Sprinkle (Divalproex Sodium) 125 Mg Cap.sprink 250 Mg PO DAILY NOT GIVEN IN THE HOSPITAL RESTART TOMORROW AM Depakote Sprinkle (Divalproex Sodium) 125 Mg Cap.sprink 500 Mg PO BIDACLD NOT GIVEN IN THE HOSPITAL RESTART TONIGHT AT BEDTIME Metformin Hcl 500 Mg Tablet 500 Mg PO BIDWMEALS NOT GIVEN IN THE HOSPITAL RESTART TONIGHT WITH DINNER Gabapentin 100 Mg Capsule 300 Mg PO TID NOT GIVEN IN THE HOSPITAL RESTART TONIGHT AT BEDTIME Metoprolol Succinate ( Xl ) (Metoprolol Succinate) 50 Mg Tab.er.24h 50 Mg PO DAILY NOT GIVEN IN THE HOSPITAL RESTART TOMORROW AM Requip (Ropinirole Hcl) 1 Mg Tablet 1 Mg PO TID NOT GIVEN IN THE HOSPTAL RESTART TONIGHT AT BEDTIME Sinemet 25-100 Mg Tablet (Carbidopa/Levodopa) 1 Each Tablet 1 Each PO TID NOT GIVEN IN THE HOSPITAL RESTART TONIGHT AT BEDTIME Primidone 50 Mg Tablet 50 Mg PO HS NOT GIVEN IN THE HOSPITAL RESTART TOMORROW AM Zofran (Ondansetron Hcl) 4 Mg Tablet 4 Mg PO PRN Q8HRS PRN NOT GIVEN IN THE HOSPITAL RESTART TODAY AT HOME IF NEEDED Clonazepam 1 Mg Tablet 0.25 Mg PO HS NOT GIVEN IN THE HOSPITAL RESTART TODAY AT BEDTIME Lisinopril 20 Mg Tablet 40 Mg PO DAILY NOT GIVEN IN THE HOSPITAL RESTART TOMORROW AM hold for BP less than 100. After a held dose, reassess in 2 ours. IF SBP is above threshold, administer dose as ordered. IF SBP is below threshold, contact provider for additional instructions. Remeron (Mirtazapine) 15 Mg Tablet 15 Mg PO QHS NOT GIVEN IN THE HOSPITAL RESTART TONIGHT AT BEDTIME Cetirizine Hcl 10 Mg Tablet 10 Mg PO DAILY NOT GIVEN IN THE HOSPITAL RESTART TOMORROW AM Aspirin 81 Mg Tab.chew 81 Mg PO DAILY NOT GIVEN IN THE HOSPITAL RESTART TOMORROW AM Levemir (Insulin Detemir) 100 Unit/1 Ml Vial 10 Unit SQ DAILYWBKFT NOT GIVEN IN THE HOSPITAL RESTART TOMORROW WITH BREAKFAST Zetia (Ezetimibe) 10 Mg Tablet 10 Mg PO DAILY NOT GIVEN IN THE HOSPITAL RESTART TOMORROW AM I have reviewed the current psychotropics carefully including drug interactions. Risk benefit ratio favors no change other than as noted in my dictated progress note. Diagnosis: Problems: (1) Bipolar I disorder with jose (2) Hypertension (3) Leg swelling (4) Accelerated hypertension (5) Hip pain, right (6) Cellulitis of right lower limb (7) Accelerated essential hypertension (8) Chronic diastolic (congestive) heart failure (9) Bipolar I disorder with anxious distress (10) Bipolar I disorder with mixed features (11) Anxiety disorder (12) Impulse control disorder (13) UTI (urinary tract infection) (14) Severe anxiety KANWAL KNIGHT MD Sep 28, 2018 23:05
--- NOTE | 2018-09-28 23:38 | NUR ---
Pt withdrawn to her room this evening. Compliant with medications and assessment. No complaints of nausea or anxiety.
--- NOTE | 2018-09-29 05:07 | PN ---
DATE: 09/28/2018 SUBJECTIVE: The patient is a 78-year-old female patient, whom I have seen today at the nursing staff request that she has marked bilateral lower limb swelling. On questioning her; however, she denied any chest pain. She said she is occasionally having shortness of breath, although she denied that when I saw her this morning. I saw her recently for pain in her left upper extremity and we did actually arterial Doppler ultrasound of the left upper extremity, which showed that her left subclavian arteries, axillary, brachial, ulnar and radial arteries are all patent and there is biphasic to triphasic waveforms identified throughout. Velocities range from ____ at the proximal subclavian artery to 53 cm/sec to the proximal radial artery, with a conclusion that she has no evidence of occlusive disease or high grade stenosis. This could be just reflex sympathetic dystrophy as the skin is very smooth, slightly swollen and there is mild tenderness. PHYSICAL EXAMINATION: GENERAL: When I examined her today, she looked well and was clearly in no apparent respiratory distress. She is pale, but no jaundice, cyanosis, or thyromegaly. No jugular distention, with marked bilateral lower limb edema. VITAL SIGNS: Her heart rate was 58, blood pressure was 147/65, temperature was 97.1, respiratory rate was 18 and oxygen saturation was 93%. HEAD, EYES, EARS, NOSE AND THROAT: Normocephalic, atraumatic. NECK: Supple. HEART: Showed normal first and second heart sounds with no gallop, rub or murmur. CHEST: Clear to auscultation. No crepitation or rhonchi. ABDOMEN: Scaphoid, soft, nontender. NEUROLOGIC: She is awake, alert, responding appropriately. Cranial nerves intact. She moves extremities without difficulty. She ambulates with a walker. EXTREMITIES: Examination of the extremities showed no clubbing or cyanosis, but bilateral lower limb edema. LABORATORY DATA: Her most recent lab work showed a serum sodium of 135, potassium 3.8, chloride 102, bicarbonate 29, anion gap of 4, BUN 17, creatinine 1, estimated GFR was 58 mL per minute. Her glucose was 85, calcium was 7.8. Total bilirubin, AST, ALT, alkaline phosphatase were normal. Total protein was 5.1. Serum albumin was only 2.2. Her TSH was normal at 0.52. Total T4 was 5.7, total T3 was 62. Her white cell count was 4800, hemoglobin 11, hematocrit 32, MCV 97, and platelet count 221,000. ASSESSMENT: Bilateral lower extremity edema, most likely due to low oncotic pressure, serum albumin is only 2.2. She is also on amlodipine that might also be somewhat contributing to this swelling. Her kidney function is normal. PLAN: My plan is to do a 24-hour urine collection and that she might have a nephrotic syndrome. Her urinalysis before showed that she has 100 mg/dL of urine protein and she is diabetic. She probably has diabetic nephropathy. I will also discontinue her amlodipine and if need be substitute that with some other antihypertensive medication. DAMI GEE MD DR: DAVID/portia JOB#: [id number] / [id number]
[2018-09-29 06:13] VITALS: BP 145/64
[2018-09-29 07:35] LABS: BASO % 0 % (0-3); EOS # 0.1 x10^3/uL (0.0-0.7); EOS % 1 % (0-3); HEMOGLOBIN 11.3 g/dL (12.0-15.5); LYMPH # 1.2 x10^3/uL (1.0-4.8); LYMPH % 25 % (24-48); MEAN CORPUSCULAR HEMOGLOBIN 33 pg (25-35); MEAN CORPUSCULAR HGB CONC 34 g/dL (31-37); MEAN CORPUSCULAR VOLUME 97 fL (79-100); MONO # 0.3 x10^3/uL (0.0-1.1); MONO % 7 % (0-9); NEUT # 3.3 x10^3uL (1.8-7.7); NEUT % 67 % (31-73); PLATELET COUNT 189 x10^3/uL (140-400); RED BLOOD COUNT 3.41 x10^6/uL (3.50-5.40); WHITE BLOOD COUNT 4.9 x10^3/uL (4.0-11.0)
[2018-09-29 07:51] LABS: ALBUMIN 1.8 g/dL (3.4-5.0); ALBUMIN/GLOBULIN RATIO 0.6 (1.0-1.7); CALCIUM 7.9 mg/dL (8.5-10.1); CREATININE 0.8 mg/dL (0.6-1.0); GFR 69.6; TOTAL BILIRUBIN 0.2 mg/dL (0.2-1.0); TOTAL PROTEIN 4.9 g/dL (6.4-8.2)
[2018-09-29] MEDS: DIVALPROEX 125 MG CAP.SPRINK PO SCH ×3 (08:11→20:14)
[2018-09-29] MEDS: ASPIRIN ENTERIC COATED 81 MG TABLET.DR. PO SCH (08:11)
[2018-09-29] MEDS: PANTOPRAZOLE 40 MG TABLET. PO SCH (08:11)
[2018-09-29] MEDS: CETIRIZINE HCL 10 MG TABLET PO SCH (08:11)
[2018-09-29] MEDS: EZETIMIBE 10 MG TABLET PO SCH (08:11)
[2018-09-29] MEDS: CARBIDOPA/LEVODOPA 25/100MG TABLET PO SCH ×3 (08:12→20:13)
[2018-09-29] MEDS: rOPINIRole 1 MG TABLET. PO SCH ×3 (08:12→20:13)
[2018-09-29] MEDS: metFORMIN 500 MG TABLET PO SCH ×2 (08:12→17:07)
[2018-09-29] MEDS: GABAPENTIN 100 MG CAPSULE. PO SCH ×3 (08:12→20:13)
[2018-09-29] MEDS: QUEtiapine 25 MG TABLET. PO SCH ×3 (08:14→17:08)
[2018-09-29] MEDS: LISINOPRIL 20 MG TABLET PO SCH (08:48)
[2018-09-29] MEDS: METOPROLOL SUCC 24HR ER 50 MG TAB.ER.24H. PO SCH (08:49)
--- NOTE | 2018-09-29 09:11 | NUR ---
Faxed update to Mary Anne at [facility] for review. Awaiting outcome. Tentative d/c late this week.
--- NOTE | 2018-09-29 12:31 | NUR ---
Patient has been withdrawn to her room this shift. Patient is compliant with medications, crushed in pudding. No agitation observed. Will continue to monitor.
[2018-09-29 15:09] VITALS: BP 166/77
--- NOTE | 2018-09-29 18:59 | PN ---
DATE: 09/27/2018 PSYCHIATRIC PROGRESS NOTE This is a late entry 09/27/2018, covers elements not covered in my initial note 09/29/2018. SUBJECTIVE: I met with the patient in the evening in her room. The patient slept 7 hours previous night, but subjectively she states she did not sleep very well. She does still complains of some intrusive thinking. REVIEW OF SYSTEMS: No CV, , pulmonary, eye system symptoms on review. Reliability fair. MENTAL STATUS EXAM: Reasonably oriented. Speech is coherent, abstraction fair, computation impaired, language function intact. Mood and affect is anxious, dysphoric. No suicidal or homicidal ideation. LABORATORY DATA: Reviewed. IMPRESSION: Bipolar 1 disorder, mixed anxiety disorder, unspecified. Rest unchanged. PLAN: No change from initial note. Continue Depakote current dosage, level therapeutic at 67. Rest from unchanged from initial note, may need to increase Luvox beyond her current 50 mg at bedtime, but will do it gradually. MAN Gerhard KNIGHT MD DR: VINOD/portia JOB#: [id number] / [id number]
[2018-09-29] MEDS: traZODone 100 MG TABLET. PO SCH (20:13)
[2018-09-29] MEDS: PRIMIDONE 50 MG TABLET PO SCH (20:13)
[2018-09-29] MEDS: QUEtiapine 100 MG TABLET. PO SCH (20:13)
[2018-09-29] MEDS: MIRTAZAPINE 30 MG TABLET PO SCH (20:13)
--- NOTE | 2018-09-29 23:08 | PDOC ---
Exam Note: [place] Note: Please also refer to the separate dictated note~for this date of service dictated separately.~Patient seen individually. Discussed the patient with Nursing staff reviewed the chart.~Reviewed interim history and current functioning. Reviewed vital signs,~Labs/ Radiology~and current medications noted below. Continue current treatment with the changes noted in the dictated addendum note Assessment: Vital Signs: Vital Signs Date Time Temp Pulse Resp B/P (MAP) Pulse Ox O2 Delivery O2 Flow Rate FiO2 09/29/18 15:09 97.7 79 20 166/77 (106) 98 Room Air I&O Intake and Output 09/29/18 07:00 Intake Total 1200 ml Balance 1200 ml Intake Oral 1200 ml Labs: Laboratory Tests Test 09/29/18 07:05 09/29/18 07:28 White Blood Count 4.9 x10^3/uL (4.0-11.0) Red Blood Count 3.41 x10^6/uL (3.50-5.40) L Hemoglobin 11.3 g/dL (12.0-15.5) L Hematocrit 33.0 % (36.0-47.0) L Mean Corpuscular Volume 97 fL (79-100) Mean Corpuscular Hemoglobin 33 pg (25-35) Mean Corpuscular Hemoglobin Concent 34 g/dL (31-37) Red Cell Distribution Width 13.0 % (11.5-14.5) Platelet Count 189 x10^3/uL (140-400) Neutrophils (%) (Auto) 67 % (31-73) Lymphocytes (%) (Auto) 25 % (24-48) Monocytes (%) (Auto) 7 % (0-9) Eosinophils (%) (Auto) 1 % (0-3) Basophils (%) (Auto) 0 % (0-3) Neutrophils # (Auto) 3.3 x10^3uL (1.8-7.7) Lymphocytes # (Auto) 1.2 x10^3/uL (1.0-4.8) Monocytes # (Auto) 0.3 x10^3/uL (0.0-1.1) Eosinophils # (Auto) 0.1 x10^3/uL (0.0-0.7) Basophils # (Auto) 0.0 x10^3/uL (0.0-0.2) Sodium Level 132 mmol/L (136-145) L Potassium Level 4.0 mmol/L (3.5-5.1) Chloride Level 100 mmol/L (98-107) Carbon Dioxide Level 28 mmol/L (21-32) Anion Gap 4 (6-14) L Blood Urea Nitrogen 7 mg/dL (7-20) Creatinine 0.8 mg/dL (0.6-1.0) Estimated GFR (Cockcroft-Gault) 69.6 BUN/Creatinine Ratio 9 (6-20) Glucose Level 82 mg/dL (70-99) Calcium Level 7.9 mg/dL (8.5-10.1) L Total Bilirubin 0.2 mg/dL (0.2-1.0) Aspartate Amino Transferase (AST) 9 U/L (15-37) L Alanine Aminotransferase (ALT) 12 U/L (14-59) L Alkaline Phosphatase 56 U/L (46-116) Total Protein 4.9 g/dL (6.4-8.2) L Albumin 1.8 g/dL (3.4-5.0) L Albumin/Globulin Ratio 0.6 (1.0-1.7) L Glucose (Fingerstick) 75 mg/dL (70-99) Current Medications: Meds: Current Medications Lorazepam (Ativan) 1 mg 1X ONCE PO Last administered on 09/18/18at 17:58; Start 09/18/18 at 17:30; Stop 09/18/18 at 17:31; Status DC Acetaminophen (Tylenol) 650 mg PRN Q6HRS PRN PO PAIN / TEMP; Start 09/18/18 at 23:30 Multi-Ingredient Ointment (Analgesic [place]) 1 chuy PRN QID PRN TP MUSCLE PAIN; Start 09/18/18 at 23:30 Al Hydroxide/Mg Hydroxide (Mylanta Plus Xs) 15 ml PRN AFTMEALHC PRN PO DYSPEPSIA; Start 09/18/18 at 23:30 Magnesium Hydroxide (Milk Of Magnesia) 2,400 mg PRN QHS PRN PO CONSTIPATION; Start 09/18/18 at 23:30 Carbidopa/Levodopa (Sinemet 25/100) 1 tab TID PO Last administered on at 20:13; Start 09/19/18 at 09:45 Gabapentin (Neurontin) 300 mg TID PO Last administered on 09/19/18at 13:02; Start 09/19/18 at 09:45; Stop 09/19/18 at 15:44; Status DC Lisinopril (Prinivil) 40 mg DAILY PO Last administered on 09/29/18at 08:48; Start 09/19/18 at 09:45 Zolpidem Tartrate (Ambien) 5 mg PRN QHS PRN PO INSOMNIA; Start 09/19/18 at 09: 30; Stop 09/19/18 at 15:29; Status DC Amlodipine Besylate (Norvasc) 2.5 mg DAILY PO Last administered on 09/19/18at 10:29; Start 09/19/18 at 09:45; Stop 09/19/18 at 15:22; Status DC Aspirin (Children'S Aspirin) 81 mg DAILYWBKFT PO Last administered on at 10:27; Start 09/19/18 at 09:45; Stop 09/19/18 at 15:16; Status DC Cetirizine HCl (ZyrTEC) 10 mg DAILY PO Last administered on 09/29/18at 08:11; Start 09/19/18 at 09:45 Clonazepam (KlonoPIN) 0.25 mg QHS PO ; Start 09/19/18 at 21:00; Stop 09/19/18 at 21:00; Status DC Divalproex Sodium (Depakote) 250 mg DAILY PO ; Start 09/19/18 at 09:45; Stop 09/19/18 at 09:45; Status DC Divalproex Sodium (Depakote Sprinkles) 500 mg BIDACLD PO Last administered on 09/19/18at 12:57; Start 09/19/18 at 11:30; Stop 09/19/18 at 15:07; Status DC Non-Formulary Medication (Ergocalciferol (Vitamin D2) (Vitamin D2)) 50,000 unit TWICE WEEKLY PO ; Start 09/19/18 at 09:30; Stop 09/19/18 at 10:57; Status DC EZETIMIBE (Zetia) 10 mg DAILY PO Last administered on 09/29/18at 08:11; Start 09/19/18 at 09:45 Insulin Glargine (Lantus) 10 units DAILYWBKFT SQ ; Start 09/19/18 at 09:45; Stop 09/19/18 at 09:45; Status DC Lorazepam (Ativan) 0.5 mg PRN Q2HR PRN PO ANXIETY; Start 09/19/18 at 09:45; Stop 09/19/18 at 15:31; Status DC Metformin HCl (Glucophage) 500 mg BIDWMEALS PO Last administered on 09/29/18at 17:07; Start 09/19/18 at 09:45 Metoprolol Succinate (Toprol Xl) 50 mg DAILY PO Last administered on at 10:31; Start 09/19/18 at 09:45; Stop 09/19/18 at 15:24; Status DC Mirtazapine (Remeron) 15 mg QHS PO ; Start 09/19/18 at 21:00; Stop 09/19/18 at 21:00; Status DC Ondansetron HCl (Zofran Odt) 4 mg PRN Q8HRS PRN PO NAUSEA/VOMITING Last administered on 09/25/18at 08:11; Start 09/19/18 at 09:45 Primidone (Mysoline) 50 mg HS PO Last administered on 09/29/18at 20:13; Start 09/19/18 at 21:00 Quetiapine Fumarate (SEROquel) 12.5 mg 0900,1200,1600 PO Last administered on 09/29/18at 17:08; Start 09/19/18 at 12:00 Quetiapine Fumarate (SEROquel) 25 mg QHS PO ; Start 09/19/18 at 21:00; Stop at 21:00; Status DC Ropinirole HCl (Requip) 1 mg TID PO Last administered on 09/29/18at 20:13; Start 09/19/18 at 09:45 Non-Formulary Medication (Sulfamethoxazole/ Trimethoprim (Bactrim 400-80 Mg Tablet)) 1 tab BID PO ; Start 09/19/18 at 21:00; Stop 09/19/18 at 21:00; Status DC Trazodone HCl (Desyrel) 50 mg PRN QHS PRN PO SLEEP; Start 09/19/18 at 09:45; Stop 09/19/18 at 15:33; Status DC Divalproex Sodium (Depakote Sprinkles) 250 mg DAILY PO ; Start 09/20/18 at 09: 00; Stop 09/20/18 at 09:00; Status DC Insulin Glargine (Lantus) 10 units DAILYWBKFT SQ ; Start 09/20/18 at 08:00; Stop 09/20/18 at 08:00; Status DC Vitamin D (Vitamin D3) 50,000 unit TuFr PO Last administered on 09/19/18at 12: 56; Start 09/19/18 at 11:00; Stop 09/19/18 at 15:27; Status DC Quetiapine Fumarate (SEROquel) 100 mg HS PO Last administered on 09/29/18at 20: 13; Start 09/19/18 at 21:00 Divalproex Sodium (Depakote Sprinkles) 500 mg BID@1200,2100 PO Last administered on 09/29/18at 20:14; Start 09/19/18 at 21:00 Amlodipine Besylate (Norvasc) 10 mg DAILY PO Last administered on 09/28/18at 08: 05; Start 09/20/18 at 09:00; Stop 09/28/18 at 12:15; Status DC Metoprolol Succinate (Toprol Xl) 100 mg DAILY PO Last administered on at 08:49; Start 09/20/18 at 09:00 Lorazepam (Ativan) 0.5 mg PRN Q4HRS PRN PO ANXIETY; Start 09/19/18 at 15:45 Trazodone HCl (Desyrel) 100 mg HS PO Last administered on 09/29/18at 20:13; Start 09/19/18 at 21:00 Pantoprazole Sodium (Protonix) 40 mg DAILYAC PO Last administered on 09/29/18at 08:11; Start 09/20/18 at 07:30 Alprazolam (Xanax) 0.5 mg PRN Q8HRS PRN PO ANXIETY; Start 09/19/18 at 15:45 Trazodone HCl (Desyrel) 200 mg QHS PO ; Start 09/19/18 at 21:00; Stop at 21:00; Status DC Ropinirole HCl (Requip) 1 mg TID PO ; Start 09/19/18 at 21:00; Stop 09/19/18 at 21:00; Status DC Gabapentin (Neurontin) 200 mg TID PO Last administered on 09/29/18at 20:13; Start 09/19/18 at 21:00 Tramadol HCl (Ultram) 50 mg PRN Q6HRS PRN PO PAIN; Start 09/19/18 at 15:45 Trazodone HCl (Desyrel) 400 mg QHS PO ; Start 09/19/18 at 21:00; Stop at 21:00; Status DC Mirtazapine (Remeron) 30 mg QHS PO Last administered on 09/29/18at 20:13; Start 09/19/18 at 21:00 Oxcarbazepine (Trileptal) 300 mg BID PO ; Start 09/19/18 at 21:00; Stop at 21:00; Status DC Divalproex Sodium (Depakote Sprinkles) 250 mg DAILY PO Last administered on 09/29/18at 08:11; Start 09/20/18 at 09:00 Risperidone (RisperDAL) 0.75 mg HS PO ; Start 09/19/18 at 21:00; Stop at 21:00; Status DC Risperidone (RisperDAL) 0.5 mg HS PO ; Start 09/19/18 at 21:00; Stop 09/19/18 at 21:00; Status DC Polyethylene Glycol (miraLAX) 17 gm 1X ONCE PO ; Start 09/20/18 at 22:00; Stop 09/20/18 at 22:01; Status DC Polyethylene Glycol (miraLAX) 17 gm PRN DAILY PRN PO CONSTIPATION; Start 09/20 at 22:00 Influenza Virus Vaccine (Afluria Trivalent [id number] Syringe) 0.5 ml ONCE ONCE VAX IM Last administered on 09/23/18at 13:20; Start 09/23/18 at 09:00; Stop 09/23/18 at 09:01; Status DC Fluvoxamine Maleate (Luvox) 25 mg HS PO Last administered on 09/25/18at 20:07; Start 09/23/18 at 21:00; Stop 09/26/18 at 17:59; Status DC Aspirin (Aspirin Enteric Coated) 81 mg DAILYWBKFT PO Last administered on at 08:11; Start 09/27/18 at 08:00 Fluvoxamine Maleate (Luvox) 50 mg HS PO Last administered on 09/28/18at 19:56; Start 09/26/18 at 21:00; Stop 09/29/18 at 16:50; Status DC Fluvoxamine Maleate (Luvox) 75 mg HS PO Last administered on 09/29/18at 20:14; Start 09/29/18 at 21:00 Active Scripts Active Ambien (Zolpidem Tartrate) 5 Mg Tablet 1 Tab PO QHS PRN Trazodone Hcl 50 Mg Tablet 1 Tab PO QHS PRN Bactrim 400-80 Mg Tablet (Sulfamethoxazole/Trimethoprim) 1 Each Tablet 1 Tab PO BID Seroquel (Quetiapine Fumarate) 25 Mg Tablet 1 Tab PO QHS Reported Seroquel (Quetiapine Fumarate) 25 Mg Tablet 0.5 Tab PO Q9,12,16 NOT GIVEN IN THE HOSPITAL RESTART TONIGHT AT BEDTIME Amlodipine Besylate 2.5 Mg Tablet 1 Tab PO DAILY NOT GIVEN IN THE HOSPITAL RESTART TOMORROW AM Vitamin D2 (Ergocalciferol (Vitamin D2)) 50,000 Unit Capsule 50,000 Unit PO TWICE WEEKLY NOT GIVEN IN THE HOSPITAL RESTART ON YOUR NORMAL DAY Ativan (Lorazepam) 0.5 Mg Tablet 0.5 Mg PO PRN Q2HR PRN NOT GIVEN IN THE HOSPITAL RESTART TODAY AT HOME WHEN NEEDED Depakote Sprinkle (Divalproex Sodium) 125 Mg Cap.sprink 250 Mg PO DAILY NOT GIVEN IN THE HOSPITAL RESTART TOMORROW AM Depakote Sprinkle (Divalproex Sodium) 125 Mg Cap.sprink 500 Mg PO BIDACLD NOT GIVEN IN THE HOSPITAL RESTART TONIGHT AT BEDTIME Metformin Hcl 500 Mg Tablet 500 Mg PO BIDWMEALS NOT GIVEN IN THE HOSPITAL RESTART TONIGHT WITH DINNER Gabapentin 100 Mg Capsule 300 Mg PO TID NOT GIVEN IN THE HOSPITAL RESTART TONIGHT AT BEDTIME Metoprolol Succinate ( Xl ) (Metoprolol Succinate) 50 Mg Tab.er.24h 50 Mg PO DAILY NOT GIVEN IN THE HOSPITAL RESTART TOMORROW AM Requip (Ropinirole Hcl) 1 Mg Tablet 1 Mg PO TID NOT GIVEN IN THE HOSPTAL RESTART TONIGHT AT BEDTIME Sinemet 25-100 Mg Tablet (Carbidopa/Levodopa) 1 Each Tablet 1 Each PO TID NOT GIVEN IN THE HOSPITAL RESTART TONIGHT AT BEDTIME Primidone 50 Mg Tablet 50 Mg PO HS NOT GIVEN IN THE HOSPITAL RESTART TOMORROW AM Zofran (Ondansetron Hcl) 4 Mg Tablet 4 Mg PO PRN Q8HRS PRN NOT GIVEN IN THE HOSPITAL RESTART TODAY AT HOME IF NEEDED Clonazepam 1 Mg Tablet 0.25 Mg PO HS NOT GIVEN IN THE HOSPITAL RESTART TODAY AT BEDTIME Lisinopril 20 Mg Tablet 40 Mg PO DAILY NOT GIVEN IN THE HOSPITAL RESTART TOMORROW AM hold for BP less than 100. After a held dose, reassess in 2 ours. IF SBP is above threshold, administer dose as ordered. IF SBP is below threshold, contact provider for additional instructions. Remeron (Mirtazapine) 15 Mg Tablet 15 Mg PO QHS NOT GIVEN IN THE HOSPITAL RESTART TONIGHT AT BEDTIME Cetirizine Hcl 10 Mg Tablet 10 Mg PO DAILY NOT GIVEN IN THE HOSPITAL RESTART TOMORROW AM Aspirin 81 Mg Tab.chew 81 Mg PO DAILY NOT GIVEN IN THE HOSPITAL RESTART TOMORROW AM Levemir (Insulin Detemir) 100 Unit/1 Ml Vial 10 Unit SQ DAILYWBKFT NOT GIVEN IN THE HOSPITAL RESTART TOMORROW WITH BREAKFAST Zetia (Ezetimibe) 10 Mg Tablet 10 Mg PO DAILY NOT GIVEN IN THE HOSPITAL RESTART TOMORROW AM I have reviewed the current psychotropics carefully including drug interactions. Risk benefit ratio favors no change other than as noted in my dictated progress note. Diagnosis: Problems: (1) Bipolar I disorder with jose (2) Hypertension (3) Leg swelling (4) Accelerated hypertension (5) Hip pain, right (6) Cellulitis of right lower limb (7) Accelerated essential hypertension (8) Chronic diastolic (congestive) heart failure (9) Bipolar I disorder with anxious distress (10) Bipolar I disorder with mixed features (11) Anxiety disorder (12) Impulse control disorder (13) UTI (urinary tract infection) (14) Severe anxiety KANWAL KNIGHT MD Sep 29, 2018 23:08
--- NOTE | 2018-09-29 23:45 | NUR ---
Pt located in the dayroom at shift change participating in group. Compliant with medications and assessment. No complaints of nausea or anxiety. Pt states that her left hand feels better.
--- NOTE | 2018-09-30 00:31 | PN ---
DATE: 09/28/2018 This late entry, 09/28/2018, covers elements not covered in my initial note. SUBJECTIVE: I met with the patient in the evening. I met with her in her room. She slept 8-1/4 hours previous evening, still complains of having intrusive thoughts, some racing thoughts, "I can't stop them." REVIEW OF SYSTEMS: No CV, , pulmonary, eye, ENT system symptoms on review. MENTAL STATUS EXAM: Reasonably oriented. Speech is coherent, abstraction fair, computation impaired, language function intact, attention span short. Mood and affect remains somewhat anxious and she is obsessive. LABORATORY DATA: Reviewed. IMPRESSION: Bipolar 1 disorder, mixed with psychotic features; anxiety disorder, unspecified. PLAN: Continue current psychotropics. We may need to increase Luvox for her obsessive thought processes. Valproic acid level therapeutic at 67. Rest unchanged from initial note. MAN Gerhard KNIGHT MD DR: VINOD/portia JOB#: [id number] / [id number]
[2018-09-30 06:17] VITALS: BP 168/62
[2018-09-30] MEDS: rOPINIRole 1 MG TABLET. PO SCH ×3 (07:44→19:31)
[2018-09-30] MEDS: PANTOPRAZOLE 40 MG TABLET. PO SCH (07:44)
[2018-09-30] MEDS: metFORMIN 500 MG TABLET PO SCH ×2 (07:44→17:01)
[2018-09-30] MEDS: GABAPENTIN 100 MG CAPSULE. PO SCH ×3 (07:44→19:29)
[2018-09-30] MEDS: QUEtiapine 25 MG TABLET. PO SCH ×3 (07:45→17:02)
[2018-09-30] MEDS: CARBIDOPA/LEVODOPA 25/100MG TABLET PO SCH ×3 (07:46→19:30)
[2018-09-30] MEDS: LISINOPRIL 20 MG TABLET PO SCH (07:46)
[2018-09-30] MEDS: CETIRIZINE HCL 10 MG TABLET PO SCH (07:46)
[2018-09-30] MEDS: ASPIRIN ENTERIC COATED 81 MG TABLET.DR. PO SCH (07:47)
[2018-09-30] MEDS: EZETIMIBE 10 MG TABLET PO SCH (07:47)
[2018-09-30] MEDS: METOPROLOL SUCC 24HR ER 50 MG TAB.ER.24H. PO SCH (07:47)
[2018-09-30] MEDS: DIVALPROEX 125 MG CAP.SPRINK PO SCH ×3 (07:47→19:30)
--- NOTE | 2018-09-30 14:44 | PN ---
DATE: 09/30/2018 This is a late entry for date of service 09/29/2018 and covers elements not covered in my initial note. SUBJECTIVE: I met with the patient at length in her room evening of 09/29/2018. The patient slept 8 hours previous evening. Overall, she remains somewhat anxious, obsessive. Complains of the intrusive thinking that she has no control over and some racing thoughts. No CV, , pulmonary, eye, ENT system symptoms on review. MENTAL STATUS EXAM: Reasonably oriented. Speech has some latency, coherent. Abstraction fair, computation impaired, language function intact, attention span short. Mood and affect somewhat dysphoric, obsessive, anxious, but no active suicidal or homicidal ideation. LABORATORY DATA: Reviewed. IMPRESSION: Bipolar 1 disorder, mixed with psychotic features, latter in partial remission; obsessive-compulsive disorder; anxiety disorder, unspecified; impulse control disorder, unspecified. PLAN: Increase Luvox from 50 mg at bedtime to 75 mg at bedtime. Continue Depakote, Seroquel, Remeron, trazodone at current dosage and she remains on Sinemet as well. MAN Gerhard KNIGHT MD DR: VINOD/portia JOB#: [id number] / [id number]
--- NOTE | 2018-09-30 15:17 | NUR ---
Patient has been withdrawn to her room this shift. She has been compliant with medications. No negative moods or behaviors observed thus far. Will continue to monitor.
[2018-09-30 16:11] VITALS: BP 139/77
--- NOTE | 2018-09-30 16:17 | NUR ---
Received voice message from Mary Anne at [facility] with request for clinical update be faxed in for review. Faxed update per request. Awaiting outcome.
[2018-09-30 18:08] LABS: TOTAL SERUM CREATININE 0.73 mg/dL (0.57-1.00); TOTAL URINE CREATININE 60.5 mg/dL (Not Estab.); UR PROTEIN 19.2 mg/dL (Not Estab.)
[2018-09-30] MEDS: QUEtiapine 100 MG TABLET. PO SCH (19:30)
[2018-09-30] MEDS: traZODone 100 MG TABLET. PO SCH (19:31)
[2018-09-30] MEDS: PRIMIDONE 50 MG TABLET PO SCH (19:31)
[2018-09-30] MEDS: MIRTAZAPINE 30 MG TABLET PO SCH (19:31)
--- NOTE | 2018-10-01 01:30 | NUR ---
Nursing Note Patient located in the day room initially this shift. The patient is compliant with all cares and medications and is appropriate with all interactions this shift. The patient is currently located in her bed sleeping.
[2018-10-01 05:53] VITALS: BP 145/68
[2018-10-01] MEDS: LISINOPRIL 20 MG TABLET PO SCH (09:36)
[2018-10-01] MEDS: EZETIMIBE 10 MG TABLET PO SCH (09:37)
[2018-10-01] MEDS: CETIRIZINE HCL 10 MG TABLET PO SCH (09:37)
[2018-10-01] MEDS: DIVALPROEX 125 MG CAP.SPRINK PO SCH ×3 (09:37→19:58)
[2018-10-01] MEDS: PANTOPRAZOLE 40 MG TABLET. PO SCH (09:37)
[2018-10-01] MEDS: ASPIRIN ENTERIC COATED 81 MG TABLET.DR. PO SCH (09:37)
[2018-10-01] MEDS: metFORMIN 500 MG TABLET PO SCH ×2 (09:38→16:52)
[2018-10-01] MEDS: GABAPENTIN 100 MG CAPSULE. PO SCH ×3 (09:38→19:58)
[2018-10-01] MEDS: rOPINIRole 1 MG TABLET. PO SCH ×3 (09:38→19:59)
[2018-10-01] MEDS: METOPROLOL SUCC 24HR ER 50 MG TAB.ER.24H. PO SCH (09:39)
[2018-10-01] MEDS: CARBIDOPA/LEVODOPA 25/100MG TABLET PO SCH ×3 (09:39→19:59)
[2018-10-01] MEDS: QUEtiapine 25 MG TABLET. PO SCH ×3 (09:39→16:53)
--- NOTE | 2018-10-01 14:55 | NUR ---
Discussion held with Tracy about her discharging home on 10/02/18. Left message for Diomedes, significant other, to coordinate transport time. Awaiting return phone call.
--- NOTE | 2018-10-01 15:12 | NUR ---
[facility] Social Work Discharge Planning Form Patient Name MEENAKSHI SOLOMON Admit Date: 09/18/2018 DISCHARGE PLAN Discharge Destination: Home Transportation: Diomedes will transport on 10/02/18 at 1pm. Special Instructions/Notes: DISCHARGE TO HOME: Address: [address] [place] [id number] Responsible [employer]: Meenakshi Solomon, mariah Pharmacy: [facility] Contact Information [phone] Psychiatrist/Mental Health Follow Up: Dr. Voss, , call for follow up appointment in 7-10 days. Primary Care Follow Up: Dr. Bauman Contact Information [phone], (fax) Appointment: Left message for Parker, child care attendant, to schedule appointment for Meenakshi with Dr. Bauman. Counselor: Hafsa Staples, , Meenakshi has weekly appointments on Mondays at 1pm with Hafsa.
--- NOTE | 2018-10-01 15:21 | NUR ---
Diomedes, significant other, will transport Tracy home on 10/02/18 at 1pm. Call placed to Dr. Bauman's office to schedule f/u appointment, awaiting return phone call. Tracy has a standing appointment with her counselor, Hafsa Staples, on Mondays at 1pm. Call placed to Hafsa to confirm, awaiting return call.
[2018-10-01 16:37] VITALS: BP 176/74
--- NOTE | 2018-10-01 19:42 | PN ---
DATE: 09/30/2018 PSYCHIATRIC PROGRESS NOTE This late entry 09/30/2018 covers elements not covered in my initial note. SUBJECTIVE: I met with the patient in the evening at length in her room. The patient slept 6-1/2 hours previous night. She isolates to her room, but has been coming out for groups. Overall, she is sleeping better, less anxious, but still has some intrusive, obsessive thinking. Discussed with Kathi, care management coordinator, who has been coordinating authorization with the patient's insurance company. Discussed patient's progress at some length. REVIEW OF SYSTEMS: No CV, , pulmonary, eye, ENT system symptoms on review. MENTAL STATUS EXAM: Reasonably oriented. Speech is coherent, a little pressured at times, but typical for her. Abstraction fair, computation impaired, language function intact, attention span short. Mood and affect somewhat withdrawn at times, but generally less anxious, less obsessive, less labile. LABORATORY DATA: Reviewed. IMPRESSION: Bipolar 1 disorder, mixed with psychotic features, in partial remission; anxiety disorder, unspecified. PLAN: Continue psychotropics from initial note. Valproic acid level therapeutic at 67. May need to increase Seroquel further and order Luvox depending on her progress. KANWAL KNIGHT MD DR: VINOD/portia JOB#: [id number] / [id number]
[2018-10-01] MEDS: PRIMIDONE 50 MG TABLET PO SCH (19:57)
[2018-10-01] MEDS: QUEtiapine 100 MG TABLET. PO SCH (19:57)
[2018-10-01] MEDS: traZODone 100 MG TABLET. PO SCH (19:59)
[2018-10-01] MEDS: MIRTAZAPINE 30 MG TABLET PO SCH (19:59)
--- NOTE | 2018-10-01 22:31 | NUR ---
Nursing Note The patient was located in the day room for interview and medication pass. The patient was somewhat resistive with her medications stating that she didn't know how to take them. This nurse walked the patient through how to take her medication. The patient is currently located in her room sleeping.
--- NOTE | 2018-10-01 22:43 | PDOC ---
Exam Note: [place] Note: Late entry for DOS 09/30/2018. Please also refer to the separate dictated note~ for this date of service dictated separately.~Patient seen individually. Discussed the patient with Nursing staff reviewed the chart.~Reviewed interim history and current functioning. Reviewed vital signs,~Labs/ Radiology~and current medications noted below. Continue current treatment with the changes noted in the dictated addendum note Assessment: Vital Signs: VS - Last 72 Hours, by Label Date Time Temp Pulse Resp B/P (MAP) Pulse Ox O2 Delivery O2 Flow Rate FiO2 10/01/18 16:37 97.6 61 18 176/74 (108) 92 10/01/18 09:39 64 145/68 10/01/18 09:36 64 145/68 10/01/18 05:53 97.8 64 16 145/68 (93) 92 09/30/18 16:11 97.1 64 19 139/77 (97) 93 Room Air 09/30/18 07:47 64 168/62 09/30/18 07:46 64 168/62 09/30/18 06:17 98.0 64 20 168/62 (97) 94 Room Air 09/29/18 15:09 97.7 79 20 166/77 (106) 98 Room Air 09/29/18 08:49 63 158/62 09/29/18 08:48 63 158/62 09/29/18 06:13 97.2 59 18 145/64 (91) 95 Vital Signs Date Time Temp Pulse Resp B/P (MAP) Pulse Ox O2 Delivery O2 Flow Rate FiO2 10/01/18 16:37 97.6 61 18 176/74 (108) 92 09/30/18 16:11 Room Air I&O Intake and Output 10/01/18 07:00 Intake Total 1740 ml Balance 1740 ml Intake Oral 1740 ml Labs: Laboratory Tests Test 10/01/18 08:08 Glucose (Fingerstick) 74 mg/dL (70-99) Current Medications: Meds: Current Medications Lorazepam (Ativan) 1 mg 1X ONCE PO Last administered on 09/18/18at 17:58; Start 09/18/18 at 17:30; Stop 09/18/18 at 17:31; Status DC Acetaminophen (Tylenol) 650 mg PRN Q6HRS PRN PO PAIN / TEMP; Start 09/18/18 at 23:30 Multi-Ingredient Ointment (Analgesic [place]) 1 chuy PRN QID PRN TP MUSCLE PAIN; Start 09/18/18 at 23:30 Al Hydroxide/Mg Hydroxide (Mylanta Plus Xs) 15 ml PRN AFTMEALHC PRN PO DYSPEPSIA; Start 09/18/18 at 23:30 Magnesium Hydroxide (Milk Of Magnesia) 2,400 mg PRN QHS PRN PO CONSTIPATION; Start 09/18/18 at 23:30 Carbidopa/Levodopa (Sinemet 25/100) 1 tab TID PO Last administered on at 19:59; Start 09/19/18 at 09:45 Gabapentin (Neurontin) 300 mg TID PO Last administered on 09/19/18at 13:02; Start 09/19/18 at 09:45; Stop 09/19/18 at 15:44; Status DC Lisinopril (Prinivil) 40 mg DAILY PO Last administered on 10/01/18at 09:36; Start 09/19/18 at 09:45 Zolpidem Tartrate (Ambien) 5 mg PRN QHS PRN PO INSOMNIA; Start 09/19/18 at 09: 30; Stop 09/19/18 at 15:29; Status DC Amlodipine Besylate (Norvasc) 2.5 mg DAILY PO Last administered on 09/19/18at 10:29; Start 09/19/18 at 09:45; Stop 09/19/18 at 15:22; Status DC Aspirin (Children'S Aspirin) 81 mg DAILYWBKFT PO Last administered on at 10:27; Start 09/19/18 at 09:45; Stop 09/19/18 at 15:16; Status DC Cetirizine HCl (ZyrTEC) 10 mg DAILY PO Last administered on 10/01/18at 09:37; Start 09/19/18 at 09:45 Clonazepam (KlonoPIN) 0.25 mg QHS PO ; Start 09/19/18 at 21:00; Stop 09/19/18 at 21:00; Status DC Divalproex Sodium (Depakote) 250 mg DAILY PO ; Start 09/19/18 at 09:45; Stop 09/19/18 at 09:45; Status DC Divalproex Sodium (Depakote Sprinkles) 500 mg BIDACLD PO Last administered on 09/19/18at 12:57; Start 09/19/18 at 11:30; Stop 09/19/18 at 15:07; Status DC Non-Formulary Medication (Ergocalciferol (Vitamin D2) (Vitamin D2)) 50,000 unit TWICE WEEKLY PO ; Start 09/19/18 at 09:30; Stop 09/19/18 at 10:57; Status DC EZETIMIBE (Zetia) 10 mg DAILY PO Last administered on 10/01/18at 09:37; Start 09/19/18 at 09:45 Insulin Glargine (Lantus) 10 units DAILYWBKFT SQ ; Start 09/19/18 at 09:45; Stop 09/19/18 at 09:45; Status DC Lorazepam (Ativan) 0.5 mg PRN Q2HR PRN PO ANXIETY; Start 09/19/18 at 09:45; Stop 09/19/18 at 15:31; Status DC Metformin HCl (Glucophage) 500 mg BIDWMEALS PO Last administered on 10/01/18at 16:52; Start 09/19/18 at 09:45 Metoprolol Succinate (Toprol Xl) 50 mg DAILY PO Last administered on at 10:31; Start 09/19/18 at 09:45; Stop 09/19/18 at 15:24; Status DC Mirtazapine (Remeron) 15 mg QHS PO ; Start 09/19/18 at 21:00; Stop 09/19/18 at 21:00; Status DC Ondansetron HCl (Zofran Odt) 4 mg PRN Q8HRS PRN PO NAUSEA/VOMITING Last administered on 09/25/18at 08:11; Start 09/19/18 at 09:45 Primidone (Mysoline) 50 mg HS PO Last administered on 10/01/18at 19:57; Start 09/19/18 at 21:00 Quetiapine Fumarate (SEROquel) 12.5 mg 0900,1200,1600 PO Last administered on 10/01/18at 16:53; Start 09/19/18 at 12:00 Quetiapine Fumarate (SEROquel) 25 mg QHS PO ; Start 09/19/18 at 21:00; Stop at 21:00; Status DC Ropinirole HCl (Requip) 1 mg TID PO Last administered on 10/01/18at 19:59; Start 09/19/18 at 09:45 Non-Formulary Medication (Sulfamethoxazole/ Trimethoprim (Bactrim 400-80 Mg Tablet)) 1 tab BID PO ; Start 09/19/18 at 21:00; Stop 09/19/18 at 21:00; Status DC Trazodone HCl (Desyrel) 50 mg PRN QHS PRN PO SLEEP; Start 09/19/18 at 09:45; Stop 09/19/18 at 15:33; Status DC Divalproex Sodium (Depakote Sprinkles) 250 mg DAILY PO ; Start 09/20/18 at 09: 00; Stop 09/20/18 at 09:00; Status DC Insulin Glargine (Lantus) 10 units DAILYWBKFT SQ ; Start 09/20/18 at 08:00; Stop 09/20/18 at 08:00; Status DC Vitamin D (Vitamin D3) 50,000 unit TuFr PO Last administered on 09/19/18at 12: 56; Start 09/19/18 at 11:00; Stop 09/19/18 at 15:27; Status DC Quetiapine Fumarate (SEROquel) 100 mg HS PO Last administered on 10/01/18at 19: 57; Start 09/19/18 at 21:00 Divalproex Sodium (Depakote Sprinkles) 500 mg BID@1200,2100 PO Last administered on 10/01/18at 19:58; Start 09/19/18 at 21:00 Amlodipine Besylate (Norvasc) 10 mg DAILY PO Last administered on 09/28/18at 08: 05; Start 09/20/18 at 09:00; Stop 09/28/18 at 12:15; Status DC Metoprolol Succinate (Toprol Xl) 100 mg DAILY PO Last administered on at 09:39; Start 09/20/18 at 09:00 Lorazepam (Ativan) 0.5 mg PRN Q4HRS PRN PO ANXIETY; Start 09/19/18 at 15:45 Trazodone HCl (Desyrel) 100 mg HS PO Last administered on 10/01/18at 19:59; Start 09/19/18 at 21:00 Pantoprazole Sodium (Protonix) 40 mg DAILYAC PO Last administered on 10/01/18at 09:37; Start 09/20/18 at 07:30 Alprazolam (Xanax) 0.5 mg PRN Q8HRS PRN PO ANXIETY; Start 09/19/18 at 15:45 Trazodone HCl (Desyrel) 200 mg QHS PO ; Start 09/19/18 at 21:00; Stop at 21:00; Status DC Ropinirole HCl (Requip) 1 mg TID PO ; Start 09/19/18 at 21:00; Stop 09/19/18 at 21:00; Status DC Gabapentin (Neurontin) 200 mg TID PO Last administered on 10/01/18at 19:58; Start 09/19/18 at 21:00 Tramadol HCl (Ultram) 50 mg PRN Q6HRS PRN PO PAIN; Start 09/19/18 at 15:45 Trazodone HCl (Desyrel) 400 mg QHS PO ; Start 09/19/18 at 21:00; Stop at 21:00; Status DC Mirtazapine (Remeron) 30 mg QHS PO Last administered on 10/01/18at 19:59; Start 09/19/18 at 21:00 Oxcarbazepine (Trileptal) 300 mg BID PO ; Start 09/19/18 at 21:00; Stop at 21:00; Status DC Divalproex Sodium (Depakote Sprinkles) 250 mg DAILY PO Last administered on 10/01/18at 09:37; Start 09/20/18 at 09:00 Risperidone (RisperDAL) 0.75 mg HS PO ; Start 09/19/18 at 21:00; Stop at 21:00; Status DC Risperidone (RisperDAL) 0.5 mg HS PO ; Start 09/19/18 at 21:00; Stop 09/19/18 at 21:00; Status DC Polyethylene Glycol (miraLAX) 17 gm 1X ONCE PO ; Start 09/20/18 at 22:00; Stop 09/20/18 at 22:01; Status DC Polyethylene Glycol (miraLAX) 17 gm PRN DAILY PRN PO CONSTIPATION; Start 09/20 at 22:00 Influenza Virus Vaccine (Afluria Trivalent [id number] Syringe) 0.5 ml ONCE ONCE VAX IM Last administered on 09/23/18at 13:20; Start 09/23/18 at 09:00; Stop 09/23/18 at 09:01; Status DC Fluvoxamine Maleate (Luvox) 25 mg HS PO Last administered on 09/25/18at 20:07; Start 09/23/18 at 21:00; Stop 09/26/18 at 17:59; Status DC Aspirin (Aspirin Enteric Coated) 81 mg DAILYWBKFT PO Last administered on at 09:37; Start 09/27/18 at 08:00 Fluvoxamine Maleate (Luvox) 50 mg HS PO Last administered on 09/28/18at 19:56; Start 09/26/18 at 21:00; Stop 09/29/18 at 16:50; Status DC Fluvoxamine Maleate (Luvox) 75 mg HS PO Last administered on 10/01/18at 19:57; Start 09/29/18 at 21:00 Active Scripts Active Ambien (Zolpidem Tartrate) 5 Mg Tablet 1 Tab PO QHS PRN Trazodone Hcl 50 Mg Tablet 1 Tab PO QHS PRN Bactrim 400-80 Mg Tablet (Sulfamethoxazole/Trimethoprim) 1 Each Tablet 1 Tab PO BID Seroquel (Quetiapine Fumarate) 25 Mg Tablet 1 Tab PO QHS Reported Seroquel (Quetiapine Fumarate) 25 Mg Tablet 0.5 Tab PO Q9,12,16 NOT GIVEN IN THE HOSPITAL RESTART TONIGHT AT BEDTIME Amlodipine Besylate 2.5 Mg Tablet 1 Tab PO DAILY NOT GIVEN IN THE HOSPITAL RESTART TOMORROW AM Vitamin D2 (Ergocalciferol (Vitamin D2)) 50,000 Unit Capsule 50,000 Unit PO TWICE WEEKLY NOT GIVEN IN THE HOSPITAL RESTART ON YOUR NORMAL DAY Ativan (Lorazepam) 0.5 Mg Tablet 0.5 Mg PO PRN Q2HR PRN NOT GIVEN IN THE HOSPITAL RESTART TODAY AT HOME WHEN NEEDED Depakote Sprinkle (Divalproex Sodium) 125 Mg Cap.sprink 250 Mg PO DAILY NOT GIVEN IN THE HOSPITAL RESTART TOMORROW AM Depakote Sprinkle (Divalproex Sodium) 125 Mg Cap.sprink 500 Mg PO BIDACLD NOT GIVEN IN THE HOSPITAL RESTART TONIGHT AT BEDTIME Metformin Hcl 500 Mg Tablet 500 Mg PO BIDWMEALS NOT GIVEN IN THE HOSPITAL RESTART TONIGHT WITH DINNER Gabapentin 100 Mg Capsule 300 Mg PO TID NOT GIVEN IN THE HOSPITAL RESTART TONIGHT AT BEDTIME Metoprolol Succinate ( Xl ) (Metoprolol Succinate) 50 Mg Tab.er.24h 50 Mg PO DAILY NOT GIVEN IN THE HOSPITAL RESTART TOMORROW AM Requip (Ropinirole Hcl) 1 Mg Tablet 1 Mg PO TID NOT GIVEN IN THE HOSPTAL RESTART TONIGHT AT BEDTIME Sinemet 25-100 Mg Tablet (Carbidopa/Levodopa) 1 Each Tablet 1 Each PO TID NOT GIVEN IN THE HOSPITAL RESTART TONIGHT AT BEDTIME Primidone 50 Mg Tablet 50 Mg PO HS NOT GIVEN IN THE HOSPITAL RESTART TOMORROW AM Zofran (Ondansetron Hcl) 4 Mg Tablet 4 Mg PO PRN Q8HRS PRN NOT GIVEN IN THE HOSPITAL RESTART TODAY AT HOME IF NEEDED Clonazepam 1 Mg Tablet 0.25 Mg PO HS NOT GIVEN IN THE HOSPITAL RESTART TODAY AT BEDTIME Lisinopril 20 Mg Tablet 40 Mg PO DAILY NOT GIVEN IN THE HOSPITAL RESTART TOMORROW AM hold for BP less than 100. After a held dose, reassess in 2 ours. IF SBP is above threshold, administer dose as ordered. IF SBP is below threshold, contact provider for additional instructions. Remeron (Mirtazapine) 15 Mg Tablet 15 Mg PO QHS NOT GIVEN IN THE HOSPITAL RESTART TONIGHT AT BEDTIME Cetirizine Hcl 10 Mg Tablet 10 Mg PO DAILY NOT GIVEN IN THE HOSPITAL RESTART TOMORROW AM Aspirin 81 Mg Tab.chew 81 Mg PO DAILY NOT GIVEN IN THE HOSPITAL RESTART TOMORROW AM Levemir (Insulin Detemir) 100 Unit/1 Ml Vial 10 Unit SQ DAILYWBKFT NOT GIVEN IN THE HOSPITAL RESTART TOMORROW WITH BREAKFAST Zetia (Ezetimibe) 10 Mg Tablet 10 Mg PO DAILY NOT GIVEN IN THE HOSPITAL RESTART TOMORROW AM I have reviewed the current psychotropics carefully including drug interactions. Risk benefit ratio favors no change other than as noted in my dictated progress note. Diagnosis: Problems: (1) Bipolar I disorder with jose (2) Hypertension (3) Leg swelling (4) Accelerated hypertension (5) Hip pain, right (6) Cellulitis of right lower limb (7) Accelerated essential hypertension (8) Chronic diastolic (congestive) heart failure (9) Bipolar I disorder with anxious distress (10) Bipolar I disorder with mixed features (11) Anxiety disorder (12) Impulse control disorder (13) UTI (urinary tract infection) (14) Severe anxiety KANWAL KNIGHT MD Oct 01, 2018 22:43
--- NOTE | 2018-10-01 23:15 | PDOC ---
Exam Note: [place] Note: Please also refer to the separate dictated note~for this date of service dictated separately.~Patient seen individually. Discussed the patient with Nursing staff reviewed the chart.~Reviewed interim history and current functioning. Reviewed vital signs,~Labs/ Radiology~and current medications noted below. Continue current treatment with the changes noted in the dictated addendum note Assessment: Vital Signs: Vital Signs Date Time Temp Pulse Resp B/P (MAP) Pulse Ox O2 Delivery O2 Flow Rate FiO2 10/01/18 16:37 97.6 61 18 176/74 (108) 92 09/30/18 16:11 Room Air I&O Intake and Output 10/01/18 07:00 Intake Total 1740 ml Balance 1740 ml Intake Oral 1740 ml Labs: Laboratory Tests Test 10/01/18 08:08 Glucose (Fingerstick) 74 mg/dL (70-99) Current Medications: Meds: Current Medications Lorazepam (Ativan) 1 mg 1X ONCE PO Last administered on 09/18/18at 17:58; Start 09/18/18 at 17:30; Stop 09/18/18 at 17:31; Status DC Acetaminophen (Tylenol) 650 mg PRN Q6HRS PRN PO PAIN / TEMP; Start 09/18/18 at 23:30 Multi-Ingredient Ointment (Analgesic [place]) 1 chuy PRN QID PRN TP MUSCLE PAIN; Start 09/18/18 at 23:30 Al Hydroxide/Mg Hydroxide (Mylanta Plus Xs) 15 ml PRN AFTMEALHC PRN PO DYSPEPSIA; Start 09/18/18 at 23:30 Magnesium Hydroxide (Milk Of Magnesia) 2,400 mg PRN QHS PRN PO CONSTIPATION; Start 09/18/18 at 23:30 Carbidopa/Levodopa (Sinemet 25/100) 1 tab TID PO Last administered on at 19:59; Start 09/19/18 at 09:45 Gabapentin (Neurontin) 300 mg TID PO Last administered on 09/19/18at 13:02; Start 09/19/18 at 09:45; Stop 09/19/18 at 15:44; Status DC Lisinopril (Prinivil) 40 mg DAILY PO Last administered on 10/01/18at 09:36; Start 09/19/18 at 09:45 Zolpidem Tartrate (Ambien) 5 mg PRN QHS PRN PO INSOMNIA; Start 09/19/18 at 09: 30; Stop 09/19/18 at 15:29; Status DC Amlodipine Besylate (Norvasc) 2.5 mg DAILY PO Last administered on 09/19/18at 10:29; Start 09/19/18 at 09:45; Stop 09/19/18 at 15:22; Status DC Aspirin (Children'S Aspirin) 81 mg DAILYWBKFT PO Last administered on at 10:27; Start 09/19/18 at 09:45; Stop 09/19/18 at 15:16; Status DC Cetirizine HCl (ZyrTEC) 10 mg DAILY PO Last administered on 10/01/18at 09:37; Start 09/19/18 at 09:45 Clonazepam (KlonoPIN) 0.25 mg QHS PO ; Start 09/19/18 at 21:00; Stop 09/19/18 at 21:00; Status DC Divalproex Sodium (Depakote) 250 mg DAILY PO ; Start 09/19/18 at 09:45; Stop 09/19/18 at 09:45; Status DC Divalproex Sodium (Depakote Sprinkles) 500 mg BIDACLD PO Last administered on 09/19/18at 12:57; Start 09/19/18 at 11:30; Stop 09/19/18 at 15:07; Status DC Non-Formulary Medication (Ergocalciferol (Vitamin D2) (Vitamin D2)) 50,000 unit TWICE WEEKLY PO ; Start 09/19/18 at 09:30; Stop 09/19/18 at 10:57; Status DC EZETIMIBE (Zetia) 10 mg DAILY PO Last administered on 10/01/18at 09:37; Start 09/19/18 at 09:45 Insulin Glargine (Lantus) 10 units DAILYWBKFT SQ ; Start 09/19/18 at 09:45; Stop 09/19/18 at 09:45; Status DC Lorazepam (Ativan) 0.5 mg PRN Q2HR PRN PO ANXIETY; Start 09/19/18 at 09:45; Stop 09/19/18 at 15:31; Status DC Metformin HCl (Glucophage) 500 mg BIDWMEALS PO Last administered on 10/01/18at 16:52; Start 09/19/18 at 09:45 Metoprolol Succinate (Toprol Xl) 50 mg DAILY PO Last administered on at 10:31; Start 09/19/18 at 09:45; Stop 09/19/18 at 15:24; Status DC Mirtazapine (Remeron) 15 mg QHS PO ; Start 09/19/18 at 21:00; Stop 09/19/18 at 21:00; Status DC Ondansetron HCl (Zofran Odt) 4 mg PRN Q8HRS PRN PO NAUSEA/VOMITING Last administered on 09/25/18at 08:11; Start 09/19/18 at 09:45 Primidone (Mysoline) 50 mg HS PO Last administered on 10/01/18at 19:57; Start 09/19/18 at 21:00 Quetiapine Fumarate (SEROquel) 12.5 mg 0900,1200,1600 PO Last administered on 10/01/18at 16:53; Start 09/19/18 at 12:00 Quetiapine Fumarate (SEROquel) 25 mg QHS PO ; Start 09/19/18 at 21:00; Stop at 21:00; Status DC Ropinirole HCl (Requip) 1 mg TID PO Last administered on 10/01/18at 19:59; Start 09/19/18 at 09:45 Non-Formulary Medication (Sulfamethoxazole/ Trimethoprim (Bactrim 400-80 Mg Tablet)) 1 tab BID PO ; Start 09/19/18 at 21:00; Stop 09/19/18 at 21:00; Status DC Trazodone HCl (Desyrel) 50 mg PRN QHS PRN PO SLEEP; Start 09/19/18 at 09:45; Stop 09/19/18 at 15:33; Status DC Divalproex Sodium (Depakote Sprinkles) 250 mg DAILY PO ; Start 09/20/18 at 09: 00; Stop 09/20/18 at 09:00; Status DC Insulin Glargine (Lantus) 10 units DAILYWBKFT SQ ; Start 09/20/18 at 08:00; Stop 09/20/18 at 08:00; Status DC Vitamin D (Vitamin D3) 50,000 unit TuFr PO Last administered on 09/19/18at 12: 56; Start 09/19/18 at 11:00; Stop 09/19/18 at 15:27; Status DC Quetiapine Fumarate (SEROquel) 100 mg HS PO Last administered on 10/01/18at 19: 57; Start 09/19/18 at 21:00 Divalproex Sodium (Depakote Sprinkles) 500 mg BID@1200,2100 PO Last administered on 10/01/18at 19:58; Start 09/19/18 at 21:00 Amlodipine Besylate (Norvasc) 10 mg DAILY PO Last administered on 09/28/18at 08: 05; Start 09/20/18 at 09:00; Stop 09/28/18 at 12:15; Status DC Metoprolol Succinate (Toprol Xl) 100 mg DAILY PO Last administered on at 09:39; Start 09/20/18 at 09:00 Lorazepam (Ativan) 0.5 mg PRN Q4HRS PRN PO ANXIETY; Start 09/19/18 at 15:45 Trazodone HCl (Desyrel) 100 mg HS PO Last administered on 10/01/18at 19:59; Start 09/19/18 at 21:00 Pantoprazole Sodium (Protonix) 40 mg DAILYAC PO Last administered on 10/01/18at 09:37; Start 09/20/18 at 07:30 Alprazolam (Xanax) 0.5 mg PRN Q8HRS PRN PO ANXIETY; Start 09/19/18 at 15:45 Trazodone HCl (Desyrel) 200 mg QHS PO ; Start 09/19/18 at 21:00; Stop at 21:00; Status DC Ropinirole HCl (Requip) 1 mg TID PO ; Start 09/19/18 at 21:00; Stop 09/19/18 at 21:00; Status DC Gabapentin (Neurontin) 200 mg TID PO Last administered on 10/01/18at 19:58; Start 09/19/18 at 21:00 Tramadol HCl (Ultram) 50 mg PRN Q6HRS PRN PO PAIN; Start 09/19/18 at 15:45 Trazodone HCl (Desyrel) 400 mg QHS PO ; Start 09/19/18 at 21:00; Stop at 21:00; Status DC Mirtazapine (Remeron) 30 mg QHS PO Last administered on 10/01/18at 19:59; Start 09/19/18 at 21:00 Oxcarbazepine (Trileptal) 300 mg BID PO ; Start 09/19/18 at 21:00; Stop at 21:00; Status DC Divalproex Sodium (Depakote Sprinkles) 250 mg DAILY PO Last administered on 10/01/18at 09:37; Start 09/20/18 at 09:00 Risperidone (RisperDAL) 0.75 mg HS PO ; Start 09/19/18 at 21:00; Stop at 21:00; Status DC Risperidone (RisperDAL) 0.5 mg HS PO ; Start 09/19/18 at 21:00; Stop 09/19/18 at 21:00; Status DC Polyethylene Glycol (miraLAX) 17 gm 1X ONCE PO ; Start 09/20/18 at 22:00; Stop 09/20/18 at 22:01; Status DC Polyethylene Glycol (miraLAX) 17 gm PRN DAILY PRN PO CONSTIPATION; Start 09/20 at 22:00 Influenza Virus Vaccine (Afluria Trivalent [id number] Syringe) 0.5 ml ONCE ONCE VAX IM Last administered on 09/23/18at 13:20; Start 09/23/18 at 09:00; Stop 09/23/18 at 09:01; Status DC Fluvoxamine Maleate (Luvox) 25 mg HS PO Last administered on 09/25/18at 20:07; Start 09/23/18 at 21:00; Stop 09/26/18 at 17:59; Status DC Aspirin (Aspirin Enteric Coated) 81 mg DAILYWBKFT PO Last administered on at 09:37; Start 09/27/18 at 08:00 Fluvoxamine Maleate (Luvox) 50 mg HS PO Last administered on 09/28/18at 19:56; Start 09/26/18 at 21:00; Stop 09/29/18 at 16:50; Status DC Fluvoxamine Maleate (Luvox) 75 mg HS PO Last administered on 10/01/18at 19:57; Start 09/29/18 at 21:00 Active Scripts Active Ambien (Zolpidem Tartrate) 5 Mg Tablet 1 Tab PO QHS PRN Trazodone Hcl 50 Mg Tablet 1 Tab PO QHS PRN Bactrim 400-80 Mg Tablet (Sulfamethoxazole/Trimethoprim) 1 Each Tablet 1 Tab PO BID Seroquel (Quetiapine Fumarate) 25 Mg Tablet 1 Tab PO QHS Reported Seroquel (Quetiapine Fumarate) 25 Mg Tablet 0.5 Tab PO Q9,12,16 NOT GIVEN IN THE HOSPITAL RESTART TONIGHT AT BEDTIME Amlodipine Besylate 2.5 Mg Tablet 1 Tab PO DAILY NOT GIVEN IN THE HOSPITAL RESTART TOMORROW AM Vitamin D2 (Ergocalciferol (Vitamin D2)) 50,000 Unit Capsule 50,000 Unit PO TWICE WEEKLY NOT GIVEN IN THE HOSPITAL RESTART ON YOUR NORMAL DAY Ativan (Lorazepam) 0.5 Mg Tablet 0.5 Mg PO PRN Q2HR PRN NOT GIVEN IN THE HOSPITAL RESTART TODAY AT HOME WHEN NEEDED Depakote Sprinkle (Divalproex Sodium) 125 Mg Cap.sprink 250 Mg PO DAILY NOT GIVEN IN THE HOSPITAL RESTART TOMORROW AM Depakote Sprinkle (Divalproex Sodium) 125 Mg Cap.sprink 500 Mg PO BIDACLD NOT GIVEN IN THE HOSPITAL RESTART TONIGHT AT BEDTIME Metformin Hcl 500 Mg Tablet 500 Mg PO BIDWMEALS NOT GIVEN IN THE HOSPITAL RESTART TONIGHT WITH DINNER Gabapentin 100 Mg Capsule 300 Mg PO TID NOT GIVEN IN THE HOSPITAL RESTART TONIGHT AT BEDTIME Metoprolol Succinate ( Xl ) (Metoprolol Succinate) 50 Mg Tab.er.24h 50 Mg PO DAILY NOT GIVEN IN THE HOSPITAL RESTART TOMORROW AM Requip (Ropinirole Hcl) 1 Mg Tablet 1 Mg PO TID NOT GIVEN IN THE HOSPTAL RESTART TONIGHT AT BEDTIME Sinemet 25-100 Mg Tablet (Carbidopa/Levodopa) 1 Each Tablet 1 Each PO TID NOT GIVEN IN THE HOSPITAL RESTART TONIGHT AT BEDTIME Primidone 50 Mg Tablet 50 Mg PO HS NOT GIVEN IN THE HOSPITAL RESTART TOMORROW AM Zofran (Ondansetron Hcl) 4 Mg Tablet 4 Mg PO PRN Q8HRS PRN NOT GIVEN IN THE HOSPITAL RESTART TODAY AT HOME IF NEEDED Clonazepam 1 Mg Tablet 0.25 Mg PO HS NOT GIVEN IN THE HOSPITAL RESTART TODAY AT BEDTIME Lisinopril 20 Mg Tablet 40 Mg PO DAILY NOT GIVEN IN THE HOSPITAL RESTART TOMORROW AM hold for BP less than 100. After a held dose, reassess in 2 ours. IF SBP is above threshold, administer dose as ordered. IF SBP is below threshold, contact provider for additional instructions. Remeron (Mirtazapine) 15 Mg Tablet 15 Mg PO QHS NOT GIVEN IN THE HOSPITAL RESTART TONIGHT AT BEDTIME Cetirizine Hcl 10 Mg Tablet 10 Mg PO DAILY NOT GIVEN IN THE HOSPITAL RESTART TOMORROW AM Aspirin 81 Mg Tab.chew 81 Mg PO DAILY NOT GIVEN IN THE HOSPITAL RESTART TOMORROW AM Levemir (Insulin Detemir) 100 Unit/1 Ml Vial 10 Unit SQ DAILYWBKFT NOT GIVEN IN THE HOSPITAL RESTART TOMORROW WITH BREAKFAST Zetia (Ezetimibe) 10 Mg Tablet 10 Mg PO DAILY NOT GIVEN IN THE HOSPITAL RESTART TOMORROW AM I have reviewed the current psychotropics carefully including drug interactions. Risk benefit ratio favors no change other than as noted in my dictated progress note. Diagnosis: Problems: (1) Bipolar I disorder with jose (2) Hypertension (3) Leg swelling (4) Accelerated hypertension (5) Hip pain, right (6) Cellulitis of right lower limb (7) Accelerated essential hypertension (8) Chronic diastolic (congestive) heart failure (9) Bipolar I disorder with anxious distress (10) Bipolar I disorder with mixed features (11) Anxiety disorder (12) Impulse control disorder (13) UTI (urinary tract infection) (14) Severe anxiety KANWAL KNIGHT MD Oct 01, 2018 23:14
[2018-10-02] MEDS ORDERED: METH29OI TP (00:45)
[2018-10-02] MEDS ORDERED: TRAM50TA PO (00:48)
[2018-10-02] MEDS ORDERED: ACET325T9 PO (00:54)
[2018-10-02] MEDS ORDERED: FLUV50TA2 PO (01:07)
[2018-10-02] MEDS ORDERED: TRAZ-86 PO (01:15)
[2018-10-02] MEDS ORDERED: QUET100T4 PO (01:20)
[2018-10-02] MEDS ORDERED: ALPR0.5T6 PO (01:23)
[2018-10-02] MEDS ORDERED: MAG30ORA2 PO (01:26)
[2018-10-02] MEDS ORDERED: MAGN400O7 PO (01:27)
[2018-10-02] MEDS ORDERED: POLY17PO5 PO (01:29)
[2018-10-02] MEDS ORDERED: PANT40TA5 PO (01:30)
[2018-10-02 05:55] VITALS: BP 134/56
--- NOTE | 2018-10-02 08:45 | NUR ---
WEEKLY ACTIVITY THERAPY NOTE Date of Admission: 09/18/2018 Date of AT assessment: 09/22/2018 Goal aimed: to increase stress management skills Initial goal: Pt. will participate in at least one group or individual activity per day. Weekly progress towards goal: did not achieve Group participation level: minimal Behaviors observed: Pt. often sleeps through groups; Pt. has been invited to groups but declines to sleep; when attending groups, Pt. participates best with prompting Plan: no change to goal
[2018-10-02] MEDS: LISINOPRIL 20 MG TABLET PO SCH (09:00)
[2018-10-02] MEDS: METOPROLOL SUCC 24HR ER 50 MG TAB.ER.24H. PO SCH (09:00)
[2018-10-02] MEDS: PANTOPRAZOLE 40 MG TABLET. PO SCH (09:18)
[2018-10-02] MEDS: ASPIRIN ENTERIC COATED 81 MG TABLET.DR. PO SCH (09:19)
[2018-10-02] MEDS: DIVALPROEX 125 MG CAP.SPRINK PO SCH ×2 (09:19→12:40)
[2018-10-02] MEDS: metFORMIN 500 MG TABLET PO SCH (09:19)
[2018-10-02] MEDS: GABAPENTIN 100 MG CAPSULE. PO SCH (09:20)
[2018-10-02] MEDS: rOPINIRole 1 MG TABLET. PO SCH (09:20)
[2018-10-02] MEDS: CARBIDOPA/LEVODOPA 25/100MG TABLET PO SCH (09:21)
[2018-10-02] MEDS: QUEtiapine 25 MG TABLET. PO SCH ×2 (09:21→12:40)
[2018-10-02] MEDS: CETIRIZINE HCL 10 MG TABLET PO SCH (09:21)
[2018-10-02] MEDS: EZETIMIBE 10 MG TABLET PO SCH (09:22)
--- NOTE | 2018-10-02 10:05 | NUR ---
Pt is cooperative with medication and assessment. She is anxious this morning regarding having all of her belongings for her discharge. No hallucinations or delusions noted. No agitation or aggression. Pt denies SI/HI.
--- NOTE | 2018-10-02 11:25 | NUR ---
psych medications called into [facility].
--- NOTE | 2018-10-02 11:27 | NUR ---
Tracy has a f/u appointment scheduled with Dr. Bauman on 10/09/18 at 3pm.
--- NOTE | 2018-10-02 12:00 | NUR ---
Tracy has a f/u appointment with Hafsa Staples, therapist, on 10/13/18 at 1pm.
--- NOTE | 2018-10-02 13:13 | NUR ---
Transition Record was faxed to follow-up provider with the following elements: Reason for admission, procedures, tests, principal diagnosis, pending studies, patient instructions, 17/06 contact information for unit, phone number to obtain pending test results, plan for follow-up care, physician follow-up, advanced directive information, and medication list with dose, duration and instructions. This information was included in the following documents: History and physical, lab results, study results, progress notes, social work planning form, DC instruction form, patient visit summary, and medication reconciliation form. Date & time record faxed: 1100 10/02/18 Record faxed to: Dr. Bauman Record discussed with/ report given to: Diomedes and Pt-Tracy Solomon.
--- NOTE | 2018-10-03 17:49 | DS ---
DATE OF DISCHARGE: 10/02/2018 DISCHARGE SUMMMARY/PSYCHIATRIC PROGRESS NOTE This late entry 10/02/2018 covers elements not covered in my initial note. REASON FOR ADMISSION: Please refer to the admission history for details. Briefly, the patient is a 78-year-old female who I followed outpatient for a long time. She has a diagnosis of bipolar disorder, had been repeatedly calling me at the office, unable to sleep, extremely paranoid, manic, anxious, despite intensive outpatient treatment and seeing her psychologist on a regular basis. She had made statements that she does not want to "go on like this." She was psychotic and admitted for inpatient psychiatric stabilization. SIGNIFICANT FINDINGS AND CLINICAL COURSE: Following admission, the patient was seen daily individually by myself, followed medically per Dr. Apodaca/Dr. Daniels. She had marked mood lability, anxiety, obsessive thought processes, racing thoughts with a mixed episode of bipolar disorder. Adjustments were made in her psychotropics. Depakote was readjusted back to 250 mg a.m. and 500 mg at noon and 2100 with a level of 67, therapeutic. She was also on Requip 1 mg 3 times a day, Seroquel 12.5 mg 3 times a day, trazodone 100 mg at bedtime, Remeron 30 mg at bedtime, Seroquel 100 mg at bedtime, Ativan p.r.n., Luvox 75 mg at bedtime, remained on Sinemet 25/100 t.i.d. Gradually mood appeared to improve. She was sleeping much better, less anxious, less obsessive and improved enough to transition to outpatient treatment. Prior to discharge, 10/02/2018, no CV, , pulmonary, eye, ENT system symptoms on review, still complains of anxiety, obsessive thought processes. MENTAL STATUS EXAM: Reasonably oriented. Speech coherent, rapid at times. Abstraction fair, computation impaired, language function intact, attention span short. Mood and affect, lability was improved. LABORATORY DATA: Reviewed. FINAL DIAGNOSES: Bipolar 1 disorder, mixed with psychotic features, in partial remission; anxiety disorder, unspecified; obsessive-compulsive disorder symptoms. Rest unchanged. DISCHARGE MEDICATIONS: Please refer to the MRAD. DISCHARGE INSTRUCTIONS: Outpatient psychiatric followup with myself, medical followup with Dr. Estrada and Psychology with her therapist, Hafsa Staples. Time for discharge day management is greater than 30 minutes. MAN Gerhard KNIGHT MD DR: Thomas JOB#: [id number] / [id number]
--- NOTE | 2018-10-03 19:15 | PN ---
DATE: 10/01/2018 PSYCHIATRIC PROGRESS NOTE This late entry 10/01/2018 covers elements not covered in my initial note. SUBJECTIVE: I met with the patient in the evening at length in her room. She slept 8 hours previous night. She did come out to the day room, still states she has intrusive thinking, obsessive thought processes, but less anxious. REVIEW OF SYSTEMS: No CV, , pulmonary, eye system symptoms on review. MENTAL STATUS EXAM: Reasonably oriented. Speech is coherent, abstraction fair, computation impaired, language function intact, remains somewhat anxious, dysphoric. No suicidal ideation. LABORATORY DATA: Reviewed. IMPRESSION: Unchanged from initial note. PLAN: No change from initial note. We may need to increase the Luvox further as an outpatient. MAN Gerhard KNIGHT MD DR: VINOD/portia JOB#: [id number] / [id number]
--- NOTE | 2018-10-03 19:27 | PDOC ---
Exam Note: [place] Note: Late entry for date of service October 02, 2018. Please also refer to the separate dictated note~for this date of service dictated separately.~Patient seen individually. Discussed the patient with Nursing staff reviewed the chart.~ Reviewed interim history and current functioning. Reviewed vital signs,~Labs/ Radiology~and current medications noted below. Continue current treatment with the changes noted in the dictated addendum note Assessment: Vital Signs: VS - Last 72 Hours, by Label Date Time Temp Pulse Resp B/P (MAP) Pulse Ox O2 Delivery O2 Flow Rate FiO2 10/02/18 05:55 97.0 59 18 134/56 (82) 92 10/01/18 16:37 97.6 61 18 176/74 (108) 92 10/01/18 09:39 64 145/68 10/01/18 09:36 64 145/68 10/01/18 05:53 97.8 64 16 145/68 (93) 92 Vital Signs Date Time Temp Pulse Resp B/P (MAP) Pulse Ox O2 Delivery O2 Flow Rate FiO2 10/02/18 05:55 97.0 59 18 134/56 (82) 92 09/30/18 16:11 Room Air I&O Intake and Output 10/03/18 07:00 Intake Total 720 ml Balance 720 ml Intake Oral 720 ml Current Medications: Meds: Current Medications Lorazepam (Ativan) 1 mg 1X ONCE PO Last administered on 09/18/18at 17:58; Start 09/18/18 at 17:30; Stop 09/18/18 at 17:31; Status DC Acetaminophen (Tylenol) 650 mg PRN Q6HRS PRN PO PAIN / TEMP; Start 09/18/18 at 23:30; Stop 10/02/18 at 13:14; Status DC Multi-Ingredient Ointment (Analgesic [place]) 1 alyce PRN QID PRN TP MUSCLE PAIN; Start 09/18/18 at 23:30; Stop 10/02/18 at 13:14; Status DC Al Hydroxide/Mg Hydroxide (Mylanta Plus Xs) 15 ml PRN AFTMEALHC PRN PO DYSPEPSIA; Start 09/18/18 at 23:30; Stop 10/02/18 at 13:14; Status DC Magnesium Hydroxide (Milk Of Magnesia) 2,400 mg PRN QHS PRN PO CONSTIPATION; Start 09/18/18 at 23:30; Stop 10/02/18 at 13:14; Status DC Carbidopa/Levodopa (Sinemet 25/100) 1 tab TID PO Last administered on at 09:21; Start 09/19/18 at 09:45; Stop 10/02/18 at 13:14; Status DC Gabapentin (Neurontin) 300 mg TID PO Last administered on 09/19/18at 13:02; Start 09/19/18 at 09:45; Stop 09/19/18 at 15:44; Status DC Lisinopril (Prinivil) 40 mg DAILY PO Last administered on 10/01/18at 09:36; Start 09/19/18 at 09:45; Stop 10/02/18 at 13:14; Status DC Zolpidem Tartrate (Ambien) 5 mg PRN QHS PRN PO INSOMNIA; Start 09/19/18 at 09: 30; Stop 09/19/18 at 15:29; Status DC Amlodipine Besylate (Norvasc) 2.5 mg DAILY PO Last administered on 09/19/18at 10:29; Start 09/19/18 at 09:45; Stop 09/19/18 at 15:22; Status DC Aspirin (Children'S Aspirin) 81 mg DAILYWBKFT PO Last administered on at 10:27; Start 09/19/18 at 09:45; Stop 09/19/18 at 15:16; Status DC Cetirizine HCl (ZyrTEC) 10 mg DAILY PO Last administered on 10/02/18at 09:21; Start 09/19/18 at 09:45; Stop 10/02/18 at 13:14; Status DC Clonazepam (KlonoPIN) 0.25 mg QHS PO ; Start 09/19/18 at 21:00; Stop 09/19/18 at 21:00; Status DC Divalproex Sodium (Depakote) 250 mg DAILY PO ; Start 09/19/18 at 09:45; Stop 09/19/18 at 09:45; Status DC Divalproex Sodium (Depakote Sprinkles) 500 mg BIDACLD PO Last administered on 09/19/18at 12:57; Start 09/19/18 at 11:30; Stop 09/19/18 at 15:07; Status DC Non-Formulary Medication (Ergocalciferol (Vitamin D2) (Vitamin D2)) 50,000 unit TWICE WEEKLY PO ; Start 09/19/18 at 09:30; Stop 09/19/18 at 10:57; Status DC EZETIMIBE (Zetia) 10 mg DAILY PO Last administered on 10/02/18at 09:22; Start 09/19/18 at 09:45; Stop 10/02/18 at 13:14; Status DC Insulin Glargine (Lantus) 10 units DAILYWBKFT SQ ; Start 09/19/18 at 09:45; Stop 09/19/18 at 09:45; Status DC Lorazepam (Ativan) 0.5 mg PRN Q2HR PRN PO ANXIETY; Start 09/19/18 at 09:45; Stop 09/19/18 at 15:31; Status DC Metformin HCl (Glucophage) 500 mg BIDWMEALS PO Last administered on 10/02/18at 09:19; Start 09/19/18 at 09:45; Stop 10/02/18 at 13:14; Status DC Metoprolol Succinate (Toprol Xl) 50 mg DAILY PO Last administered on at 10:31; Start 09/19/18 at 09:45; Stop 09/19/18 at 15:24; Status DC Mirtazapine (Remeron) 15 mg QHS PO ; Start 09/19/18 at 21:00; Stop 09/19/18 at 21:00; Status DC Ondansetron HCl (Zofran Odt) 4 mg PRN Q8HRS PRN PO NAUSEA/VOMITING Last administered on 09/25/18at 08:11; Start 09/19/18 at 09:45; Stop 10/02/18 at 13: 14; Status DC Primidone (Mysoline) 50 mg HS PO Last administered on 10/01/18at 19:57; Start 09/19/18 at 21:00; Stop 10/02/18 at 13:14; Status DC Quetiapine Fumarate (SEROquel) 12.5 mg 0900,1200,1600 PO Last administered on 10/02/18at 12:40; Start 09/19/18 at 12:00; Stop 10/02/18 at 13:14; Status DC Quetiapine Fumarate (SEROquel) 25 mg QHS PO ; Start 09/19/18 at 21:00; Stop at 21:00; Status DC Ropinirole HCl (Requip) 1 mg TID PO Last administered on 10/02/18at 09:20; Start 09/19/18 at 09:45; Stop 10/02/18 at 13:14; Status DC Non-Formulary Medication (Sulfamethoxazole/ Trimethoprim (Bactrim 400-80 Mg Tablet)) 1 tab BID PO ; Start 09/19/18 at 21:00; Stop 09/19/18 at 21:00; Status DC Trazodone HCl (Desyrel) 50 mg PRN QHS PRN PO SLEEP; Start 09/19/18 at 09:45; Stop 09/19/18 at 15:33; Status DC Divalproex Sodium (Depakote Sprinkles) 250 mg DAILY PO ; Start 09/20/18 at 09: 00; Stop 09/20/18 at 09:00; Status DC Insulin Glargine (Lantus) 10 units DAILYWBKFT SQ ; Start 09/20/18 at 08:00; Stop 09/20/18 at 08:00; Status DC Vitamin D (Vitamin D3) 50,000 unit TuFr PO Last administered on 09/19/18at 12: 56; Start 09/19/18 at 11:00; Stop 09/19/18 at 15:27; Status DC Quetiapine Fumarate (SEROquel) 100 mg HS PO Last administered on 10/01/18at 19: 57; Start 09/19/18 at 21:00; Stop 10/02/18 at 13:14; Status DC Divalproex Sodium (Depakote Sprinkles) 500 mg BID@1200,2100 PO Last administered on 10/02/18at 12:40; Start 09/19/18 at 21:00; Stop 10/02/18 at 13: 14; Status DC Amlodipine Besylate (Norvasc) 10 mg DAILY PO Last administered on 09/28/18at 08: 05; Start 09/20/18 at 09:00; Stop 09/28/18 at 12:15; Status DC Metoprolol Succinate (Toprol Xl) 100 mg DAILY PO Last administered on at 09:39; Start 09/20/18 at 09:00; Stop 10/02/18 at 13:14; Status DC Lorazepam (Ativan) 0.5 mg PRN Q4HRS PRN PO ANXIETY; Start 09/19/18 at 15:45; Stop 10/02/18 at 13:14; Status DC Trazodone HCl (Desyrel) 100 mg HS PO Last administered on 10/01/18at 19:59; Start 09/19/18 at 21:00; Stop 10/02/18 at 13:14; Status DC Pantoprazole Sodium (Protonix) 40 mg DAILYAC PO Last administered on 10/02/18at 09:18; Start 09/20/18 at 07:30; Stop 10/02/18 at 13:14; Status DC Alprazolam (Xanax) 0.5 mg PRN Q8HRS PRN PO ANXIETY; Start 09/19/18 at 15:45; Stop 10/02/18 at 13:14; Status DC Trazodone HCl (Desyrel) 200 mg QHS PO ; Start 09/19/18 at 21:00; Stop at 21:00; Status DC Ropinirole HCl (Requip) 1 mg TID PO ; Start 09/19/18 at 21:00; Stop 09/19/18 at 21:00; Status DC Gabapentin (Neurontin) 200 mg TID PO Last administered on 10/02/18at 09:20; Start 09/19/18 at 21:00; Stop 10/02/18 at 13:14; Status DC Tramadol HCl (Ultram) 50 mg PRN Q6HRS PRN PO PAIN; Start 09/19/18 at 15:45; Stop 10/02/18 at 13:14; Status DC Trazodone HCl (Desyrel) 400 mg QHS PO ; Start 09/19/18 at 21:00; Stop at 21:00; Status DC Mirtazapine (Remeron) 30 mg QHS PO Last administered on 10/01/18at 19:59; Start 09/19/18 at 21:00; Stop 10/02/18 at 13:14; Status DC Oxcarbazepine (Trileptal) 300 mg BID PO ; Start 09/19/18 at 21:00; Stop at 21:00; Status DC Divalproex Sodium (Depakote Sprinkles) 250 mg DAILY PO Last administered on 10/02/18at 09:19; Start 09/20/18 at 09:00; Stop 10/02/18 at 13:14; Status DC Risperidone (RisperDAL) 0.75 mg HS PO ; Start 09/19/18 at 21:00; Stop at 21:00; Status DC Risperidone (RisperDAL) 0.5 mg HS PO ; Start 09/19/18 at 21:00; Stop 09/19/18 at 21:00; Status DC Polyethylene Glycol (miraLAX) 17 gm 1X ONCE PO ; Start 09/20/18 at 22:00; Stop 09/20/18 at 22:01; Status DC Polyethylene Glycol (miraLAX) 17 gm PRN DAILY PRN PO CONSTIPATION; Start 09/20 at 22:00; Stop 10/02/18 at 13:14; Status DC Influenza Virus Vaccine (Afluria Trivalent 7503-3935 Syringe) 0.5 ml ONCE ONCE VAX IM Last administered on 09/23/18at 13:20; Start 09/23/18 at 09:00; Stop 09/23/18 at 09:01; Status DC Fluvoxamine Maleate (Luvox) 25 mg HS PO Last administered on 09/25/18at 20:07; Start 09/23/18 at 21:00; Stop 09/26/18 at 17:59; Status DC Aspirin (Aspirin Enteric Coated) 81 mg DAILYWBKFT PO Last administered on at 09:19; Start 09/27/18 at 08:00; Stop 10/02/18 at 13:14; Status DC Fluvoxamine Maleate (Luvox) 50 mg HS PO Last administered on 09/28/18at 19:56; Start 09/26/18 at 21:00; Stop 09/29/18 at 16:50; Status DC Fluvoxamine Maleate (Luvox) 75 mg HS PO Last administered on 10/01/18at 19:57; Start 09/29/18 at 21:00; Stop 10/02/18 at 13:14; Status DC Active Scripts Active Reported Pantoprazole Sodium 40 Mg Tablet.dr 40 Mg PO DAILYAC LAST DOSE GIVEN: DATE: TIME: NEXT DOSE DUE: DATE: 10/03/18 TIME: 8am Miralax (Polyethylene Glycol 3350) 17 Gm Powd.pack 17 Gm PO PRN DAILY PRN Milk Of Magnesia (Magnesium Hydroxide) 400 Mg/5 Ml Oral.susp 2,400 Mg PO PRN QHS PRN Mag-Al Plus Xs Suspension (Mag Hydrox/Al Hydrox/Simeth) 30 Ml Oral.susp 15 Ml PO PRN AFTMEALHC PRN Alprazolam 0.5 Mg Tablet 0.5 Mg PO PRN Q8HRS PRN LAST DOSE GIVEN: DATE: TIME: NEXT DOSE DUE: Take as needed DATE: TIME: Seroquel (Quetiapine Fumarate) 100 Mg Tablet 100 Mg PO HS LAST DOSE GIVEN: DATE: TIME: NEXT DOSE DUE: DATE: 10/02/18 TIME: Bedtime Trazodone Hcl 100 Mg Tablet 100 Mg PO HS LAST DOSE GIVEN: DATE: TIME: NEXT DOSE DUE: DATE: 10/02/18 TIME: Bedtime Fluvoxamine Maleate 50 Mg Tablet 75 Mg PO HS LAST DOSE GIVEN: DATE: TIME: NEXT DOSE DUE: DATE: 10/02/18 TIME: Bedtime Tylenol (Acetaminophen) 325 Mg Tablet 650 Mg PO PRN Q6HRS PRN Tramadol Hcl (Tramadol HCl) 50 Mg Tablet 50 Mg PO PRN Q6HRS PRN LAST DOSE GIVEN: DATE: TIME: NEXT DOSE DUE: Take as needed DATE: TIME: Analgesic [place] (Methyl Salicylate/Menthol) 28 Gm Oint...g. 1 Alyce TP PRN QID PRN Seroquel (Quetiapine Fumarate) 25 Mg Tablet 0.5 Tab PO 9AM,1200,4PM LAST DOSE GIVEN: DATE: TIME: NEXT DOSE DUE: DATE: 10/02/18 TIME: 4pm Ativan (Lorazepam) 0.5 Mg Tablet 0.5 Mg PO PRN Q4HRS PRN LAST DOSE GIVEN: DATE: TIME: NEXT DOSE DUE: Take as needed DATE: TIME: Depakote Sprinkle (Divalproex Sodium) 125 Mg Cap.sprink 250 Mg PO DAILY LAST DOSE GIVEN: DATE: TIME: NEXT DOSE DUE: DATE:10/03/18 TIME: 8am Depakote Sprinkle (Divalproex Sodium) 125 Mg Cap.sprink 500 Mg PO 1200,9PM LAST DOSE GIVEN: DATE: TIME: NEXT DOSE DUE: DATE:10/02/18 TIME: Bedtime Metformin Hcl 500 Mg Tablet 500 Mg PO BIDWMEALS LAST DOSE GIVEN: DATE: TIME: NEXT DOSE DUE: DATE: 10/02/18 TIME: Dinner Gabapentin 100 Mg Capsule 200 Mg PO TID LAST DOSE GIVEN: DATE: TIME: NEXT DOSE DUE: DATE: 10/02/18 TIME:2pm then again at bedtime. Metoprolol Succinate ( Xl ) (Metoprolol Succinate) 50 Mg Tab.er.24h 100 Mg PO DAILY LAST DOSE GIVEN: DATE: TIME: NEXT DOSE DUE: DATE: 10/03/18 TIME: 8am Requip (Ropinirole Hcl) 1 Mg Tablet 1 Mg PO TID LAST DOSE GIVEN: DATE: TIME: NEXT DOSE DUE: DATE: 10/02/18 TIME: 2pm Sinemet 25-100 Mg Tablet (Carbidopa/Levodopa) 1 Each Tablet 1 Each PO TID LAST DOSE GIVEN: DATE: TIME: NEXT DOSE DUE: DATE: 10/02/18 TIME: 2pm Primidone 50 Mg Tablet 50 Mg PO HS LAST DOSE GIVEN: DATE: TIME: NEXT DOSE DUE: DATE: 10/02/18 TIME: Bedtime Zofran (Ondansetron Hcl) 4 Mg Tablet 4 Mg PO PRN Q8HRS PRN LAST DOSE GIVEN: DATE: TIME: NEXT DOSE DUE: Take as needed DATE: TIME: Lisinopril 20 Mg Tablet 40 Mg PO DAILY hold for a systolic BP less than 100. After a held dose, reassess in 2 ours. IF SBP is above threshold, administer dose as ordered. IF SBP is below threshold, contact provider for additional instructions. LAST DOSE GIVEN: DATE: TIME: NEXT DOSE DUE: DATE: 10/03/18 TIME: 8am Remeron (Mirtazapine) 15 Mg Tablet 30 Mg PO QHS LAST DOSE GIVEN: DATE: TIME: NEXT DOSE DUE: DATE: 10/02/18 TIME: Bedtime Cetirizine Hcl 10 Mg Tablet 10 Mg PO DAILY LAST DOSE GIVEN: DATE: TIME: NEXT DOSE DUE: DATE: 10/03/18 TIME: 8am Aspirin 81 Mg Tab.chew 81 Mg PO DAILY LAST DOSE GIVEN: DATE: TIME: NEXT DOSE DUE: DATE: 10/03/18 TIME: 8am Zetia (Ezetimibe) 10 Mg Tablet 10 Mg PO DAILY LAST DOSE GIVEN: DATE: TIME: NEXT DOSE DUE: DATE: 10/03/18 TIME: 8am I have reviewed the current psychotropics carefully including drug interactions. Risk benefit ratio favors no change other than as noted in my dictated progress note. Diagnosis: Problems: (1) Bipolar I disorder with jose (2) Hypertension (3) Leg swelling (4) Accelerated hypertension (5) Hip pain, right (6) Cellulitis of right lower limb (7) Accelerated essential hypertension (8) Chronic diastolic (congestive) heart failure (9) Bipolar I disorder with anxious distress (10) Bipolar I disorder with mixed features (11) Anxiety disorder (12) Impulse control disorder (13) UTI (urinary tract infection) (14) Severe anxiety KANWAL KNIGHT MD Oct 03, 2018 19:27
== END 2018-10-02 12:45 | disposition home or self-care (01) | DRG 885 ==
LOC: ER 16:41 → GEROPSY 18:49
PROVIDERS: ADMIT Psychiatry & Neurology Psychiatry; ATTEND Psychiatry & Neurology Psychiatry
DX: F31.64 Bipolar disorder, current episode mixed, severe, with psychotic features (principal); I50.32 Chronic diastolic (congestive) heart failure; L03.115 Cellulitis of right lower limb; N39.0 Urinary tract infection, site not specified; E11.621 Type 2 diabetes mellitus with foot ulcer; E78.5 Hyperlipidemia, unspecified; F02.80 Dementia in other diseases classified elsewhere, unspecified severity, without behavioral disturbance, psychotic disturbance, mood disturbance, and anxiety; F09 Unspecified mental disorder due to known physiological condition; F41.9 Anxiety disorder, unspecified; F42.9 Obsessive-compulsive disorder, unspecified; F63.9 Impulse disorder, unspecified; G20 Parkinson's disease; G47.00 Insomnia, unspecified; I11.0 Hypertensive heart disease with heart failure; L97.509 Non-pressure chronic ulcer of other part of unspecified foot with unspecified severity; Z79.899 Other long term (current) drug therapy; Z87.891 Personal history of nicotine dependence; Z90.49 Acquired absence of other specified parts of digestive tract; Z90.710 Acquired absence of both cervix and uterus; Z88.8 Allergy status to other drugs, medicaments and biological substances
CPT/HCPCS: 36415; 74022; 80053; 80164; 81001; 82575; 82947; 83690; 83735; 84156; 84436; 84443; 84480; 85025; 87086; 90471; 90756; 93005; 93931; J1815; Q0162; 99285-25; Q2035

== ENCOUNTER 2018-10-04 18:09 | Emergency (ER) | payer MEDICARE, OTHER ==
[~2018-10-04] VITALS: Ht 162.6 cm; Wt 52.0 kg
[~2018-10-04 18:09] MED LIST changes: +ACET325T9 PO; +ALPR0.5T6 PO; +FLUV50TA2 PO; +MAG30ORA2 PO; +MAGN400O7 PO; +METH29OI TP; +PANT40TA5 PO; +POLY17PO5 PO; +QUET100T4 PO
[2018-10-04 18:42] VITALS: BP 165/79
--- NOTE | 2018-10-04 18:49 | PHYS DOC ---
Past History Past Medical History: Anxiety Additional Past Medical Histor: bipolar disorder Past Surgical History: No Surgical History Smoking: Non-smoker Alcohol Use: None Drug Use: None Adult General Chief Complaint Chief Complaint: MECHANICAL FALL HPI HPI Patient is a 89-year-old female who presents with complaint of headache and neck pain as well as skin tears to both arms. Patient states that she had lost her balance while she was walking and fell backward, striking her head. She denies any loss of consciousness. She rates her pain to be an 8 out of 10. She denies any nausea or vomiting. She denies any chest pain or shortness of breath. Patient states that pain in her neck is worsened with movement. She indicates that the pain in her arms is worsened with palpation over the skin tears. She states that she has full range of motion of her arms. Review of Systems Review of Systems Constitutional: Denies fever or chills [] Respiratory: Denies cough or shortness of breath [] Cardiovascular: No additional information not addressed in HPI [] GI: Denies abdominal pain, nausea, vomiting [] Musculoskeletal: Denies back pain or joint pain. Complains of neck pain. [] Integument: Complains of skin tears to both arms[] Neurologic: Complains of posterior headache[] All other systems were reviewed and found to be within normal limits, except as documented in this note. Current Medications Current Medications Current Medications Medications (Trade) Dose Ordered Sig/Wilma Start Time Stop Time Status Last Admin Dose Admin Tramadol HCl (Ultram) 50 mg 1X ONCE 10/04/18 18:45 10/04/18 18:46 Allergies Allergies Allergies Coded Allergies Type Severity Reaction Last Updated Verified hydrocodone Allergy Intermediate takes ULTRAM at home 10/04/18 Yes Physical Exam Physical Exam Constitutional: Well developed, well nourished, no acute distress, non-toxic appearance. [] HENT: Normocephalic, atraumatic, bilateral external ears normal, oropharynx moist, no oral exudates, nose normal. [] Eyes: PERRLA, EOMI, conjunctiva normal, no discharge. [] Neck: Cervical collar is in place. [] Cardiovascular:Heart rate regular rhythm [] Lungs & Thorax: Bilateral breath sounds clear to auscultation [] Abdomen: Bowel sounds normal, soft, no tenderness. [] Skin: Warm, dry, no erythema, no rash. There are small skin tears noted to left elbow and bilateral forearms. [] Back: No tenderness, no CVA tenderness. [] Extremities: No cyanosis, no clubbing, ROM intact, no edema. [] Neurologic: Alert and oriented appropriate for age. [] Current Patient Data Vital Signs Vital Signs Date Time Temp Pulse Resp B/P (MAP) Pulse Ox O2 Delivery O2 Flow Rate FiO2 10/04/18 18:09 98.9 73 16 95 Room Air EKG EKG [] Radiology/Procedures Radiology/Procedures [] Impressions: PROCEDURE: CT HEAD AND CERVICAL SPINE WO CT brain without contrast, CT cervical spine without contrast HISTORY: Fall, head trauma to occipital region, neck pain CT scan of the brain was done without contrast. There is motion artifact. There is no intracranial hemorrhage or subdural hematoma. Ventricles are mildly dilated. There is decreased density in the periventricular white matter. There is no intracranial hemorrhage or subdural hematoma. A skull fracture is not identified. Sinuses are clear. IMPRESSION: 1. Motion artifact. 2. Atrophy and ventricular dilatation. 3. No intracranial hemorrhage or acute finding noted. End impression CT cervical spine Axial CT images were obtained to the cervical spine. Sagittal and coronal reconstructed images were reviewed. There is motion artifact. There is a moderate to large right pleural effusion. There is a small thyroid nodule on the right measuring 1.1 cm. There is distention of the cervical esophagus or esophageal diverticulum to the right. There is wall thickening of the proximal esophagus. A C-spine fracture is not identified. There is marked facet arthritis at multiple levels in the cervical spine. There is degenerative disc disease at C6-7 with spurring. There is motion artifact. IMPRESSION: 1. Proximal esophageal diverticulum or Zenker's diverticulum with mild wall thickening of the proximal esophagus, mass cannot be excluded. 2. Degenerative disc disease at C6-7. 3. No fractures noted in the cervical spine. 4. Right pleural effusion 5. Small right thyroid nodule PQRS Compliance Statement: One or more of the following individualized dose reduction techniques were utilized for this examination: 1. Automated exposure control 2. Adjustment of the mA and/or kV according to patient size 3. Use of iterative reconstruction technique Electronically signed by: Andrew Harris MD (10/04/2018 7:09 PM) [facility] Course & Med Decision Making Course & Med Decision Making Pertinent Labs and Imaging studies reviewed. (See chart for details) [] Dragon Disclaimer Dragon Disclaimer This electronic medical record was generated, in whole or in part, using a voice recognition dictation system. Departure Departure: Impression: Primary Impression: Closed head injury without loss of consciousness Additional Impressions: Cervical strain Skin tear Disposition: 01 HOME, SELF-CARE Condition: STABLE Referrals: DEANGELO DOMINIQUE (PCP) Patient Instructions: Cervical Sprain, Head Injury, Adult, Skin Tear Care Scripts Tramadol Hcl (TRAMADOL HCL) 50 Mg Tablet 50 MG PO PRN Q6HRS PRN for PAIN, #12 TAB Prov: YUDITH HOLDER Jr. DO 10/04/18 Problem Qualifiers Primary Impression: Closed head injury without loss of consciousness Encounter type: initial encounter Qualified Codes: S09.90XA - Unspecified injury of head, initial encounter Additional Impressions: Cervical strain Encounter type: initial encounter Qualified Codes: S16.1XXA - Strain of muscle, fascia and tendon at neck level, initial encounter YUDITH HOLDER Jr. DO Oct 04, 2018 18:49
[2018-10-04] MEDS: traMADol 50 MG TABLET PO ONE (18:51)
--- NOTE | 2018-10-04 19:13 | RAD ---
CT brain without contrast, CT cervical spine without contrast HISTORY: Fall, head trauma to occipital region, neck pain CT scan of the brain was done without contrast. There is motion artifact. There is no intracranial hemorrhage or subdural hematoma. Ventricles are mildly dilated. There is decreased density in the periventricular white matter. There is no intracranial hemorrhage or subdural hematoma. A skull fracture is not identified. Sinuses are clear. IMPRESSION: 1. Motion artifact. 2. Atrophy and ventricular dilatation. 3. No intracranial hemorrhage or acute finding noted. End impression CT cervical spine Axial CT images were obtained to the cervical spine. Sagittal and coronal reconstructed images were reviewed. There is motion artifact. There is a moderate to large right pleural effusion. There is a small thyroid nodule on the right measuring 1.1 cm. There is distention of the cervical esophagus or esophageal diverticulum to the right. There is wall thickening of the proximal esophagus. A C-spine fracture is not identified. There is marked facet arthritis at multiple levels in the cervical spine. There is degenerative disc disease at C6-7 with spurring. There is motion artifact. IMPRESSION: 1. Proximal esophageal diverticulum or Zenker's diverticulum with mild wall thickening of the proximal esophagus, mass cannot be excluded. 2. Degenerative disc disease at C6-7. 3. No fractures noted in the cervical spine. 4. Right pleural effusion 5. Small right thyroid nodule PQRS Compliance Statement: One or more of the following individualized dose reduction techniques were utilized for this examination: 1. Automated exposure control 2. Adjustment of the mA and/or kV according to patient size 3. Use of iterative reconstruction technique Electronically signed by: Andrew Harris MD (10/04/2018 7:09 PM) [facility]
[2018-10-04] MEDS ORDERED: TRAM50TA PO (19:20)
[2018-10-04] MEDS ORDERED: NEOMYCIN/BACITRAC/POLY TOPICAL OINTMENT 28GM TUBE. TP STA (19:22)
[2018-10-04] MEDS ORDERED: NEOMY/BACITR/POLYMYXIN OINT PACKET. TP ONE (19:27)
[2018-10-04] MEDS ORDERED: BACITRACIN/POLYMYXIN B TOPICAL OINT 15GM TUBE. TP ONE (19:48)
[2018-10-04] MEDS: NEOMY/BACITR/POLYMYXIN OINT PACKET. TP ONE (19:58)
== END 2018-10-04 19:59 | disposition home or self-care (01) ==
LOC: ER 18:09
DX: S09.90XA Unspecified injury of head, initial encounter (principal); S16.1XXA Strain of muscle, fascia and tendon at neck level, initial encounter; S51.012A Laceration without foreign body of left elbow, initial encounter; S51.812A Laceration without foreign body of left forearm, initial encounter; S51.811A Laceration without foreign body of right forearm, initial encounter; F41.9 Anxiety disorder, unspecified; Z88.5 Allergy status to narcotic agent; W18.09XA Striking against other object with subsequent fall, initial encounter; Y93.01 Activity, walking, marching and hiking; Y92.89 Other specified places as the place of occurrence of the external cause; Y99.8 Other external cause status
CPT/HCPCS: 70450; 72125; 99284-25

== ENCOUNTER 2018-11-29 08:33 | Inpatient (IN) | payer OTHER, MEDICARE ==
[2018-11-29] VITALS (9 sets, daily range): BP systolic 78–171; BP diastolic 34–89
[~2018-11-29] VITALS: Ht 162.6 cm; Wt 45.4 kg
[~2018-11-29 08:33] MED LIST changes: +CLON1TAB11 PO; -CLON1TAB4 PO; +HYDR-3165 PO; -HYDR-971 PO
[2018-11-29 09:49] LABS: BASO % 0 % (0-3); EOS % 0 % (0-3); HEMATOCRIT 37.9 % (36.0-47.0); HEMOGLOBIN 12.8 g/dL (12.0-15.5); LYMPH # 1.4 x10^3/uL (1.0-4.8); LYMPH % 15 % (24-48); MEAN CORPUSCULAR HEMOGLOBIN 33 pg (25-35); MEAN CORPUSCULAR HGB CONC 34 g/dL (31-37); MEAN CORPUSCULAR VOLUME 98 fL (79-100); MONO # 0.4 x10^3/uL (0.0-1.1); MONO % 5 % (0-9); NEUT # 7.1 x10^3uL (1.8-7.7); NEUT % 79 % (31-73); PLATELET COUNT 215 x10^3/uL (140-400); RED BLOOD COUNT 3.89 x10^6/uL (3.50-5.40); RED CELL DISTRIBUTION WIDTH 14.7 % (11.5-14.5)
[2018-11-29 10:02] LABS: ALBUMIN 2.4 g/dL (3.4-5.0); ALBUMIN/GLOBULIN RATIO 0.6 (1.0-1.7); CALCIUM 8.4 mg/dL (8.5-10.1); CREATININE 1.1 mg/dL (0.6-1.0); GFR 48.2; MAGNESIUM 1.8 mg/dL (1.8-2.4); POTASSIUM 3.7 mmol/L (3.5-5.1); TOTAL BILIRUBIN 0.5 mg/dL (0.2-1.0); TOTAL PROTEIN 6.1 g/dL (6.4-8.2)
[2018-11-29 10:09] LABS: VAL ACID < 3 mcg/mL (50-100)
--- NOTE | 2018-11-29 10:09 | PHYS DOC ---
Past History Past Medical History: Anxiety, Bipolar, CHF, Dementia, Diabetes Additional Past Medical Histor: bipolar disorder Past Surgical History: Appendectomy, Cholecystectomy, Hysterectomy, Tonsillectomy Smoking: Non-smoker Alcohol Use: None Drug Use: None Adult General Chief Complaint Chief Complaint: increased saliva [facility] HPI Patient is a 78 year old patient with history of bipolar disorder and multiple psychiatric medication brought in by EMS because of increase of saliva after had a argument with her significant other this morning. Patient states she had problem with her esophagus since this morning had increase of saliva without vomiting, pain, sore throat, fever and chills. Denies suicidal or homicidal ideation and hallucination. Patient is alert and oriented 3. Patient states she wanted to takes Xanax belonged to her significant other but he didn't let her to take it. Patient states she does not feel safe to go home with her significant other. Patient states she has appointment in 2 days evaluation for assisting living home placement. After contacting patient significant other he stated the patient had paranoia and anxiety and he does not feel safe to be around her. Review of Systems Review of Systems Constitutional: Denies fever or chills [] Eyes: Denies change in visual acuity, redness, or eye pain [] HENT: Denies nasal congestion or sore throat [] Respiratory: Denies cough or shortness of breath [] Cardiovascular: No additional information not addressed in HPI [] GI: Denies abdominal pain, nausea, vomiting, bloody stools or diarrhea [] : Denies dysuria or hematuria [] Musculoskeletal: Denies back pain or joint pain [] Integument: Denies rash or skin lesions [] Neurologic: Denies headache, focal weakness or sensory changes [] Endocrine: Denies polyuria or polydipsia [] All other systems were reviewed and found to be within normal limits, except as documented in this note. Allergies Allergies Allergies Coded Allergies Type Severity Reaction Last Updated Verified hydrocodone Allergy Intermediate takes ULTRAM at home 10/04/18 Yes Physical Exam Physical Exam Constitutional: Well nourished, mild distress, non-toxic appearance. [] HENT: Normocephalic, atraumatic, oropharynx moist, no oral exudates, nose normal. [] Eyes: PERRLA, EOMI, conjunctiva normal, no discharge. [] Neck: Normal range of motion, no tenderness, supple, no stridor. [] Cardiovascular:Heart rate regular rhythm, no murmur [] Lungs & Thorax: Bilateral breath sounds clear to auscultation [] Abdomen: Bowel sounds normal, soft, no tenderness, no masses, no pulsatile masses. [] Skin: Warm, dry, no erythema, no rash. [] Back: No tenderness, no CVA tenderness. [] Extremities: No tenderness, no cyanosis, no clubbing, ROM intact, no edema. [] Neurologic: Alert and oriented X 3, normal motor function, normal sensory function, no focal deficits noted. [] Psychologic: Affect anxious, judgement abnormal, mood normal. [] Current Patient Data Vital Signs Vital Signs Date Time Temp Pulse Resp B/P (MAP) Pulse Ox O2 Delivery O2 Flow Rate FiO2 11/29/18 08:33 98.7 89 16 97 Room Air Lab Results Laboratory Tests Test 11/29/18 09:33 White Blood Count 9.0 x10^3/uL (4.0-11.0) Red Blood Count 3.89 x10^6/uL (3.50-5.40) Hemoglobin 12.8 g/dL (12.0-15.5) Hematocrit 37.9 % (36.0-47.0) Mean Corpuscular Volume 98 fL (79-100) Mean Corpuscular Hemoglobin 33 pg (25-35) Mean Corpuscular Hemoglobin Concent 34 g/dL (31-37) Red Cell Distribution Width 14.7 % (11.5-14.5) H Platelet Count 215 x10^3/uL (140-400) Neutrophils (%) (Auto) 79 % (31-73) H Lymphocytes (%) (Auto) 15 % (24-48) L Monocytes (%) (Auto) 5 % (0-9) Eosinophils (%) (Auto) 0 % (0-3) Basophils (%) (Auto) 0 % (0-3) Neutrophils # (Auto) 7.1 x10^3uL (1.8-7.7) Lymphocytes # (Auto) 1.4 x10^3/uL (1.0-4.8) Monocytes # (Auto) 0.4 x10^3/uL (0.0-1.1) Eosinophils # (Auto) 0.0 x10^3/uL (0.0-0.7) Basophils # (Auto) 0.0 x10^3/uL (0.0-0.2) Sodium Level 144 mmol/L (136-145) Potassium Level 3.7 mmol/L (3.5-5.1) Chloride Level 109 mmol/L (98-107) H Carbon Dioxide Level 25 mmol/L (21-32) Anion Gap 10 (6-14) Blood Urea Nitrogen 21 mg/dL (7-20) H Creatinine 1.1 mg/dL (0.6-1.0) H Estimated GFR (Cockcroft-Gault) 48.2 BUN/Creatinine Ratio 19 (6-20) Glucose Level 121 mg/dL (70-99) H Calcium Level 8.4 mg/dL (8.5-10.1) L Magnesium Level 1.8 mg/dL (1.8-2.4) Total Bilirubin 0.5 mg/dL (0.2-1.0) Aspartate Amino Transferase (AST) 21 U/L (15-37) Alanine Aminotransferase (ALT) 18 U/L (14-59) Alkaline Phosphatase 59 U/L (46-116) Total Protein 6.1 g/dL (6.4-8.2) L Albumin 2.4 g/dL (3.4-5.0) L Albumin/Globulin Ratio 0.6 (1.0-1.7) L EKG EKG EKG interpreted by me. EKG at 1040 showed normal sinus rhythm at rate of 68, LDH , prolonged QT at 444, multiple artifact, poor R-wave progress in anteroseptal leads, no acute ST or T-wave abnormalities Radiology/Procedures Radiology/Procedures [] Course & Med Decision Making Course & Med Decision Making Pertinent Labs reviewed. (See chart for details) Evaluation of patient in ER showed 78-year-old female patient with multiple psychiatric and behavioral problem. Patient was evaluated by psychiatric supervisor inspection and testing and have criteria for inpatient admission. Dr Bro accepted admission for senior psych unit. Dragon Disclaimer Dragon Disclaimer This electronic medical record was generated, in whole or in part, using a voice recognition dictation system. Departure Departure: Impression: Primary Impression: Behavior problem Additional Impressions: Medical clearance for psychiatric admission Bipolar I disorder with anxious distress Disposition: ADMITTED INPATIENT (@1120) Condition: IMPROVED Referrals: DEANGELO DOMINIQUE (PCP) Problem Qualifiers RASHEEDA GARCIA MD Nov 29, 2018 10:09
[2018-11-29 11:06] LABS: BILIRUBIN,URINE NEG (NEG); CLARITY,URINE CLEAR; COLOR,URINE YELLOW; GLUCOSE,URINE NEG (NEG)
[2018-11-29 11:07] LABS: AMORPHOUS SEDIMENT,UR PRESENT /HPF; BACTERIA,URINE FEW /HPF (0-FEW); GRANULAR CASTS,URINE OCC /HPF; HYALINE CASTS, URINE FEW /HPF; NITRITE,URINE NEG (NEG); SQUAMOUS EPITHELIAL CELL,UR FEW /LPF; UROBILINOGEN,URINE 0.2 mg/dL (0.2 mg/dL)
[2018-11-29] MEDS ORDERED: ACETAMINOPHEN 325 MG TABLET PO PRN ×2 (12:15)
[2018-11-29] MEDS ORDERED: METHYL SALICYLATE/MENTHOL TOPICAL OINTMENT 29GM TUBE. TP PRN (12:15)
[2018-11-29] MEDS ORDERED: MAG HYDROX/AL HYDROX/SIMETH 30 ML ORAL.SUSP PO PRN (12:15)
[2018-11-29] MEDS ORDERED: ALPRAZolam 0.5 MG TABLET PO PRN (12:15)
[2018-11-29] MEDS ORDERED: MAGNESIUM HYDROXIDE 2,400 MG/30 ML ORAL.SUSP. PO PRN (12:15)
[2018-11-29] MEDS ORDERED: traMADol 50 MG TABLET PO PRN (12:15)
--- NOTE | 2018-11-29 13:32 | NUR ---
Admission Note with Justification for Admission to [facility] Patient admitted to [facility] for protective oversight for emergency stabilization of acute psychiatric crisis. Pt admitted from: Hospital ER Mode of arrival: EMS Accompanied By: [facility] Staff Precipitating behaviors that initiated intake and admission: Obsessions, Delusions, increased anxiety, not taking medications properly Description of failure of out patient attempts at stabilization in previous setting list behavior and medication trials: Behaviors and assessment findings upon admission: Patient arrived on unit VIA EMS Patient is compliant with assessment. Patient is anxious during her assessment. Patient is oriented to unit and policies. Patient is offered food and drink and accepts. Patients VS are taken and are stable. Will continue to monitor. Plan: Admit for protective oversight for adjustment and stabilization of medications, behaviors and mood. Intense treatment regimen including groups, medication adjustments, therapy, consistent regimen for ADL's, self care, and sleep hygiene. Daily monitoring by Inpatient staff, Psychiatry, and Medical Physician.
[2018-11-29] MEDS: CARBIDOPA/LEVODOPA 25/100MG TABLET PO SCH ×2 (14:33→21:04)
[2018-11-29] MEDS: rOPINIRole 1 MG TABLET. PO SCH ×2 (14:33→21:03)
[2018-11-29] MEDS: GABAPENTIN 100 MG CAPSULE. PO SCH ×2 (14:33→21:03)
[2018-11-29] MEDS: DIVALPROEX 125 MG CAP.SPRINK PO SCH ×2 (14:33→20:53)
[2018-11-29] MEDS: LORazepam 0.5 MG TABLET PO PRN (14:33)
[2018-11-29] MEDS: metFORMIN 500 MG TABLET PO SCH (17:22)
[2018-11-29] MEDS: QUEtiapine 25 MG TABLET. PO SCH (17:24)
--- NOTE | 2018-11-29 20:59 | PDOC ---
Exam Note: [place] Note: Please also refer to the separate dictated note~for this date of service dictated separately.~Patient seen individually. Discussed the patient with Nursing staff reviewed the chart.~Reviewed interim history and current functioning. Reviewed vital signs,~Labs/ Radiology~and current medications noted below. Continue current treatment with the changes noted in the dictated addendum note Assessment: Vital Signs: Vital Signs Date Time Temp Pulse Resp B/P (MAP) Pulse Ox O2 Delivery O2 Flow Rate FiO2 11/29/18 16:14 97.5 78 22 132/81 (98) 98 Room Air Labs: Laboratory Tests Test 11/29/18 08:44 11/29/18 09:33 11/29/18 10:40 11/29/18 16:38 Glucose (Fingerstick) 90 mg/dL (70-99) 249 mg/dL (70-99) H White Blood Count 9.0 x10^3/uL (4.0-11.0) Red Blood Count 3.89 x10^6/uL (3.50-5.40) Hemoglobin 12.8 g/dL (12.0-15.5) Hematocrit 37.9 % (36.0-47.0) Mean Corpuscular Volume 98 fL (79-100) Mean Corpuscular Hemoglobin 33 pg (25-35) Mean Corpuscular Hemoglobin Concent 34 g/dL (31-37) Red Cell Distribution Width 14.7 % (11.5-14.5) H Platelet Count 215 x10^3/uL (140-400) Neutrophils (%) (Auto) 79 % (31-73) H Lymphocytes (%) (Auto) 15 % (24-48) L Monocytes (%) (Auto) 5 % (0-9) Eosinophils (%) (Auto) 0 % (0-3) Basophils (%) (Auto) 0 % (0-3) Neutrophils # (Auto) 7.1 x10^3uL (1.8-7.7) Lymphocytes # (Auto) 1.4 x10^3/uL (1.0-4.8) Monocytes # (Auto) 0.4 x10^3/uL (0.0-1.1) Eosinophils # (Auto) 0.0 x10^3/uL (0.0-0.7) Basophils # (Auto) 0.0 x10^3/uL (0.0-0.2) Sodium Level 144 mmol/L (136-145) Potassium Level 3.7 mmol/L (3.5-5.1) Chloride Level 109 mmol/L (98-107) H Carbon Dioxide Level 25 mmol/L (21-32) Anion Gap 10 (6-14) Blood Urea Nitrogen 21 mg/dL (7-20) H Creatinine 1.1 mg/dL (0.6-1.0) H Estimated GFR (Cockcroft-Gault) 48.2 BUN/Creatinine Ratio 19 (6-20) Glucose Level 121 mg/dL (70-99) H Calcium Level 8.4 mg/dL (8.5-10.1) L Magnesium Level 1.8 mg/dL (1.8-2.4) Total Bilirubin 0.5 mg/dL (0.2-1.0) Aspartate Amino Transferase (AST) 21 U/L (15-37) Alanine Aminotransferase (ALT) 18 U/L (14-59) Alkaline Phosphatase 59 U/L (46-116) Total Protein 6.1 g/dL (6.4-8.2) L Albumin 2.4 g/dL (3.4-5.0) L Albumin/Globulin Ratio 0.6 (1.0-1.7) L Valproic Acid Level < 3 mcg/mL (50-100) L Valproic Acid Last Dose Date 11/28/18 Valproic Acid Last Dose Time 2100 Urine Collection Type U cath Urine Color Yellow Urine Clarity Clear Urine pH 5.5 Urine Specific [place] >=1.030 Urine Protein 100 mg/dl (NEG-TRACE) Urine Glucose (UA) Neg mg/dL (NEG) Urine Ketones (Stick) 15 mg/dL (NEG) Urine Blood Neg (NEG) Urine Nitrite Neg (NEG) Urine Bilirubin Neg (NEG) Urine Urobilinogen Dipstick 0.2 mg/dL (0.2 mg/dL) Urine Leukocyte Esterase Neg (NEG) Urine RBC 1-2 /HPF (0-2) Urine WBC 1-4 /HPF (0-4) Urine Squamous Epithelial Cells Few /LPF Urine Amorphous Sediment Present /HPF Urine Bacteria Few /HPF (0-FEW) Urine Hyaline Casts Few /HPF Urine Granular Casts Occ /HPF Urine Mucus Mod /LPF Test 11/29/18 19:35 Glucose (Fingerstick) 159 mg/dL (70-99) H Current Medications: Meds: Current Medications Acetaminophen (Tylenol) 650 mg PRN Q6HRS PRN PO PAIN / TEMP; Start 11/29/18 at 12:15 Multi-Ingredient Ointment (Analgesic Clayton) 1 alyce PRN QID PRN TP MUSCLE PAIN; Start 11/29/18 at 12:15 Al Hydroxide/Mg Hydroxide (Mylanta Plus Xs) 15 ml PRN AFTMEALHC PRN PO DYSPEPSIA; Start 11/29/18 at 12:15 Magnesium Hydroxide (Milk Of Magnesia) 2,400 mg PRN QHS PRN PO CONSTIPATION; Start 11/29/18 at 12:15 Acetaminophen (Tylenol) 650 mg PRN Q6HRS PRN PO PAIN / TEMP; Start 11/29/18 at 12:15; Stop 11/29/18 at 12:15; Status DC Carbidopa/Levodopa (Sinemet 25/100) 1 tab TID PO Last administered on 11/29/18at 14:33; Start 11/29/18 at 14:00 Gabapentin (Neurontin) 200 mg TID PO Last administered on 11/29/18at 14:33; Start 11/29/18 at 14:00 Lisinopril (Prinivil) 40 mg DAILY PO ; Start 11/30/18 at 09:00 Tramadol HCl (Ultram) 50 mg PRN Q6HRS PRN PO PAIN; Start 11/29/18 at 12:15 Alprazolam (Xanax) 0.5 mg PRN Q8HRS PRN PO ANXIETY / AGITATION; Start 11/29/18 at 12:15 Aspirin (Children'S Aspirin) 81 mg DAILYWBKFT PO ; Start 11/30/18 at 08:00 Cetirizine HCl (ZyrTEC) 10 mg DAILY PO ; Start 11/30/18 at 09:00 Divalproex Sodium (Depakote Sprinkles) 250 mg DAILY PO ; Start 11/30/18 at 09:00 Divalproex Sodium (Depakote Sprinkles) 500 mg BID@1200,2100 PO Last administered on 11/29/18at 14:33; Start 11/29/18 at 12:00 EZETIMIBE (Zetia) 10 mg DAILY PO ; Start 11/30/18 at 09:00 Fluvoxamine Maleate (Luvox) 75 mg QHS PO ; Start 11/29/18 at 21:00 Lorazepam (Ativan) 0.5 mg PRN Q4HRS PRN PO ANXIETY / AGITATION Last administered on 11/29/18at 14:33; Start 11/29/18 at 12:45 Metformin HCl (Glucophage) 500 mg BIDWMEALS PO Last administered on 11/29/18at 17 :22; Start 11/29/18 at 17:00 Metoprolol Succinate (Toprol Xl) 100 mg DAILY PO ; Start 11/30/18 at 09:00 Mirtazapine (Remeron) 30 mg QHS PO ; Start 11/29/18 at 21:00 Ondansetron HCl (Zofran Odt) 4 mg PRN Q8HRS PRN PO NAUSEA/VOMITING; Start at 12:30 Pantoprazole Sodium (Protonix) 40 mg DAILYAC PO ; Start 11/30/18 at 07:30 Polyethylene Glycol (miraLAX) 17 gm PRN DAILY PRN PO CONSTIPATION; Start at 09:00 Primidone (Mysoline) 50 mg QHS PO ; Start 11/29/18 at 21:00 Quetiapine Fumarate (SEROquel) 12.5 mg DAILY@0900,1200,1600 PO Last administered on 11/29/18at 17:24; Start 11/29/18 at 16:00 Quetiapine Fumarate (SEROquel) 100 mg QHS PO ; Start 11/29/18 at 21:00 Ropinirole HCl (Requip) 1 mg TID PO Last administered on 11/29/18at 14:33; Start 11/29/18 at 14:00 Trazodone HCl (Desyrel) 100 mg HS PO ; Start 11/29/18 at 21:00 Active Scripts Active Tramadol Hcl (Tramadol HCl) 50 Mg Tablet 50 Mg PO PRN Q6HRS PRN Reported Pantoprazole Sodium 40 Mg Tablet.dr 40 Mg PO DAILYAC LAST DOSE GIVEN: DATE: TIME: NEXT DOSE DUE: DATE: 10/03/18 TIME: 8am Miralax (Polyethylene Glycol 3350) 17 Gm Powd.pack 17 Gm PO PRN DAILY PRN Milk Of Magnesia (Magnesium Hydroxide) 400 Mg/5 Ml Oral.susp 2,400 Mg PO PRN QHS PRN Mag-Al Plus Xs Suspension (Mag Hydrox/Al Hydrox/Simeth) 30 Ml Oral.susp 15 Ml PO PRN AFTMEALHC PRN Alprazolam 0.5 Mg Tablet 0.5 Mg PO PRN Q8HRS PRN LAST DOSE GIVEN: DATE: TIME: NEXT DOSE DUE: Take as needed DATE: TIME: Seroquel (Quetiapine Fumarate) 100 Mg Tablet 100 Mg PO HS LAST DOSE GIVEN: DATE: TIME: NEXT DOSE DUE: DATE: 10/02/18 TIME: Bedtime Trazodone Hcl 100 Mg Tablet 100 Mg PO HS LAST DOSE GIVEN: DATE: TIME: NEXT DOSE DUE: DATE: 10/02/18 TIME: Bedtime Fluvoxamine Maleate 50 Mg Tablet 75 Mg PO HS LAST DOSE GIVEN: DATE: TIME: NEXT DOSE DUE: DATE: 10/02/18 TIME: Bedtime Tylenol (Acetaminophen) 325 Mg Tablet 650 Mg PO PRN Q6HRS PRN Tramadol Hcl (Tramadol HCl) 50 Mg Tablet 50 Mg PO PRN Q6HRS PRN LAST DOSE GIVEN: DATE: TIME: NEXT DOSE DUE: Take as needed DATE: TIME: Analgesic [place] (Methyl Salicylate/Menthol) 28 Gm Oint...g. 1 Alyce TP PRN QID PRN Seroquel (Quetiapine Fumarate) 25 Mg Tablet 0.5 Tab PO 9AM,1200,4PM LAST DOSE GIVEN: DATE: TIME: NEXT DOSE DUE: DATE: 10/02/18 TIME: 4pm Ativan (Lorazepam) 0.5 Mg Tablet 0.5 Mg PO PRN Q4HRS PRN LAST DOSE GIVEN: DATE: TIME: NEXT DOSE DUE: Take as needed DATE: TIME: Depakote Sprinkle (Divalproex Sodium) 125 Mg Cap.sprink 250 Mg PO DAILY LAST DOSE GIVEN: DATE: TIME: NEXT DOSE DUE: DATE:10/03/18 TIME: 8am Depakote Sprinkle (Divalproex Sodium) 125 Mg Cap.sprink 500 Mg PO 1200,9PM LAST DOSE GIVEN: DATE: TIME: NEXT DOSE DUE: DATE:10/02/18 TIME: Bedtime Metformin Hcl 500 Mg Tablet 500 Mg PO BIDWMEALS LAST DOSE GIVEN: DATE: TIME: NEXT DOSE DUE: DATE: 10/02/18 TIME: Dinner Gabapentin (Gabapentin) 100 Mg Capsule 200 Mg PO TID LAST DOSE GIVEN: DATE: TIME: NEXT DOSE DUE: DATE: 10/02/18 TIME:2pm then again at bedtime. Metoprolol Succinate ( Xl ) (Metoprolol Succinate) 50 Mg Tab.er.24h 100 Mg PO DAILY LAST DOSE GIVEN: DATE: TIME: NEXT DOSE DUE: DATE: 10/03/18 TIME: 8am Requip (Ropinirole Hcl) 1 Mg Tablet 1 Mg PO TID LAST DOSE GIVEN: DATE: TIME: NEXT DOSE DUE: DATE: 10/02/18 TIME: 2pm Sinemet 25-100 Mg Tablet (Carbidopa/Levodopa) 1 Each Tablet 1 Each PO TID LAST DOSE GIVEN: DATE: TIME: NEXT DOSE DUE: DATE: 10/02/18 TIME: 2pm Primidone 50 Mg Tablet 50 Mg PO HS LAST DOSE GIVEN: DATE: TIME: NEXT DOSE DUE: DATE: 10/02/18 TIME: Bedtime Zofran (Ondansetron Hcl) 4 Mg Tablet 4 Mg PO PRN Q8HRS PRN LAST DOSE GIVEN: DATE: TIME: NEXT DOSE DUE: Take as needed DATE: TIME: Lisinopril 20 Mg Tablet 40 Mg PO DAILY hold for a systolic BP less than 100. After a held dose, reassess in 2 ours. IF SBP is above threshold, administer dose as ordered. IF SBP is below threshold, contact provider for additional instructions. LAST DOSE GIVEN: DATE: TIME: NEXT DOSE DUE: DATE: 10/03/18 TIME: 8am Remeron (Mirtazapine) 15 Mg Tablet 30 Mg PO QHS LAST DOSE GIVEN: DATE: TIME: NEXT DOSE DUE: DATE: 10/02/18 TIME: Bedtime Cetirizine Hcl 10 Mg Tablet 10 Mg PO DAILY LAST DOSE GIVEN: DATE: TIME: NEXT DOSE DUE: DATE: 10/03/18 TIME: 8am Aspirin 81 Mg Tab.chew 81 Mg PO DAILY LAST DOSE GIVEN: DATE: TIME: NEXT DOSE DUE: DATE: 10/03/18 TIME: 8am Zetia (Ezetimibe) 10 Mg Tablet 10 Mg PO DAILY LAST DOSE GIVEN: DATE: TIME: NEXT DOSE DUE: DATE: 10/03/18 TIME: 8am I have reviewed the current psychotropics carefully including drug interactions. Risk benefit ratio favors no change other than as noted in my dictated progress note. Diagnosis: Problems: (1) Bipolar I disorder with jose (2) Hypertension (3) Leg swelling (4) Accelerated hypertension (5) Hip pain, right (6) Cellulitis of right lower limb (7) Accelerated essential hypertension (8) Behavior problem (9) Chronic diastolic (congestive) heart failure (10) Medical clearance for psychiatric admission (11) Bipolar I disorder with anxious distress (12) Bipolar I disorder with mixed features (13) Anxiety disorder (14) Impulse control disorder (15) UTI (urinary tract infection) (16) Severe anxiety KANWAL KNIGHT MD Nov 29, 2018 20:59
[2018-11-29] MEDS ORDERED: QUEtiapine 50 MG TABLET. PO SCH (21:00)
[2018-11-29] MEDS ORDERED: traZODone 100 MG TABLET. PO SCH (21:00)
[2018-11-29] MEDS ORDERED: MIRTAZAPINE 15 MG TABLET PO SCH (21:00)
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
[2018-11-29] MEDS: PRIMIDONE 50 MG TABLET PO SCH (21:03)
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
--- NOTE | 2018-11-29 22:15 | NUR ---
Staff heard pt calling from her room that she felt nauseas. As staff entered her room, pt appeared to start falling and was lowered to the ground by staff. VS taken BP; 78/34, HR 85, O2 97. Manual BP taken: 92/50. FSBS: 158. Pt stated that she felt dizzy and "like she was drunk." No injuries noted. Dr. Apodaca pagelynette. Received orders for NS 500cc bolus. VS checks every 15 minutes x1hr, then every 30 minutes x1 hr. Pt currently sleeping in bed with feet elevated. Respirations WNL, fluids infusing.
[2018-11-29] MEDS: ONDANSETRON ODT 4 MG TAB.RAPDIS PO PRN (22:27)
[2018-11-29] MEDS ORDERED: ONDANSETRON ODT 4 MG TAB.RAPDIS PO PRN (22:30)
[2018-11-29] MEDS ORDERED: IV NORMAL SALINE 500ML 500 ML IV ONE (23:00)
[2018-11-30] VITALS (15 sets, daily range): BP systolic 96–173; BP diastolic 54–89
--- NOTE | 2018-11-30 02:59 | NUR ---
Pt tolerated 500cc bolus well. Continued with 30min vital signs. Pt's BP starting to trend down once fluids stopped infusing. Dr. Paulie dawkins. Received orders for stat CBC,CMP, lactic acid. Normal saline continuous at 75/hr. Fluids infusing.
[2018-11-30] MEDS ORDERED: IV NORMAL SALINE 1,000ML 1,000 ML IV SCH (03:00)
[2018-11-30] MEDS: rOPINIRole 1 MG TABLET. PO SCH ×3 (07:33→20:43)
[2018-11-30] MEDS: GABAPENTIN 100 MG CAPSULE. PO SCH ×3 (07:33→20:43)
[2018-11-30] MEDS: metFORMIN 500 MG TABLET PO SCH ×2 (07:34→16:44)
[2018-11-30] MEDS: CARBIDOPA/LEVODOPA 25/100MG TABLET PO SCH ×3 (07:34→20:44)
[2018-11-30] MEDS: QUEtiapine 25 MG TABLET. PO SCH ×3 (07:34→16:44)
[2018-11-30] MEDS: CETIRIZINE HCL 10 MG TABLET PO SCH (07:39)
[2018-11-30] MEDS: EZETIMIBE 10 MG TABLET PO SCH (07:39)
[2018-11-30] MEDS: PANTOPRAZOLE 40 MG TABLET. PO SCH (07:39)
[2018-11-30] MEDS: ASPIRIN 81 MG TAB.CHEW PO SCH (07:39)
[2018-11-30 07:48] LABS: BASO % 1 % (0-3); EOS # 0.1 x10^3/uL (0.0-0.7); EOS % 2 % (0-3); HEMATOCRIT 29.9 % (36.0-47.0); HEMOGLOBIN 10.1 g/dL (12.0-15.5); LYMPH % 25 % (24-48); MEAN CORPUSCULAR HEMOGLOBIN 34 pg (25-35); MEAN CORPUSCULAR HGB CONC 34 g/dL (31-37); MEAN CORPUSCULAR VOLUME 99 fL (79-100); MONO # 0.2 x10^3/uL (0.0-1.1); MONO % 7 % (0-9); NEUT # 2.5 x10^3uL (1.8-7.7); NEUT % 65 % (31-73); PLATELET COUNT 156 x10^3/uL (140-400); RED BLOOD COUNT 3.03 x10^6/uL (3.50-5.40); RED CELL DISTRIBUTION WIDTH 14.5 % (11.5-14.5); WHITE BLOOD COUNT 3.8 x10^3/uL (4.0-11.0)
[2018-11-30 07:58] LABS: ALBUMIN 2.1 g/dL (3.4-5.0); ALBUMIN/GLOBULIN RATIO 0.8 (1.0-1.7); CALCIUM 7.9 mg/dL (8.5-10.1); CREATININE 0.9 mg/dL (0.6-1.0); GFR 60.7; POTASSIUM 3.2 mmol/L (3.5-5.1); TOTAL BILIRUBIN 0.2 mg/dL (0.2-1.0); TOTAL PROTEIN 4.8 g/dL (6.4-8.2)
[2018-11-30] MEDS ORDERED: DIVALPROEX 125 MG CAP.SPRINK PO SCH ×2 (09:00→12:00)
[2018-11-30] MEDS ORDERED: METOPROLOL SUCC 24HR ER 50 MG TAB.ER.24H. PO SCH (09:00)
[2018-11-30] MEDS ORDERED: POLYETHYLENE GLYCOL 3350 17 GM PACKET. PO PRN (09:00)
[2018-11-30] MEDS ORDERED: LISINOPRIL 20 MG TABLET PO SCH (09:00)
[2018-11-30 09:38] LABS: % BANDS 1 % (0-9); % LYMPHS 36 % (24-48); % MONOS 3 % (0-10); % SEGS 60 % (35-66); PLT ESTIMATE ADEQUATE (ADEQUATE)
[2018-11-30 09:39] LABS: OVALOCYTES OCC
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
--- NOTE | 2018-11-30 16:25 | NUR ---
Patient has been calm, pleasant and cooperative. She has been compliant with medications, crushed in applesauce. Patient has been up for all meals but has been withdrawn to her room.
--- NOTE | 2018-11-30 18:28 | EKG ---
[address] [id number] Test Date: 2018-11-29 Test Time: 10:14:05 Pat Name: MEENAKSHI PRESTON Department: Room: [address] [place] [address] Gender: F File Clerk: : 1940 Requested By: RASHEEDA GARCIA Order Number: [id number] Reading MD: Kwan Hoyt Measurements Intervals [place] Rate: 68 P: 78 NJ: 142 QRS: 75 QRSD: 90 T: 67 QT: 444 QTc: 477 Interpretive Statements SINUS RHYTHM AMPLITUDE CRITERIA FOR LVH PROLONGED QT Electronically Signed On 12-06-2018 19:23:17 EMBROIDERY DESIGNER by Kwan Hoyt
--- NOTE | 2018-11-30 18:31 | NUR ---
Patient has been compliant with medications, crushed in applesauce. Patient has been up for all meals, but goes back to her room right after. Dr. Apodaca saw patient, new orders to d/c normal saline, lisinopril and metoprolol were decreased also.Metoprolol and Lisinopril doses held this morning. 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 Patient has been talking to her son about getting her things. Son was to come visit today but did not. Will continue to monitor.
[2018-11-30] MEDS ORDERED: traZODone 50 MG TABLET. PO PRN (20:00)
[2018-11-30] MEDS: PRIMIDONE 50 MG TABLET PO SCH (20:57)
[2018-11-30] MEDS ORDERED: MIRTAZAPINE 15 MG TABLET PO SCH (21:00)
--- NOTE | 2018-11-30 22:39 | PDOC ---
Exam Note: [place] Note: Please also refer to the separate dictated note~for this date of service dictated separately.~Patient seen individually. Discussed the patient with Nursing staff reviewed the chart.~Reviewed interim history and current functioning. Reviewed vital signs,~Labs/ Radiology~and current medications noted below. Continue current treatment with the changes noted in the dictated addendum note Assessment: Vital Signs: Vital Signs Date Time Temp Pulse Resp B/P (MAP) Pulse Ox O2 Delivery O2 Flow Rate FiO2 11/30/18 20:57 73 173/89 (117) 11/30/18 16:02 97.3 18 96 11/30/18 05:59 Room Air I&O Intake and Output 11/30/18 07:01 Intake Total 980 ml Output Total 1 ml Balance 979 ml Intake Oral 480 ml IV Total 500 ml Output Urine Total 1 ml Labs: Laboratory Tests Test 11/30/18 07:25 11/30/18 07:45 11/30/18 11:22 11/30/18 16:49 White Blood Count 3.8 x10^3/uL (4.0-11.0) #L Red Blood Count 3.03 x10^6/uL (3.50-5.40) L Hemoglobin 10.1 g/dL (12.0-15.5) L Hematocrit 29.9 % (36.0-47.0) L Mean Corpuscular Volume 99 fL (79-100) Mean Corpuscular Hemoglobin 34 pg (25-35) Mean Corpuscular Hemoglobin Concent 34 g/dL (31-37) Red Cell Distribution Width 14.5 % (11.5-14.5) Platelet Count 156 x10^3/uL (140-400) Neutrophils (%) (Auto) 65 % (31-73) Lymphocytes (%) (Auto) 25 % (24-48) Monocytes (%) (Auto) 7 % (0-9) Eosinophils (%) (Auto) 2 % (0-3) Basophils (%) (Auto) 1 % (0-3) Neutrophils # (Auto) 2.5 x10^3uL (1.8-7.7) Lymphocytes # (Auto) 1.0 x10^3/uL (1.0-4.8) Monocytes # (Auto) 0.2 x10^3/uL (0.0-1.1) Eosinophils # (Auto) 0.1 x10^3/uL (0.0-0.7) Basophils # (Auto) 0.0 x10^3/uL (0.0-0.2) Segmented Neutrophils % 60 % (35-66) Band Neutrophils % 1 % (0-9) Lymphocytes % 36 % (24-48) Monocytes % 3 % (0-10) Platelet Estimate Adequate (ADEQUATE) Ovalocytes Occ Sodium Level 147 mmol/L (136-145) H Potassium Level 3.2 mmol/L (3.5-5.1) L Chloride Level 111 mmol/L (98-107) H Carbon Dioxide Level 29 mmol/L (21-32) Anion Gap 7 (6-14) Blood Urea Nitrogen 19 mg/dL (7-20) Creatinine 0.9 mg/dL (0.6-1.0) Estimated GFR (Cockcroft-Gault) 60.7 BUN/Creatinine Ratio 21 (6-20) H Glucose Level 105 mg/dL (70-99) H Lactic Acid Level 0.7 mmol/L (0.4-2.0) Calcium Level 7.9 mg/dL (8.5-10.1) L Iron Level 35 ug/dL (50-170) L Total Iron Binding Capacity 170 ug/dL (250-450) L Iron Saturation 21 % (15-34) Total Bilirubin 0.2 mg/dL (0.2-1.0) # Aspartate Amino Transferase (AST) 12 U/L (15-37) L Alanine Aminotransferase (ALT) 8 U/L (14-59) L Alkaline Phosphatase 46 U/L (46-116) Total Protein 4.8 g/dL (6.4-8.2) L Albumin 2.1 g/dL (3.4-5.0) L Albumin/Globulin Ratio 0.8 (1.0-1.7) L Triglycerides Level 66 mg/dL (0-150) Cholesterol Level 161 mg/dL (0-200) LDL Cholesterol, Calculated 61 mg/dL (0-100) VLDL Cholesterol, Calculated 13 mg/dL (0-40) Non-HDL Cholesterol Calculated 74 mg/dL (0-129) HDL Cholesterol 87 mg/dL (40-60) H Cholesterol/HDL Ratio 1.0 Thyroid Stimulating Hormone (TSH) 0.241 uIU/mL (0.358-3.740) Glucose (Fingerstick) 87 mg/dL (70-99) 223 mg/dL (70-99) H 89 mg/dL (70-99) Test 11/30/18 19:28 Glucose (Fingerstick) 104 mg/dL (70-99) H Current Medications: Meds: Current Medications Acetaminophen (Tylenol) 650 mg PRN Q6HRS PRN PO PAIN / TEMP; Start 11/29/18 at 12:15 Multi-Ingredient Ointment (Analgesic Thurmond) 1 alyce PRN QID PRN TP MUSCLE PAIN; Start 11/29/18 at 12:15 Al Hydroxide/Mg Hydroxide (Mylanta Plus Xs) 15 ml PRN AFTMEALHC PRN PO DYSPEPSIA; Start 11/29/18 at 12:15 Magnesium Hydroxide (Milk Of Magnesia) 2,400 mg PRN QHS PRN PO CONSTIPATION; Start 11/29/18 at 12:15 Acetaminophen (Tylenol) 650 mg PRN Q6HRS PRN PO PAIN / TEMP; Start 11/29/18 at 12:15; Stop 11/29/18 at 12:15; Status DC Carbidopa/Levodopa (Sinemet 25/100) 1 tab TID PO Last administered on 11/30/18at 20:44; Start 11/29/18 at 14:00 Gabapentin (Neurontin) 200 mg TID PO Last administered on 11/30/18at 20:43; Start 11/29/18 at 14:00 Lisinopril (Prinivil) 40 mg DAILY PO ; Start 11/30/18 at 09:00; Stop 11/30/18 at 13:32; Status DC Tramadol HCl (Ultram) 50 mg PRN Q6HRS PRN PO PAIN; Start 11/29/18 at 12:15 Alprazolam (Xanax) 0.5 mg PRN Q8HRS PRN PO ANXIETY / AGITATION; Start 11/29/18 at 12:15; Stop 11/29/18 at 22:21; Status DC Aspirin (Children'S Aspirin) 81 mg DAILYWBKFT PO Last administered on 11/30/18at 07:39; Start 11/30/18 at 08:00 Cetirizine HCl (ZyrTEC) 10 mg DAILY PO Last administered on 11/30/18 07:39; Start 11/30/18 at 09:00 Divalproex Sodium (Depakote Sprinkles) 250 mg DAILY PO ; Start 11/30/18 at 09:00 ; Stop 11/30/18 at 09:00; Status DC Divalproex Sodium (Depakote Sprinkles) 500 mg BID@1200,2100 PO Last administered on 11/29/18 14:33; Start 11/29/18 at 12:00; Stop 11/29/18 at 22:21; Status DC EZETIMIBE (Zetia) 10 mg DAILY PO Last administered on 11/30/18 07:39; Start 11/30/18 at 09:00 Fluvoxamine Maleate (Luvox) 75 mg QHS PO Last administered on 11/29/18 21:03; Start 11/29/18 at 21:00; Stop 11/30/18 at 19:53; Status DC Lorazepam (Ativan) 0.5 mg PRN Q4HRS PRN PO ANXIETY / AGITATION Last administered on 11/29/18 14:33; Start 11/29/18 at 12:45 Metformin HCl (Glucophage) 500 mg BIDWMEALS PO Last administered on 11/30/18 16 :44; Start 11/29/18 at 17:00 Metoprolol Succinate (Toprol Xl) 100 mg DAILY PO ; Start 11/30/18 at 09:00; Stop 11/30/18 at 13:32; Status DC Mirtazapine (Remeron) 30 mg QHS PO Last administered on 11/29/18 21:03; Start 11/29/18 at 21:00; Stop 11/29/18 at 22:21; Status DC Ondansetron HCl (Zofran Odt) 4 mg PRN Q8HRS PRN PO NAUSEA/VOMITING Last administered on 11/29/18 22:27; Start 11/29/18 at 12:30 Pantoprazole Sodium (Protonix) 40 mg DAILYAC PO Last administered on 11/30/18 07:39; Start 11/30/18 at 07:30 Polyethylene Glycol (miraLAX) 17 gm PRN DAILY PRN PO CONSTIPATION; Start at 09:00 Primidone (Mysoline) 50 mg QHS PO Last administered on 11/30/18at 20:57; Start at 21:00 Quetiapine Fumarate (SEROquel) 12.5 mg DAILY@0900,1200,1600 PO Last administered on 11/30/18at 16:44; Start 11/29/18 at 16:00; Stop 11/30/18 at 19:53; Status DC Quetiapine Fumarate (SEROquel) 100 mg QHS PO Last administered on 11/29/18at 21: 03; Start 11/29/18 at 21:00; Stop 11/30/18 at 19:53; Status DC Ropinirole HCl (Requip) 1 mg TID PO Last administered on 11/30/18at 20:43; Start 11/29/18 at 14:00 Trazodone HCl (Desyrel) 100 mg HS PO Last administered on 11/29/18at 21:03; Start 11/29/18 at 21:00; Stop 11/30/18 at 19:53; Status DC Divalproex Sodium (Depakote Sprinkles) 500 mg DAILYWLUN PO Last administered on 11/30/18at 11:54; Start 11/30/18 at 12:00; Stop 11/30/18 at 12:01; Status DC Mirtazapine (Remeron) 15 mg QHS PO ; Start 11/30/18 at 21:00; Stop 11/30/18 at 21: 00; Status DC Divalproex Sodium (Depakote Sprinkles) 500 mg BID PO ; Start 12/01/18 at 09:00 Ondansetron HCl (Zofran Odt) 4 mg PRN Q8HRS PRN PO NAUSEA/VOMITING; Start at 22:30; Stop 11/29/18 at 22:30; Status DC Sodium Chloride 500 ml @ 0 mls/hr 1X ONCE IV Last administered on 11/29/18at 23: 00; Start 11/29/18 at 23:00; Stop 11/29/18 at 23:02; Status DC Sodium Chloride 1,000 ml @ 75 mls/hr [id number] IV Last administered on 11/30/18at 02:57; Start 11/30/18 at 03:00; Stop 11/30/18 at 16:15; Status DC Lisinopril (Prinivil) 10 mg DAILY PO ; Start 12/01/18 at 09:00 Metoprolol Succinate (Toprol Xl) 50 mg DAILY PO ; Start 12/01/18 at 09:00 Fluvoxamine Maleate (Luvox) 25 mg QHS PO Last administered on 11/30/18at 20:43; Start 11/30/18 at 21:00 Trazodone HCl (Desyrel) 50 mg PRN QHS PRN PO INSOMNIA; Start 11/30/18 at 20:00 Active Scripts Active Tramadol Hcl (Tramadol HCl) 50 Mg Tablet 50 Mg PO PRN Q6HRS PRN Reported Pantoprazole Sodium 40 Mg Tablet.dr 40 Mg PO DAILYAC LAST DOSE GIVEN: DATE: TIME: NEXT DOSE DUE: DATE: 10/03/18 TIME: 8am Miralax (Polyethylene Glycol 3350) 17 Gm Powd.pack 17 Gm PO PRN DAILY PRN Milk Of Magnesia (Magnesium Hydroxide) 400 Mg/5 Ml Oral.susp 2,400 Mg PO PRN QHS PRN Mag-Al Plus Xs Suspension (Mag Hydrox/Al Hydrox/Simeth) 30 Ml Oral.susp 15 Ml PO PRN AFTMEALHC PRN Alprazolam 0.5 Mg Tablet 0.5 Mg PO PRN Q8HRS PRN LAST DOSE GIVEN: DATE: TIME: NEXT DOSE DUE: Take as needed DATE: TIME: Seroquel (Quetiapine Fumarate) 100 Mg Tablet 100 Mg PO HS LAST DOSE GIVEN: DATE: TIME: NEXT DOSE DUE: DATE: 10/02/18 TIME: Bedtime Trazodone Hcl 100 Mg Tablet 100 Mg PO HS LAST DOSE GIVEN: DATE: TIME: NEXT DOSE DUE: DATE: 10/02/18 TIME: Bedtime Fluvoxamine Maleate 50 Mg Tablet 75 Mg PO HS LAST DOSE GIVEN: DATE: TIME: NEXT DOSE DUE: DATE: 10/02/18 TIME: Bedtime Tylenol (Acetaminophen) 325 Mg Tablet 650 Mg PO PRN Q6HRS PRN Tramadol Hcl (Tramadol HCl) 50 Mg Tablet 50 Mg PO PRN Q6HRS PRN LAST DOSE GIVEN: DATE: TIME: NEXT DOSE DUE: Take as needed DATE: TIME: Analgesic Thurmond (Methyl Salicylate/Menthol) 28 Gm Oint...g. 1 Alyce TP PRN QID PRN Seroquel (Quetiapine Fumarate) 25 Mg Tablet 0.5 Tab PO 9AM,1200,4PM LAST DOSE GIVEN: DATE: TIME: NEXT DOSE DUE: DATE: 10/02/18 TIME: 4pm Ativan (Lorazepam) 0.5 Mg Tablet 0.5 Mg PO PRN Q4HRS PRN LAST DOSE GIVEN: DATE: TIME: NEXT DOSE DUE: Take as needed DATE: TIME: Depakote Sprinkle (Divalproex Sodium) 125 Mg Cap.sprink 250 Mg PO DAILY LAST DOSE GIVEN: DATE: TIME: NEXT DOSE DUE: DATE:10/03/18 TIME: 8am Depakote Sprinkle (Divalproex Sodium) 125 Mg Cap.sprink 500 Mg PO 1200,9PM LAST DOSE GIVEN: DATE: TIME: NEXT DOSE DUE: DATE:10/02/18 TIME: Bedtime Metformin Hcl 500 Mg Tablet 500 Mg PO BIDWMEALS LAST DOSE GIVEN: DATE: TIME: NEXT DOSE DUE: DATE: 10/02/18 TIME: Dinner Gabapentin (Gabapentin) 100 Mg Capsule 200 Mg PO TID LAST DOSE GIVEN: DATE: TIME: NEXT DOSE DUE: DATE: 10/02/18 TIME:2pm then again at bedtime. Metoprolol Succinate ( Xl ) (Metoprolol Succinate) 50 Mg Tab.er.24h 100 Mg PO DAILY LAST DOSE GIVEN: DATE: TIME: NEXT DOSE DUE: DATE: 10/03/18 TIME: 8am Requip (Ropinirole Hcl) 1 Mg Tablet 1 Mg PO TID LAST DOSE GIVEN: DATE: TIME: NEXT DOSE DUE: DATE: 10/02/18 TIME: 2pm Sinemet 25-100 Mg Tablet (Carbidopa/Levodopa) 1 Each Tablet 1 Each PO TID LAST DOSE GIVEN: DATE: TIME: NEXT DOSE DUE: DATE: 10/02/18 TIME: 2pm Primidone 50 Mg Tablet 50 Mg PO HS LAST DOSE GIVEN: DATE: TIME: NEXT DOSE DUE: DATE: 10/02/18 TIME: Bedtime Zofran (Ondansetron Hcl) 4 Mg Tablet 4 Mg PO PRN Q8HRS PRN LAST DOSE GIVEN: DATE: TIME: NEXT DOSE DUE: Take as needed DATE: TIME: Lisinopril 20 Mg Tablet 40 Mg PO DAILY hold for a systolic BP less than 100. After a held dose, reassess in 2 ours. IF SBP is above threshold, administer dose as ordered. IF SBP is below threshold, contact provider for additional instructions. LAST DOSE GIVEN: DATE: TIME: NEXT DOSE DUE: DATE: 10/03/18 TIME: 8am Remeron (Mirtazapine) 15 Mg Tablet 30 Mg PO QHS LAST DOSE GIVEN: DATE: TIME: NEXT DOSE DUE: DATE: 10/02/18 TIME: Bedtime Cetirizine Hcl 10 Mg Tablet 10 Mg PO DAILY LAST DOSE GIVEN: DATE: TIME: NEXT DOSE DUE: DATE: 10/03/18 TIME: 8am Aspirin 81 Mg Tab.chew 81 Mg PO DAILY LAST DOSE GIVEN: DATE: TIME: NEXT DOSE DUE: DATE: 10/03/18 TIME: 8am Zetia (Ezetimibe) 10 Mg Tablet 10 Mg PO DAILY LAST DOSE GIVEN: DATE: TIME: NEXT DOSE DUE: DATE: 10/03/18 TIME: 8am I have reviewed the current psychotropics carefully including drug interactions. Risk benefit ratio favors no change other than as noted in my dictated progress note. Diagnosis: Problems: (1) Bipolar I disorder with jose (2) Hypertension (3) Leg swelling (4) Accelerated hypertension (5) Hip pain, right (6) Cellulitis of right lower limb (7) Accelerated essential hypertension (8) Behavior problem (9) Chronic diastolic (congestive) heart failure (10) Medical clearance for psychiatric admission (11) Bipolar I disorder with anxious distress (12) Bipolar I disorder with mixed features (13) Anxiety disorder (14) Impulse control disorder (15) UTI (urinary tract infection) (16) Severe anxiety KANWAL KNIGHT MD Nov 30, 2018 22:39
[2018-11-30 23:07] LABS: HEMOGLOBIN A1C 5.9 % (4.8-5.6)
--- NOTE | 2018-11-30 23:24 | NUR ---
Pt wandering unit all evening. Pt stating that she feels much better this evening, no complaints of dizziness or nausea. Pt anxious and asking to call her son. Phone conversation went well. Compliant with medications crushed in vanilla pudding.
[2018-12-01 00:07] LABS: THYROXINE 6.7 ug/dL (4.5-12.0)
[2018-12-01 05:37] VITALS: BP 135/55
[2018-12-01 08:35] VITALS: BP 158/73
[2018-12-01] MEDS: PANTOPRAZOLE 40 MG TABLET. PO SCH (08:36)
[2018-12-01] MEDS: EZETIMIBE 10 MG TABLET PO SCH (08:36)
[2018-12-01] MEDS: ASPIRIN 81 MG TAB.CHEW PO SCH (08:36)
[2018-12-01] MEDS: rOPINIRole 1 MG TABLET. PO SCH ×3 (08:36→19:48)
[2018-12-01] MEDS: CARBIDOPA/LEVODOPA 25/100MG TABLET PO SCH ×3 (08:36→19:48)
[2018-12-01] MEDS: CETIRIZINE HCL 10 MG TABLET PO SCH (08:36)
[2018-12-01] MEDS: metFORMIN 500 MG TABLET PO SCH ×2 (08:36→17:04)
[2018-12-01] MEDS: DIVALPROEX 125 MG CAP.SPRINK PO SCH ×2 (08:44→19:49)
[2018-12-01] MEDS: LISINOPRIL 10 MG TABLET PO SCH (08:45)
[2018-12-01] MEDS: GABAPENTIN 100 MG CAPSULE. PO SCH ×3 (08:45→19:51)
[2018-12-01] MEDS: METOPROLOL SUCC 24HR ER 50 MG TAB.ER.24H. PO SCH (08:45)
--- NOTE | 2018-12-01 09:59 | NUR ---
Pt anxious, compliant w/ medications crushed in pudding; however, complained and struggled to get them down d/t taste. Pt denied pain and alert x 3. Removed pt's IV d/t nonfunction; fluids were D/C 11/30. Will inform DR. Apodaca on rounds.
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
--- NOTE | 2018-12-01 15:09 | NUR ---
Faxed request to DOUGLAS Tapia, for CARE assessment to be completed due to uncertainty of discharge plan/location.
--- NOTE | 2018-12-01 15:12 | NUR ---
Left message for KEYA Nick, at [facility], with request for written information about their community as possible living option for Tracy. Awaiting return phone call. Left message for Sho, state editor, at [facility], to request additional information about their community and [facility] apartments as possible living option for Tracy. Awaiting return phone call.
--- NOTE | 2018-12-01 15:19 | NUR ---
Spoke with pt and she seemed less anxious d/t discussing discharge planning that she had done with Kathi. Pt is hopeful that she will be discharged to an assisted living facility where her meals will be provided and she will also have a small refrigerator in her room. Also, she feels confident that any portion that she is unable to cover will be covered by her son, whom she said frequently asks her if she needs money. Pt was concerned about "Meals on Wheels" being stopped while she is in the hospital. This nurse spoke to PAT Ar[facility], and she is planning to speak to this organization.
[2018-12-01 16:01] VITALS: BP 159/77
[2018-12-01 19:54] VITALS: BP 160/77
[2018-12-01] MEDS: PRIMIDONE 50 MG TABLET PO SCH (19:54)
--- NOTE | 2018-12-01 22:22 | PN ---
DATE: 11/30/2018 PSYCHIATRIC PROGRESS NOTE This late entry 11/30/2018 covers elements, not covered in my initial note. SUBJECTIVE: I met with the patient in the evening. The patient was quite sedated previous night, slept 4-1/2 hours. Blood pressure was low. Dr. Apodaca reduced the lisinopril and metoprolol. However, she had not been taking her psychotropics prior to admission and we had restarted them at a slightly lower dosage, but for now, we will go ahead and discontinue the Seroquel. Change the trazodone to 50 mg at bedtime p.r.n., reduce the Luvox down to 25 mg a day, discontinue the Remeron. She did receive IV fluids at night to help with the blood pressure and once all of this is stabilized, we will gradually restart her psychotropics. REVIEW OF SYSTEMS: No CV, , pulmonary, eye system symptoms on review. MENTAL STATUS EXAM: Reasonably oriented. Speech is coherent, somewhat pressured typical for her. Abstraction fair, computation impaired, language function intact, attention span short. Mood and affect remain somewhat anxious, labile, obsessive with some ongoing mood lability. LABORATORY DATA: Reviewed. IMPRESSION: Bipolar 1 disorder, mixed with psychotic features; anxiety disorder, unspecified. Rest unchanged. PLAN: As noted above. Rest unchanged from initial note. MAN Gerhard KNIGHT MD DR: VINOD/portia JOB#: [id number] / [id number]
--- NOTE | 2018-12-01 22:34 | PDOC ---
Exam Note: [place] Note: Please also refer to the separate dictated note~for this date of service dictated separately.~Patient seen individually. Discussed the patient with Nursing staff reviewed the chart.~Reviewed interim history and current functioning. Reviewed vital signs,~Labs/ Radiology~and current medications noted below. Continue current treatment with the changes noted in the dictated addendum note Assessment: Vital Signs: Vital Signs Date Time Temp Pulse Resp B/P (MAP) Pulse Ox O2 Delivery O2 Flow Rate FiO2 12/01/18 19:54 65 160/77 (104) 12/01/18 16:01 97.9 20 95 12/01/18 08:35 Room Air I&O Intake and Output 12/01/18 07:01 Intake Total 1180 ml Balance 1180 ml Intake Oral 1180 ml Labs: Laboratory Tests Test 12/01/18 07:15 12/01/18 11:28 12/01/18 16:38 12/01/18 19:09 Glucose (Fingerstick) 78 mg/dL (70-99) 102 mg/dL (70-99) H 87 mg/dL (70-99) 154 mg/dL (70-99) H Current Medications: Meds: Current Medications Acetaminophen (Tylenol) 650 mg PRN Q6HRS PRN PO PAIN / TEMP; Start 11/29/18 at 12:15 Multi-Ingredient Ointment (Analgesic Decatur) 1 alyce PRN QID PRN TP MUSCLE PAIN; Start 11/29/18 at 12:15 Al Hydroxide/Mg Hydroxide (Mylanta Plus Xs) 15 ml PRN AFTMEALHC PRN PO DYSPEPSIA; Start 11/29/18 at 12:15 Magnesium Hydroxide (Milk Of Magnesia) 2,400 mg PRN QHS PRN PO CONSTIPATION; Start 11/29/18 at 12:15 Acetaminophen (Tylenol) 650 mg PRN Q6HRS PRN PO PAIN / TEMP; Start 11/29/18 at 12:15; Stop 11/29/18 at 12:15; Status DC Carbidopa/Levodopa (Sinemet 25/100) 1 tab TID PO Last administered on 12/01/18at 19:48; Start 11/29/18 at 14:00 Gabapentin (Neurontin) 200 mg TID PO Last administered on 12/01/18at 19:51; Start 11/29/18 at 14:00 Lisinopril (Prinivil) 40 mg DAILY PO ; Start 11/30/18 at 09:00; Stop 11/30/18 at 13:32; Status DC Tramadol HCl (Ultram) 50 mg PRN Q6HRS PRN PO PAIN; Start 11/29/18 at 12:15 Alprazolam (Xanax) 0.5 mg PRN Q8HRS PRN PO ANXIETY / AGITATION; Start 11/29/18 at 12:15; Stop 11/29/18 at 22:21; Status DC Aspirin (Children'S Aspirin) 81 mg DAILYWBKFT PO Last administered on 12/01/18at 08:36; Start 11/30/18 at 08:00 Cetirizine HCl (ZyrTEC) 10 mg DAILY PO Last administered on 12/01/18at 08:36; Start 11/30/18 at 09:00 Divalproex Sodium (Depakote Sprinkles) 250 mg DAILY PO ; Start 11/30/18 at 09:00 ; Stop 11/30/18 at 09:00; Status DC Divalproex Sodium (Depakote Sprinkles) 500 mg BID@1200,2100 PO Last administered on 11/29/18at 14:33; Start 11/29/18 at 12:00; Stop 11/29/18 at 22:21; Status DC EZETIMIBE (Zetia) 10 mg DAILY PO Last administered on 12/01/18at 08:36; Start 11/30/18 at 09:00 Fluvoxamine Maleate (Luvox) 75 mg QHS PO Last administered on 11/29/18at 21:03; Start 11/29/18 at 21:00; Stop 11/30/18 at 19:53; Status DC Lorazepam (Ativan) 0.5 mg PRN Q4HRS PRN PO ANXIETY / AGITATION Last administered on 11/29/18at 14:33; Start 11/29/18 at 12:45 Metformin HCl (Glucophage) 500 mg BIDWMEALS PO Last administered on 12/01/18at 17 :04; Start 11/29/18 at 17:00 Metoprolol Succinate (Toprol Xl) 100 mg DAILY PO ; Start 11/30/18 at 09:00; Stop 11/30/18 at 13:32; Status DC Mirtazapine (Remeron) 30 mg QHS PO Last administered on 11/29/18 21:03; Start 11/29/18 at 21:00; Stop 11/29/18 at 22:21; Status DC Ondansetron HCl (Zofran Odt) 4 mg PRN Q8HRS PRN PO NAUSEA/VOMITING Last administered on 11/29/18at 22:27; Start 11/29/18 at 12:30 Pantoprazole Sodium (Protonix) 40 mg DAILYAC PO Last administered on 12/01/18at 08:36; Start 11/30/18 at 07:30 Polyethylene Glycol (miraLAX) 17 gm PRN DAILY PRN PO CONSTIPATION; Start at 09:00 Primidone (Mysoline) 50 mg QHS PO Last administered on 12/01/18at 19:54; Start at 21:00 Quetiapine Fumarate (SEROquel) 12.5 mg DAILY@0900,1200,1600 PO Last administered on 11/30/18at 16:44; Start 11/29/18 at 16:00; Stop 11/30/18 at 19:53; Status DC Quetiapine Fumarate (SEROquel) 100 mg QHS PO Last administered on 11/29/18 21: 03; Start 11/29/18 at 21:00; Stop 11/30/18 at 19:53; Status DC Ropinirole HCl (Requip) 1 mg TID PO Last administered on 12/01/18at 19:48; Start 11/29/18 at 14:00 Trazodone HCl (Desyrel) 100 mg HS PO Last administered on 11/29/18at 21:03; Start 11/29/18 at 21:00; Stop 11/30/18 at 19:53; Status DC Divalproex Sodium (Depakote Sprinkles) 500 mg DAILYWLUN PO Last administered on 11/30/18at 11:54; Start 11/30/18 at 12:00; Stop 11/30/18 at 12:01; Status DC Mirtazapine (Remeron) 15 mg QHS PO ; Start 11/30/18 at 21:00; Stop 11/30/18 at 21: 00; Status DC Divalproex Sodium (Depakote Sprinkles) 500 mg BID PO Last administered on at 19:49; Start 12/01/18 at 09:00 Ondansetron HCl (Zofran Odt) 4 mg PRN Q8HRS PRN PO NAUSEA/VOMITING; Start at 22:30; Stop 11/29/18 at 22:30; Status DC Sodium Chloride 500 ml @ 0 mls/hr 1X ONCE IV Last administered on 11/29/18at 23: 00; Start 11/29/18 at 23:00; Stop 11/29/18 at 23:02; Status DC Sodium Chloride 1,000 ml @ 75 mls/hr [id number] IV Last administered on 11/30/18at 02:57; Start 11/30/18 at 03:00; Stop 11/30/18 at 16:15; Status DC Lisinopril (Prinivil) 10 mg DAILY PO Last administered on 12/01/18at 08:45; Start 12/01/18 at 09:00 Metoprolol Succinate (Toprol Xl) 50 mg DAILY PO Last administered on 12/01/18at 08:45; Start 12/01/18 at 09:00 Fluvoxamine Maleate (Luvox) 25 mg QHS PO Last administered on 12/01/18at 19:48; Start 11/30/18 at 21:00 Trazodone HCl (Desyrel) 50 mg PRN QHS PRN PO INSOMNIA; Start 11/30/18 at 20:00 Active Scripts Active Tramadol Hcl (Tramadol HCl) 50 Mg Tablet 50 Mg PO PRN Q6HRS PRN Reported Pantoprazole Sodium 40 Mg Tablet.dr 40 Mg PO DAILYAC LAST DOSE GIVEN: DATE: TIME: NEXT DOSE DUE: DATE: 10/03/18 TIME: 8am Miralax (Polyethylene Glycol 3350) 17 Gm Powd.pack 17 Gm PO PRN DAILY PRN Milk Of Magnesia (Magnesium Hydroxide) 400 Mg/5 Ml Oral.susp 2,400 Mg PO PRN QHS PRN Mag-Al Plus Xs Suspension (Mag Hydrox/Al Hydrox/Simeth) 30 Ml Oral.susp 15 Ml PO PRN AFTMEALHC PRN Alprazolam 0.5 Mg Tablet 0.5 Mg PO PRN Q8HRS PRN LAST DOSE GIVEN: DATE: TIME: NEXT DOSE DUE: Take as needed DATE: TIME: Seroquel (Quetiapine Fumarate) 100 Mg Tablet 100 Mg PO HS LAST DOSE GIVEN: DATE: TIME: NEXT DOSE DUE: DATE: 10/02/18 TIME: Bedtime Trazodone Hcl 100 Mg Tablet 100 Mg PO HS LAST DOSE GIVEN: DATE: TIME: NEXT DOSE DUE: DATE: 10/02/18 TIME: Bedtime Fluvoxamine Maleate 50 Mg Tablet 75 Mg PO HS LAST DOSE GIVEN: DATE: TIME: NEXT DOSE DUE: DATE: 10/02/18 TIME: Bedtime Tylenol (Acetaminophen) 325 Mg Tablet 650 Mg PO PRN Q6HRS PRN Tramadol Hcl (Tramadol HCl) 50 Mg Tablet 50 Mg PO PRN Q6HRS PRN LAST DOSE GIVEN: DATE: TIME: NEXT DOSE DUE: Take as needed DATE: TIME: Analgesic [place] (Methyl Salicylate/Menthol) 28 Gm Oint...g. 1 Alyce TP PRN QID PRN Seroquel (Quetiapine Fumarate) 25 Mg Tablet 0.5 Tab PO 9AM,1200,4PM LAST DOSE GIVEN: DATE: TIME: NEXT DOSE DUE: DATE: 10/02/18 TIME: 4pm Ativan (Lorazepam) 0.5 Mg Tablet 0.5 Mg PO PRN Q4HRS PRN LAST DOSE GIVEN: DATE: TIME: NEXT DOSE DUE: Take as needed DATE: TIME: Depakote Sprinkle (Divalproex Sodium) 125 Mg Cap.sprink 250 Mg PO DAILY LAST DOSE GIVEN: DATE: TIME: NEXT DOSE DUE: DATE:10/03/18 TIME: 8am Depakote Sprinkle (Divalproex Sodium) 125 Mg Cap.sprink 500 Mg PO 1200,9PM LAST DOSE GIVEN: DATE: TIME: NEXT DOSE DUE: DATE:10/02/18 TIME: Bedtime Metformin Hcl 500 Mg Tablet 500 Mg PO BIDWMEALS LAST DOSE GIVEN: DATE: TIME: NEXT DOSE DUE: DATE: 10/02/18 TIME: Dinner Gabapentin (Gabapentin) 100 Mg Capsule 200 Mg PO TID LAST DOSE GIVEN: DATE: TIME: NEXT DOSE DUE: DATE: 10/02/18 TIME:2pm then again at bedtime. Metoprolol Succinate ( Xl ) (Metoprolol Succinate) 50 Mg Tab.er.24h 100 Mg PO DAILY LAST DOSE GIVEN: DATE: TIME: NEXT DOSE DUE: DATE: 10/03/18 TIME: 8am Requip (Ropinirole Hcl) 1 Mg Tablet 1 Mg PO TID LAST DOSE GIVEN: DATE: TIME: NEXT DOSE DUE: DATE: 10/02/18 TIME: 2pm Sinemet 25-100 Mg Tablet (Carbidopa/Levodopa) 1 Each Tablet 1 Each PO TID LAST DOSE GIVEN: DATE: TIME: NEXT DOSE DUE: DATE: 10/02/18 TIME: 2pm Primidone 50 Mg Tablet 50 Mg PO HS LAST DOSE GIVEN: DATE: TIME: NEXT DOSE DUE: DATE: 10/02/18 TIME: Bedtime Zofran (Ondansetron Hcl) 4 Mg Tablet 4 Mg PO PRN Q8HRS PRN LAST DOSE GIVEN: DATE: TIME: NEXT DOSE DUE: Take as needed DATE: TIME: Lisinopril 20 Mg Tablet 40 Mg PO DAILY hold for a systolic BP less than 100. After a held dose, reassess in 2 ours. IF SBP is above threshold, administer dose as ordered. IF SBP is below threshold, contact provider for additional instructions. LAST DOSE GIVEN: DATE: TIME: NEXT DOSE DUE: DATE: 10/03/18 TIME: 8am Remeron (Mirtazapine) 15 Mg Tablet 30 Mg PO QHS LAST DOSE GIVEN: DATE: TIME: NEXT DOSE DUE: DATE: 10/02/18 TIME: Bedtime Cetirizine Hcl 10 Mg Tablet 10 Mg PO DAILY LAST DOSE GIVEN: DATE: TIME: NEXT DOSE DUE: DATE: 10/03/18 TIME: 8am Aspirin 81 Mg Tab.chew 81 Mg PO DAILY LAST DOSE GIVEN: DATE: TIME: NEXT DOSE DUE: DATE: 10/03/18 TIME: 8am Zetia (Ezetimibe) 10 Mg Tablet 10 Mg PO DAILY LAST DOSE GIVEN: DATE: TIME: NEXT DOSE DUE: DATE: 10/03/18 TIME: 8am I have reviewed the current psychotropics carefully including drug interactions. Risk benefit ratio favors no change other than as noted in my dictated progress note. Diagnosis: Problems: (1) Bipolar I disorder with jose (2) Hypertension (3) Leg swelling (4) Accelerated hypertension (5) Hip pain, right (6) Cellulitis of right lower limb (7) Accelerated essential hypertension (8) Behavior problem (9) Chronic diastolic (congestive) heart failure (10) Medical clearance for psychiatric admission (11) Bipolar I disorder with anxious distress (12) Bipolar I disorder with mixed features (13) Anxiety disorder (14) Impulse control disorder (15) UTI (urinary tract infection) (16) Severe anxiety KANWAL KNIGHT MD Dec 01, 2018 22:34
--- NOTE | 2018-12-01 23:48 | NUR ---
Pt wandering unit all evening. Up at nurses station window numerous times, anxious about where she will be discharging to. Compliant with medications crushed in pudding.
[2018-12-02 05:34] VITALS: BP 160/76
[2018-12-02] MEDS: metFORMIN 500 MG TABLET PO SCH ×2 (07:57→17:06)
[2018-12-02] MEDS: ASPIRIN 81 MG TAB.CHEW PO SCH (07:57)
[2018-12-02] MEDS: DIVALPROEX 125 MG CAP.SPRINK PO SCH ×2 (07:57→19:44)
[2018-12-02] MEDS: PANTOPRAZOLE 40 MG TABLET. PO SCH (07:57)
[2018-12-02] MEDS: GABAPENTIN 100 MG CAPSULE. PO SCH ×3 (07:59→19:44)
[2018-12-02] MEDS: LISINOPRIL 10 MG TABLET PO SCH (07:59)
[2018-12-02] MEDS: EZETIMIBE 10 MG TABLET PO SCH (08:00)
[2018-12-02] MEDS: METOPROLOL SUCC 24HR ER 50 MG TAB.ER.24H. PO SCH (08:00)
[2018-12-02] MEDS: CETIRIZINE HCL 10 MG TABLET PO SCH (08:01)
[2018-12-02] MEDS: CARBIDOPA/LEVODOPA 25/100MG TABLET PO SCH ×3 (08:01→19:44)
[2018-12-02] MEDS: rOPINIRole 1 MG TABLET. PO SCH ×3 (08:01→19:44)
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
--- NOTE | 2018-12-02 11:20 | NUR ---
Follow up call placed to Catherine, network director, at [facility]. Catherine indicated that there is an in person application process that Tracy would have to go thru in order to become a resident at [facility]. Follow up call placed to Sho, network director, at [facility] who indicated that [facility] apartments are $3000.00 a month and they do not accept HCBS. On 12/01/18, calls placed to the following low income apartment complexes- [facility] (must complete an application and then be placed on wait list), [facility]( must complete an application and wait list is over a year), [facility] (must complete an application and wait list is 1-2 years.) Independent senior apartment at [facility] is $2750 a month and they do not accept Medicaid. Will continue tor research possible living options for Tracy.
[2018-12-02 15:44] VITALS: BP 169/79
[2018-12-02] MEDS: PRIMIDONE 50 MG TABLET PO SCH (19:44)
--- NOTE | 2018-12-02 20:38 | PN ---
DATE: 12/01/2018 PSYCHIATRIC PROGRESS NOTE This late entry 12/01/2018 covers elements not covered in my initial note. SUBJECTIVE: I met with the patient in the evening. The patient slept 7 hours previous evening. She has lost a fair amount of weight and had a dietary consult and started on Glucerna 3 times a day. Adult grizzly worker reportedly met with the patient on the unit on 12/01/2018. The patient states that her son is trying to facilitate placement in assisted living. She is anxious in the morning and anxious previous night. We discontinued most of her psychotropics and we will gradually restart and adjust them once medically she is more stable and nutritionally get supplemented. REVIEW OF SYSTEMS: No CV, , pulmonary, eye, ENT system symptoms on review. MENTAL STATUS EXAM: The patient is oriented to herself and situation. Speech has some latency, often responses monosyllabic and other times somewhat pressured. Abstraction fair, computation somewhat impaired, language function intact, attention span short. Mood and affect somewhat anxious, at times labile, but improved. LABORATORY DATA: Reviewed. IMPRESSION: Bipolar 1 disorder, mixed anxiety disorder, unspecified; panic disorder. PLAN: No change from initial note. We will continue off her psychotropics for the most part and gradually reinitiate them as tolerated. KANWAL KNIGHT MD DR: VINOD/portia JOB#: [id number] / [id number]
--- NOTE | 2018-12-02 21:07 | NUR ---
Behavior Intervention Response and Plan: BIRP Note: Behavior: Assumed Care of patient, patient located in Day Room at shift change. Patient exhibited the following behavior Calm, Able to Focus on Task, Social. Brief assessment on rounds of vital signs, medication needs, lab studies, and pain. Treatment plan problems . Intervention: Patient assessed and the following interventions initiated safety checks 15 Minute Checks Cognitive Assessment , Head to toe Assessment , Medications. Response: After interactions and interventions patient responded in the following manner, Compliant , Cooperative ,Appropriate. Continue to assess behaviors and condition will continue to monitor throughout the shift as needed. Patient educated on ADL's, and hand hygiene. Plan: Continue to monitor Master Treatment Plan for patient's progress toward short term goals of Improved Mood, Decreased Agitation, manager long term care goals to return to previous living setting vs placement. Continue to assess patient for changes in above assessment. Monitor for medication needs, pain, and safety concerns. Hourly rounding performed to ensure safe environment.
--- NOTE | 2018-12-02 23:03 | PDOC ---
Exam Note: [place] Note: Please also refer to the separate dictated note~for this date of service dictated separately.~Patient seen individually. Discussed the patient with Nursing staff reviewed the chart.~Reviewed interim history and current functioning. Reviewed vital signs,~Labs/ Radiology~and current medications noted below. Continue current treatment with the changes noted in the dictated addendum note Assessment: Vital Signs: Vital Signs Date Time Temp Pulse Resp B/P (MAP) Pulse Ox O2 Delivery O2 Flow Rate FiO2 12/02/18 15:44 98.4 64 18 169/79 (109) 99 12/01/18 08:35 Room Air I&O Intake and Output 12/02/18 07:01 Intake Total 960 ml Balance 960 ml Intake Oral 960 ml Labs: Laboratory Tests Test 12/02/18 07:31 12/02/18 12:02 12/02/18 17:06 12/02/18 19:14 Glucose (Fingerstick) 66 mg/dL (70-99) L 126 mg/dL (70-99) H 64 mg/dL (70-99) L 108 mg/dL (70-99) H Current Medications: Meds: Current Medications Acetaminophen (Tylenol) 650 mg PRN Q6HRS PRN PO PAIN / TEMP; Start 11/29/18 at 12:15 Multi-Ingredient Ointment (Analgesic [place]) 1 alyce PRN QID PRN TP MUSCLE PAIN; Start 11/29/18 at 12:15 Al Hydroxide/Mg Hydroxide (Mylanta Plus Xs) 15 ml PRN AFTMEALHC PRN PO DYSPEPSIA; Start 11/29/18 at 12:15 Magnesium Hydroxide (Milk Of Magnesia) 2,400 mg PRN QHS PRN PO CONSTIPATION; Start 11/29/18 at 12:15 Acetaminophen (Tylenol) 650 mg PRN Q6HRS PRN PO PAIN / TEMP; Start 11/29/18 at 12:15; Stop 11/29/18 at 12:15; Status DC Carbidopa/Levodopa (Sinemet 25/100) 1 tab TID PO Last administered on 12/02/18at 19:44; Start 11/29/18 at 14:00 Gabapentin (Neurontin) 200 mg TID PO Last administered on 12/02/18at 19:44; Start 11/29/18 at 14:00 Lisinopril (Prinivil) 40 mg DAILY PO ; Start 11/30/18 at 09:00; Stop 11/30/18 at 13:32; Status DC Tramadol HCl (Ultram) 50 mg PRN Q6HRS PRN PO PAIN; Start 11/29/18 at 12:15 Alprazolam (Xanax) 0.5 mg PRN Q8HRS PRN PO ANXIETY / AGITATION; Start 11/29/18 at 12:15; Stop 11/29/18 at 22:21; Status DC Aspirin (Children'S Aspirin) 81 mg DAILYWBKFT PO Last administered on 12/02/18at 07:57; Start 11/30/18 at 08:00 Cetirizine HCl (ZyrTEC) 10 mg DAILY PO Last administered on 12/02/18at 08:01; Start 11/30/18 at 09:00 Divalproex Sodium (Depakote Sprinkles) 250 mg DAILY PO ; Start 11/30/18 at 09:00 ; Stop 11/30/18 at 09:00; Status DC Divalproex Sodium (Depakote Sprinkles) 500 mg BID@1200,2100 PO Last administered on 11/29/18at 14:33; Start 11/29/18 at 12:00; Stop 11/29/18 at 22:21; Status DC EZETIMIBE (Zetia) 10 mg DAILY PO Last administered on 12/02/18at 08:00; Start 11/30/18 at 09:00 Fluvoxamine Maleate (Luvox) 75 mg QHS PO Last administered on 11/29/18at 21:03; Start 11/29/18 at 21:00; Stop 11/30/18 at 19:53; Status DC Lorazepam (Ativan) 0.5 mg PRN Q4HRS PRN PO ANXIETY / AGITATION Last administered on 11/29/18at 14:33; Start 11/29/18 at 12:45 Metformin HCl (Glucophage) 500 mg BIDWMEALS PO Last administered on 12/02/18at 17 :06; Start 11/29/18 at 17:00 Metoprolol Succinate (Toprol Xl) 100 mg DAILY PO ; Start 11/30/18 at 09:00; Stop 11/30/18 at 13:32; Status DC Mirtazapine (Remeron) 30 mg QHS PO Last administered on 11/29/18 21:03; Start 11/29/18 at 21:00; Stop 11/29/18 at 22:21; Status DC Ondansetron HCl (Zofran Odt) 4 mg PRN Q8HRS PRN PO NAUSEA/VOMITING Last administered on 11/29/18 22:27; Start 11/29/18 at 12:30 Pantoprazole Sodium (Protonix) 40 mg DAILYAC PO Last administered on 12/02/18 07:57; Start 11/30/18 at 07:30 Polyethylene Glycol (miraLAX) 17 gm PRN DAILY PRN PO CONSTIPATION; Start at 09:00 Primidone (Mysoline) 50 mg QHS PO Last administered on 12/02/18 19:44; Start at 21:00 Quetiapine Fumarate (SEROquel) 12.5 mg DAILY@0900,1200,1600 PO Last administered on 11/30/18 16:44; Start 11/29/18 at 16:00; Stop 11/30/18 at 19:53; Status DC Quetiapine Fumarate (SEROquel) 100 mg QHS PO Last administered on 11/29/18 21: 03; Start 11/29/18 at 21:00; Stop 11/30/18 at 19:53; Status DC Ropinirole HCl (Requip) 1 mg TID PO Last administered on 12/02/18 19:44; Start 11/29/18 at 14:00 Trazodone HCl (Desyrel) 100 mg HS PO Last administered on 11/29/18 21:03; Start 11/29/18 at 21:00; Stop 11/30/18 at 19:53; Status DC Divalproex Sodium (Depakote Sprinkles) 500 mg DAILYWLUN PO Last administered on 11/30/18at 11:54; Start 11/30/18 at 12:00; Stop 11/30/18 at 12:01; Status DC Mirtazapine (Remeron) 15 mg QHS PO ; Start 11/30/18 at 21:00; Stop 11/30/18 at 21: 00; Status DC Divalproex Sodium (Depakote Sprinkles) 500 mg BID PO Last administered on at 19:44; Start 12/01/18 at 09:00 Ondansetron HCl (Zofran Odt) 4 mg PRN Q8HRS PRN PO NAUSEA/VOMITING; Start at 22:30; Stop 11/29/18 at 22:30; Status DC Sodium Chloride 500 ml @ 0 mls/hr 1X ONCE IV Last administered on 11/29/18at 23: 00; Start 11/29/18 at 23:00; Stop 11/29/18 at 23:02; Status DC Sodium Chloride 1,000 ml @ 75 mls/hr [id number] IV Last administered on 11/30/18at 02:57; Start 11/30/18 at 03:00; Stop 11/30/18 at 16:15; Status DC Lisinopril (Prinivil) 10 mg DAILY PO Last administered on 12/02/18at 07:59; Start 12/01/18 at 09:00 Metoprolol Succinate (Toprol Xl) 50 mg DAILY PO Last administered on 12/02/18at 08:00; Start 12/01/18 at 09:00 Fluvoxamine Maleate (Luvox) 25 mg QHS PO Last administered on 12/02/18at 19:44; Start 11/30/18 at 21:00 Trazodone HCl (Desyrel) 50 mg PRN QHS PRN PO INSOMNIA; Start 11/30/18 at 20:00 Active Scripts Active Tramadol Hcl (Tramadol HCl) 50 Mg Tablet 50 Mg PO PRN Q6HRS PRN Reported Pantoprazole Sodium 40 Mg Tablet.dr 40 Mg PO DAILYAC LAST DOSE GIVEN: DATE: TIME: NEXT DOSE DUE: DATE: 10/03/18 TIME: 8am Miralax (Polyethylene Glycol 3350) 17 Gm Powd.pack 17 Gm PO PRN DAILY PRN Milk Of Magnesia (Magnesium Hydroxide) 400 Mg/5 Ml Oral.susp 2,400 Mg PO PRN QHS PRN Mag-Al Plus Xs Suspension (Mag Hydrox/Al Hydrox/Simeth) 30 Ml Oral.susp 15 Ml PO PRN AFTMEALHC PRN Alprazolam 0.5 Mg Tablet 0.5 Mg PO PRN Q8HRS PRN LAST DOSE GIVEN: DATE: TIME: NEXT DOSE DUE: Take as needed DATE: TIME: Seroquel (Quetiapine Fumarate) 100 Mg Tablet 100 Mg PO HS LAST DOSE GIVEN: DATE: TIME: NEXT DOSE DUE: DATE: 10/02/18 TIME: Bedtime Trazodone Hcl 100 Mg Tablet 100 Mg PO HS LAST DOSE GIVEN: DATE: TIME: NEXT DOSE DUE: DATE: 10/02/18 TIME: Bedtime Fluvoxamine Maleate 50 Mg Tablet 75 Mg PO HS LAST DOSE GIVEN: DATE: TIME: NEXT DOSE DUE: DATE: 10/02/18 TIME: Bedtime Tylenol (Acetaminophen) 325 Mg Tablet 650 Mg PO PRN Q6HRS PRN Tramadol Hcl (Tramadol HCl) 50 Mg Tablet 50 Mg PO PRN Q6HRS PRN LAST DOSE GIVEN: DATE: TIME: NEXT DOSE DUE: Take as needed DATE: TIME: Analgesic [place] (Methyl Salicylate/Menthol) 28 Gm Oint...g. 1 Alyce TP PRN QID PRN Seroquel (Quetiapine Fumarate) 25 Mg Tablet 0.5 Tab PO 9AM,1200,4PM LAST DOSE GIVEN: DATE: TIME: NEXT DOSE DUE: DATE: 10/02/18 TIME: 4pm Ativan (Lorazepam) 0.5 Mg Tablet 0.5 Mg PO PRN Q4HRS PRN LAST DOSE GIVEN: DATE: TIME: NEXT DOSE DUE: Take as needed DATE: TIME: Depakote Sprinkle (Divalproex Sodium) 125 Mg Cap.sprink 250 Mg PO DAILY LAST DOSE GIVEN: DATE: TIME: NEXT DOSE DUE: DATE:10/03/18 TIME: 8am Depakote Sprinkle (Divalproex Sodium) 125 Mg Cap.sprink 500 Mg PO 1200,9PM LAST DOSE GIVEN: DATE: TIME: NEXT DOSE DUE: DATE:10/02/18 TIME: Bedtime Metformin Hcl 500 Mg Tablet 500 Mg PO BIDWMEALS LAST DOSE GIVEN: DATE: TIME: NEXT DOSE DUE: DATE: 10/02/18 TIME: Dinner Gabapentin (Gabapentin) 100 Mg Capsule 200 Mg PO TID LAST DOSE GIVEN: DATE: TIME: NEXT DOSE DUE: DATE: 10/02/18 TIME:2pm then again at bedtime. Metoprolol Succinate ( Xl ) (Metoprolol Succinate) 50 Mg Tab.er.24h 100 Mg PO DAILY LAST DOSE GIVEN: DATE: TIME: NEXT DOSE DUE: DATE: 10/03/18 TIME: 8am Requip (Ropinirole Hcl) 1 Mg Tablet 1 Mg PO TID LAST DOSE GIVEN: DATE: TIME: NEXT DOSE DUE: DATE: 10/02/18 TIME: 2pm Sinemet 25-100 Mg Tablet (Carbidopa/Levodopa) 1 Each Tablet 1 Each PO TID LAST DOSE GIVEN: DATE: TIME: NEXT DOSE DUE: DATE: 10/02/18 TIME: 2pm Primidone 50 Mg Tablet 50 Mg PO HS LAST DOSE GIVEN: DATE: TIME: NEXT DOSE DUE: DATE: 10/02/18 TIME: Bedtime Zofran (Ondansetron Hcl) 4 Mg Tablet 4 Mg PO PRN Q8HRS PRN LAST DOSE GIVEN: DATE: TIME: NEXT DOSE DUE: Take as needed DATE: TIME: Lisinopril 20 Mg Tablet 40 Mg PO DAILY hold for a systolic BP less than 100. After a held dose, reassess in 2 ours. IF SBP is above threshold, administer dose as ordered. IF SBP is below threshold, contact provider for additional instructions. LAST DOSE GIVEN: DATE: TIME: NEXT DOSE DUE: DATE: 10/03/18 TIME: 8am Remeron (Mirtazapine) 15 Mg Tablet 30 Mg PO QHS LAST DOSE GIVEN: DATE: TIME: NEXT DOSE DUE: DATE: 10/02/18 TIME: Bedtime Cetirizine Hcl 10 Mg Tablet 10 Mg PO DAILY LAST DOSE GIVEN: DATE: TIME: NEXT DOSE DUE: DATE: 10/03/18 TIME: 8am Aspirin 81 Mg Tab.chew 81 Mg PO DAILY LAST DOSE GIVEN: DATE: TIME: NEXT DOSE DUE: DATE: 10/03/18 TIME: 8am Zetia (Ezetimibe) 10 Mg Tablet 10 Mg PO DAILY LAST DOSE GIVEN: DATE: TIME: NEXT DOSE DUE: DATE: 10/03/18 TIME: 8am I have reviewed the current psychotropics carefully including drug interactions. Risk benefit ratio favors no change other than as noted in my dictated progress note. Diagnosis: Problems: (1) Bipolar I disorder with jose (2) Hypertension (3) Leg swelling (4) Accelerated hypertension (5) Hip pain, right (6) Cellulitis of right lower limb (7) Accelerated essential hypertension (8) Behavior problem (9) Chronic diastolic (congestive) heart failure (10) Medical clearance for psychiatric admission (11) Bipolar I disorder with anxious distress (12) Bipolar I disorder with mixed features (13) Anxiety disorder (14) Impulse control disorder (15) UTI (urinary tract infection) (16) Severe anxiety KANWAL KNIGHT MD Dec 02, 2018 23:03
[2018-12-03 06:01] VITALS: BP 126/70
[2018-12-03 08:04] LABS: BASO % 1 % (0-3); EOS # 0.1 x10^3/uL (0.0-0.7); EOS % 2 % (0-3); HEMATOCRIT 39.3 % (36.0-47.0); HEMOGLOBIN 13.4 g/dL (12.0-15.5); LYMPH # 1.5 x10^3/uL (1.0-4.8); LYMPH % 27 % (24-48); MEAN CORPUSCULAR HEMOGLOBIN 33 pg (25-35); MEAN CORPUSCULAR HGB CONC 34 g/dL (31-37); MEAN CORPUSCULAR VOLUME 97 fL (79-100); MONO # 0.3 x10^3/uL (0.0-1.1); MONO % 6 % (0-9); NEUT # 3.5 x10^3uL (1.8-7.7); NEUT % 65 % (31-73); PLATELET COUNT 233 x10^3/uL (140-400); RED BLOOD COUNT 4.05 x10^6/uL (3.50-5.40); RED CELL DISTRIBUTION WIDTH 14.1 % (11.5-14.5); WHITE BLOOD COUNT 5.4 x10^3/uL (4.0-11.0)
[2018-12-03 08:20] LABS: VAL ACID 52 mcg/mL (50-100)
[2018-12-03 08:21] LABS: ALBUMIN 2.4 g/dL (3.4-5.0); ALBUMIN/GLOBULIN RATIO 0.7 (1.0-1.7); CALCIUM 8.5 mg/dL (8.5-10.1); CREATININE 0.9 mg/dL (0.6-1.0); GFR 60.7; POTASSIUM 3.5 mmol/L (3.5-5.1); TOTAL BILIRUBIN 0.3 mg/dL (0.2-1.0); TOTAL PROTEIN 5.9 g/dL (6.4-8.2)
[2018-12-03] MEDS: CETIRIZINE HCL 10 MG TABLET PO SCH (08:31)
[2018-12-03] MEDS: CARBIDOPA/LEVODOPA 25/100MG TABLET PO SCH ×3 (08:31→20:05)
[2018-12-03] MEDS: LISINOPRIL 10 MG TABLET PO SCH (08:31)
[2018-12-03] MEDS: metFORMIN 500 MG TABLET PO SCH ×2 (08:31→17:01)
[2018-12-03] MEDS: DIVALPROEX 125 MG CAP.SPRINK PO SCH ×2 (08:31→20:05)
[2018-12-03] MEDS: GABAPENTIN 100 MG CAPSULE. PO SCH ×3 (08:31→20:06)
[2018-12-03] MEDS: EZETIMIBE 10 MG TABLET PO SCH (08:32)
[2018-12-03] MEDS: ASPIRIN 81 MG TAB.CHEW PO SCH (08:32)
[2018-12-03] MEDS: PANTOPRAZOLE 40 MG TABLET. PO SCH (08:32)
[2018-12-03] MEDS: METOPROLOL SUCC 24HR ER 50 MG TAB.ER.24H. PO SCH (08:32)
[2018-12-03] MEDS: rOPINIRole 1 MG TABLET. PO SCH ×3 (08:32→20:05)
--- NOTE | 2018-12-03 08:53 | NUR ---
On 12/02/18, met and reviewed housing information with Tracy. Later, with Tracy's consent, phoned Cecil (son) to discuss. Tracy is agreeable for referral to be faxed to [facility] to be considered for a short term stay until she and her son are able to get the application filled out and for an apartment to become available at [facility]. Call placed to Freddie at [facility] and referral faxed for review. Awaiting outcome. Tracy was also agreeable for referral to be faxed to [facility] if [facility] is not able to accommodate her.
--- NOTE | 2018-12-03 09:58 | NUR ---
Follow up call placed to PAT Jones at [facility], who confirmed the faxed referral was received on 12/02/18. Robert indicated that the referral is being reviewed and that he will get back in touch with this worker to inform of admit decision. Awaiting outcome.
--- NOTE | 2018-12-03 11:59 | NUR ---
WEEKLY ACTIVITY THERAPY NOTE Date of Admission: 11/29/2018; Previous admit: 09/18/2018 Date of AT Assessment: 12/01/2018 Goal aimed: to increase stress and anxiety management skills Initial goal: Pt. will participate in at least three groups per week. Weekly progress towards goal: achieved Group participation level: minimal Behaviors observed: Pt. needs reminders to join groups; Pt. seemed less anxious as week progressed; Pt. is friendly with staff and peers Plan: no change to goal
--- NOTE | 2018-12-03 12:36 | PN ---
DATE: 12/02/2018 PSYCHIATRIC PROGRESS NOTE This late entry 12/02/2018 covers elements not covered in my initial note. SUBJECTIVE: I met with the patient in the evening. The patient slept 5-1/4 hours previous night. Her room had to be moved secondary to agitation with her roommate who was yelling at night. Her significant other called to visit, but the patient refused this. She has been seen by Adult Protective Services who are helping coordinate placement for her as well. We will be checking CBC, CMP morning of 12/03/2018 for comparison. REVIEW OF SYSTEMS: Ambulation somewhat unsteady at times, but better. No CV, , pulmonary, eye, ENT system symptoms on review. MENTAL STATUS EXAM: Oriented reasonably to place and situation. Speech is coherent, less pressured. Abstraction fair, computation impaired, language function intact, attention span short. Mood and affect still somewhat anxious, obsessive, but less labile. LABORATORY DATA: Reviewed. IMPRESSION: Bipolar 1 disorder, mixed with psychotic features; anxiety disorder, unspecified; obsessive-compulsive disorder. PLAN: Continue Depakote Sprinkles 500 mg b.i.d. Check a valproic acid level, CBC, CMP morning of 12/03/2018. Maintain Luvox 25 mg at bedtime, Remeron 15 mg at bedtime. Ativan and trazodone p.r.n. Rest unchanged from initial note. KANWAL KNIGHT MD DR: VINOD/portia JOB#: [id number] / [id number]
--- NOTE | 2018-12-03 13:43 | NUR ---
[facility] PAT, called and indicated that the facility has accepted Tracy for placement. Tentative d/c date is set for 12/10/18.
--- NOTE | 2018-12-03 14:09 | NUR ---
Reviewed with Tracy and Cecil via phone. Both are in agreement with plan for transfer to [facility] on 12/10/18. Both parties are aware that Tracy's monthly SSI will be paid to the [facility] for room and board. Cecil indicated that he will accompany Tracy to move out her personal belongings from the home where she previously resided. Tracy and Umu are aware that they will need to go to [facility] to complete an application for an [facility] apartment and will then be placed on the wait list. Call placed to APS worker, Gay Trimble, at [phone] to inform of the above information.
[2018-12-03 16:30] VITALS: BP 104/63
[2018-12-03 20:10] VITALS: BP 153/80
[2018-12-03] MEDS: PRIMIDONE 50 MG TABLET PO SCH (20:10)
[2018-12-03] MEDS: ONDANSETRON ODT 4 MG TAB.RAPDIS PO PRN (20:11)
--- NOTE | 2018-12-03 22:53 | PDOC ---
Exam Note: [place] Note: Please also refer to the separate dictated note~for this date of service dictated separately.~Patient seen individually. Discussed the patient with Nursing staff reviewed the chart.~Reviewed interim history and current functioning. Reviewed vital signs,~Labs/ Radiology~and current medications noted below. Continue current treatment with the changes noted in the dictated addendum note Assessment: Vital Signs: Vital Signs Date Time Temp Pulse Resp B/P (MAP) Pulse Ox O2 Delivery O2 Flow Rate FiO2 12/03/18 20:10 62 153/80 (104) 12/03/18 16:30 98.1 17 99 12/01/18 08:35 Room Air I&O Intake and Output 12/03/18 07:01 Intake Total 1180 ml Balance 1180 ml Intake Oral 1180 ml Labs: Laboratory Tests Test 12/03/18 07:29 12/03/18 07:31 12/03/18 11:42 12/03/18 16:59 White Blood Count 5.4 x10^3/uL (4.0-11.0) Red Blood Count 4.05 x10^6/uL (3.50-5.40) Hemoglobin 13.4 g/dL (12.0-15.5) Hematocrit 39.3 % (36.0-47.0) Mean Corpuscular Volume 97 fL (79-100) Mean Corpuscular Hemoglobin 33 pg (25-35) Mean Corpuscular Hemoglobin Concent 34 g/dL (31-37) Red Cell Distribution Width 14.1 % (11.5-14.5) Platelet Count 233 x10^3/uL (140-400) Neutrophils (%) (Auto) 65 % (31-73) Lymphocytes (%) (Auto) 27 % (24-48) Monocytes (%) (Auto) 6 % (0-9) Eosinophils (%) (Auto) 2 % (0-3) Basophils (%) (Auto) 1 % (0-3) Neutrophils # (Auto) 3.5 x10^3uL (1.8-7.7) Lymphocytes # (Auto) 1.5 x10^3/uL (1.0-4.8) Monocytes # (Auto) 0.3 x10^3/uL (0.0-1.1) Eosinophils # (Auto) 0.1 x10^3/uL (0.0-0.7) Basophils # (Auto) 0.0 x10^3/uL (0.0-0.2) Sodium Level 142 mmol/L (136-145) Potassium Level 3.5 mmol/L (3.5-5.1) Chloride Level 106 mmol/L (98-107) Carbon Dioxide Level 30 mmol/L (21-32) Anion Gap 6 (6-14) Blood Urea Nitrogen 15 mg/dL (7-20) Creatinine 0.9 mg/dL (0.6-1.0) Estimated GFR (Cockcroft-Gault) 60.7 BUN/Creatinine Ratio 17 (6-20) Glucose Level 78 mg/dL (70-99) Calcium Level 8.5 mg/dL (8.5-10.1) Total Bilirubin 0.3 mg/dL (0.2-1.0) Aspartate Amino Transferase (AST) 13 U/L (15-37) L Alanine Aminotransferase (ALT) 11 U/L (14-59) L Alkaline Phosphatase 68 U/L (46-116) Total Protein 5.9 g/dL (6.4-8.2) L Albumin 2.4 g/dL (3.4-5.0) L Albumin/Globulin Ratio 0.7 (1.0-1.7) L Valproic Acid Level 52 mcg/mL (50-100) Valproic Acid Last Dose Date 12/02/18 Valproic Acid Last Dose Time 2100 Glucose (Fingerstick) 60 mg/dL (70-99) L 155 mg/dL (70-99) H 79 mg/dL (70-99) Current Medications: Meds: Current Medications Acetaminophen (Tylenol) 650 mg PRN Q6HRS PRN PO PAIN / TEMP; Start 11/29/18 at 12:15 Multi-Ingredient Ointment (Analgesic [place]) 1 alyce PRN QID PRN TP MUSCLE PAIN; Start 11/29/18 at 12:15 Al Hydroxide/Mg Hydroxide (Mylanta Plus Xs) 15 ml PRN AFTMEALHC PRN PO DYSPEPSIA; Start 11/29/18 at 12:15 Magnesium Hydroxide (Milk Of Magnesia) 2,400 mg PRN QHS PRN PO CONSTIPATION; Start 11/29/18 at 12:15 Acetaminophen (Tylenol) 650 mg PRN Q6HRS PRN PO PAIN / TEMP; Start 11/29/18 at 12:15; Stop 11/29/18 at 12:15; Status DC Carbidopa/Levodopa (Sinemet 25/100) 1 tab TID PO Last administered on 12/03/18at 20:05; Start 11/29/18 at 14:00 Gabapentin (Neurontin) 200 mg TID PO Last administered on 12/03/18at 20:06; Start 11/29/18 at 14:00 Lisinopril (Prinivil) 40 mg DAILY PO ; Start 11/30/18 at 09:00; Stop 11/30/18 at 13:32; Status DC Tramadol HCl (Ultram) 50 mg PRN Q6HRS PRN PO PAIN; Start 11/29/18 at 12:15 Alprazolam (Xanax) 0.5 mg PRN Q8HRS PRN PO ANXIETY / AGITATION; Start 11/29/18 at 12:15; Stop 11/29/18 at 22:21; Status DC Aspirin (Children'S Aspirin) 81 mg DAILYWBKFT PO Last administered on 12/03/18at 08:32; Start 11/30/18 at 08:00 Cetirizine HCl (ZyrTEC) 10 mg DAILY PO Last administered on 12/03/18at 08:31; Start 11/30/18 at 09:00 Divalproex Sodium (Depakote Sprinkles) 250 mg DAILY PO ; Start 11/30/18 at 09:00 ; Stop 11/30/18 at 09:00; Status DC Divalproex Sodium (Depakote Sprinkles) 500 mg BID@1200,2100 PO Last administered on 11/29/18at 14:33; Start 11/29/18 at 12:00; Stop 11/29/18 at 22:21; Status DC EZETIMIBE (Zetia) 10 mg DAILY PO Last administered on 12/03/18at 08:32; Start 11/30/18 at 09:00 Fluvoxamine Maleate (Luvox) 75 mg QHS PO Last administered on 11/29/18at 21:03; Start 11/29/18 at 21:00; Stop 11/30/18 at 19:53; Status DC Lorazepam (Ativan) 0.5 mg PRN Q4HRS PRN PO ANXIETY / AGITATION Last administered on 11/29/18 14:33; Start 11/29/18 at 12:45 Metformin HCl (Glucophage) 500 mg BIDWMEALS PO Last administered on 12/03/18 17 :01; Start 11/29/18 at 17:00 Metoprolol Succinate (Toprol Xl) 100 mg DAILY PO ; Start 11/30/18 at 09:00; Stop 11/30/18 at 13:32; Status DC Mirtazapine (Remeron) 30 mg QHS PO Last administered on 11/29/18 21:03; Start 11/29/18 at 21:00; Stop 11/29/18 at 22:21; Status DC Ondansetron HCl (Zofran Odt) 4 mg PRN Q8HRS PRN PO NAUSEA/VOMITING Last administered on 12/03/18 20:11; Start 11/29/18 at 12:30 Pantoprazole Sodium (Protonix) 40 mg DAILYAC PO Last administered on 12/03/18 08:32; Start 11/30/18 at 07:30 Polyethylene Glycol (miraLAX) 17 gm PRN DAILY PRN PO CONSTIPATION; Start at 09:00 Primidone (Mysoline) 50 mg QHS PO Last administered on 12/03/18 20:10; Start at 21:00 Quetiapine Fumarate (SEROquel) 12.5 mg DAILY@0900,1200,1600 PO Last administered on 11/30/18 16:44; Start 11/29/18 at 16:00; Stop 11/30/18 at 19:53; Status DC Quetiapine Fumarate (SEROquel) 100 mg QHS PO Last administered on 11/29/18 21: 03; Start 11/29/18 at 21:00; Stop 11/30/18 at 19:53; Status DC Ropinirole HCl (Requip) 1 mg TID PO Last administered on 12/03/18 20:05; Start 11/29/18 at 14:00 Trazodone HCl (Desyrel) 100 mg HS PO Last administered on 11/29/18 21:03; Start 11/29/18 at 21:00; Stop 11/30/18 at 19:53; Status DC Divalproex Sodium (Depakote Sprinkles) 500 mg DAILYWLUN PO Last administered on 11/30/18at 11:54; Start 11/30/18 at 12:00; Stop 11/30/18 at 12:01; Status DC Mirtazapine (Remeron) 15 mg QHS PO ; Start 11/30/18 at 21:00; Stop 11/30/18 at 21: 00; Status DC Divalproex Sodium (Depakote Sprinkles) 500 mg BID PO Last administered on at 20:05; Start 12/01/18 at 09:00 Ondansetron HCl (Zofran Odt) 4 mg PRN Q8HRS PRN PO NAUSEA/VOMITING; Start at 22:30; Stop 11/29/18 at 22:30; Status DC Sodium Chloride 500 ml @ 0 mls/hr 1X ONCE IV Last administered on 11/29/18at 23: 00; Start 11/29/18 at 23:00; Stop 11/29/18 at 23:02; Status DC Sodium Chloride 1,000 ml @ 75 mls/hr [id number] IV Last administered on 11/30/18at 02:57; Start 11/30/18 at 03:00; Stop 11/30/18 at 16:15; Status DC Lisinopril (Prinivil) 10 mg DAILY PO Last administered on 12/03/18at 08:31; Start 12/01/18 at 09:00 Metoprolol Succinate (Toprol Xl) 50 mg DAILY PO Last administered on 12/03/18at 08:32; Start 12/01/18 at 09:00 Fluvoxamine Maleate (Luvox) 25 mg QHS PO Last administered on 12/03/18at 20:05; Start 11/30/18 at 21:00 Trazodone HCl (Desyrel) 50 mg PRN QHS PRN PO INSOMNIA; Start 11/30/18 at 20:00 Active Scripts Active Tramadol Hcl (Tramadol HCl) 50 Mg Tablet 50 Mg PO PRN Q6HRS PRN Reported Pantoprazole Sodium 40 Mg Tablet.dr 40 Mg PO DAILYAC LAST DOSE GIVEN: DATE: TIME: NEXT DOSE DUE: DATE: 10/03/18 TIME: 8am Miralax (Polyethylene Glycol 3350) 17 Gm Powd.pack 17 Gm PO PRN DAILY PRN Milk Of Magnesia (Magnesium Hydroxide) 400 Mg/5 Ml Oral.susp 2,400 Mg PO PRN QHS PRN Mag-Al Plus Xs Suspension (Mag Hydrox/Al Hydrox/Simeth) 30 Ml Oral.susp 15 Ml PO PRN AFTMEALHC PRN Alprazolam 0.5 Mg Tablet 0.5 Mg PO PRN Q8HRS PRN LAST DOSE GIVEN: DATE: TIME: NEXT DOSE DUE: Take as needed DATE: TIME: Seroquel (Quetiapine Fumarate) 100 Mg Tablet 100 Mg PO HS LAST DOSE GIVEN: DATE: TIME: NEXT DOSE DUE: DATE: 10/02/18 TIME: Bedtime Trazodone Hcl 100 Mg Tablet 100 Mg PO HS LAST DOSE GIVEN: DATE: TIME: NEXT DOSE DUE: DATE: 10/02/18 TIME: Bedtime Fluvoxamine Maleate 50 Mg Tablet 75 Mg PO HS LAST DOSE GIVEN: DATE: TIME: NEXT DOSE DUE: DATE: 10/02/18 TIME: Bedtime Tylenol (Acetaminophen) 325 Mg Tablet 650 Mg PO PRN Q6HRS PRN Tramadol Hcl (Tramadol HCl) 50 Mg Tablet 50 Mg PO PRN Q6HRS PRN LAST DOSE GIVEN: DATE: TIME: NEXT DOSE DUE: Take as needed DATE: TIME: Analgesic [place] (Methyl Salicylate/Menthol) 28 Gm Oint...g. 1 Alyce TP PRN QID PRN Seroquel (Quetiapine Fumarate) 25 Mg Tablet 0.5 Tab PO 9AM,1200,4PM LAST DOSE GIVEN: DATE: TIME: NEXT DOSE DUE: DATE: 10/02/18 TIME: 4pm Ativan (Lorazepam) 0.5 Mg Tablet 0.5 Mg PO PRN Q4HRS PRN LAST DOSE GIVEN: DATE: TIME: NEXT DOSE DUE: Take as needed DATE: TIME: Depakote Sprinkle (Divalproex Sodium) 125 Mg Cap.sprink 250 Mg PO DAILY LAST DOSE GIVEN: DATE: TIME: NEXT DOSE DUE: DATE:10/03/18 TIME: 8am Depakote Sprinkle (Divalproex Sodium) 125 Mg Cap.sprink 500 Mg PO 1200,9PM LAST DOSE GIVEN: DATE: TIME: NEXT DOSE DUE: DATE:10/02/18 TIME: Bedtime Metformin Hcl 500 Mg Tablet 500 Mg PO BIDWMEALS LAST DOSE GIVEN: DATE: TIME: NEXT DOSE DUE: DATE: 10/02/18 TIME: Dinner Gabapentin (Gabapentin) 100 Mg Capsule 200 Mg PO TID LAST DOSE GIVEN: DATE: TIME: NEXT DOSE DUE: DATE: 10/02/18 TIME:2pm then again at bedtime. Metoprolol Succinate ( Xl ) (Metoprolol Succinate) 50 Mg Tab.er.24h 100 Mg PO DAILY LAST DOSE GIVEN: DATE: TIME: NEXT DOSE DUE: DATE: 10/03/18 TIME: 8am Requip (Ropinirole Hcl) 1 Mg Tablet 1 Mg PO TID LAST DOSE GIVEN: DATE: TIME: NEXT DOSE DUE: DATE: 10/02/18 TIME: 2pm Sinemet 25-100 Mg Tablet (Carbidopa/Levodopa) 1 Each Tablet 1 Each PO TID LAST DOSE GIVEN: DATE: TIME: NEXT DOSE DUE: DATE: 10/02/18 TIME: 2pm Primidone 50 Mg Tablet 50 Mg PO HS LAST DOSE GIVEN: DATE: TIME: NEXT DOSE DUE: DATE: 10/02/18 TIME: Bedtime Zofran (Ondansetron Hcl) 4 Mg Tablet 4 Mg PO PRN Q8HRS PRN LAST DOSE GIVEN: DATE: TIME: NEXT DOSE DUE: Take as needed DATE: TIME: Lisinopril 20 Mg Tablet 40 Mg PO DAILY hold for a systolic BP less than 100. After a held dose, reassess in 2 ours. IF SBP is above threshold, administer dose as ordered. IF SBP is below threshold, contact provider for additional instructions. LAST DOSE GIVEN: DATE: TIME: NEXT DOSE DUE: DATE: 10/03/18 TIME: 8am Remeron (Mirtazapine) 15 Mg Tablet 30 Mg PO QHS LAST DOSE GIVEN: DATE: TIME: NEXT DOSE DUE: DATE: 10/02/18 TIME: Bedtime Cetirizine Hcl 10 Mg Tablet 10 Mg PO DAILY LAST DOSE GIVEN: DATE: TIME: NEXT DOSE DUE: DATE: 10/03/18 TIME: 8am Aspirin 81 Mg Tab.chew 81 Mg PO DAILY LAST DOSE GIVEN: DATE: TIME: NEXT DOSE DUE: DATE: 10/03/18 TIME: 8am Zetia (Ezetimibe) 10 Mg Tablet 10 Mg PO DAILY LAST DOSE GIVEN: DATE: TIME: NEXT DOSE DUE: DATE: 10/03/18 TIME: 8am I have reviewed the current psychotropics carefully including drug interactions. Risk benefit ratio favors no change other than as noted in my dictated progress note. Diagnosis: Problems: (1) Bipolar I disorder with jose (2) Hypertension (3) Leg swelling (4) Accelerated hypertension (5) Hip pain, right (6) Cellulitis of right lower limb (7) Accelerated essential hypertension (8) Behavior problem (9) Chronic diastolic (congestive) heart failure (10) Medical clearance for psychiatric admission (11) Bipolar I disorder with anxious distress (12) Bipolar I disorder with mixed features (13) Anxiety disorder (14) Impulse control disorder (15) UTI (urinary tract infection) (16) Severe anxiety KANWAL KNIGHT MD Dec 03, 2018 22:52
--- NOTE | 2018-12-03 23:18 | NUR ---
Pt located in dayroom this evening, visiting with other peers. When approached, pt seemed irritable about having to take medications. When asked why she was upset, pt apologized, stating she knew she had to take the medications; she just didn't like it. Pt stated that she felt nauseas, PRN Zofran administered. Compliant with crushed medications. Later in the evening, pt stated that she felt nauseas and anxious. Pt stated that she would try to go to sleep without more medication.
[2018-12-04 06:00] VITALS: BP 139/67
[2018-12-04] MEDS: PANTOPRAZOLE 40 MG TABLET. PO SCH (08:00)
[2018-12-04] MEDS: ASPIRIN 81 MG TAB.CHEW PO SCH (08:00)
[2018-12-04] MEDS: metFORMIN 500 MG TABLET PO SCH ×2 (08:01→17:04)
[2018-12-04] MEDS: DIVALPROEX 125 MG CAP.SPRINK PO SCH ×2 (08:01→20:54)
[2018-12-04] MEDS: GABAPENTIN 100 MG CAPSULE. PO SCH ×3 (08:03→20:54)
[2018-12-04] MEDS: rOPINIRole 1 MG TABLET. PO SCH ×3 (08:04→20:54)
[2018-12-04] MEDS: CARBIDOPA/LEVODOPA 25/100MG TABLET PO SCH ×3 (08:04→20:54)
[2018-12-04] MEDS: LISINOPRIL 10 MG TABLET PO SCH (08:04)
[2018-12-04] MEDS: METOPROLOL SUCC 24HR ER 50 MG TAB.ER.24H. PO SCH (08:05)
[2018-12-04] MEDS: CETIRIZINE HCL 10 MG TABLET PO SCH (08:05)
[2018-12-04] MEDS: EZETIMIBE 10 MG TABLET PO SCH (08:05)
--- NOTE | 2018-12-04 12:58 | NUR ---
Pt is cooperative, compliant, anxious, and has somatic complaints that are quickly forgotten with redirection. Denies SI/HI. No aggression or agitation at this time. She is compliant with medication and assessment.
[2018-12-04 16:04] VITALS: BP 130/74
[2018-12-04] MEDS: PRIMIDONE 50 MG TABLET PO SCH (20:54)
--- NOTE | 2018-12-04 21:50 | PN ---
DATE: 12/03/2018 This late entry for 12/03/2018 covers elements not covered in my initial note. SUBJECTIVE: I met with the patient in the evening and the patient was also staffed at a treatment team meeting with the entire team. The patient's son, Cecil, joined during the treatment team meeting, discussed the patient's history, progress, problems living with [facility] and plans to go to [facility] and then to [facility]. The patient slept 8-3/4 hours previous evening. Appetite 60%. REVIEW OF SYSTEMS: No CV, , pulmonary, eye system symptoms on review. MENTAL STATUS EXAM: Reasonably oriented. Speech is coherent, abstraction fair, computation impaired, language function intact. Mood and affect less labile, less anxious. LABORATORY DATA: Reviewed. IMPRESSION: Bipolar 1 disorder, depressed, in partial remission; anxiety disorder, unspecified. Rest unchanged. PLAN: No change from initial note. MAN Gerhard KNIGHT MD DR: VINOD/portia JOB#: [id number] / [id number]
--- NOTE | 2018-12-04 23:01 | PDOC ---
Exam Note: [place] Note: Please also refer to the separate dictated note~for this date of service dictated separately.~Patient seen individually. Discussed the patient with Nursing staff reviewed the chart.~Reviewed interim history and current functioning. Reviewed vital signs,~Labs/ Radiology~and current medications noted below. Continue current treatment with the changes noted in the dictated addendum note Assessment: Vital Signs: Vital Signs Date Time Temp Pulse Resp B/P (MAP) Pulse Ox O2 Delivery O2 Flow Rate FiO2 12/04/18 16:04 98.0 66 20 130/74 (92) 100 Room Air I&O Intake and Output 12/04/18 07:01 Intake Total 840 ml Balance 840 ml Intake Oral 840 ml # Voids 1 Labs: Laboratory Tests Test 12/04/18 07:27 12/04/18 19:30 Glucose (Fingerstick) 60 mg/dL (70-99) L 83 mg/dL (70-99) Current Medications: Meds: Current Medications Acetaminophen (Tylenol) 650 mg PRN Q6HRS PRN PO PAIN / TEMP; Start 11/29/18 at 12:15 Multi-Ingredient Ointment (Analgesic [place]) 1 alyce PRN QID PRN TP MUSCLE PAIN; Start 11/29/18 at 12:15 Al Hydroxide/Mg Hydroxide (Mylanta Plus Xs) 15 ml PRN AFTMEALHC PRN PO DYSPEPSIA; Start 11/29/18 at 12:15 Magnesium Hydroxide (Milk Of Magnesia) 2,400 mg PRN QHS PRN PO CONSTIPATION; Start 11/29/18 at 12:15 Acetaminophen (Tylenol) 650 mg PRN Q6HRS PRN PO PAIN / TEMP; Start 11/29/18 at 12:15; Stop 11/29/18 at 12:15; Status DC Carbidopa/Levodopa (Sinemet 25/100) 1 tab TID PO Last administered on at 20:54; Start 11/29/18 at 14:00 Gabapentin (Neurontin) 200 mg TID PO Last administered on 12/04/18at 20:54; Start 11/29/18 at 14:00 Lisinopril (Prinivil) 40 mg DAILY PO ; Start 11/30/18 at 09:00; Stop 11/30/18 at 13:32; Status DC Tramadol HCl (Ultram) 50 mg PRN Q6HRS PRN PO PAIN; Start 11/29/18 at 12:15 Alprazolam (Xanax) 0.5 mg PRN Q8HRS PRN PO ANXIETY / AGITATION; Start 11/29/18 at 12:15; Stop 11/29/18 at 22:21; Status DC Aspirin (Children'S Aspirin) 81 mg DAILYWBKFT PO Last administered on at 08:00; Start 11/30/18 at 08:00 Cetirizine HCl (ZyrTEC) 10 mg DAILY PO Last administered on 12/04/18at 08:05; Start 11/30/18 at 09:00 Divalproex Sodium (Depakote Sprinkles) 250 mg DAILY PO ; Start 11/30/18 at 09:00 ; Stop 11/30/18 at 09:00; Status DC Divalproex Sodium (Depakote Sprinkles) 500 mg BID@1200,2100 PO Last administered on 11/29/18at 14:33; Start 11/29/18 at 12:00; Stop 11/29/18 at 22:21; Status DC EZETIMIBE (Zetia) 10 mg DAILY PO Last administered on 12/04/18at 08:05; Start at 09:00 Fluvoxamine Maleate (Luvox) 75 mg QHS PO Last administered on 11/29/18at 21:03; Start 11/29/18 at 21:00; Stop 11/30/18 at 19:53; Status DC Lorazepam (Ativan) 0.5 mg PRN Q4HRS PRN PO ANXIETY / AGITATION Last administered on 11/29/18at 14:33; Start 11/29/18 at 12:45 Metformin HCl (Glucophage) 500 mg BIDWMEALS PO Last administered on 12/04/18at 17:04; Start 11/29/18 at 17:00 Metoprolol Succinate (Toprol Xl) 100 mg DAILY PO ; Start 11/30/18 at 09:00; Stop 11/30/18 at 13:32; Status DC Mirtazapine (Remeron) 30 mg QHS PO Last administered on 11/29/18at 21:03; Start 11/29/18 at 21:00; Stop 11/29/18 at 22:21; Status DC Ondansetron HCl (Zofran Odt) 4 mg PRN Q8HRS PRN PO NAUSEA/VOMITING Last administered on 12/03/18at 20:11; Start 11/29/18 at 12:30 Pantoprazole Sodium (Protonix) 40 mg DAILYAC PO Last administered on 12/04/18at 08:00; Start 11/30/18 at 07:30 Polyethylene Glycol (miraLAX) 17 gm PRN DAILY PRN PO CONSTIPATION; Start at 09:00 Primidone (Mysoline) 50 mg QHS PO Last administered on 12/04/18 20:54; Start 11/29/18 at 21:00 Quetiapine Fumarate (SEROquel) 12.5 mg DAILY@0900,1200,1600 PO Last administered on 11/30/18 16:44; Start 11/29/18 at 16:00; Stop 11/30/18 at 19:53; Status DC Quetiapine Fumarate (SEROquel) 100 mg QHS PO Last administered on 11/29/18 21: 03; Start 11/29/18 at 21:00; Stop 11/30/18 at 19:53; Status DC Ropinirole HCl (Requip) 1 mg TID PO Last administered on 12/04/18 20:54; Start 11/29/18 at 14:00 Trazodone HCl (Desyrel) 100 mg HS PO Last administered on 11/29/18at 21:03; Start 11/29/18 at 21:00; Stop 11/30/18 at 19:53; Status DC Divalproex Sodium (Depakote Sprinkles) 500 mg DAILYWLUN PO Last administered on 11/30/18 11:54; Start 11/30/18 at 12:00; Stop 11/30/18 at 12:01; Status DC Mirtazapine (Remeron) 15 mg QHS PO ; Start 11/30/18 at 21:00; Stop 11/30/18 at 21: 00; Status DC Divalproex Sodium (Depakote Sprinkles) 500 mg BID PO Last administered on at 20:54; Start 12/01/18 at 09:00 Ondansetron HCl (Zofran Odt) 4 mg PRN Q8HRS PRN PO NAUSEA/VOMITING; Start at 22:30; Stop 11/29/18 at 22:30; Status DC Sodium Chloride 500 ml @ 0 mls/hr 1X ONCE IV Last administered on 11/29/18at 23: 00; Start 11/29/18 at 23:00; Stop 11/29/18 at 23:02; Status DC Sodium Chloride 1,000 ml @ 75 mls/hr [id number] IV Last administered on 11/30/18at 02:57; Start 11/30/18 at 03:00; Stop 11/30/18 at 16:15; Status DC Lisinopril (Prinivil) 10 mg DAILY PO Last administered on 12/04/18at 08:04; Start 12/01/18 at 09:00 Metoprolol Succinate (Toprol Xl) 50 mg DAILY PO Last administered on 12/03/18at 08:32; Start 12/01/18 at 09:00 Fluvoxamine Maleate (Luvox) 25 mg QHS PO Last administered on 12/04/18at 20:54; Start 11/30/18 at 21:00 Trazodone HCl (Desyrel) 50 mg PRN QHS PRN PO INSOMNIA; Start 11/30/18 at 20:00 Active Scripts Active Tramadol Hcl (Tramadol HCl) 50 Mg Tablet 50 Mg PO PRN Q6HRS PRN Reported Pantoprazole Sodium 40 Mg Tablet.dr 40 Mg PO DAILYAC LAST DOSE GIVEN: DATE: TIME: NEXT DOSE DUE: DATE: 10/03/18 TIME: 8am Miralax (Polyethylene Glycol 3350) 17 Gm Powd.pack 17 Gm PO PRN DAILY PRN Milk Of Magnesia (Magnesium Hydroxide) 400 Mg/5 Ml Oral.susp 2,400 Mg PO PRN QHS PRN Mag-Al Plus Xs Suspension (Mag Hydrox/Al Hydrox/Simeth) 30 Ml Oral.susp 15 Ml PO PRN AFTMEALHC PRN Alprazolam 0.5 Mg Tablet 0.5 Mg PO PRN Q8HRS PRN LAST DOSE GIVEN: DATE: TIME: NEXT DOSE DUE: Take as needed DATE: TIME: Seroquel (Quetiapine Fumarate) 100 Mg Tablet 100 Mg PO HS LAST DOSE GIVEN: DATE: TIME: NEXT DOSE DUE: DATE: 10/02/18 TIME: Bedtime Trazodone Hcl 100 Mg Tablet 100 Mg PO HS LAST DOSE GIVEN: DATE: TIME: NEXT DOSE DUE: DATE: 10/02/18 TIME: Bedtime Fluvoxamine Maleate 50 Mg Tablet 75 Mg PO HS LAST DOSE GIVEN: DATE: TIME: NEXT DOSE DUE: DATE: 10/02/18 TIME: Bedtime Tylenol (Acetaminophen) 325 Mg Tablet 650 Mg PO PRN Q6HRS PRN Tramadol Hcl (Tramadol HCl) 50 Mg Tablet 50 Mg PO PRN Q6HRS PRN LAST DOSE GIVEN: DATE: TIME: NEXT DOSE DUE: Take as needed DATE: TIME: Analgesic [place] (Methyl Salicylate/Menthol) 28 Gm Oint...g. 1 Alyce TP PRN QID PRN Seroquel (Quetiapine Fumarate) 25 Mg Tablet 0.5 Tab PO 9AM,1200,4PM LAST DOSE GIVEN: DATE: TIME: NEXT DOSE DUE: DATE: 10/02/18 TIME: 4pm Ativan (Lorazepam) 0.5 Mg Tablet 0.5 Mg PO PRN Q4HRS PRN LAST DOSE GIVEN: DATE: TIME: NEXT DOSE DUE: Take as needed DATE: TIME: Depakote Sprinkle (Divalproex Sodium) 125 Mg Cap.sprink 250 Mg PO DAILY LAST DOSE GIVEN: DATE: TIME: NEXT DOSE DUE: DATE:10/03/18 TIME: 8am Depakote Sprinkle (Divalproex Sodium) 125 Mg Cap.sprink 500 Mg PO 1200,9PM LAST DOSE GIVEN: DATE: TIME: NEXT DOSE DUE: DATE:10/02/18 TIME: Bedtime Metformin Hcl 500 Mg Tablet 500 Mg PO BIDWMEALS LAST DOSE GIVEN: DATE: TIME: NEXT DOSE DUE: DATE: 10/02/18 TIME: Dinner Gabapentin (Gabapentin) 100 Mg Capsule 200 Mg PO TID LAST DOSE GIVEN: DATE: TIME: NEXT DOSE DUE: DATE: 10/02/18 TIME:2pm then again at bedtime. Metoprolol Succinate ( Xl ) (Metoprolol Succinate) 50 Mg Tab.er.24h 100 Mg PO DAILY LAST DOSE GIVEN: DATE: TIME: NEXT DOSE DUE: DATE: 10/03/18 TIME: 8am Requip (Ropinirole Hcl) 1 Mg Tablet 1 Mg PO TID LAST DOSE GIVEN: DATE: TIME: NEXT DOSE DUE: DATE: 10/02/18 TIME: 2pm Sinemet 25-100 Mg Tablet (Carbidopa/Levodopa) 1 Each Tablet 1 Each PO TID LAST DOSE GIVEN: DATE: TIME: NEXT DOSE DUE: DATE: 10/02/18 TIME: 2pm Primidone 50 Mg Tablet 50 Mg PO HS LAST DOSE GIVEN: DATE: TIME: NEXT DOSE DUE: DATE: 10/02/18 TIME: Bedtime Zofran (Ondansetron Hcl) 4 Mg Tablet 4 Mg PO PRN Q8HRS PRN LAST DOSE GIVEN: DATE: TIME: NEXT DOSE DUE: Take as needed DATE: TIME: Lisinopril 20 Mg Tablet 40 Mg PO DAILY hold for a systolic BP less than 100. After a held dose, reassess in 2 ours. IF SBP is above threshold, administer dose as ordered. IF SBP is below threshold, contact provider for additional instructions. LAST DOSE GIVEN: DATE: TIME: NEXT DOSE DUE: DATE: 10/03/18 TIME: 8am Remeron (Mirtazapine) 15 Mg Tablet 30 Mg PO QHS LAST DOSE GIVEN: DATE: TIME: NEXT DOSE DUE: DATE: 10/02/18 TIME: Bedtime Cetirizine Hcl 10 Mg Tablet 10 Mg PO DAILY LAST DOSE GIVEN: DATE: TIME: NEXT DOSE DUE: DATE: 10/03/18 TIME: 8am Aspirin 81 Mg Tab.chew 81 Mg PO DAILY LAST DOSE GIVEN: DATE: TIME: NEXT DOSE DUE: DATE: 10/03/18 TIME: 8am Zetia (Ezetimibe) 10 Mg Tablet 10 Mg PO DAILY LAST DOSE GIVEN: DATE: TIME: NEXT DOSE DUE: DATE: 10/03/18 TIME: 8am I have reviewed the current psychotropics carefully including drug interactions. Risk benefit ratio favors no change other than as noted in my dictated progress note. Diagnosis: Problems: (1) Bipolar I disorder with jose (2) Hypertension (3) Leg swelling (4) Accelerated hypertension (5) Hip pain, right (6) Cellulitis of right lower limb (7) Accelerated essential hypertension (8) Behavior problem (9) Chronic diastolic (congestive) heart failure (10) Medical clearance for psychiatric admission (11) Bipolar I disorder with anxious distress (12) Bipolar I disorder with mixed features (13) Anxiety disorder (14) Impulse control disorder (15) UTI (urinary tract infection) (16) Severe anxiety KANWAL KNIGHT MD Dec 04, 2018 23:01
--- NOTE | 2018-12-04 23:15 | PN ---
DATE: 12/04/2018 PSYCHIATRIC PROGRESS NOTE This note covers elements not covered in my initial note. SUBJECTIVE: I met with the patient in the afternoon and also with her best friend, Maria Guadalupe, who was visiting her. The patient slept 5-3/4 hours previous evening. The patient remains somewhat anxious, irritable, needy at times and somatic. If she is ignored and distracted, the somatic symptoms improved. The patient remains somewhat obsessive. She is convinced that her significant other at home was using drugs and exposing her to this. The plan is for her to go to the [facility] and then to assisted living. No CV, , pulmonary, eye system symptoms on review other than vague somatic symptoms. MENTAL STATUS EXAM: Reasonably oriented. Speech is coherent, at times somewhat pressured. Abstraction fair, computation impaired, language function intact, attention span short. Mood and affect remain somewhat anxious, labile, but improved. LABORATORY DATA: Reviewed. IMPRESSION: Bipolar 1 disorder, mixed; anxiety disorder, unspecified; obsessive-compulsive disorder. PLAN: Continue Depakote Sprinkles and valproic acid level is 52, therapeutic trazodone at night, Luvox 25 mg at bedtime, Ativan p.r.n. Rest unchanged from initial note. KANWAL KNIGHT MD DR: VINOD/portia JOB#: [id number] / [id number]
--- NOTE | 2018-12-04 23:18 | NUR ---
Nursing Note The patient was located in the day room for her interview and medication pass. The patient was compliant with her medications but was very upset about having to take them. The patient requested that her Depakote Sprinkles be changed to Depakene Liquid if possible. The patient was appropriate during interactions with staff and peers. Then patient is currently sleeping in her room.
[2018-12-05 05:46] VITALS: BP 134/65
[2018-12-05] MEDS: PANTOPRAZOLE 40 MG TABLET. PO SCH (08:00)
[2018-12-05] MEDS: CARBIDOPA/LEVODOPA 25/100MG TABLET PO SCH ×3 (08:02→20:37)
[2018-12-05] MEDS: GABAPENTIN 100 MG CAPSULE. PO SCH ×3 (08:02→20:37)
[2018-12-05] MEDS: DIVALPROEX 125 MG CAP.SPRINK PO SCH ×2 (08:03→20:36)
[2018-12-05] MEDS: EZETIMIBE 10 MG TABLET PO SCH (08:03)
[2018-12-05] MEDS: CETIRIZINE HCL 10 MG TABLET PO SCH (08:03)
[2018-12-05] MEDS: LISINOPRIL 10 MG TABLET PO SCH (08:05)
[2018-12-05] MEDS: metFORMIN 500 MG TABLET PO SCH ×2 (08:05→17:35)
[2018-12-05] MEDS: METOPROLOL SUCC 24HR ER 50 MG TAB.ER.24H. PO SCH (08:06)
[2018-12-05] MEDS: ASPIRIN 81 MG TAB.CHEW PO SCH (08:06)
[2018-12-05] MEDS: rOPINIRole 1 MG TABLET. PO SCH ×3 (08:06→20:37)
--- NOTE | 2018-12-05 10:00 | NUR ---
Pt argued about taking her medications this am saying that she doesn't like the taste; however, she was compliant. Pt complained about being on ground meat diet. This nurse explained that pt had complained multiple times about feeling as if she were choking and that she had been told by her doctor that she should not eat certain foods to include bread and that this is the reason she is on this particular diet. Pt continued to complain. Kitchen staff contacted (spoke to Robert) to see if Nati social media marketer, could possible make substitutions that might make the situation better for patient.
--- NOTE | 2018-12-05 12:57 | NUR ---
Pt complained to Dr. Apodaca about her ground meat diet, and he change it to regular Micronesian Diabetic. Will inform kitchen of change. Staff made aware. Will continue to monitor.
[2018-12-05 15:04] VITALS: BP 143/79
[2018-12-05] MEDS: PRIMIDONE 50 MG TABLET PO SCH (20:37)
--- NOTE | 2018-12-05 21:44 | PN ---
DATE: 12/05/2018 SUBJECTIVE: The patient was seen today, met with the staff, chart reviewed. Staff reports the patient has frequent physical complaints, somatic preoccupation, refusing the medications, difficult to redirect at times. She is able to walk with a walker. The patient continues to exhibit severe anxiety. OBSERVATION: VITAL SIGNS: Temperature 97.8, blood pressure 134/65, pulse 59, respirations 16, O2 sat 99%. Slept about 6 hours last night. MEDICATIONS: Reviewed. Currently on Depakote 500 mg b.i.d., Luvox 25 mg at night, trazodone 50 mg at night, gabapentin 200 mg t.i.d. He is also on carbidopa/levodopa. The patient is not having any side effects of the medication. ASSESSMENT: Bipolar disorder, mixed with psychotic features, obsessive compulsive disorder, cognitive disorder. PLAN: Continue with the treatment. RUDY LUNA MD DR: SARAH/nts JOB#: [id number] / [id number]
--- NOTE | 2018-12-06 00:50 | NUR ---
Nursing Note Pt pleasant calm and cooperative, denies other complaints this pm. Was in day room for a while, but then isolates to room.
[2018-12-06 06:29] VITALS: BP 130/69
[2018-12-06] MEDS: DIVALPROEX 125 MG CAP.SPRINK PO SCH ×2 (08:57→20:28)
[2018-12-06] MEDS: PANTOPRAZOLE 40 MG TABLET. PO SCH (08:57)
[2018-12-06] MEDS: metFORMIN 500 MG TABLET PO SCH ×2 (08:57→17:43)
[2018-12-06] MEDS: GABAPENTIN 100 MG CAPSULE. PO SCH ×3 (08:57→20:28)
[2018-12-06] MEDS: ASPIRIN 81 MG TAB.CHEW PO SCH (08:57)
[2018-12-06] MEDS: LISINOPRIL 10 MG TABLET PO SCH (08:58)
[2018-12-06] MEDS: rOPINIRole 1 MG TABLET. PO SCH ×3 (09:00→20:28)
[2018-12-06] MEDS: EZETIMIBE 10 MG TABLET PO SCH (09:01)
[2018-12-06] MEDS: CARBIDOPA/LEVODOPA 25/100MG TABLET PO SCH ×3 (09:01→20:28)
[2018-12-06] MEDS: METOPROLOL SUCC 24HR ER 50 MG TAB.ER.24H. PO SCH (09:01)
[2018-12-06] MEDS: CETIRIZINE HCL 10 MG TABLET PO SCH (09:01)
--- NOTE | 2018-12-06 11:06 | NUR ---
Pt is anxious about taking her pills whole however with encouragement she was successful in taking them whole. No agitation, aggression, hallucinations, or delusions noted. She is social and appropriate with peers and staff.
[2018-12-06 16:03] VITALS: BP 163/79
[2018-12-06] MEDS: PRIMIDONE 50 MG TABLET PO SCH (20:28)
--- NOTE | 2018-12-06 22:49 | NUR ---
Patient alert and oriented x 4. Pleasant and cooperative with care and medication administration. Patient in day room during initial assessment. Patient sociable and engaging this nurse in conversation. Patient appropriate, denies SI, no behaviors noted. Patient stated she is anxious to be going to rehab and is optimistic about eventually going to assisted living. Patient currently in bed. Will continue to monitor.
[2018-12-07 06:21] VITALS: BP 138/54
[2018-12-07] MEDS: metFORMIN 500 MG TABLET PO SCH ×2 (07:39→17:25)
[2018-12-07] MEDS: PANTOPRAZOLE 40 MG TABLET. PO SCH (07:39)
[2018-12-07] MEDS: ASPIRIN 81 MG TAB.CHEW PO SCH (07:39)
[2018-12-07] MEDS: DIVALPROEX 125 MG CAP.SPRINK PO SCH ×2 (07:40→20:51)
[2018-12-07] MEDS: GABAPENTIN 100 MG CAPSULE. PO SCH ×3 (07:41→20:53)
[2018-12-07 07:48] VITALS: BP 175/63
[2018-12-07] MEDS: LISINOPRIL 10 MG TABLET PO SCH (07:50)
[2018-12-07] MEDS: CARBIDOPA/LEVODOPA 25/100MG TABLET PO SCH ×3 (07:50→20:52)
[2018-12-07] MEDS: rOPINIRole 1 MG TABLET. PO SCH ×3 (07:50→20:52)
[2018-12-07] MEDS: METOPROLOL SUCC 24HR ER 50 MG TAB.ER.24H. PO SCH (07:51)
[2018-12-07] MEDS: EZETIMIBE 10 MG TABLET PO SCH (07:52)
[2018-12-07] MEDS: CETIRIZINE HCL 10 MG TABLET PO SCH (07:52)
--- NOTE | 2018-12-07 10:37 | NUR ---
Pt is cooperative, compliant, and anxious at times. Her anxiety does appear to be at medication times however with encouragement and coaching with chin tuck and throat clearing and small drinks of water she does well. Pt took pills floated in ice cream this am 2 at a time which is an improvement from yesterday from 1 at a time. Distraction while pt is taking her pills works well also, pt enjoys talking about her parrot, Alvin and her new AL. No agitation or aggression, no hallucinations or delusions.
[2018-12-07 16:04] VITALS: BP 136/65
--- NOTE | 2018-12-07 17:33 | PN ---
DATE: 12/07/2018 SUBJECTIVE: The patient was seen today, met with the staff, chart reviewed. The patient has multiple physical complaints, preoccupied with her somatic symptoms. The patient is also exhibiting severe anxiety at times. The patient is able to walk with a walker. OBSERVATION: VITAL SIGNS: Temperature 97.5, blood pressure 138/54, pulse 61, respirations 16, O2 sat 99%, slept 6 hours last night. MEDICATIONS: Reviewed. Currently on Depakote, Luvox, trazodone, and gabapentin. The patient is also on carbidopa/levodopa for Parkinson's. The patient is not having any side effects to the medications. The patient's lab reviewed. ASSESSMENT: 1. Bipolar disorder mixed with psychotic features. 2. Obsessive compulsive disorder. 3. Cognitive disorder, unspecified. PLAN: To continue with the treatment. RUDY LUNA MD DR: SARAH/portia JOB#: [id number] / [id number]
[2018-12-07] MEDS: PRIMIDONE 50 MG TABLET PO SCH (20:53)
--- NOTE | 2018-12-07 21:41 | NUR ---
Nursing Note Pt is demanding, and irritable. States she ONLY takes her meds in Ice cream, wants water that is cold, demands her meds in 1 bite. Constantly complaining about something, generally cranky and dissatisfied.
[2018-12-08 06:07] VITALS: BP 134/73
--- NOTE | 2018-12-08 09:00 | NUR ---
Faxed current records to PAT Jones/admissions, at [facility] in preparation for discharge on 12/10/18. Requested a call from Robert with transport time.
--- NOTE | 2018-12-08 09:01 | NUR ---
[facility] Social Work Discharge Planning Form Patient Name MEENAKSHI PRESTON Admit Date: 11/29/2018 DISCHARGE PLAN Discharge Destination: [facility] Care Assessment: Completed on 12/02/2018, faxed copy to [facility] for d/c on 12/10/18 Special Instructions/Notes: Please arrange for f/u appointments with PCP and Dr. Voss, [facility], within 7-10 days. DISCHARGE TO FACILITY Facility: [facility] Address: [address] [address] Contact Name: KEYA Julian Contact Name: PAT Jones PCP: Dr. Bauman [phone], (fax) Psychiatrist: Dr. Voss [phone], (fax)
[2018-12-08] MEDS: metFORMIN 500 MG TABLET PO SCH ×2 (09:04→16:26)
[2018-12-08] MEDS: ASPIRIN 81 MG TAB.CHEW PO SCH (09:04)
[2018-12-08] MEDS: PANTOPRAZOLE 40 MG TABLET. PO SCH (09:04)
[2018-12-08] MEDS: DIVALPROEX 125 MG CAP.SPRINK PO SCH ×2 (09:04→20:01)
[2018-12-08] MEDS: GABAPENTIN 100 MG CAPSULE. PO SCH ×3 (09:05→20:02)
[2018-12-08] MEDS: rOPINIRole 1 MG TABLET. PO SCH ×3 (09:08→20:01)
[2018-12-08] MEDS: EZETIMIBE 10 MG TABLET PO SCH (09:08)
[2018-12-08] MEDS: CARBIDOPA/LEVODOPA 25/100MG TABLET PO SCH ×3 (09:08→20:01)
[2018-12-08] MEDS: CETIRIZINE HCL 10 MG TABLET PO SCH (09:08)
[2018-12-08] MEDS: LISINOPRIL 10 MG TABLET PO SCH (09:08)
[2018-12-08] MEDS: METOPROLOL SUCC 24HR ER 50 MG TAB.ER.24H. PO SCH (09:08)
[2018-12-08 09:11] LABS: BASO # 0.1 x10^3/uL (0.0-0.2); BASO % 1 % (0-3); EOS % 1 % (0-3); HEMATOCRIT 45.7 % (36.0-47.0); HEMOGLOBIN 15.5 g/dL (12.0-15.5); LYMPH % 14 % (24-48); MEAN CORPUSCULAR HEMOGLOBIN 33 pg (25-35); MEAN CORPUSCULAR HGB CONC 34 g/dL (31-37); MEAN CORPUSCULAR VOLUME 97 fL (79-100); MONO # 0.3 x10^3/uL (0.0-1.1); MONO % 4 % (0-9); NEUT # 5.9 x10^3uL (1.8-7.7); NEUT % 81 % (31-73); PLATELET COUNT 259 x10^3/uL (140-400); RED BLOOD COUNT 4.73 x10^6/uL (3.50-5.40); RED CELL DISTRIBUTION WIDTH 14.4 % (11.5-14.5); WHITE BLOOD COUNT 7.3 x10^3/uL (4.0-11.0)
[2018-12-08 09:24] LABS: ALBUMIN 2.9 g/dL (3.4-5.0); ALBUMIN/GLOBULIN RATIO 0.8 (1.0-1.7); CALCIUM 8.7 mg/dL (8.5-10.1); CREATININE 0.9 mg/dL (0.6-1.0); GFR 60.7; POTASSIUM 4.8 mmol/L (3.5-5.1); TOTAL BILIRUBIN 0.3 mg/dL (0.2-1.0); TOTAL PROTEIN 6.7 g/dL (6.4-8.2)
--- NOTE | 2018-12-08 10:27 | NUR ---
Pt is compliant, calm, and cooperative. She is anxious at times. No agitation, aggression, hallucinations, or delusions noted. She is social and appropriate with peers and staff.
[2018-12-08 16:45] VITALS: BP 156/73
[2018-12-08 16:46] VITALS: BP 156/73
[2018-12-08] MEDS: PRIMIDONE 50 MG TABLET PO SCH (20:01)
--- NOTE | 2018-12-09 01:30 | NUR ---
Pt sitting quietly in the day room at shift change. Pt A/O, irritable when approached by this nurse with her medications, stating "they give them to me crushed in ice cream". This nurse apologized to pt and told her that I would return with her medications crushed in chocolate ice cream as requested. When this nurse returned with medications crushed in ice cream, pt began to complain that she usually takes them whole in the ice cream. This nurse explained to pt that I had prepared her medications just as she had asked to which she replied, "I know, I was mistaken". Pt took the medications crushed in ice cream but remained irritable. When asked why she was irritable, pt replied " I've been choking since supper". This nurse was informed by the evening shift SALT OPERATOR, who was present at dinner, that pt had traded her soup with another pt. Pt then choked on the traded soup because it had chunks of beef which is not the diet the pt has been ordered. Pt given fresh ice water and was encouraged to cough to clear her throat, physical assessment was unremarkable. Pt able to speak clearly, no SOA, LSCTA, VSS.
[2018-12-09] MEDS ORDERED: DIVA125C2 PO (02:12)
[2018-12-09] MEDS ORDERED: LISI10TA2 PO (02:13)
[2018-12-09] MEDS ORDERED: TRAZ-85 PO (02:13)
[2018-12-09 06:00] VITALS: BP 123/62
[2018-12-09] MEDS: PANTOPRAZOLE 40 MG TABLET. PO SCH (08:25)
[2018-12-09] MEDS: EZETIMIBE 10 MG TABLET PO SCH (08:25)
[2018-12-09] MEDS: rOPINIRole 1 MG TABLET. PO SCH ×3 (08:25→20:26)
[2018-12-09] MEDS: CARBIDOPA/LEVODOPA 25/100MG TABLET PO SCH ×3 (08:25→20:27)
[2018-12-09] MEDS: DIVALPROEX 125 MG CAP.SPRINK PO SCH ×2 (08:25→20:27)
[2018-12-09] MEDS: metFORMIN 500 MG TABLET PO SCH ×2 (08:26→17:47)
[2018-12-09] MEDS: LISINOPRIL 10 MG TABLET PO SCH (08:26)
[2018-12-09] MEDS: ASPIRIN 81 MG TAB.CHEW PO SCH (08:26)
[2018-12-09] MEDS: CETIRIZINE HCL 10 MG TABLET PO SCH (08:26)
[2018-12-09] MEDS: GABAPENTIN 100 MG CAPSULE. PO SCH ×3 (08:26→20:27)
[2018-12-09] MEDS: METOPROLOL SUCC 24HR ER 50 MG TAB.ER.24H. PO SCH (08:26)
--- NOTE | 2018-12-09 08:45 | NUR ---
Behavior Intervention Response and Plan: BIRP Note: Behavior: Assumed Care of patient, patient located in Day Room at shift change. Patient exhibited the following behavior Interactive, Compulsive, Attention Seeking. Brief assessment on rounds of vital signs, medication needs, lab studies, and pain. Treatment plan problems 1 & 2. Intervention: Patient assessed and the following interventions initiated safety checks 15 Minute Checks Cognitive Assessment , Head to toe Assessment , Medications. Response: After interactions and interventions patient responded in the following manner, Disorganized , Attention Seeking ,Compliant. Continue to assess behaviors and condition will continue to monitor throughout the shift as needed. Patient educated on ADL's, and hand hygiene. Plan: Continue to monitor Master Treatment Plan for patient's progress toward short term goals of Medication Compliance, No harm To self/ others, buttermaker continuous churn goals to return to previous living setting vs placement. Continue to assess patient for changes in above assessment. Monitor for medication needs, pain, and safety concerns. Hourly rounding performed to ensure safe environment.
--- NOTE | 2018-12-09 09:21 | PDOC ---
Exam Note: [place] Note: Late entry for DOS 12/08/2018. Please also refer to the separate dictated note~ for this date of service dictated separately.~Patient seen individually. Discussed the patient with Nursing staff reviewed the chart.~Reviewed interim history and current functioning. Reviewed vital signs,~Labs/ Radiology~and current medications noted below. Continue current treatment with the changes noted in the dictated addendum note Assessment: Vital Signs: VS - Last 72 Hours, by Label Date Time Temp Pulse Resp B/P (MAP) Pulse Ox O2 Delivery O2 Flow Rate FiO2 12/09/18 08:26 65 123/62 12/09/18 08:26 65 123/62 12/09/18 06:00 97.9 65 14 123/62 (82) 96 12/08/18 16:46 97.8 83 16 156/73 (100) 90 12/08/18 16:45 97.8 79 18 156/73 (100) 100 12/08/18 09:08 65 134/73 12/08/18 09:08 65 134/73 12/08/18 06:07 98.9 65 20 134/73 (93) 99 12/07/18 16:04 98.2 62 18 136/65 (88) 98 12/07/18 07:51 66 175/63 12/07/18 07:50 66 175/63 12/07/18 07:48 66 175/63 (100) 12/07/18 06:21 97.5 61 16 138/54 (82) 99 12/06/18 16:03 97.4 66 20 163/79 (107) 100 Room Air Vital Signs Date Time Temp Pulse Resp B/P (MAP) Pulse Ox O2 Delivery O2 Flow Rate FiO2 12/09/18 08:26 65 123/62 12/09/18 06:00 97.9 14 96 12/06/18 16:03 Room Air I&O Intake and Output 12/09/18 07:01 Intake Total 1920 ml Balance 1920 ml Intake Oral 1920 ml Current Medications: Meds: Current Medications Acetaminophen (Tylenol) 650 mg PRN Q6HRS PRN PO PAIN / TEMP; Start 11/29/18 at 12:15 Multi-Ingredient Ointment (Analgesic Crumpton) 1 alyce PRN QID PRN TP MUSCLE PAIN; Start 11/29/18 at 12:15 Al Hydroxide/Mg Hydroxide (Mylanta Plus Xs) 15 ml PRN AFTMEALHC PRN PO DYSPEPSIA; Start 11/29/18 at 12:15 Magnesium Hydroxide (Milk Of Magnesia) 2,400 mg PRN QHS PRN PO CONSTIPATION; Start 11/29/18 at 12:15 Acetaminophen (Tylenol) 650 mg PRN Q6HRS PRN PO PAIN / TEMP; Start 11/29/18 at 12:15; Stop 11/29/18 at 12:15; Status DC Carbidopa/Levodopa (Sinemet 25/100) 1 tab TID PO Last administered on at 08:25; Start 11/29/18 at 14:00 Gabapentin (Neurontin) 200 mg TID PO Last administered on 12/09/18at 08:26; Start 11/29/18 at 14:00 Lisinopril (Prinivil) 40 mg DAILY PO ; Start 11/30/18 at 09:00; Stop 11/30/18 at 13:32; Status DC Tramadol HCl (Ultram) 50 mg PRN Q6HRS PRN PO PAIN; Start 11/29/18 at 12:15 Alprazolam (Xanax) 0.5 mg PRN Q8HRS PRN PO ANXIETY / AGITATION; Start 11/29/18 at 12:15; Stop 11/29/18 at 22:21; Status DC Aspirin (Children'S Aspirin) 81 mg DAILYWBKFT PO Last administered on at 08:26; Start 11/30/18 at 08:00 Cetirizine HCl (ZyrTEC) 10 mg DAILY PO Last administered on 12/09/18at 08:26; Start 11/30/18 at 09:00 Divalproex Sodium (Depakote Sprinkles) 250 mg DAILY PO ; Start 11/30/18 at 09:00 ; Stop 11/30/18 at 09:00; Status DC Divalproex Sodium (Depakote Sprinkles) 500 mg BID@1200,2100 PO Last administered on 11/29/18at 14:33; Start 11/29/18 at 12:00; Stop 11/29/18 at 22:21; Status DC EZETIMIBE (Zetia) 10 mg DAILY PO Last administered on 1/15/19at 08:25; Start at 09:00 Fluvoxamine Maleate (Luvox) 75 mg QHS PO Last administered on 11/29/18 21:03; Start 11/29/18 at 21:00; Stop 11/30/18 at 19:53; Status DC Lorazepam (Ativan) 0.5 mg PRN Q4HRS PRN PO ANXIETY / AGITATION Last administered on 11/29/18 14:33; Start 11/29/18 at 12:45 Metformin HCl (Glucophage) 500 mg BIDWMEALS PO Last administered on 12/09/18 08:26; Start 11/29/18 at 17:00 Metoprolol Succinate (Toprol Xl) 100 mg DAILY PO ; Start 11/30/18 at 09:00; Stop 11/30/18 at 13:32; Status DC Mirtazapine (Remeron) 30 mg QHS PO Last administered on 11/29/18 21:03; Start 11/29/18 at 21:00; Stop 11/29/18 at 22:21; Status DC Ondansetron HCl (Zofran Odt) 4 mg PRN Q8HRS PRN PO NAUSEA/VOMITING Last administered on 12/03/18 20:11; Start 11/29/18 at 12:30 Pantoprazole Sodium (Protonix) 40 mg DAILYAC PO Last administered on 12/09/18 08:25; Start 11/30/18 at 07:30 Polyethylene Glycol (miraLAX) 17 gm PRN DAILY PRN PO CONSTIPATION; Start at 09:00 Primidone (Mysoline) 50 mg QHS PO Last administered on 12/08/18at 20:01; Start 11/29/18 at 21:00 Quetiapine Fumarate (SEROquel) 12.5 mg DAILY@0900,1200,1600 PO Last administered on 11/30/18at 16:44; Start 11/29/18 at 16:00; Stop 11/30/18 at 19:53; Status DC Quetiapine Fumarate (SEROquel) 100 mg QHS PO Last administered on 11/29/18 21: 03; Start 11/29/18 at 21:00; Stop 11/30/18 at 19:53; Status DC Ropinirole HCl (Requip) 1 mg TID PO Last administered on 12/09/18 08:25; Start 11/29/18 at 14:00 Trazodone HCl (Desyrel) 100 mg HS PO Last administered on 11/29/18at 21:03; Start 11/29/18 at 21:00; Stop 11/30/18 at 19:53; Status DC Divalproex Sodium (Depakote Sprinkles) 500 mg DAILYWLUN PO Last administered on 11/30/18at 11:54; Start 11/30/18 at 12:00; Stop 11/30/18 at 12:01; Status DC Mirtazapine (Remeron) 15 mg QHS PO ; Start 11/30/18 at 21:00; Stop 11/30/18 at 21: 00; Status DC Divalproex Sodium (Depakote Sprinkles) 500 mg BID PO Last administered on at 08:25; Start 12/01/18 at 09:00 Ondansetron HCl (Zofran Odt) 4 mg PRN Q8HRS PRN PO NAUSEA/VOMITING; Start at 22:30; Stop 11/29/18 at 22:30; Status DC Sodium Chloride 500 ml @ 0 mls/hr 1X ONCE IV Last administered on 11/29/18at 23: 00; Start 11/29/18 at 23:00; Stop 11/29/18 at 23:02; Status DC Sodium Chloride 1,000 ml @ 75 mls/hr [id number] IV Last administered on 11/30/18at 02:57; Start 11/30/18 at 03:00; Stop 11/30/18 at 16:15; Status DC Lisinopril (Prinivil) 10 mg DAILY PO Last administered on 12/09/18at 08:26; Start 12/01/18 at 09:00 Metoprolol Succinate (Toprol Xl) 50 mg DAILY PO Last administered on 12/09/18at 08:26; Start 12/01/18 at 09:00 Fluvoxamine Maleate (Luvox) 25 mg QHS PO Last administered on 12/07/18at 20:52; Start 11/30/18 at 21:00; Stop 12/08/18 at 17:39; Status DC Trazodone HCl (Desyrel) 50 mg PRN QHS PRN PO INSOMNIA; Start 11/30/18 at 20:00 Active Scripts Active Tramadol Hcl (Tramadol HCl) 50 Mg Tablet 50 Mg PO PRN Q6HRS PRN Reported Depakote Sprinkle (Divalproex Sodium) 125 Mg Cap.sprink 500 Mg PO BID Pantoprazole Sodium 40 Mg Tablet.dr 40 Mg PO DAILYAC LAST DOSE GIVEN: DATE: TIME: NEXT DOSE DUE: DATE: 10/03/18 TIME: 8am Miralax (Polyethylene Glycol 3350) 17 Gm Powd.pack 17 Gm PO PRN DAILY PRN Milk Of Magnesia (Magnesium Hydroxide) 400 Mg/5 Ml Oral.susp 2,400 Mg PO PRN QHS PRN Mag-Al Plus Xs Suspension (Mag Hydrox/Al Hydrox/Simeth) 30 Ml Oral.susp 15 Ml PO PRN AFTMEALHC PRN Alprazolam 0.5 Mg Tablet 0.5 Mg PO PRN Q8HRS PRN LAST DOSE GIVEN: DATE: TIME: NEXT DOSE DUE: Take as needed DATE: TIME: Seroquel (Quetiapine Fumarate) 100 Mg Tablet 100 Mg PO HS LAST DOSE GIVEN: DATE: TIME: NEXT DOSE DUE: DATE: 10/02/18 TIME: Bedtime Trazodone Hcl 100 Mg Tablet 100 Mg PO HS LAST DOSE GIVEN: DATE: TIME: NEXT DOSE DUE: DATE: 10/02/18 TIME: Bedtime Fluvoxamine Maleate 50 Mg Tablet 75 Mg PO HS LAST DOSE GIVEN: DATE: TIME: NEXT DOSE DUE: DATE: 10/02/18 TIME: Bedtime Tylenol (Acetaminophen) 325 Mg Tablet 650 Mg PO PRN Q6HRS PRN Tramadol Hcl (Tramadol HCl) 50 Mg Tablet 50 Mg PO PRN Q6HRS PRN LAST DOSE GIVEN: DATE: TIME: NEXT DOSE DUE: Take as needed DATE: TIME: Analgesic Crumpton (Methyl Salicylate/Menthol) 28 Gm Oint...g. 1 Alyce TP PRN QID PRN Seroquel (Quetiapine Fumarate) 25 Mg Tablet 0.5 Tab PO 9AM,1200,4PM LAST DOSE GIVEN: DATE: TIME: NEXT DOSE DUE: DATE: 10/02/18 TIME: 4pm Ativan (Lorazepam) 0.5 Mg Tablet 0.5 Mg PO PRN Q4HRS PRN LAST DOSE GIVEN: DATE: TIME: NEXT DOSE DUE: Take as needed DATE: TIME: Depakote Sprinkle (Divalproex Sodium) 125 Mg Cap.sprink 250 Mg PO DAILY LAST DOSE GIVEN: DATE: TIME: NEXT DOSE DUE: DATE:10/03/18 TIME: 8am Depakote Sprinkle (Divalproex Sodium) 125 Mg Cap.sprink 500 Mg PO 1200,9PM LAST DOSE GIVEN: DATE: TIME: NEXT DOSE DUE: DATE:10/02/18 TIME: Bedtime Metformin Hcl 500 Mg Tablet 500 Mg PO BIDWMEALS LAST DOSE GIVEN: DATE: TIME: NEXT DOSE DUE: DATE: 10/02/18 TIME: Dinner Gabapentin (Gabapentin) 100 Mg Capsule 200 Mg PO TID LAST DOSE GIVEN: DATE: TIME: NEXT DOSE DUE: DATE: 10/02/18 TIME:2pm then again at bedtime. Metoprolol Succinate ( Xl ) (Metoprolol Succinate) 50 Mg Tab.er.24h 100 Mg PO DAILY LAST DOSE GIVEN: DATE: TIME: NEXT DOSE DUE: DATE: 10/03/18 TIME: 8am Requip (Ropinirole Hcl) 1 Mg Tablet 1 Mg PO TID LAST DOSE GIVEN: DATE: TIME: NEXT DOSE DUE: DATE: 10/02/18 TIME: 2pm Sinemet 25-100 Mg Tablet (Carbidopa/Levodopa) 1 Each Tablet 1 Each PO TID LAST DOSE GIVEN: DATE: TIME: NEXT DOSE DUE: DATE: 10/02/18 TIME: 2pm Primidone 50 Mg Tablet 50 Mg PO HS LAST DOSE GIVEN: DATE: TIME: NEXT DOSE DUE: DATE: 10/02/18 TIME: Bedtime Zofran (Ondansetron Hcl) 4 Mg Tablet 4 Mg PO PRN Q8HRS PRN LAST DOSE GIVEN: DATE: TIME: NEXT DOSE DUE: Take as needed DATE: TIME: Lisinopril 20 Mg Tablet 40 Mg PO DAILY hold for a systolic BP less than 100. After a held dose, reassess in 2 ours. IF SBP is above threshold, administer dose as ordered. IF SBP is below threshold, contact provider for additional instructions. LAST DOSE GIVEN: DATE: TIME: NEXT DOSE DUE: DATE: 10/03/18 TIME: 8am Remeron (Mirtazapine) 15 Mg Tablet 30 Mg PO QHS LAST DOSE GIVEN: DATE: TIME: NEXT DOSE DUE: DATE: 10/02/18 TIME: Bedtime Cetirizine Hcl 10 Mg Tablet 10 Mg PO DAILY LAST DOSE GIVEN: DATE: TIME: NEXT DOSE DUE: DATE: 10/03/18 TIME: 8am Aspirin 81 Mg Tab.chew 81 Mg PO DAILY LAST DOSE GIVEN: DATE: TIME: NEXT DOSE DUE: DATE: 10/03/18 TIME: 8am Zetia (Ezetimibe) 10 Mg Tablet 10 Mg PO DAILY LAST DOSE GIVEN: DATE: TIME: NEXT DOSE DUE: DATE: 10/03/18 TIME: 8am I have reviewed the current psychotropics carefully including drug interactions. Risk benefit ratio favors no change other than as noted in my dictated progress note. Diagnosis: Problems: (1) Bipolar I disorder with jose (2) Hypertension (3) Leg swelling (4) Accelerated hypertension (5) Hip pain, right (6) Cellulitis of right lower limb (7) Accelerated essential hypertension (8) Behavior problem (9) Chronic diastolic (congestive) heart failure (10) Medical clearance for psychiatric admission (11) Bipolar I disorder with anxious distress (12) Bipolar I disorder with mixed features (13) Anxiety disorder (14) Impulse control disorder (15) UTI (urinary tract infection) (16) Severe anxiety KANWAL KNIGHT MD Dec 09, 2018 09:21
--- NOTE | 2018-12-09 10:14 | NUR ---
Call placed to PAT Jones, at [facility]. Transport has been arranged for 11am supervisor carpenters on 12/10/18. Reviewed with Tracy.
[2018-12-09 17:21] VITALS: BP 169/77
[2018-12-09] MEDS: LORazepam 0.5 MG TABLET PO PRN (17:47)
[2018-12-09] MEDS: PRIMIDONE 50 MG TABLET PO SCH (20:26)
--- NOTE | 2018-12-09 21:42 | PN ---
DATE: 12/08/2018 PSYCHIATRIC PROGRESS NOTE This late entry 12/08/2018 covers elements not covered in my initial note. SUBJECTIVE: I met with the patient in the evening. The patient slept 5-1/2 hours previous night. Sodium 133 and questionably Luvox could be impacting this per Dr. Apodaca. We will monitor this. REVIEW OF SYSTEMS: No CV, , pulmonary, eye system symptoms on review. MENTAL STATUS EXAM: Reasonably oriented. Speech has some latency, coherent. Abstraction fair, computation impaired, language function intact, attention span short. Mood and affect somewhat withdrawn, still anxious, somewhat obsessive, less so than before. LABORATORY DATA: Reviewed. IMPRESSION: Bipolar 1 disorder, mixed, obsessive compulsive disorder, anxiety disorder, unspecified. PLAN: Continue psychotropics from initial note. She is currently on Depakote, trazodone, Luvox 25 mg at bedtime. Transition to residential on 12/10/2018. KANWAL KNIGHT MD DR: VINOD/portia JOB#: [id number] / [id number]
--- NOTE | 2018-12-09 22:46 | PDOC ---
Exam Note: [place] Note: Please also refer to the separate dictated note~for this date of service dictated separately.~Patient seen individually. Discussed the patient with Nursing staff reviewed the chart.~Reviewed interim history and current functioning. Reviewed vital signs,~Labs/ Radiology~and current medications noted below. Continue current treatment with the changes noted in the dictated addendum note Assessment: Vital Signs: Vital Signs Date Time Temp Pulse Resp B/P (MAP) Pulse Ox O2 Delivery O2 Flow Rate FiO2 12/09/18 17:21 98.3 71 20 169/77 (107) 92 12/06/18 16:03 Room Air I&O Intake and Output 12/09/18 07:01 Intake Total 1920 ml Balance 1920 ml Intake Oral 1920 ml Current Medications: Meds: Current Medications Acetaminophen (Tylenol) 650 mg PRN Q6HRS PRN PO PAIN / TEMP; Start 11/29/18 at 12:15 Multi-Ingredient Ointment (Analgesic [place]) 1 alyce PRN QID PRN TP MUSCLE PAIN; Start 11/29/18 at 12:15 Al Hydroxide/Mg Hydroxide (Mylanta Plus Xs) 15 ml PRN AFTMEALHC PRN PO DYSPEPSIA; Start 11/29/18 at 12:15 Magnesium Hydroxide (Milk Of Magnesia) 2,400 mg PRN QHS PRN PO CONSTIPATION; Start 11/29/18 at 12:15 Acetaminophen (Tylenol) 650 mg PRN Q6HRS PRN PO PAIN / TEMP; Start 11/29/18 at 12:15; Stop 11/29/18 at 12:15; Status DC Carbidopa/Levodopa (Sinemet 25/100) 1 tab TID PO Last administered on at 20:27; Start 11/29/18 at 14:00 Gabapentin (Neurontin) 200 mg TID PO Last administered on 12/09/18at 20:27; Start 11/29/18 at 14:00 Lisinopril (Prinivil) 40 mg DAILY PO ; Start 11/30/18 at 09:00; Stop 11/30/18 at 13:32; Status DC Tramadol HCl (Ultram) 50 mg PRN Q6HRS PRN PO PAIN; Start 11/29/18 at 12:15 Alprazolam (Xanax) 0.5 mg PRN Q8HRS PRN PO ANXIETY / AGITATION; Start 11/29/18 at 12:15; Stop 11/29/18 at 22:21; Status DC Aspirin (Children'S Aspirin) 81 mg DAILYWBKFT PO Last administered on at 08:26; Start 11/30/18 at 08:00 Cetirizine HCl (ZyrTEC) 10 mg DAILY PO Last administered on 12/09/18at 08:26; Start 11/30/18 at 09:00 Divalproex Sodium (Depakote Sprinkles) 250 mg DAILY PO ; Start 11/30/18 at 09:00 ; Stop 11/30/18 at 09:00; Status DC Divalproex Sodium (Depakote Sprinkles) 500 mg BID@1200,2100 PO Last administered on 11/29/18at 14:33; Start 11/29/18 at 12:00; Stop 11/29/18 at 22:21; Status DC EZETIMIBE (Zetia) 10 mg DAILY PO Last administered on 12/09/18at 08:25; Start at 09:00 Fluvoxamine Maleate (Luvox) 75 mg QHS PO Last administered on 11/29/18 21:03; Start 11/29/18 at 21:00; Stop 11/30/18 at 19:53; Status DC Lorazepam (Ativan) 0.5 mg PRN Q4HRS PRN PO ANXIETY / AGITATION Last administered on 12/09/18at 17:47; Start 11/29/18 at 12:45 Metformin HCl (Glucophage) 500 mg BIDWMEALS PO Last administered on 12/09/18at 17:47; Start 11/29/18 at 17:00 Metoprolol Succinate (Toprol Xl) 100 mg DAILY PO ; Start 11/30/18 at 09:00; Stop 11/30/18 at 13:32; Status DC Mirtazapine (Remeron) 30 mg QHS PO Last administered on 11/29/18at 21:03; Start 11/29/18 at 21:00; Stop 11/29/18 at 22:21; Status DC Ondansetron HCl (Zofran Odt) 4 mg PRN Q8HRS PRN PO NAUSEA/VOMITING Last administered on 12/03/18at 20:11; Start 11/29/18 at 12:30 Pantoprazole Sodium (Protonix) 40 mg DAILYAC PO Last administered on 12/09/18at 08:25; Start 11/30/18 at 07:30 Polyethylene Glycol (miraLAX) 17 gm PRN DAILY PRN PO CONSTIPATION; Start at 09:00 Primidone (Mysoline) 50 mg QHS PO Last administered on 12/09/18 20:26; Start 11/29/18 at 21:00 Quetiapine Fumarate (SEROquel) 12.5 mg DAILY@0900,1200,1600 PO Last administered on 11/30/18 16:44; Start 11/29/18 at 16:00; Stop 11/30/18 at 19:53; Status DC Quetiapine Fumarate (SEROquel) 100 mg QHS PO Last administered on 11/29/18 21: 03; Start 11/29/18 at 21:00; Stop 11/30/18 at 19:53; Status DC Ropinirole HCl (Requip) 1 mg TID PO Last administered on 12/09/18 20:26; Start 11/29/18 at 14:00 Trazodone HCl (Desyrel) 100 mg HS PO Last administered on 11/29/18 21:03; Start 11/29/18 at 21:00; Stop 11/30/18 at 19:53; Status DC Divalproex Sodium (Depakote Sprinkles) 500 mg DAILYWLUN PO Last administered on 11/30/18 11:54; Start 11/30/18 at 12:00; Stop 11/30/18 at 12:01; Status DC Mirtazapine (Remeron) 15 mg QHS PO ; Start 11/30/18 at 21:00; Stop 11/30/18 at 21: 00; Status DC Divalproex Sodium (Depakote Sprinkles) 500 mg BID PO Last administered on 20:27; Start 12/01/18 at 09:00 Ondansetron HCl (Zofran Odt) 4 mg PRN Q8HRS PRN PO NAUSEA/VOMITING; Start at 22:30; Stop 11/29/18 at 22:30; Status DC Sodium Chloride 500 ml @ 0 mls/hr 1X ONCE IV Last administered on 11/29/18at 23: 00; Start 11/29/18 at 23:00; Stop 11/29/18 at 23:02; Status DC Sodium Chloride 1,000 ml @ 75 mls/hr [id number] IV Last administered on 11/30/18at 02:57; Start 11/30/18 at 03:00; Stop 11/30/18 at 16:15; Status DC Lisinopril (Prinivil) 10 mg DAILY PO Last administered on 12/09/18at 08:26; Start 12/01/18 at 09:00 Metoprolol Succinate (Toprol Xl) 50 mg DAILY PO Last administered on 12/09/18at 08:26; Start 12/01/18 at 09:00 Fluvoxamine Maleate (Luvox) 25 mg QHS PO Last administered on 12/07/18at 20:52; Start 11/30/18 at 21:00; Stop 12/08/18 at 17:39; Status DC Trazodone HCl (Desyrel) 50 mg PRN QHS PRN PO INSOMNIA Last administered on 12/09at 20:27; Start 11/30/18 at 20:00 Active Scripts Active Tramadol Hcl (Tramadol HCl) 50 Mg Tablet 50 Mg PO PRN Q6HRS PRN Reported Depakote Sprinkle (Divalproex Sodium) 125 Mg Cap.sprink 500 Mg PO BID Pantoprazole Sodium 40 Mg Tablet.dr 40 Mg PO DAILYAC LAST DOSE GIVEN: DATE: TIME: NEXT DOSE DUE: DATE: 10/03/18 TIME: 8am Miralax (Polyethylene Glycol 3350) 17 Gm Powd.pack 17 Gm PO PRN DAILY PRN Milk Of Magnesia (Magnesium Hydroxide) 400 Mg/5 Ml Oral.susp 2,400 Mg PO PRN QHS PRN Mag-Al Plus Xs Suspension (Mag Hydrox/Al Hydrox/Simeth) 30 Ml Oral.susp 15 Ml PO PRN AFTMEALHC PRN Alprazolam 0.5 Mg Tablet 0.5 Mg PO PRN Q8HRS PRN LAST DOSE GIVEN: DATE: TIME: NEXT DOSE DUE: Take as needed DATE: TIME: Seroquel (Quetiapine Fumarate) 100 Mg Tablet 100 Mg PO HS LAST DOSE GIVEN: DATE: TIME: NEXT DOSE DUE: DATE: 10/02/18 TIME: Bedtime Trazodone Hcl 100 Mg Tablet 100 Mg PO HS LAST DOSE GIVEN: DATE: TIME: NEXT DOSE DUE: DATE: 10/02/18 TIME: Bedtime Fluvoxamine Maleate 50 Mg Tablet 75 Mg PO HS LAST DOSE GIVEN: DATE: TIME: NEXT DOSE DUE: DATE: 10/02/18 TIME: Bedtime Tylenol (Acetaminophen) 325 Mg Tablet 650 Mg PO PRN Q6HRS PRN Tramadol Hcl (Tramadol HCl) 50 Mg Tablet 50 Mg PO PRN Q6HRS PRN LAST DOSE GIVEN: DATE: TIME: NEXT DOSE DUE: Take as needed DATE: TIME: Analgesic [place] (Methyl Salicylate/Menthol) 28 Gm Oint...g. 1 Alyce TP PRN QID PRN Seroquel (Quetiapine Fumarate) 25 Mg Tablet 0.5 Tab PO 9AM,1200,4PM LAST DOSE GIVEN: DATE: TIME: NEXT DOSE DUE: DATE: 10/02/18 TIME: 4pm Ativan (Lorazepam) 0.5 Mg Tablet 0.5 Mg PO PRN Q4HRS PRN LAST DOSE GIVEN: DATE: TIME: NEXT DOSE DUE: Take as needed DATE: TIME: Depakote Sprinkle (Divalproex Sodium) 125 Mg Cap.sprink 250 Mg PO DAILY LAST DOSE GIVEN: DATE: TIME: NEXT DOSE DUE: DATE:10/03/18 TIME: 8am Depakote Sprinkle (Divalproex Sodium) 125 Mg Cap.sprink 500 Mg PO 1200,9PM LAST DOSE GIVEN: DATE: TIME: NEXT DOSE DUE: DATE:10/02/18 TIME: Bedtime Metformin Hcl 500 Mg Tablet 500 Mg PO BIDWMEALS LAST DOSE GIVEN: DATE: TIME: NEXT DOSE DUE: DATE: 10/02/18 TIME: Dinner Gabapentin (Gabapentin) 100 Mg Capsule 200 Mg PO TID LAST DOSE GIVEN: DATE: TIME: NEXT DOSE DUE: DATE: 10/02/18 TIME:2pm then again at bedtime. Metoprolol Succinate ( Xl ) (Metoprolol Succinate) 50 Mg Tab.er.24h 100 Mg PO DAILY LAST DOSE GIVEN: DATE: TIME: NEXT DOSE DUE: DATE: 10/03/18 TIME: 8am Requip (Ropinirole Hcl) 1 Mg Tablet 1 Mg PO TID LAST DOSE GIVEN: DATE: TIME: NEXT DOSE DUE: DATE: 10/02/18 TIME: 2pm Sinemet 25-100 Mg Tablet (Carbidopa/Levodopa) 1 Each Tablet 1 Each PO TID LAST DOSE GIVEN: DATE: TIME: NEXT DOSE DUE: DATE: 10/02/18 TIME: 2pm Primidone 50 Mg Tablet 50 Mg PO HS LAST DOSE GIVEN: DATE: TIME: NEXT DOSE DUE: DATE: 10/02/18 TIME: Bedtime Zofran (Ondansetron Hcl) 4 Mg Tablet 4 Mg PO PRN Q8HRS PRN LAST DOSE GIVEN: DATE: TIME: NEXT DOSE DUE: Take as needed DATE: TIME: Lisinopril 20 Mg Tablet 40 Mg PO DAILY hold for a systolic BP less than 100. After a held dose, reassess in 2 ours. IF SBP is above threshold, administer dose as ordered. IF SBP is below threshold, contact provider for additional instructions. LAST DOSE GIVEN: DATE: TIME: NEXT DOSE DUE: DATE: 10/03/18 TIME: 8am Remeron (Mirtazapine) 15 Mg Tablet 30 Mg PO QHS LAST DOSE GIVEN: DATE: TIME: NEXT DOSE DUE: DATE: 10/02/18 TIME: Bedtime Cetirizine Hcl 10 Mg Tablet 10 Mg PO DAILY LAST DOSE GIVEN: DATE: TIME: NEXT DOSE DUE: DATE: 10/03/18 TIME: 8am Aspirin 81 Mg Tab.chew 81 Mg PO DAILY LAST DOSE GIVEN: DATE: TIME: NEXT DOSE DUE: DATE: 10/03/18 TIME: 8am Zetia (Ezetimibe) 10 Mg Tablet 10 Mg PO DAILY LAST DOSE GIVEN: DATE: TIME: NEXT DOSE DUE: DATE: 10/03/18 TIME: 8am I have reviewed the current psychotropics carefully including drug interactions. Risk benefit ratio favors no change other than as noted in my dictated progress note. Diagnosis: Problems: (1) Bipolar I disorder with jose (2) Hypertension (3) Leg swelling (4) Accelerated hypertension (5) Hip pain, right (6) Cellulitis of right lower limb (7) Accelerated essential hypertension (8) Behavior problem (9) Chronic diastolic (congestive) heart failure (10) Medical clearance for psychiatric admission (11) Bipolar I disorder with anxious distress (12) Bipolar I disorder with mixed features (13) Anxiety disorder (14) Impulse control disorder (15) UTI (urinary tract infection) (16) Severe anxiety KANWAL KNIGHT MD Dec 09, 2018 22:46
[2018-12-10 05:49] VITALS: BP 134/74
[2018-12-10 07:21] LABS: CALCIUM 8.2 mg/dL (8.5-10.1); CREATININE 1.2 mg/dL (0.6-1.0); GFR 43.6; POTASSIUM 3.9 mmol/L (3.5-5.1)
[2018-12-10] MEDS: EZETIMIBE 10 MG TABLET PO SCH (08:09)
[2018-12-10] MEDS: CETIRIZINE HCL 10 MG TABLET PO SCH (08:09)
[2018-12-10] MEDS: GABAPENTIN 100 MG CAPSULE. PO SCH (08:10)
[2018-12-10] MEDS: ASPIRIN 81 MG TAB.CHEW PO SCH (08:10)
[2018-12-10] MEDS: LISINOPRIL 10 MG TABLET PO SCH (08:10)
[2018-12-10] MEDS: PANTOPRAZOLE 40 MG TABLET. PO SCH (08:10)
[2018-12-10] MEDS: DIVALPROEX 125 MG CAP.SPRINK PO SCH (08:10)
[2018-12-10] MEDS: rOPINIRole 1 MG TABLET. PO SCH (08:10)
[2018-12-10] MEDS: CARBIDOPA/LEVODOPA 25/100MG TABLET PO SCH (08:10)
[2018-12-10] MEDS: metFORMIN 500 MG TABLET PO SCH (08:10)
[2018-12-10 08:11] VITALS: BP 134/74
[2018-12-10] MEDS: METOPROLOL SUCC 24HR ER 50 MG TAB.ER.24H. PO SCH (08:11)
--- NOTE | 2018-12-10 08:20 | NUR ---
Behavior Intervention Response and Plan: BIRP Note: Behavior: Assumed Care of patient, patient located in Day Room at shift change. Patient exhibited the following behavior Interactive, Compulsive, Attention Seeking. Brief assessment on rounds of vital signs, medication needs, lab studies, and pain. Treatment plan problems 1 & 2. Intervention: Patient assessed and the following interventions initiated safety checks 15 Minute Checks Cognitive Assessment , Head to toe Assessment , Medications. Response: After interactions and interventions patient responded in the following manner, Disorganized , Attention Seeking ,Compliant. Continue to assess behaviors and condition will continue to monitor throughout the shift as needed. Patient educated on ADL's, and hand hygiene. 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 Continue to assess patient for changes in above assessment. Monitor for medication needs, pain, and safety concerns. Hourly rounding performed to ensure safe environment.
--- NOTE | 2018-12-10 12:20 | NUR ---
Transition Record was faxed to follow-up provider with the following elements: Reason for admission, procedures, tests, principal diagnosis, pending studies, patient instructions, 17/06 contact information for unit, phone number to obtain pending test results, plan for follow-up care, physician follow-up, advanced directive information, and medication list with dose, duration and instructions. This information was included in the following documents: History and physical, lab results, study results, progress notes, social work planning form, DC instruction form, patient visit summary, and medication reconciliation form. Date & time record faxed: 09:55 10 December 2018 Record faxed to: [facility]; Dr. Bauman; Dr. Voss Record discussed with/ report given to: TERA Coates at [facility]
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
--- NOTE | 2018-12-10 18:33 | PDOC ---
Exam Note: [place] Note: Please also refer to the separate dictated note~for this date of service dictated separately.~Patient seen individually. Discussed the patient with Nursing staff reviewed the chart.~Reviewed interim history and current functioning. Reviewed vital signs,~Labs/ Radiology~and current medications noted below. Continue current treatment with the changes noted in the dictated addendum note Assessment: Vital Signs: Vital Signs Date Time Temp Pulse Resp B/P (MAP) Pulse Ox O2 Delivery O2 Flow Rate FiO2 12/10/18 08:11 70 134/74 12/10/18 05:49 97.5 18 98 12/06/18 16:03 Room Air I&O Intake and Output 12/10/18 07:01 Intake Total 1200 ml Balance 1200 ml Intake Oral 1200 ml # Voids 1 Labs: Laboratory Tests Test 12/10/18 06:55 Sodium Level 134 mmol/L (136-145) L Potassium Level 3.9 mmol/L (3.5-5.1) Chloride Level 98 mmol/L (98-107) Carbon Dioxide Level 27 mmol/L (21-32) Anion Gap 9 (6-14) Blood Urea Nitrogen 27 mg/dL (7-20) H Creatinine 1.2 mg/dL (0.6-1.0) H Estimated GFR (Cockcroft-Gault) 43.6 Glucose Level 76 mg/dL (70-99) Calcium Level 8.2 mg/dL (8.5-10.1) L Current Medications: Meds: Current Medications Acetaminophen (Tylenol) 650 mg PRN Q6HRS PRN PO PAIN / TEMP; Start 11/29/18 at 12:15; Stop 12/10/18 at 14:01; Status DC Multi-Ingredient Ointment (Analgesic [place]) 1 alyce PRN QID PRN TP MUSCLE PAIN; Start 11/29/18 at 12:15; Stop 12/10/18 at 14:01; Status DC Al Hydroxide/Mg Hydroxide (Mylanta Plus Xs) 15 ml PRN AFTMEALHC PRN PO DYSPEPSIA; Start 11/29/18 at 12:15; Stop 12/10/18 at 14:01; Status DC Magnesium Hydroxide (Milk Of Magnesia) 2,400 mg PRN QHS PRN PO CONSTIPATION; Start 11/29/18 at 12:15; Stop 12/10/18 at 14:01; Status DC Acetaminophen (Tylenol) 650 mg PRN Q6HRS PRN PO PAIN / TEMP; Start 11/29/18 at 12:15; Stop 11/29/18 at 12:15; Status DC Carbidopa/Levodopa (Sinemet 25/100) 1 tab TID PO Last administered on at 08:10; Start 11/29/18 at 14:00; Stop 12/10/18 at 14:01; Status DC Gabapentin (Neurontin) 200 mg TID PO Last administered on 12/10/18at 08:10; Start 11/29/18 at 14:00; Stop 12/10/18 at 14:01; Status DC Lisinopril (Prinivil) 40 mg DAILY PO ; Start 11/30/18 at 09:00; Stop 11/30/18 at 13:32; Status DC Tramadol HCl (Ultram) 50 mg PRN Q6HRS PRN PO PAIN; Start 11/29/18 at 12:15; Stop 12/10/18 at 14:01; Status DC Alprazolam (Xanax) 0.5 mg PRN Q8HRS PRN PO ANXIETY / AGITATION; Start 11/29/18 at 12:15; Stop 11/29/18 at 22:21; Status DC Aspirin (Children'S Aspirin) 81 mg DAILYWBKFT PO Last administered on at 08:10; Start 11/30/18 at 08:00; Stop 12/10/18 at 14:01; Status DC Cetirizine HCl (ZyrTEC) 10 mg DAILY PO Last administered on 12/10/18at 08:09; Start 11/30/18 at 09:00; Stop 12/10/18 at 14:01; Status DC Divalproex Sodium (Depakote Sprinkles) 250 mg DAILY PO ; Start 11/30/18 at 09:00 ; Stop 11/30/18 at 09:00; Status DC Divalproex Sodium (Depakote Sprinkles) 500 mg BID@1200,2100 PO Last administered on 11/29/18at 14:33; Start 11/29/18 at 12:00; Stop 11/29/18 at 22:21; Status DC EZETIMIBE (Zetia) 10 mg DAILY PO Last administered on 12/10/18at 08:09; Start at 09:00; Stop 12/10/18 at 14:01; Status DC Fluvoxamine Maleate (Luvox) 75 mg QHS PO Last administered on 11/29/18at 21:03; Start 11/29/18 at 21:00; Stop 11/30/18 at 19:53; Status DC Lorazepam (Ativan) 0.5 mg PRN Q4HRS PRN PO ANXIETY / AGITATION Last administered on 12/09/18at 17:47; Start 11/29/18 at 12:45; Stop 12/10/18 at 14:01 ; Status DC Metformin HCl (Glucophage) 500 mg BIDWMEALS PO Last administered on 12/10/18at 08:10; Start 11/29/18 at 17:00; Stop 12/10/18 at 14:01; Status DC Metoprolol Succinate (Toprol Xl) 100 mg DAILY PO ; Start 11/30/18 at 09:00; Stop 11/30/18 at 13:32; Status DC Mirtazapine (Remeron) 30 mg QHS PO Last administered on 11/29/18at 21:03; Start 11/29/18 at 21:00; Stop 11/29/18 at 22:21; Status DC Ondansetron HCl (Zofran Odt) 4 mg PRN Q8HRS PRN PO NAUSEA/VOMITING Last administered on 12/03/18at 20:11; Start 11/29/18 at 12:30; Stop 12/10/18 at 14:01; Status DC Pantoprazole Sodium (Protonix) 40 mg DAILYAC PO Last administered on 12/10/18at 08:10; Start 11/30/18 at 07:30; Stop 12/10/18 at 14:01; Status DC Polyethylene Glycol (miraLAX) 17 gm PRN DAILY PRN PO CONSTIPATION; Start at 09:00; Stop 12/10/18 at 14:01; Status DC Primidone (Mysoline) 50 mg QHS PO Last administered on 12/09/18at 20:26; Start 11/29/18 at 21:00; Stop 12/10/18 at 14:01; Status DC Quetiapine Fumarate (SEROquel) 12.5 mg DAILY@0900,1200,1600 PO Last administered on 11/30/18at 16:44; Start 11/29/18 at 16:00; Stop 11/30/18 at 19:53; Status DC Quetiapine Fumarate (SEROquel) 100 mg QHS PO Last administered on 11/29/18at 21: 03; Start 11/29/18 at 21:00; Stop 11/30/18 at 19:53; Status DC Ropinirole HCl (Requip) 1 mg TID PO Last administered on 12/10/18at 08:10; Start 11/29/18 at 14:00; Stop 12/10/18 at 14:01; Status DC Trazodone HCl (Desyrel) 100 mg HS PO Last administered on 11/29/18at 21:03; Start 11/29/18 at 21:00; Stop 11/30/18 at 19:53; Status DC Divalproex Sodium (Depakote Sprinkles) 500 mg DAILYWLUN PO Last administered on 11/30/18at 11:54; Start 11/30/18 at 12:00; Stop 11/30/18 at 12:01; Status DC Mirtazapine (Remeron) 15 mg QHS PO ; Start 11/30/18 at 21:00; Stop 11/30/18 at 21: 00; Status DC Divalproex Sodium (Depakote Sprinkles) 500 mg BID PO Last administered on at 08:10; Start 12/01/18 at 09:00; Stop 12/10/18 at 14:01; Status DC Ondansetron HCl (Zofran Odt) 4 mg PRN Q8HRS PRN PO NAUSEA/VOMITING; Start at 22:30; Stop 11/29/18 at 22:30; Status DC Sodium Chloride 500 ml @ 0 mls/hr 1X ONCE IV Last administered on 11/29/18at 23: 00; Start 11/29/18 at 23:00; Stop 11/29/18 at 23:02; Status DC Sodium Chloride 1,000 ml @ 75 mls/hr [id number] IV Last administered on 11/30/18at 02:57; Start 11/30/18 at 03:00; Stop 11/30/18 at 16:15; Status DC Lisinopril (Prinivil) 10 mg DAILY PO Last administered on 12/10/18at 08:10; Start 12/01/18 at 09:00; Stop 12/10/18 at 14:01; Status DC Metoprolol Succinate (Toprol Xl) 50 mg DAILY PO Last administered on 12/10/18at 08:11; Start 12/01/18 at 09:00; Stop 12/10/18 at 14:01; Status DC Fluvoxamine Maleate (Luvox) 25 mg QHS PO Last administered on 12/07/18at 20:52; Start 11/30/18 at 21:00; Stop 12/08/18 at 17:39; Status DC Trazodone HCl (Desyrel) 50 mg PRN QHS PRN PO INSOMNIA Last administered on 12/09at 20:27; Start 11/30/18 at 20:00; Stop 12/10/18 at 14:01; Status DC Active Scripts Active Tramadol Hcl (Tramadol HCl) 50 Mg Tablet 50 Mg PO PRN Q6HRS PRN Reported Trazodone Hcl 50 Mg Tablet 50 Mg PO PRN QHS PRN Lisinopril 10 Mg Tablet 10 Mg PO DAILY Depakote Sprinkle (Divalproex Sodium) 125 Mg Cap.sprink 500 Mg PO BID Pantoprazole Sodium 40 Mg Tablet.dr 40 Mg PO DAILYAC LAST DOSE GIVEN: DATE: TIME: NEXT DOSE DUE: DATE: 10/03/18 TIME: 8am Miralax (Polyethylene Glycol 3350) 17 Gm Powd.pack 17 Gm PO PRN DAILY PRN Milk Of Magnesia (Magnesium Hydroxide) 400 Mg/5 Ml Oral.susp 2,400 Mg PO PRN QHS PRN Mag-Al Plus Xs Suspension (Mag Hydrox/Al Hydrox/Simeth) 30 Ml Oral.susp 15 Ml PO PRN AFTMEALHC PRN Tylenol (Acetaminophen) 325 Mg Tablet 650 Mg PO PRN Q6HRS PRN Tramadol Hcl (Tramadol HCl) 50 Mg Tablet 50 Mg PO PRN Q6HRS PRN LAST DOSE GIVEN: DATE: TIME: NEXT DOSE DUE: Take as needed DATE: TIME: Analgesic [place] (Methyl Salicylate/Menthol) 28 Gm Oint...g. 1 Alyce TP PRN QID PRN Ativan (Lorazepam) 0.5 Mg Tablet 0.5 Mg PO PRN Q4HRS PRN LAST DOSE GIVEN: DATE: TIME: NEXT DOSE DUE: Take as needed DATE: TIME: Metformin Hcl 500 Mg Tablet 500 Mg PO BIDWMEALS LAST DOSE GIVEN: DATE: TIME: NEXT DOSE DUE: DATE: 10/02/18 TIME: Dinner Gabapentin (Gabapentin) 100 Mg Capsule 200 Mg PO TID LAST DOSE GIVEN: DATE: TIME: NEXT DOSE DUE: DATE: 10/02/18 TIME:2pm then again at bedtime. Metoprolol Succinate ( Xl ) (Metoprolol Succinate) 50 Mg Tab.er.24h 50 Mg PO DAILY LAST DOSE GIVEN: DATE: TIME: NEXT DOSE DUE: DATE: 10/03/18 TIME: 8am Requip (Ropinirole Hcl) 1 Mg Tablet 1 Mg PO TID LAST DOSE GIVEN: DATE: TIME: NEXT DOSE DUE: DATE: 10/02/18 TIME: 2pm Sinemet 25-100 Mg Tablet (Carbidopa/Levodopa) 1 Each Tablet 1 Each PO TID LAST DOSE GIVEN: DATE: TIME: NEXT DOSE DUE: DATE: 10/02/18 TIME: 2pm Primidone 50 Mg Tablet 50 Mg PO HS LAST DOSE GIVEN: DATE: TIME: NEXT DOSE DUE: DATE: 10/02/18 TIME: Bedtime Zofran (Ondansetron Hcl) 4 Mg Tablet 4 Mg PO PRN Q8HRS PRN LAST DOSE GIVEN: DATE: TIME: NEXT DOSE DUE: Take as needed DATE: TIME: Cetirizine Hcl 10 Mg Tablet 10 Mg PO DAILY LAST DOSE GIVEN: DATE: TIME: NEXT DOSE DUE: DATE: 10/03/18 TIME: 8am Aspirin 81 Mg Tab.chew 81 Mg PO DAILY LAST DOSE GIVEN: DATE: TIME: NEXT DOSE DUE: DATE: 10/03/18 TIME: 8am Zetia (Ezetimibe) 10 Mg Tablet 10 Mg PO DAILY LAST DOSE GIVEN: DATE: TIME: NEXT DOSE DUE: DATE: 10/03/18 TIME: 8am I have reviewed the current psychotropics carefully including drug interactions. Risk benefit ratio favors no change other than as noted in my dictated progress note. Diagnosis: Problems: (1) Bipolar I disorder with mixed features (2) Impulse control disorder (3) Severe anxiety KANWAL KNIGHT MD Dec 10, 2018 18:33
--- NOTE | 2018-12-10 21:16 | PN ---
DATE: 12/09/2018 PSYCHIATRIC PROGRESS NOTE This late entry 12/09/2018, covers elements not covered in my initial note. SUBJECTIVE: I met with the patient in the evening. The patient slept 6-1/2 hours previous evening, somewhat irritable at times. She told staff member previous night that she felt a choking sensation in her throat. I will defer to Dr. Apodaca. I met with her in her room. She complains of some upper respiratory tract infection symptoms, but no CV, , GI, eye system symptoms on review. MENTAL STATUS EXAM: Oriented to herself and situation. Speech has some latency, coherent. Abstraction fair, computation impaired, language function intact. Attention span short. She is still somewhat anxious, obsessive, but improved. No suicidal ideation. LABORATORY DATA: Reviewed. IMPRESSION: Bipolar 1 disorder, mixed, in partial remission; anxiety disorder, unspecified; obsessive-compulsive disorder. PLAN: Continue psychotropics from initial note. She will be transferred to the [facility] on 12/10/2018. KANWAL KNIGHT MD DR: VINOD/portia JOB#: [id number] / [id number]
--- NOTE | 2018-12-10 22:16 | PDOC ---
Exam Note: [place] Note: Please also refer to the separate dictated note~for this date of service dictated separately.~Patient seen individually. Discussed the patient with Nursing staff reviewed the chart.~Reviewed interim history and current functioning. Reviewed vital signs,~Labs/ Radiology~and current medications noted below. Continue current treatment with the changes noted in the dictated addendum note Assessment: Vital Signs: Vital Signs Date Time Temp Pulse Resp B/P (MAP) Pulse Ox O2 Delivery O2 Flow Rate FiO2 12/10/18 08:11 70 134/74 12/10/18 05:49 97.5 18 98 12/06/18 16:03 Room Air I&O Intake and Output 12/10/18 07:01 Intake Total 1200 ml Balance 1200 ml Intake Oral 1200 ml # Voids 1 Labs: Laboratory Tests Test 12/10/18 06:55 Sodium Level 134 mmol/L (136-145) L Potassium Level 3.9 mmol/L (3.5-5.1) Chloride Level 98 mmol/L (98-107) Carbon Dioxide Level 27 mmol/L (21-32) Anion Gap 9 (6-14) Blood Urea Nitrogen 27 mg/dL (7-20) H Creatinine 1.2 mg/dL (0.6-1.0) H Estimated GFR (Cockcroft-Gault) 43.6 Glucose Level 76 mg/dL (70-99) Calcium Level 8.2 mg/dL (8.5-10.1) L Current Medications: Meds: Current Medications Acetaminophen (Tylenol) 650 mg PRN Q6HRS PRN PO PAIN / TEMP; Start 11/29/18 at 12:15; Stop 12/10/18 at 14:01; Status DC Multi-Ingredient Ointment (Analgesic Freedom) 1 alyce PRN QID PRN TP MUSCLE PAIN; Start 11/29/18 at 12:15; Stop 12/10/18 at 14:01; Status DC Al Hydroxide/Mg Hydroxide (Mylanta Plus Xs) 15 ml PRN AFTMEALHC PRN PO DYSPEPSIA; Start 11/29/18 at 12:15; Stop 12/10/18 at 14:01; Status DC Magnesium Hydroxide (Milk Of Magnesia) 2,400 mg PRN QHS PRN PO CONSTIPATION; Start 11/29/18 at 12:15; Stop 12/10/18 at 14:01; Status DC Acetaminophen (Tylenol) 650 mg PRN Q6HRS PRN PO PAIN / TEMP; Start 11/29/18 at 12:15; Stop 11/29/18 at 12:15; Status DC Carbidopa/Levodopa (Sinemet 25/100) 1 tab TID PO Last administered on at 08:10; Start 11/29/18 at 14:00; Stop 12/10/18 at 14:01; Status DC Gabapentin (Neurontin) 200 mg TID PO Last administered on 12/10/18at 08:10; Start 11/29/18 at 14:00; Stop 12/10/18 at 14:01; Status DC Lisinopril (Prinivil) 40 mg DAILY PO ; Start 11/30/18 at 09:00; Stop 11/30/18 at 13:32; Status DC Tramadol HCl (Ultram) 50 mg PRN Q6HRS PRN PO PAIN; Start 11/29/18 at 12:15; Stop 12/10/18 at 14:01; Status DC Alprazolam (Xanax) 0.5 mg PRN Q8HRS PRN PO ANXIETY / AGITATION; Start 11/29/18 at 12:15; Stop 11/29/18 at 22:21; Status DC Aspirin (Children'S Aspirin) 81 mg DAILYWBKFT PO Last administered on at 08:10; Start 11/30/18 at 08:00; Stop 12/10/18 at 14:01; Status DC Cetirizine HCl (ZyrTEC) 10 mg DAILY PO Last administered on 12/10/18at 08:09; Start 11/30/18 at 09:00; Stop 12/10/18 at 14:01; Status DC Divalproex Sodium (Depakote Sprinkles) 250 mg DAILY PO ; Start 11/30/18 at 09:00 ; Stop 11/30/18 at 09:00; Status DC Divalproex Sodium (Depakote Sprinkles) 500 mg BID@1200,2100 PO Last administered on 11/29/18at 14:33; Start 11/29/18 at 12:00; Stop 11/29/18 at 22:21; Status DC EZETIMIBE (Zetia) 10 mg DAILY PO Last administered on 12/10/18at 08:09; Start at 09:00; Stop 12/10/18 at 14:01; Status DC Fluvoxamine Maleate (Luvox) 75 mg QHS PO Last administered on 11/29/18at 21:03; Start 11/29/18 at 21:00; Stop 11/30/18 at 19:53; Status DC Lorazepam (Ativan) 0.5 mg PRN Q4HRS PRN PO ANXIETY / AGITATION Last administered on 12/09/18at 17:47; Start 11/29/18 at 12:45; Stop 12/10/18 at 14:01 ; Status DC Metformin HCl (Glucophage) 500 mg BIDWMEALS PO Last administered on 12/10/18at 08:10; Start 11/29/18 at 17:00; Stop 12/10/18 at 14:01; Status DC Metoprolol Succinate (Toprol Xl) 100 mg DAILY PO ; Start 11/30/18 at 09:00; Stop 11/30/18 at 13:32; Status DC Mirtazapine (Remeron) 30 mg QHS PO Last administered on 11/29/18at 21:03; Start 11/29/18 at 21:00; Stop 11/29/18 at 22:21; Status DC Ondansetron HCl (Zofran Odt) 4 mg PRN Q8HRS PRN PO NAUSEA/VOMITING Last administered on 12/03/18at 20:11; Start 11/29/18 at 12:30; Stop 12/10/18 at 14:01; Status DC Pantoprazole Sodium (Protonix) 40 mg DAILYAC PO Last administered on 12/10/18at 08:10; Start 11/30/18 at 07:30; Stop 12/10/18 at 14:01; Status DC Polyethylene Glycol (miraLAX) 17 gm PRN DAILY PRN PO CONSTIPATION; Start at 09:00; Stop 12/10/18 at 14:01; Status DC Primidone (Mysoline) 50 mg QHS PO Last administered on 12/09/18at 20:26; Start 11/29/18 at 21:00; Stop 12/10/18 at 14:01; Status DC Quetiapine Fumarate (SEROquel) 12.5 mg DAILY@0900,1200,1600 PO Last administered on 11/30/18at 16:44; Start 11/29/18 at 16:00; Stop 11/30/18 at 19:53; Status DC Quetiapine Fumarate (SEROquel) 100 mg QHS PO Last administered on 11/29/18at 21: 03; Start 11/29/18 at 21:00; Stop 11/30/18 at 19:53; Status DC Ropinirole HCl (Requip) 1 mg TID PO Last administered on 12/10/18at 08:10; Start 11/29/18 at 14:00; Stop 12/10/18 at 14:01; Status DC Trazodone HCl (Desyrel) 100 mg HS PO Last administered on 11/29/18at 21:03; Start 11/29/18 at 21:00; Stop 11/30/18 at 19:53; Status DC Divalproex Sodium (Depakote Sprinkles) 500 mg DAILYWLUN PO Last administered on 11/30/18at 11:54; Start 11/30/18 at 12:00; Stop 11/30/18 at 12:01; Status DC Mirtazapine (Remeron) 15 mg QHS PO ; Start 11/30/18 at 21:00; Stop 11/30/18 at 21: 00; Status DC Divalproex Sodium (Depakote Sprinkles) 500 mg BID PO Last administered on at 08:10; Start 12/01/18 at 09:00; Stop 12/10/18 at 14:01; Status DC Ondansetron HCl (Zofran Odt) 4 mg PRN Q8HRS PRN PO NAUSEA/VOMITING; Start at 22:30; Stop 11/29/18 at 22:30; Status DC Sodium Chloride 500 ml @ 0 mls/hr 1X ONCE IV Last administered on 11/29/18at 23: 00; Start 11/29/18 at 23:00; Stop 11/29/18 at 23:02; Status DC Sodium Chloride 1,000 ml @ 75 mls/hr [id number] IV Last administered on 11/30/18at 02:57; Start 11/30/18 at 03:00; Stop 11/30/18 at 16:15; Status DC Lisinopril (Prinivil) 10 mg DAILY PO Last administered on 12/10/18at 08:10; Start 12/01/18 at 09:00; Stop 12/10/18 at 14:01; Status DC Metoprolol Succinate (Toprol Xl) 50 mg DAILY PO Last administered on 12/10/18at 08:11; Start 12/01/18 at 09:00; Stop 12/10/18 at 14:01; Status DC Fluvoxamine Maleate (Luvox) 25 mg QHS PO Last administered on 12/07/18at 20:52; Start 11/30/18 at 21:00; Stop 12/08/18 at 17:39; Status DC Trazodone HCl (Desyrel) 50 mg PRN QHS PRN PO INSOMNIA Last administered on 12/09at 20:27; Start 11/30/18 at 20:00; Stop 12/10/18 at 14:01; Status DC Active Scripts Active Tramadol Hcl (Tramadol HCl) 50 Mg Tablet 50 Mg PO PRN Q6HRS PRN Reported Trazodone Hcl 50 Mg Tablet 50 Mg PO PRN QHS PRN Lisinopril 10 Mg Tablet 10 Mg PO DAILY Depakote Sprinkle (Divalproex Sodium) 125 Mg Cap.sprink 500 Mg PO BID Pantoprazole Sodium 40 Mg Tablet.dr 40 Mg PO DAILYAC LAST DOSE GIVEN: DATE: TIME: NEXT DOSE DUE: DATE: 10/03/18 TIME: 8am Miralax (Polyethylene Glycol 3350) 17 Gm Powd.pack 17 Gm PO PRN DAILY PRN Milk Of Magnesia (Magnesium Hydroxide) 400 Mg/5 Ml Oral.susp 2,400 Mg PO PRN QHS PRN Mag-Al Plus Xs Suspension (Mag Hydrox/Al Hydrox/Simeth) 30 Ml Oral.susp 15 Ml PO PRN AFTMEALHC PRN Tylenol (Acetaminophen) 325 Mg Tablet 650 Mg PO PRN Q6HRS PRN Tramadol Hcl (Tramadol HCl) 50 Mg Tablet 50 Mg PO PRN Q6HRS PRN LAST DOSE GIVEN: DATE: TIME: NEXT DOSE DUE: Take as needed DATE: TIME: Analgesic Freedom (Methyl Salicylate/Menthol) 28 Gm Oint...g. 1 Alyce TP PRN QID PRN Ativan (Lorazepam) 0.5 Mg Tablet 0.5 Mg PO PRN Q4HRS PRN LAST DOSE GIVEN: DATE: TIME: NEXT DOSE DUE: Take as needed DATE: TIME: Metformin Hcl 500 Mg Tablet 500 Mg PO BIDWMEALS LAST DOSE GIVEN: DATE: TIME: NEXT DOSE DUE: DATE: 10/02/18 TIME: Dinner Gabapentin (Gabapentin) 100 Mg Capsule 200 Mg PO TID LAST DOSE GIVEN: DATE: TIME: NEXT DOSE DUE: DATE: 10/02/18 TIME:2pm then again at bedtime. Metoprolol Succinate ( Xl ) (Metoprolol Succinate) 50 Mg Tab.er.24h 50 Mg PO DAILY LAST DOSE GIVEN: DATE: TIME: NEXT DOSE DUE: DATE: 10/03/18 TIME: 8am Requip (Ropinirole Hcl) 1 Mg Tablet 1 Mg PO TID LAST DOSE GIVEN: DATE: TIME: NEXT DOSE DUE: DATE: 10/02/18 TIME: 2pm Sinemet 25-100 Mg Tablet (Carbidopa/Levodopa) 1 Each Tablet 1 Each PO TID LAST DOSE GIVEN: DATE: TIME: NEXT DOSE DUE: DATE: 10/02/18 TIME: 2pm Primidone 50 Mg Tablet 50 Mg PO HS LAST DOSE GIVEN: DATE: TIME: NEXT DOSE DUE: DATE: 10/02/18 TIME: Bedtime Zofran (Ondansetron Hcl) 4 Mg Tablet 4 Mg PO PRN Q8HRS PRN LAST DOSE GIVEN: DATE: TIME: NEXT DOSE DUE: Take as needed DATE: TIME: Cetirizine Hcl 10 Mg Tablet 10 Mg PO DAILY LAST DOSE GIVEN: DATE: TIME: NEXT DOSE DUE: DATE: 10/03/18 TIME: 8am Aspirin 81 Mg Tab.chew 81 Mg PO DAILY LAST DOSE GIVEN: DATE: TIME: NEXT DOSE DUE: DATE: 10/03/18 TIME: 8am Zetia (Ezetimibe) 10 Mg Tablet 10 Mg PO DAILY LAST DOSE GIVEN: DATE: TIME: NEXT DOSE DUE: DATE: 10/03/18 TIME: 8am I have reviewed the current psychotropics carefully including drug interactions. Risk benefit ratio favors no change other than as noted in my dictated progress note. Diagnosis: Problems: (1) Bipolar I disorder with jose (2) Hypertension (3) Leg swelling (4) Accelerated hypertension (5) Hip pain, right (6) Cellulitis of right lower limb (7) Accelerated essential hypertension (8) Chronic diastolic (congestive) heart failure (9) Bipolar I disorder with anxious distress (10) Bipolar I disorder with mixed features (11) Anxiety disorder (12) Impulse control disorder (13) UTI (urinary tract infection) (14) Severe anxiety KANWAL KNIGHT MD Dec 10, 2018 22:16
== END 2018-12-10 12:30 | DRG 885 ==
LOC: ER 08:33 → GEROPSY 11:23
PROVIDERS: ADMIT Psychiatry & Neurology Psychiatry; ATTEND Psychiatry & Neurology Psychiatry
DX: F31.64 Bipolar disorder, current episode mixed, severe, with psychotic features (principal); E43 Unspecified severe protein-calorie malnutrition; I50.32 Chronic diastolic (congestive) heart failure; L03.115 Cellulitis of right lower limb; Z68.1 Body mass index [BMI] 19.9 or less, adult; E11.9 Type 2 diabetes mellitus without complications; E78.5 Hyperlipidemia, unspecified; E86.0 Dehydration; F03.90 Unspecified dementia, unspecified severity, without behavioral disturbance, psychotic disturbance, mood disturbance, and anxiety; F09 Unspecified mental disorder due to known physiological condition; F41.0 Panic disorder [episodic paroxysmal anxiety]; F42.9 Obsessive-compulsive disorder, unspecified; F63.9 Impulse disorder, unspecified; I11.0 Hypertensive heart disease with heart failure; G47.00 Insomnia, unspecified; I95.9 Hypotension, unspecified; K21.9 Gastro-esophageal reflux disease without esophagitis; Z87.440 Personal history of urinary (tract) infections; Z90.49 Acquired absence of other specified parts of digestive tract; Z90.710 Acquired absence of both cervix and uterus; Z91.19 Patient's noncompliance with other medical treatment and regimen; Z88.5 Allergy status to narcotic agent
CPT/HCPCS: 36415; 80048; 80053; 80061; 80164; 81001; 82306; 82607; 82947; 83036; 83540; 83550; 83605; 83735; 84436; 84439; 84443; 84480; 85007; 85025; 86592; 93005; J7040; P9612; Q0162; 99285-25; J7030

== ENCOUNTER 2018-12-23 16:45 | Emergency (ER) | payer MEDICARE, OTHER ==
[~2018-12-23] VITALS: Ht 162.6 cm; Wt 52.0 kg
[2018-12-23 16:45] VITALS: BP 0/0
[~2018-12-23 16:45] MED LIST changes: +LISI10TA2 PO
--- NOTE | 2018-12-23 16:53 | PHYS DOC ---
Past History Past Medical History: Anxiety, Bipolar, CHF, Dementia, Diabetes Additional Past Medical Histor: bipolar disorder Past Surgical History: Appendectomy, Cholecystectomy, Hysterectomy, Tonsillectomy Smoking: Non-smoker Alcohol Use: None Drug Use: None Adult General Chief Complaint Chief Complaint: CPR/FULL ARREST HPI HPI Patient is a 78 year old female resident of [facility] notes in by EMS because of cardiopulmonary arrest with CPR in progress. Patient had on weakness unresponsive condition and EMS reported she was on ventricular fibrillation and had 4 shocks and 7 dose of epinephrine and 450 mg of amiodarone without having a spontaneous pulse. Patient was intubated prior to arrival arrival to ER. Patient arrived to ER at 1642 with CPR in progress with fixed dilated pupils without spontaneous breathing or pulse. Review of Systems Review of Systems Unable to obtain, CPR in progress Allergies Allergies Allergies Coded Allergies Type Severity Reaction Last Updated Verified hydrocodone Allergy Intermediate takes ULTRAM at home 10/04/18 Yes Physical Exam Physical Exam Constitutional: Very thin an unresponsive patient HENT: Normocephalic, atraumatic Eyes: Fixed dilated pupils Neck: Atraumatic Cardiovascular: No spontaneous cardiac activity without CPR Lungs & Thorax: Intubated with manually assisted respiration Abdomen: Atraumatic Skin: Cold and pale Extremities: 2+ bilateral lower extremity edema, IO in left lower extremity Neurologic: Unresponsive EKG EKG [] Radiology/Procedures Radiology/Procedures [] Course & Med Decision Making Course & Med Decision Making Evaluation of patient in ER showed 78-year-old female patient brought in by EMS with CPR in progress for more than 35 minutes. Patient had fixed pupils without spontaneous cardiac and respiratory activity. CPR was stopped at 1647. Please see CODE BLUE sheet for details. 1702: Patient primary care physician Dr. Corinna Dominique Informed at 1700 and agreed to write certificate. Dragon Disclaimer Dragon Disclaimer This electronic medical record was generated, in whole or in part, using a voice recognition dictation system. Departure Departure: Impression: Primary Impression: Cardiopulmonary arrest Disposition: 20 (at 1647) Condition: Referrals: CORINNA DOMINIQUE (PCP) RASHEEDA GARCIA MD Dec 23, 2018 16:53
== END 2018-12-23 18:34 | disposition expired ==
LOC: ER 16:45
DX: I46.9 Cardiac arrest, cause unspecified (principal); F41.9 Anxiety disorder, unspecified; F31.9 Bipolar disorder, unspecified; I50.9 Heart failure, unspecified; E11.9 Type 2 diabetes mellitus without complications; F03.90 Unspecified dementia, unspecified severity, without behavioral disturbance, psychotic disturbance, mood disturbance, and anxiety; Z88.5 Allergy status to narcotic agent
CPT/HCPCS: 92950; 99285-25